=== PATIENT | male | born 1935 | race Caucasian/White ===

== ENCOUNTER 2019-05-31 11:55 | Inpatient (IN) | payer MEDICARE, SELFPAY ==
--- NOTE | ~2019-05-31 | XR_ITS ---
EXAMINATION: XR hip RT 2V w AP pelvis DATE: 05/31/2019 12:38 INDICATION: Right hip pain. Fall. TECHNIQUE: An anteroposterior view of the pelvis and 2 views of right hip were obtained. COMPARISON: Left hip radiographs 08/14/2015 FINDINGS: There is a subcapital fracture of right femoral neck. The distal fracture fragment demonstr ates impaction, 40 degrees varus angulation, and 8 mm anterior displacement. There is an old healed f racture of proximal left femur with internal fixation with antegrade intramedullary soledad, femoral head /neck screw, and distal interlocking screw. There is moderate osteoarthritis of the hips. Surgical cl ips overlie right pelvis. There is lumbar dextroscoliosis and severe spondylosis. IMPRESSION: 1. Subcapital fracture of right femoral neck. 2. Moderate osteoarthritis of the hips. Reviewed, dictated and finalized at location A.
--- NOTE | ~2019-05-31 | XR_ITS ---
XR hip RT min 2V DATE: 06/01/2019 12:38 INDICATION: Right subcapital femoral neck fracture TECHNIQUE: Portable postoperative AP and crosstable lateral views COMPARISON: 05/31/2019 right hip FINDINGS: There is resection of the right femoral head and neck and placement of a bipolar hip prosth esis in appropriate position. There is expected postoperative subcutaneous emphysema. Skin hailey ar e noted laterally. IMPRESSION: Right bipolar hip replacement Reviewed, dictated and finalized at location B.
--- NOTE | ~2019-05-31 | CT_ITS ---
EXAMINATION: CT chest w con EXAM DATE: 06/03/2019 10:25 INDICATION: Possible mass. Abnormal chest x-ray. TECHNIQUE: Spiral CT of the chest following intravenous injection of 75 mL Omnipaque 350. Axial, cor onal and sagittal images were reviewed. Coronal maximum intensity pixel images of chest reviewed. T kathe dose-length product (DLP) for this examination was 381.86 mGy-cm. The exposure was tailored accor ding to patient size (auto mA exposure control), and iterative reconstruction (ASIR) was used as rasheed tional dose reduction technique. There is no prior study for comparison. Correlation was made with c hest x-ray from yesterday. FINDINGS: The suprahilar opacities on x-ray are likely advanced osteoarthritis at the costochondral junction of the first ribs bilaterally, as there are no lung masses identified. There is linear bibas ilar atelectasis. There are no pleural or pericardial effusions. Tracheobronchial tree is patent. There is no mediastinal, hilar or axillary lymphadenopathy. There is no pneumothorax. Heart nor mal in size. There is mild coronary arterial calcification, arterial sclerosis. Upper abdomen is u nremarkable. There is mild thoracic spondylosis without osteoblastic or osteolytic lesions identifi ed. There is mild upper thoracic levoscoliosis, thoracolumbar dextroscoliosis. IMPRESSION: 1. Bibasilar subsegmental atelectasis. 2. No lung mass. Reviewed, dictated and finalized at location A.
--- NOTE | ~2019-05-31 | XR_ITS ---
EXAMINATION: XR hip RT 2V w AP pelvis EXAM DATE: 06/01/2019 18:08 INDICATION: Fall, had right hip surgery today. TECHNIQUE: Right hip frontal, crosstable lateral projections for interpretation. Frontal projection p reese. Comparison is made to prior examination from earlier same date. FINDINGS: There is a new right-sided hip replacement, hardware intact. There was a previous left hip gamma nail with healed fracture. No acute fracture line identified. Some hailey over the thigh. Prob able right inguinal hernia repair. IMPRESSION: Intact right hip arthroplasty. Reviewed, dictated and finalized at location A.
--- NOTE | ~2019-05-31 | XR_ITS ---
XR chest 1V portable DATE: 06/02/2019 14:44 INDICATION: Fever TECHNIQUE: Portable semiupright AP view on 06/02/2019 at 1442 hours COMPARISON: None FINDINGS: This is a limited kyphotic single portable AP view of the chest with some rotation. The lef t costophrenic angle and the lung bases are not completely included There is suggestion of an approximately 1.3 cm mass or infiltrate overlying the left suprahilar area. There is soft tissue prominence overlying the right suprahilar area as well. CT thorax with IV contr ast material is recommended. Otherwise no pulmonary infiltrate or consolidation, pleural effusion or pulmonary vascular congestion or pneumothorax is evident. Borderline heart size. Aortic calcification. Diffuse osteopenia. Thoracic scoliosis.. IMPRESSION: Limited examination Possible masses or infiltrates overlying both suprahilar areas; consider CT thorax with IV contrast m aterial Reviewed, dictated and finalized at location A. IMPRESSION: Limited examination Possible masses or infiltrates overlying both suprahilar areas; consider CT tho rax with IV contrast material
--- NOTE | ~2019-05-31 | CT_ITS ---
EXAMINATION: CT brain wo con, CT cervical spine wo con EXAM DATE: 06/01/2019 17:54 INDICATION: Fall, head injury. TECHNIQUE: Spiral CT of the head was performed without contrast. Axial, coronal and sagittal images were reviewed. Spiral CT of the cervical spine was performed without contrast. Axial images were rev iewed. Coronal and sagittal reformatted images were also reviewed. The dose-length product (DLP) fo r this examination was 681.00 (accession [id number]), 349.18 (accession [id number]) mGy-cm. The exposure was tailored according to patient size, and iterative reconstruction (ASIR) was used as additional dose reduction technique. There is no prior study for comparison. FINDINGS: HEAD CT: There is no acute intraparenchymal hemorrhage. No evidence of intraparenchymal brain mass l esion. No evidence of acute infarction. There is mild periventricular and subcortical hypodensity, n onspecific but probably related to small vessel ischemic disease. There is moderate prominence of t he sulci and ventricles related to cerebral atrophy. There is intracranial carotid arteriosclerosis . There is no mass effect or midline shift. There is no obstructive hydrocephalus suspected. There are no extra-axial collections. There are no acute calvarial fractures. Patient has had bilateral ocular lens surgery. Soft tissue is unremarkable. The visualized sinuses and mastoid air cells are well aerated. CERVICAL CT: Incomplete posterior fusion of C1, congenital finding. There is advanced cervical arthro eve. There is no evidence of acute cervical fracture. The odontoid process is intact. Pre-dens sp katherine is normal. Prevertebral soft tissue is normal. There are no soft tissue abnormalities identifie d. There is no disc space widening or traumatic vertebral body subluxation suspected. Moderate to s evere disc disease C3-4, 5-6 and 6-7. A detailed level by level evaluation of spondylosis can be add ed as addendum if requested. IMPRESSION: 1. No acute intracranial or cervical findings. 2. Age-related intracranial findings. 3. Cervical spondylosis. Reviewed, dictated and finalized at location A. IMPRESSION: 1. No acute intracranial or cervical findings. 2. Age-related intracranial findings. 3. Cervical spondylosis.
[2019-05-31 11:57] VITALS: BP 147/77; PULSE 72; RESP 18; TEMP 37.3; O2SAT 95
--- NOTE | 2019-05-31 12:05 | ED.LOWEXIN ---
HPI - Extremity Injury (Lower) General Chief Complaint: Extremity Injury, Lower Stated Complaint: GROUND LEVEL FALL Time Seen by Provider: 05/31/19 12:03 Source: patient Mode of arrival: EMS Limitations: no limitations History of Present Illness HPI Narrative: An 84 y/o male pt presents to the ED, via EMS from home, with c/o fall that occurred today. Pt states he normally walks with a cane d/t his RLE being weak/unsteady, but today he tried standing up without using his cane and his RLE gave out on him causing him to fall. Pt notes pain in his rt hip radiating to his rt knee and rt foot. He denies hitting his head or LOC. Pt's PCP is Dr. Perea and has a PMHx of HTN, depression, arthritis, DM, Hypercholesterolemia, and Allergic Rhinitis. complaint: fall Onset (ago): hour(s) Injury: Right: hip, knee and foot Place: home Context: fall (normally walks with a cane, stood up without cane) Other symptoms: other (pain to rt hip and RLE) Related Data Home Medications Medication Instructions Recorded Confirmed Claritin 05/31/19 Fish Oil Extra Strength 05/31/19 calcium citrate-vitamin D3 1 tablet PO DAILY 05/31/19 05/31/19 [Citracal + D Maximum] celecoxib [Celebrex] mg 05/31/19 finasteride mg 05/31/19 fluticasone propionate [Flonase INTRANASAL 05/31/19 Allergy Relief] guaifenesin [Mucinex] mg PO 05/31/19 lisinopril 05/31/19 metformin mg 05/31/19 pravastatin 05/31/19 sertraline mg 05/31/19 vit D3-vit [id number] tablet PO 05/31/19 Allergies Allergy/AdvReac Type Severity Reaction Status Date / Time Tetanus Vaccines and Toxoid Allergy Unknown Verified 04/08/15 14:46 Review of Systems Review of Systems: All systems reviewed & are unremarkable except as noted in HPI and below Musculoskeletal: Musculoskeletal: Reports arthralgias (rt hip pain) and Reports radiating pain into limb (RLE ) Neurologic: Denies other (LOC) [facility] Past Medical History Medical History (Updated 05/31/19 @ 15:23 by Sofi Hernández MD) Allergic rhinitis Arthritis Depression Diabetes mellitus Fall as cause of accidental injury at home as place of occurrence Fracture of femoral neck, right, closed History of hypercholesterolemia Hypertension Surgical History Surgical History No significant past surgical history Family History Family History Other Family history of arthritis Hypertension Social History Social History Smoking status: Never smoker Smoking end date: 03/01/86 Alcohol intake: current Living arrangements: with family Additional living arrangements comments: Lives at home with spouse Exam Const: General: cooperative, no acute distress and alert Nutritional Appearance: well nourished Orientation/consciousness: patient oriented x3 Limitations: no limitations HENMT: Head: normal to inspection Mouth: Yes lip normal and Yes moist mucous membranes Resp: Effort & Inspection: normal respiratory effort Auscultation: clear to auscultation bilaterally Cardio: Rate: regular rate Rhythm: regular rhythm GI: GI Palp: Yes Soft to palpation and No Tenderness to palpation present (GI) Auscultation: normal bowel sounds Back/Spine/Pelvis: Other: Pain in rt hip with ROM. Mild tenderness to rt hip. Pulses present in RLE Skin: General skin exam: normal color Neuro: General: patient oriented x3 Cognition (Neuro): normal cognition Speech: normal speech Extrem: General: normal to inspection, full ROM and no clubbing, cyanosis or edema Psych: Mental Status: mental status grossly normal Affect: normal affect Attitude: cooperative Course Course Emergency Course: Patient initially fairly comfortable, but did have increasing pain to his right hip. Pain medications ordered. Patient advised findings of hip fracture and ad
[2019-05-31 13:03] VITALS: BP 138/76; PULSE 64; RESP 20; O2SAT 98
[2019-05-31 14:33] LABS: Basophils Percent Auto 0.3 % (0.2-1.2); Eosinophils Percent Auto 0.2 % (0-4.4); Hematocrit 46.6 % (42.0-52.0); Hemoglobin 15.4 g/dL (14.0-18.0); Immature Granulocyte Absolute 0.11 K/mm3 (0.00-0.031); Immature Granulocyte Percent A 0.7 % (0-0.5); Lymphocytes Absolute Auto 0.81 K/mm3 (0.9-3.2); Lymphocytes Percent Auto 5.2 % (18.3-44.2); Mean Corpuscular Hemoglobin 30.9 pg (26-34); Mean Corpuscular Volume 93.6 fl (80-100); Mean Platelet Volume 9.7 fl (7.4-10.4); Monocytes Absolute Auto 0.8 K/mm3 (0.1-0.6); Monocytes Percent Auto 5.1 % (2.6-8.5); Neutrophils Absolute Auto 13.8 K/mm3 (1.3-6.7); Neutrophils Percent Auto 88.5 % (45.5-73.1); Platelet Count Result 174 k/mm3 (150-375); Red Blood Count 4.98 M/mm3 (4.6-6.20); Red Cell Distribution Width 12.7 % (11.5-14.5); White Blood Count 15.5 K/mm3 (4.5-10.0)
[2019-05-31 14:43] VITALS: BP 150/69; PULSE 69; RESP 18; O2SAT 98
[2019-05-31 14:43] LABS: Blood Urea Nitrogen 29 mg/dL (9-20); Calcium 9.2 mg/dL (8.4-10.2); Carbon Dioxide 26 mmol/L (22-30); Chloride 106 mmol/L (98-107); Estimated CRCL calculation 54 ml/min; Estimated Glomerular Filt Rate > 60; Glucose 118 mg/dL (75-110); Potassium 4.2 mmol/L (3.4-5.0); Sodium 138 mmol/L (137-145)
[2019-05-31 15:06] LABS: INR 1.1; Partial Thromboplastin Time 29.2 SECONDS (22.3-36.8); Prothrombin Time 13.9 Seconds (11.1-14.7)
--- NOTE | 2019-05-31 15:12 | PM.CNOR ---
Assessment and Plan Assessment and plan (1) Fracture of femoral neck, right, closed: Qualifiers: Encounter type: initial encounter Qualified Code(s): S72.001A - Fracture of unspecified part of neck of right femur, initial encounter for closed fracture Code(s): S72.001A - Fracture of unspecified part of neck of right femur, initial encounter for closed fracture Status: Acute Assessment and Plan: Updated history, physical exam and radiographs reviewed with the patient. Interval changes reviewed. Right hip femoral neck fracture with displacement. Discussed the condition, nature, etiology and course of natural history with the patient. Treatment options including surgical and nonoperative treatment were reviewed. Risks and benefits of each as well as alternatives reviewed. The patient's questions were answered. Conservative treatment ice, pain control, DVT prophylaxis with mechanical sequential pump. Patient and family desire operative treatment. Discussed nonoperative and operative treatment options with the patient. Risks and benefits of each as well as alternatives were reviewed. All of the patient's questions were answered. The risks of surgery reviewed including but not limited to: Neurovascular damage, wound complication, infection, blood clot, pulmonary embolus, stroke, myocardial infarction, and anesthetic risks up to and including . Continued pain and possible dysfunction were explained. Surgery option of fracture fixation versus hemiarthroplasty with the risks, benefits and alternatives of each discussed in detail. Specific risks of the procedure including later recurrence of deformity, limb length shortening, rotational problems problems with ambulation, dysfunction. No guarantees were offered. If complications occur, the patient understands the need for further treatment, possible further surgery. Patient verbalizes understanding and wishes to proceed. Desires hemiarthroplasty replacement rather than fracture fixation. PLAN: Right hip hemiarthroplasty (2) Fall as cause of accidental injury at home as place of occurrence: Qualifiers: Encounter type: initial encounter Qualified Code(s): W19.XXXA - Unspecified fall, initial encounter; Y92.009 - Unspecified place in unspecified non-institutional (private) residence as the place of occurrence of the external cause Code(s): W19.XXXA - Unspecified fall, initial encounter; Y92.009 - Unspecified place in unspecified non-institutional (private) residence as the place of occurrence of the external cause Status: Acute (3) Diabetes mellitus: Qualifiers: Diabetes mellitus complication detail: with autonomic neuropathy Diabetes mellitus complication status: with neurologic complications Diabetes mellitus shelter insulin use: without terminal superintendent use Diabetes mellitus type: type 2 Qualified Code(s): E11.43 - Type 2 diabetes mellitus with diabetic autonomic (poly)neuropathy Code(s): E11.9 - Type 2 diabetes mellitus without complications Status: Acute History of Present Illness HPI Consult date: 05/31/19 Requesting physician: Clinton Hernández MD Consult reason: fracture Chief complaint: Right Hip Fracture Narrative: 84-year-old gentleman known to me for previous left hip fracture 4 years ago. Patient home when lost his balance and fell onto right side. Unable to bear weight. Brought to the emergency room and found to have right hip fracture. Denies loss of consciousness, head neck or back injury at the time his fall. Complains of right hip pain, sharp, severe. Decreased sensation feet prior to the injury consistent with neuropathy. Patient has history of severe lumbar degenerative condition. Review of Systems Constitutional: Constitutional: Denies fever(s) Eyes: Eyes: Denies blurry vision ENT: Reports Normal hearing present Cardiovascular: Cardiovascular: Denies chest pain and Denies dyspnea Res
[2019-05-31 15:18] VITALS: BP 165/63; PULSE 71; RESP 18; O2SAT 97
--- NOTE | 2019-05-31 18:05 | PM.IMHP ---
H&P: HPI History of Present Illness Chief complaint: Right Hip Fracture Narrative: Chaz Downey is a 84 year old male who lives at home with his . The patient has had multiple falls in the past. The patient complains of having a fall that occurred today. The patient typically walks with a cane but he was unsteady and weak. Is the patient tried to stand up without using his cane and his leg gave out and he fell. He was complaining of right hip pain radiating to his knee and right foot. Right hip x-ray shows subcapital fracture of right femoral neck. Moderate osteoarthritis of the hips. Orthopedic physician has been notified and agrees to consult. Review of Systems Review of Systems: Narrative: The patient is very forgetful. He repeats himself several times. I did call the an ask her some questions. She tells me she has already answer the same questions. She is instructed me to look at the chart and the records rather than ask her again. Information was obtained from records. All systems reviewed & are unremarkable except as noted in HPI and below Constitutional: Constitutional: Reports as per HPI and Reports no additional constitutional complaints Eyes: Eyes: Reports as per HPI and Reports no additional eye complaints ENT: Reports system reviewed and no additional complaints, except as documented and Reports Normal hearing present Cardiovascular: Cardiovascular: Reports no additional cardiovascular complaints Respiratory: Respiratory: Reports no additional respiratory complaints and Reports no additional respiratory complaints Gastrointestinal: Gastrointestinal: Reports as per HPI and Reports no additional gastrointestinal complaints Musculoskeletal: Musculoskeletal: Reports no additional musculoskeletal complaints Integumentary/Breasts: Skin/Breast: Reports system reviewed and no additional complaints, except as docu and Reports as per HPI Neurologic: Reports system reviewed and no additional complaints, except as documented, Reports as per HPI and Reports Normal hearing present Psychiatric: Psychiatric: Reports no additional psychiatric complaints and Reports as per HPI Endocrine: Endocrine: Reports no additional endocrine complaints Hematologic/Lymphatic: Hematologic/Lymphatic: Reports no additional hematologic/lymphatic complaints Allergic/Immunologic: Allergic/Immunologic: Reports no additional allergic/immunologic complaints [facility] Past Medical History Medical History (Updated 05/31/19 @ 18:25 by Uyen Quintana NP) Allergic rhinitis Arthritis BPH (benign prostatic hyperplasia) Depression Diabetes mellitus Fall as cause of accidental injury at home as place of occurrence Fracture of femoral neck, right, closed History of hypercholesterolemia Hypertension Surgical History Surgical History (Updated 05/31/19 @ 18:25 by Uyen Quintana NP) History of repair of left hip joint History of tonsillectomy Family History Family History Other Family history of arthritis Hypertension Social History Social History (Updated 05/31/19 @ 18:29 by Uyen Quintana NP) Social History: The patient lives with his . She has is durable power insurance clerk for healthcare. I believe her name is Blanca. The patient is a full code. He has 2 children. 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 He stated it is [employer] in [place]. Smoking packs per day: 1 Smoking cigarettes per day: 20.0 Smoking status: Former smoker Tobacco type: cigarettes Smoking end date: 05/30/76 Alcohol intake: former Drinks per week: 0 Substance use: never Substance use type: does not use Living arrangements: with family Additional living arrangements comments: Lives at home with spouse Gender identity (if verbalized by the patient): Male Spiritual care concerns: Yes ([facility] specialist is available to speak with ptLuciana lopze [phone]) Agree to
[2019-05-31 18:42] LABS: Glucose Point of Care 141 (65-105)
[2019-05-31 20:16] LABS: Glucose Point of Care 225 (65-105)
[2019-05-31 22:00] VITALS: BP 116/84; PULSE 74; RESP 16; TEMP 37.3; O2SAT 95
[2019-06-01] VITALS (16 sets, daily range): BP systolic 116–144; BP diastolic 54–85; PULSE 66–122; RESP 15–20; TEMP 36.3–38.1; O2SAT 90–100
[2019-06-01 06:07] LABS: Basophils Percent Auto 0.3 % (0.2-1.2); Eosinophils Absolute Auto 0.4 K/mm3 (0-0.3); Eosinophils Percent Auto 2.5 % (0-4.4); Hematocrit 43.5 % (42.0-52.0); Hemoglobin 14.3 g/dL (14.0-18.0); Immature Granulocyte Absolute 0.07 K/mm3 (0.00-0.031); Immature Granulocyte Percent A 0.5 % (0-0.5); Mean Corpuscular HGB Conc 32.9 g/dl (32-36); Mean Corpuscular Hemoglobin 30.8 pg (26-34); Mean Corpuscular Volume 93.8 fl (80-100); Mean Platelet Volume 9.7 fl (7.4-10.4); Monocytes Absolute Auto 1.1 K/mm3 (0.1-0.6); Monocytes Percent Auto 7.2 % (2.6-8.5); Neutrophils Absolute Auto 12.5 K/mm3 (1.3-6.7); Neutrophils Percent Auto 83.5 % (45.5-73.1); Platelet Count Result 167 k/mm3 (150-375); Red Blood Count 4.64 M/mm3 (4.6-6.20); Red Cell Distribution Width 12.6 % (11.5-14.5)
[2019-06-01 06:17] LABS: Blood Urea Nitrogen 26 mg/dL (9-20); Calcium 8.9 mg/dL (8.4-10.2); Carbon Dioxide 29 mmol/L (22-30); Chloride 105 mmol/L (98-107); Estimated CRCL calculation 50 ml/min; Estimated Glomerular Filt Rate > 60; Glucose 143 mg/dL (75-110); Potassium 4.5 mmol/L (3.4-5.0); Sodium 136 mmol/L (137-145)
[2019-06-01] MEDS: LACTATED RINGERS 1,000 ML 30 ML IV CONT ×2 (09:00→12:15)
--- NOTE | 2019-06-01 09:06 | WPDHPUPDATE1 ---
History and Physical Update Update Date/Time: 06/01/19 09:06 History and Physical has been reviewed, including an updated exam of the patient and new labs. There are NO changes in the patient's condition. Risks, benefits, and alternatives have been discussed and questions answered. Patient agrees to proceed with procedure. RT hip hemiarthroplasty
[2019-06-01 09:24] LABS: Glucose Point of Care 139 (65-105)
--- NOTE | 2019-06-01 09:48 | WPDANESEPPF ---
Anes - Initial Pre Proc Eval Procedure: Operation Date: 06/01/19 09:30 Proposed Procedures p Bipolar Right Hip Replacement(Right) - Sarjo Finley MD Date/Time: 06/01/19 09:48 Surgeon: Gordy Hernández MD Pre Op Diagnosis: Right Hip Fracture Patient Data Age: 84 Gender: M Height: 1.83 m Weight: 81.85 kg Last Vital Signs Temp 37.1 C 06/01/19 08:15 Pulse 74 06/01/19 08:15 Resp 16 06/01/19 08:15 BP 136/78 06/01/19 08:15 Pulse Ox 98 06/01/19 08:15 Allergies Allergy/AdvReac Type Severity Reaction Status Date / Time Tetanus Vaccines and Toxoid Allergy Unknown Verified 04/08/15 14:46 Home Medications Medication Instructions Recorded Confirmed Type Fish Oil Extra Strength 1,400 mg PO DAILY 05/31/19 05/31/19 History calcium citrate-vitamin D3 1 tablet PO DAILY 05/31/19 05/31/19 History [Citracal + D Maximum] celecoxib [Celebrex] 200 mg PO DAILY 05/31/19 05/31/19 History cholecalciferol (vitamin D3) 400 unit PO DAILY 05/31/19 05/31/19 History [Vitamin D3] fexofenadine [Bernice Allergy] 180 mg PO DAILY 05/31/19 05/31/19 History finasteride [Proscar] 5 mg PO DAILY 05/31/19 05/31/19 History fluticasone propionate [Flonase 50 mcg INTRANASAL DIRECTED 05/31/19 05/31/19 History Allergy Relief] guaifenesin [Mucinex] 600 mg PO DAILY 05/31/19 05/31/19 History lisinopril 10 mg PO DAILY 05/31/19 05/31/19 History metformin [Glucophage] 500 mg PO BID 05/31/19 05/31/19 History pravastatin 40 mg PO DAILY 05/31/19 05/31/19 History sertraline 100 mg PO DAILY 05/31/19 05/31/19 History Laboratory Tests 05/31/19 05/31/19 05/31/19 14:23 14:23 14:23 WBC 15.5 K/mm3 H K/mm3 (4.5-10.0) RBC 4.98 M/mm3 M/mm3 (4.6-6.20) Hgb 15.4 g/dL g/dL (14.0-18.0) Hct 46.6 % % (42.0-52.0) MCV 93.6 fl fl (80-100) MCH 30.9 pg pg (26-34) MCHC 33.0 g/dl g/dl (32-36) RDW 12.7 % % (11.5-14.5) Plt Count 174 k/mm3 k/mm3 (150-375) MPV 9.7 fl fl (7.4-10.4) Immature Gran % (Auto) 0.7 % H % (0-0.5) Neut % (Auto) 88.5 % H % (45.5-73.1) Lymph % (Auto) 5.2 % L % (18.3-44.2) Butler % (Auto) 5.1 % % (2.6-8.5) Eos % (Auto) 0.2 % % (0-4.4) Baso % (Auto) 0.3 % % (0.2-1.2) Lymph # (Auto) 0.81 K/mm3 L K/mm3 (0.9-3.2) Butler # (Auto) 0.8 K/mm3 H K/mm3 (0.1-0.6) Eos # (Auto) 0.0 K/mm3 K/mm3 (0-0.3) Baso # (Auto) 0.0 K/mm3 K/mm3 (0.0-0.1) Abs Immat Gran (auto) 0.11 K/mm3 H K/mm3 (0.00-0.031) Absolute Neuts (auto) 13.8 K/mm3 H K/mm3 (1.3-6.7) Absolute Nucleated RBC 0.0 K/mm3 K/mm3 (0.0-0.012) Nucleated RBC % 0.0 % % (0.0-0.2) PT 13.9 Seconds Seconds (11.1-14.7) INR 1.1 APTT 29.2 SECONDS SECONDS (22.3-36.8) Sodium 138 mmol/L mmol/L (137-145) Potassium 4.2 mmol/L mmol/L (3.4-5.0) Chloride 106 mmol/L mmol/L (98-107) Carbon Dioxide 26 mmol/L mmol/L (22-30) BUN 29 mg/dL H mg/dL (9-20) Creatinine 1.00 mg/dL mg/dL (0.7-1.3) Estim Creat Clear Calc 54 ml/min ml/min Estimated GFR > 60 (59 - ) Glucose 118 mg/dL H mg/dL (75-110) POC Capillary Glucose Hemoglobin A1c Calcium 9.2 mg/dL mg/dL (8.4-10.2) Blood Type Antibody Screen 05/31/19 05/31/19 06/01/19 18:39 20:02 05:53 WBC 15.0 K/mm3 H K/mm3 (4.5-10.0) RBC 4.64 M/mm3 M/mm3 (4.6-6.20) Hgb 14.3 g/dL g/dL (14.0-18.0) Hct 43.5 % % (42.0-52.0) MCV 93.8 fl fl (80-100) MCH 30.8 pg pg (26-34) MCHC 32.9 g/dl g/dl (32-36) RDW 12.6 % % (11.5-14.5) Plt Count 167 k/mm3 k/mm3 (150-375) MPV 9.7 fl fl (7.4-10.
[2019-06-01] MEDS: ceFAZolin 2 GM/D5W 50 ML 2 GM/50 ML BAG IVPB (10:04)
[2019-06-01] MEDS: BUPIVACAINE/EPINEPHRINE 0.5% 30 ML VIAL INFILTRATE (10:43)
--- NOTE | 2019-06-01 12:58 | PM.PROC ---
Procedure Note - Detailed Date of procedure: 06/01/19 Pre-op diagnosis: Right Hip Fracture Post-op diagnosis: same Procedure performed: Right hip bipolar Description of procedure: IMPLANTS USED: Biomet Taperloc, size 17 press-fit femoral stem with a -6mm neck and a 53mm acetabular cup with 28 mm femoral head. OPERATIVE INDICATIONS: The patient is an 84-year-old man who fell and sustained a right hip fracture. Requested operative treatment. A full discussion of the risks, benefits, and alternatives was had with the patient and family. They verbalized undferstanding and agreement. WHAT WAS DONE: After informed consent was given, the operative extremity was marked in the preoperative holding area. The patient received intravenous antibiotics. Patient was brought to the operating room where they underwent a general anesthetic. Positioned in the lateral decubitus position nonop side down and the operative hip up. The right hip was then prepped and draped in the usual sterile surgical fashion using ChloraPrep skin solution. Time-out performed confirming the patient, side of the surgery, and the plan. A longitudinal incision was then made over the lateral side of the hip with the 10-blade knife. Hemostasis was controlled with electrocautery. Dissection was carried down through the fascia, which was incised in line with the skin incision. Subfascial retractor was placed. The abductor musculature was then elevated off the lateral side of the femur leaving a cuff of tissue for repair. The short abductor musculature was then elevated off the capsule and retention sutures were placed at the corner. The capsule was then incised in line with the femoral neck and T'd at the base. This allowed exposure of the fracture. The fracture hematoma was evacuated. Proximal femoral cutting guide was used to make a femoral neck cut at 2 cm above the lesser trochanter. This bone was removed with a rongeur. We then removed the head with a corkscrew. This was measured on the back table. Trialing of the acetabulum was done and a size 53 mm had excellent fit. The acetabulum was thoroughly irrigated and suctioned. Part of the fovea was removed with cautery. The rest of the acetabulum was inspected and noted to be with minimal degenerative changes. The proximal femur was then prepared. A posterior femoral retractor elevator was placed and a box cutting chisel was used to enter the femoral canal. We then used the canal finder. Broaching was then performed sequentially in 1 mm increments from a size 4 up to a size 17. This was noted to have excellent fit. We then trialed the hip. Excellent fit, stability with external and internal rotation at full extension and flexion of his hip and leg shuck were noted. The trial components were then removed. There was thorough irrigation with antibiotic solution of the proximal femur, acetabulum, and the wound. The femoral stem was then impacted into place. Good fit was noted. Trialing was once again performed and a 17 stem with a 53 mm acetabular cup had excellent stability and range of motion. The trial components were removed and the 28 mm head acetabular cup were then impacted onto the femoral stem. The hip was then reduced once again, taken through full range of motion and noted to be stable with the leg extended in full external and internal rotation with the hip flexed to 90 degrees with internal and external rotation. There was equal leg length noted. Wound was thoroughly irrigated with antibiotic solution. The capsule was repaired with #1 Vicryl interrupted suture. The abductors were repaired back with #1 Vicryl interrupted suture. The fascia was repaired with 0 Vicryl running suture. Subcutaneous tissue was repaired in layers with 2-0 Vicryl interrupted suture. Skin repaired with hailey. A sterile dressing was placed. A hip abduction stability pillow was applied. The patient was then retur
[2019-06-01 13:07] LABS: Glucose Point of Care 169 (65-105)
[2019-06-01] MEDS: OMEGA 3 POLYUNSAT FATTY ACIDS 1 GM CAP PO (14:32)
[2019-06-01] MEDS: PRAVASTATIN SODIUM 20 MG TABLET 40 MG PO (14:33)
[2019-06-01] MEDS: CELECOXIB 200 MG CAPSULE PO (14:33)
[2019-06-01] MEDS: LORATADINE 10 MG TABLET PO (14:33)
[2019-06-01] MEDS: lisinopriL 10 MG TABLET PO (14:33)
[2019-06-01] MEDS: SERTRALINE HCL 50 MG TABLET 100 MG PO (14:33)
[2019-06-01] MEDS: CHOLECALCIFEROL 400 UNITS TABLET (VIT D) PO (14:34)
[2019-06-01] MEDS: FINASTERIDE 5 MG TABLET PO (14:34)
--- NOTE | 2019-06-01 16:20 | PM.IMPN ---
Progress Note: A&P Assessment and Plan (1) Fracture of femoral neck, right, closed: Qualifiers: Encounter type: initial encounter Qualified Code(s): S72.001A - Fracture of unspecified part of neck of right femur, initial encounter for closed fracture Code(s): S72.001A - Fracture of unspecified part of neck of right femur, initial encounter for closed fracture Status: Acute Assessment and Plan: Pain after fall with x-ray showing subcapital fracture of the right femoral neck with impaction, angulation and displacement. Orthopedics was consulted and options were discussed. Patient underwent right bipolar hip arthroplasty earlier today and tolerated it well. He has already been up to the chair. Pain controlled. Continue PT/OT. WBC elevation related to the fracture but will continue to monitor. Consider CXR/UA if he develops fevers or increasing WBC. 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 Patient on metformin at home. Glucose reviewed on 06/01/2019. Elevated last night otherwise glucose is been well controlled. Continue Accu-Cheks covering with sliding scale. Hypoglycemia protocol has been ordered. Continue to hold metformin at this time. (3) Hematuria: Qualifiers: Hematuria type: gross Qualified Code(s): R31.0 - Gross hematuria Code(s): R31.9 - Hematuria, unspecified Status: Acute Assessment and Plan: According to RN, hematuria related to Mai trauma in not related to placement of Mai. No clots noted in the urine. Will go ahead and remove Mai catheter and continue to monitor for signs or symptoms of retention. Continue with finasteride. (4) BPH (benign prostatic hyperplasia): Qualifiers: Lower urinary tract symptom presence: symptoms absent Qualified Code(s): N40.0 - Benign prostatic hyperplasia without lower urinary tract symptoms Code(s): N40.0 - Benign prostatic hyperplasia without lower urinary tract symptoms Status: Chronic Assessment and Plan: As above. (5) Hypertension: Qualifiers: Hypertension type: essential hypertension Qualified Code(s): I10 - Essential (primary) hypertension Code(s): I10 - Essential (primary) hypertension Status: Chronic Assessment and Plan: Blood pressure reviewed on 06/01/2019. Blood pressure well controlled. Continue lisinopril. Adjust medications as needed. (6) History of hypercholesterolemia: Code(s): Z86.39 - Personal history of other endocrine, nutritional and metabolic disease Status: Chronic Assessment and Plan: Stable. Continue pravastatin and fish oil. Check LFTs. (7) Depression: Qualifiers: Active/Remission status: remission status unspecified Depression Type: major depressive disorder Major depression recurrence: recurrent Qualified Code(s): F33.9 - Major depressive disorder, recurrent, unspecified Code(s): F32.9 - Major depressive disorder, single episode, unspecified Status: Chronic Assessment and Plan: Mood stable. Continue sertraline. (8) Dementia: Qualifiers: Dementia behavioral disturbance: without behavioral disturbance Dementia type: unspecified type Qualified Code(s): F03.90 - Unspecified dementia without behavioral disturbance Code(s): F03.90 - Unspecified dementia without behavioral disturbance Status: Acute Assessment and Plan: Patient with underlying dementia with most
[2019-06-01] MEDS: DOCUSATE SODIUM 100 MG CAPSULE PO (19:55)
[2019-06-01 20:17] LABS: Glucose Point of Care 251 (65-105)
[2019-06-01] MEDS: KCL 20 MEQ/D5/0.45% SOD CHL 1,000 ML 80 ML IV CONT (21:47)
[2019-06-01] MEDS: FAMOTIDINE 20 MG TABLET PO (21:47)
--- NOTE | 2019-06-02 01:02 | ECG_ITS ---
Measurements Intervals [place] Rate: 110 P: 26 TX: 183 QRS: -17 QRSD: 104 T: 31 QT: 321 QTc: 436 Interpretive Statements SINUS TACHYCARDIA INCOMPLETE RIGHT BUNDLE BRANCH BLOCK LOW QRS VOLTAGE IN PRECORDIAL LEADS ABNORMAL ECG Electronically Signed On 06-02-2019 7:03:40 CDT by Don Moctezuma D.O.
[2019-06-02 02:00] VITALS: BP 118/54; PULSE 109; RESP 18; TEMP 37.3; O2SAT 96
[2019-06-02 05:25] LABS: Add Urine Microscopic? YES; Appearance Urine Cloudy (Clear); Bilirubin Urine Negative (Negative); Blood Urine 2+ (Negative); Color Urine Red (Yellow); Glucose Urine UA 1+ mg/dL (Negative); Ketones Urine Negative (Negative); Leukocyte Esterase Ur Trace LEU/UL (Negative); Nitrate Urine Negative (Negative); Protein Urine 2+ mg/dL (Negative); RBC Urine >75 /hpf (0-2); Specific Grav Ur 1.011 (1.001-1.035); Urobilinogen Urine Negative mg/dL (<2.0); WBC Urine >75 /hpf
[2019-06-02 05:39] LABS: Basophils Absolute Auto 0.1 K/mm3 (0.0-0.1); Basophils Percent Auto 0.3 % (0.2-1.2); Eosinophils Absolute Auto 0.2 K/mm3 (0-0.3); Eosinophils Percent Auto 0.9 % (0-4.4); Hematocrit 38.9 % (42.0-52.0); Hemoglobin 12.5 g/dL (14.0-18.0); Immature Granulocyte Absolute 0.15 K/mm3 (0.00-0.031); Immature Granulocyte Percent A 0.9 % (0-0.5); Lymphocytes Absolute Auto 0.65 K/mm3 (0.9-3.2); Lymphocytes Percent Auto 3.9 % (18.3-44.2); Mean Corpuscular HGB Conc 32.1 g/dl (32-36); Mean Corpuscular Hemoglobin 30.7 pg (26-34); Mean Corpuscular Volume 95.6 fl (80-100); Mean Platelet Volume 10.3 fl (7.4-10.4); Monocytes Absolute Auto 1.5 K/mm3 (0.1-0.6); Monocytes Percent Auto 8.8 % (2.6-8.5); Neutrophils Absolute Auto 14.4 K/mm3 (1.3-6.7); Neutrophils Percent Auto 85.2 % (45.5-73.1); Platelet Count Result 160 k/mm3 (150-375); Red Blood Count 4.07 M/mm3 (4.6-6.20); Red Cell Distribution Width 12.9 % (11.5-14.5); White Blood Count 16.9 K/mm3 (4.5-10.0)
[2019-06-02 05:48] VITALS: BP 109/75; PULSE 94; RESP 18; TEMP 37.6; O2SAT 94
[2019-06-02 05:53] LABS: Alanine Aminotransferase 20 U/L (4-50); Albumin Level 3.1 g/dL (3.5-5.1); Alkaline Phosphatase 61 U/L (38-126); Aspartate Amino Transferase 45 U/L (17-59); Bilirubin,Total 0.6 mg/dL (0.2-1.3); Blood Urea Nitrogen 29 mg/dL (9-20); Calcium 8.3 mg/dL (8.4-10.2); Carbon Dioxide 28 mmol/L (22-30); Chloride 103 mmol/L (98-107); Estimated CRCL calculation 46 ml/min; Estimated Glomerular Filt Rate 58; Glucose 249 mg/dL (75-110); Potassium 4.5 mmol/L (3.4-5.0); Sodium 133 mmol/L (137-145)
[2019-06-02] MEDS: CELECOXIB 200 MG CAPSULE PO (08:02)
[2019-06-02] MEDS: FAMOTIDINE 20 MG TABLET PO ×2 (08:03→21:04)
[2019-06-02] MEDS: FINASTERIDE 5 MG TABLET PO (08:03)
[2019-06-02] MEDS: lisinopriL 10 MG TABLET PO (08:03)
[2019-06-02] MEDS: DOCUSATE SODIUM 100 MG CAPSULE PO ×2 (08:03→16:43)
[2019-06-02] MEDS: OMEGA 3 POLYUNSAT FATTY ACIDS 1 GM CAP PO (08:03)
[2019-06-02] MEDS: LORATADINE 10 MG TABLET PO (08:03)
[2019-06-02] MEDS: SERTRALINE HCL 50 MG TABLET 100 MG PO (08:03)
[2019-06-02] MEDS: CHOLECALCIFEROL 400 UNITS TABLET (VIT D) PO (08:03)
[2019-06-02] MEDS: FLUTICASONE PROPIONATE 0.05% NA SPR 16 GM BTL (*BKC) 1 SPRAY NASAL ×2 (08:04→16:43)
[2019-06-02] MEDS: PRAVASTATIN SODIUM 20 MG TABLET 40 MG PO (08:04)
[2019-06-02 08:14] LABS: Glucose Point of Care 190 (65-105)
[2019-06-02 09:04] VITALS: BMI 24.5
[2019-06-02 10:00] VITALS: BP 112/73; PULSE 88; RESP 18; TEMP 37.3; O2SAT 97
--- NOTE | 2019-06-02 10:25 | PM.PNORT ---
Progress Note: A&P Assessment and Plan (1) Fracture of femoral neck, right, closed: Qualifiers: Encounter type: subsequent encounter Fracture healing: with routine healing Qualified Code(s): S72.001D - Fracture of unspecified part of neck of right femur, subsequent encounter for closed fracture with routine healing Code(s): S72.001A - Fracture of unspecified part of neck of right femur, initial encounter for closed fracture Status: Acute Assessment and Plan: postoperative day 1. Right hip bipolar hemiarthroplasty. Fall when attempting to get out of bed unattended last night. CT and radiographic exam negative for any fracture or new changes. Now with full-time sitter. Patient progressing well. He is up in a chair. Still having problems with confusion. Limit medication which may alter his mental status. Continue with PT /OT with weight-bearing as tolerated. Dressing changes starting tomorrow Will need placement. Subjective Subjective Date/Time Seen: 06/02/19 10:25 Patient up in chair, awake and alert, minimal complaints of right hip pain. Patient states confused about his whereabouts and the events over the past several days. Episode last night reviewed where patient attempted to get out of bed and was found down on floor. Head and neck CT with no new findings or acute changes. New right hip and pelvis radiographs showing good alignment of the hip replacement and previous left hip fixation. Exam Const: General: confusion ( To place and time) Orientation/consciousness: oriented to person, No oriented to place, No oriented to time and confusion HENMT: Head: normal to inspection, normocephalic and atraumatic Eyes: Conjunctivae: conjunctivae normal Sclera: sclerae normal Neck: Neck: supple and nontender Chest: Chest palpation & inspection: normal inspection of the chest Resp: Effort & Inspection: normal respiratory effort and no audible wheezes Cardio: Rate: regular rate Rhythm: regular rhythm GI: GI Palp: No abdominal tenderness and Yes Soft to palpation : General: Yes deferred Skin: General skin exam: no rashes or lesions noted Neuro: General: oriented to person and confusion Extrem: General: capillary refill normal Right upper extremity: normal to inspection Left upper extremity: normal to inspection Right lower extremity: hip/thigh, ankle ( able to actively flex and extend ankle) Details: no tenderness and no swelling and foot Details: toes with normal ROM, vascular exam Details: dorsalis pedis pulse present and normal capillary refill and motor-sensory exam Details: light-touch normal ( Throughout all dermatomes) Location: in all toes Left lower extremity: normal to inspection, hip/thigh, lower leg, ankle (no calf tenderness) and foot Other: Right hip incision clean dry and intact. Mild swelling and ecchymosis. Muscle compartments soft. Able to extend and flex the knee. Mild swelling through the distal aspect of the thigh and knee. Able to flex and extend ankle and toes. Good sensation to touch. Good capillary refill. Psych: Affect: normal affect Objective Data Vital Signs Vital Signs: Vital Signs - 24 hr 06/01/19 12:14 06/01/19 12:30 06/01/19 12:45 Temperature 98.0 F Pulse Rate 85 72 72 Respiratory Rate 20 18 16 Blood Pressure 116/81 120/71 120/54 L Pulse Oximetry 96 90 96 06/01/19 13:00 06/01/19 13:15 06/01/19 13:30 Temperature Pulse Rate 69 69 66 Respiratory Rate 16 15 16 Blood Pressure 130/59 L 139/63 142/65 H Pulse Oximetry 96 96 06/01/19 13:45 06/01/19 13:54 06/01/19 14:24 Temperature 97.6 F 98 F Pulse Rate 69 70 72 Respiratory Rate 16 18 18 Blood Pressure 144/67 H 139/84 135/71 Pulse Oximetry 94 100 100 06/01/19 14:54 06/01/19 15:24 06/01/19 17:15 Temperature 97.9 F 97.4 F L 97.9 F Pulse Rate 73 72 105 H Respiratory Rate 18 18 16 Blood Pressure 126/74 132/70 141/85 H Pulse Oximetry 100 100 94 06/01/19 22:00 05/31
[2019-06-02 12:50] LABS: Glucose Point of Care 196 (65-105)
[2019-06-02 14:00] VITALS: BP 122/73; PULSE 81; RESP 18; TEMP 37.1; O2SAT 100
--- NOTE | 2019-06-02 14:08 | PM.IMPN ---
Progress Note: A&P Assessment and Plan (1) Fracture of femoral neck, right, closed: Qualifiers: Encounter type: subsequent encounter Fracture healing: with routine healing Qualified Code(s): S72.001D - Fracture of unspecified part of neck of right femur, subsequent encounter for closed fracture with routine healing Code(s): S72.001A - Fracture of unspecified part of neck of right femur, initial encounter for closed fracture Status: Acute Assessment and Plan: Pain after fall with x-ray showing subcapital fracture of the right femoral neck with impaction, angulation and displacement. Orthopedics was consulted and patient underwent right bipolar hip arthroplasty on 06/01/19 and tolerated it well. Pain controlled. Continue PT/OT. Fever overnight. WBC higher which could be related to UTI or related to the fracture. Will check CXR. CXR reviewed personally and showing possible masses/infilrates in the suprhilar regions. Recommends CT with contrast. Could be etiology of his fever and elevated WBC. Continue Rocephin for now (2) Diabetes mellitus: Qualifiers: Diabetes mellitus complication detail: with autonomic neuropathy Diabetes mellitus complication status: with neurologic complications Diabetes mellitus assisted insulin use: without buttermaker use Diabetes mellitus type: type 2 Qualified Code(s): E11.43 - Type 2 diabetes mellitus with diabetic autonomic (poly)neuropathy Code(s): E11.9 - Type 2 diabetes mellitus without complications Status: Acute Assessment and Plan: A1c 6.0. Patient on metformin at home. Glucose reviewed on 06/02/2019. Glucose has been elevated here at times for unclear reasons possibly from recent surgery/fracture. Could also be related to UTI as well. Continue Accu-Cheks covering with sliding scale. Hypoglycemia protocol has been ordered. Continue to hold metformin at this time. (3) Hematuria: Qualifiers: Hematuria type: gross Qualified Code(s): R31.0 - Gross hematuria Code(s): R31.9 - Hematuria, unspecified Status: Acute Assessment and Plan: According to RN, hematuria related to Mai trauma when patient pulled at Mai when in the PACU yesterday. Was informed patient passing clots at times. Continue with finasteride. UA noted. UCx pending. WBC higher. Completed 3 doses of Cefazolin. Add Rocephin. (4) BPH (benign prostatic hyperplasia): Qualifiers: Lower urinary tract symptom presence: symptoms absent Qualified Code(s): N40.0 - Benign prostatic hyperplasia without lower urinary tract symptoms Code(s): N40.0 - Benign prostatic hyperplasia without lower urinary tract symptoms Status: Chronic Assessment and Plan: As above. (5) Hypertension: Qualifiers: Hypertension type: essential hypertension Qualified Code(s): I10 - Essential (primary) hypertension Code(s): I10 - Essential (primary) hypertension Status: Chronic Assessment and Plan: Blood pressure reviewed on 06/02/2019. Blood pressure well controlled. Continue lisinopril. Continue to monitor. (6) History of hypercholesterolemia: Code(s): Z86.39 - Personal history of other endocrine, nutritional and metabolic disease Status: Chronic Assessment and Plan: Stable. LFTs normal. Continue pravastatin and fish oil. (7) Depression: Qualifiers: Active/Remission status: remission status unspecified Depression Type: major depressive disorder Major depression recurrence: recurrent Qualified Code(s): F33.9 - Major depressive disorder, recurrent, unspecified Code(s): F32.9 - Major depressive disorder, single episode, unspecified Status: Chronic Assessment and Plan: Mood stable. Continue sertraline. (8) Dementia: Qualifiers: Dementia behavioral disturbance: without behavioral disturbance Dementia type: u
[2019-06-02] MEDS: RIVAROXABAN 10 MG TABLET PO (16:44)
[2019-06-02 20:35] LABS: Glucose Point of Care 197 (65-105)
[2019-06-02 20:35] LABS: Glucose Point of Care 296 (65-105)
[2019-06-02 21:40] VITALS: BP 129/79; PULSE 98; RESP 18; TEMP 37.9; O2SAT 95
[2019-06-02 21:43] VITALS: TEMP 37.9
[2019-06-02] MEDS: ACETAMINOPHEN 325 MG TABLET 650 MG PO (21:43)
[2019-06-03 06:30] LABS: Basophils Percent Auto 0.3 % (0.2-1.2); Eosinophils Absolute Auto 0.7 K/mm3 (0-0.3); Hematocrit 34.3 % (42.0-52.0); Hemoglobin 11.2 g/dL (14.0-18.0); Immature Granulocyte Absolute 0.19 K/mm3 (0.00-0.031); Immature Granulocyte Percent A 1.5 % (0-0.5); Lymphocytes Absolute Auto 1.09 K/mm3 (0.9-3.2); Lymphocytes Percent Auto 8.4 % (18.3-44.2); Mean Corpuscular HGB Conc 32.7 g/dl (32-36); Mean Corpuscular Hemoglobin 30.9 pg (26-34); Mean Corpuscular Volume 94.8 fl (80-100); Mean Platelet Volume 10.4 fl (7.4-10.4); Monocytes Absolute Auto 0.9 K/mm3 (0.1-0.6); Monocytes Percent Auto 6.6 % (2.6-8.5); Neutrophils Absolute Auto 10.1 K/mm3 (1.3-6.7); Neutrophils Percent Auto 78.2 % (45.5-73.1); Platelet Count Result 145 k/mm3 (150-375); Red Blood Count 3.62 M/mm3 (4.6-6.20); Red Cell Distribution Width 13.1 % (11.5-14.5); White Blood Count 12.9 K/mm3 (4.5-10.0)
[2019-06-03 06:43] LABS: Blood Urea Nitrogen 34 mg/dL (9-20); Calcium 8.4 mg/dL (8.4-10.2); Carbon Dioxide 29 mmol/L (22-30); Chloride 106 mmol/L (98-107); Estimated CRCL calculation 46 ml/min; Estimated Glomerular Filt Rate 58; Glucose 171 mg/dL (75-110); Potassium 4.1 mmol/L (3.4-5.0); Sodium 138 mmol/L (137-145)
[2019-06-03 07:00] VITALS: BP 148/66; PULSE 80; RESP 20; TEMP 36.9; O2SAT 97
[2019-06-03] MEDS: PRAVASTATIN SODIUM 20 MG TABLET 40 MG PO (08:00)
[2019-06-03] MEDS: OMEGA 3 POLYUNSAT FATTY ACIDS 1 GM CAP PO (08:00)
[2019-06-03] MEDS: SERTRALINE HCL 50 MG TABLET 100 MG PO (08:00)
[2019-06-03] MEDS: FAMOTIDINE 20 MG TABLET PO ×2 (08:00→21:00)
[2019-06-03] MEDS: CELECOXIB 200 MG CAPSULE PO (08:01)
[2019-06-03] MEDS: LORATADINE 10 MG TABLET PO (08:01)
[2019-06-03] MEDS: lisinopriL 10 MG TABLET PO (08:01)
[2019-06-03] MEDS: CHOLECALCIFEROL 400 UNITS TABLET (VIT D) PO (08:01)
[2019-06-03] MEDS: DOCUSATE SODIUM 100 MG CAPSULE PO ×2 (08:01→16:46)
[2019-06-03] MEDS: FLUTICASONE PROPIONATE 0.05% NA SPR 16 GM BTL (*BKC) 1 SPRAY NASAL ×2 (08:02→16:46)
[2019-06-03] MEDS: FINASTERIDE 5 MG TABLET PO (08:02)
[2019-06-03 08:10] LABS: Glucose Point of Care 148 (65-105)
[2019-06-03 12:24] LABS: Glucose Point of Care 215 (65-105)
[2019-06-03] MEDS: INSULIN ASPART (*BKC) 100 UNITS/ML SUB-Q ×2 (12:27→16:57)
--- NOTE | 2019-06-03 13:51 | PM.IMPN ---
Progress Note: A&P Assessment and Plan (1) Fever: Qualifiers: Fever type: due to other condition Qualified Code(s): R50.81 - Fever presenting with conditions classified elsewhere Code(s): R50.9 - Fever, unspecified Status: Acute Assessment and Plan: Mild low grade fever again overnight. WBC elevated on admission but climbed to 17K. UA and CXR obtained and Rocephin added. No respiratory symptoms. CXR showing perihilar masses/infiltrates. UCx negative. CT chest pending. (2) Fracture of femoral neck, right, closed: Qualifiers: Encounter type: subsequent encounter Fracture healing: with routine healing Qualified Code(s): S72.001D - Fracture of unspecified part of neck of right femur, subsequent encounter for closed fracture with routine healing Code(s): S72.001A - Fracture of unspecified part of neck of right femur, initial encounter for closed fracture Status: Acute Assessment and Plan: Pain after fall with x-ray showing subcapital fracture of the right femoral neck with impaction, angulation and displacement. Orthopedics was consulted and patient underwent right bipolar hip arthroplasty on 06/01/19 and tolerated it well. Pain controlled. Continue PT/OT. SNF placement arranged. (3) Hematuria: Qualifiers: Hematuria type: gross Qualified Code(s): R31.0 - Gross hematuria Code(s): R31.9 - Hematuria, unspecified Status: Acute Assessment and Plan: According to RN, hematuria related to Mai trauma when patient pulled at Mai when in the PACU on 06/01/19. Mai removed and patient had been passing small clots at times. Continue with finasteride. UCx negative. WBC improved. Now with retention related to these small clots. Not sona blood so possibly a large clot or just retained urine. Replace Mai. Will flush if gets obstructed again. (4) Diabetes mellitus: Qualifiers: Diabetes mellitus complication detail: with autonomic neuropathy Diabetes mellitus complication status: with neurologic complications Diabetes mellitus retirement insulin use: without cadmium plater use Diabetes mellitus type: type 2 Qualified Code(s): E11.43 - Type 2 diabetes mellitus with diabetic autonomic (poly)neuropathy Code(s): E11.9 - Type 2 diabetes mellitus without complications Status: Acute Assessment and Plan: A1c 6.0. Patient on metformin at home. Glucose reviewed on 06/03/2019. Glucose has been elevated probably relate to recent surgery/fracture. Continue Accu-Cheks covering with sliding scale. Hypoglycemia protocol has been ordered. Continue to hold metformin at this time. (5) BPH (benign prostatic hyperplasia): Qualifiers: Lower urinary tract symptom presence: symptoms absent Qualified Code(s): N40.0 - Benign prostatic hyperplasia without lower urinary tract symptoms Code(s): N40.0 - Benign prostatic hyperplasia without lower urinary tract symptoms Status: Chronic Assessment and Plan: As above. (6) Hypertension: Qualifiers: Hypertension type: essential hypertension Qualified Code(s): I10 - Essential (primary) hypertension Code(s): I10 - Essential (primary) hypertension Status: Chronic Assessment and Plan: Blood pressure reviewed on 06/03/2019. Blood pressure well controlled. Continue lisinopril. Continue to monitor. (7) History of hypercholesterolemia: Code(s): Z86.39 - Personal history of other endocrine, nutritional and metabolic disease Status: Chronic Assessment and Plan: Stable. LFTs normal. Continue pravastatin and fish oil. (8) Depression: Qualifiers: Active/Remission status: remission status unspecified Depression Type: major depressive disorder Major depression recurrence: recurrent Qualified Code(s): F33.9 - Major depressive disorder, recurrent, unspecified Code(s): F3
[2019-06-03 14:00] VITALS: BP 111/63; PULSE 87; RESP 16; TEMP 36.4; O2SAT 97
[2019-06-03] MEDS: polyethylene glycoL 3350 17 GM POWD.PACK PO (14:42)
[2019-06-03] MEDS: RIVAROXABAN 10 MG TABLET PO (16:46)
[2019-06-03 16:56] LABS: Glucose Point of Care 244 (65-105)
[2019-06-03 21:05] LABS: Glucose Point of Care 204 (65-105)
[2019-06-03 22:00] VITALS: BP 140/62; PULSE 87; RESP 14; TEMP 37.2; O2SAT 99
[2019-06-04 06:00] VITALS: BP 135/65; PULSE 89; RESP 16; TEMP 36.7; O2SAT 92
[2019-06-04 08:00] VITALS: PULSE 89; RESP 16; O2SAT 92
[2019-06-04 08:46] LABS: Glucose Point of Care 154 (65-105)
--- NOTE | 2019-06-04 08:59 | PCOTNOTE ---
Patient refused treatment this session due to eating breakfast at this time. Will attempt at a later time.
[2019-06-04] MEDS: FAMOTIDINE 20 MG TABLET PO ×2 (09:19→21:13)
[2019-06-04] MEDS: lisinopriL 10 MG TABLET PO (09:19)
[2019-06-04] MEDS: FINASTERIDE 5 MG TABLET PO (09:20)
[2019-06-04] MEDS: LORATADINE 10 MG TABLET PO (09:20)
[2019-06-04] MEDS: CELECOXIB 200 MG CAPSULE PO (09:20)
[2019-06-04] MEDS: SERTRALINE HCL 50 MG TABLET 100 MG PO (09:20)
[2019-06-04] MEDS: FLUTICASONE PROPIONATE 0.05% NA SPR 16 GM BTL (*BKC) 1 SPRAY NASAL ×2 (09:21→17:07)
[2019-06-04] MEDS: PRAVASTATIN SODIUM 20 MG TABLET 40 MG PO (09:21)
[2019-06-04] MEDS: CHOLECALCIFEROL 400 UNITS TABLET (VIT D) PO (09:21)
[2019-06-04] MEDS: OMEGA 3 POLYUNSAT FATTY ACIDS 1 GM CAP PO (09:22)
[2019-06-04] MEDS: DOCUSATE SODIUM 100 MG CAPSULE PO ×2 (09:22→17:07)
[2019-06-04] MEDS: polyethylene glycoL 3350 17 GM POWD.PACK PO (09:26)
[2019-06-04] MEDS: INSULIN ASPART (*BKC) 100 UNITS/ML SUB-Q (12:00)
[2019-06-04 12:10] LABS: Glucose Point of Care 233 (65-105)
[2019-06-04 14:00] VITALS: BP 107/55; PULSE 96; RESP 16; TEMP 36.8; O2SAT 94
--- NOTE | 2019-06-04 14:06 | PM.IMPN ---
Progress Note: A&P Assessment and Plan (1) Fever: Qualifiers: Fever type: due to other condition Qualified Code(s): R50.81 - Fever presenting with conditions classified elsewhere Code(s): R50.9 - Fever, unspecified Status: Acute Assessment and Plan: Mild low grade fever at night. WBC elevated on admission and climbed to 17K before trending down. UA and CXR obtained and Rocephin added. No respiratory symptoms. CXR showing perihilar masses/infiltrates. UCx negative. CT chest showing bibasilar subsegmental atelectasis. No evidence of infection so will stop abx. (2) Fracture of femoral neck, right, closed: Qualifiers: Encounter type: subsequent encounter Fracture healing: with routine healing Qualified Code(s): S72.001D - Fracture of unspecified part of neck of right femur, subsequent encounter for closed fracture with routine healing Code(s): S72.001A - Fracture of unspecified part of neck of right femur, initial encounter for closed fracture Status: Acute Assessment and Plan: Pain after fall with x-ray showing subcapital fracture of the right femoral neck with impaction, angulation and displacement. Orthopedics was consulted and patient underwent right bipolar hip arthroplasty on 06/01/19 and tolerated it well. Pain controlled. Continue PT/OT. SNF placement arranged. Okay for discharge if patient can remain stable without sitter for 24 hours. (3) Hematuria: Qualifiers: Hematuria type: gross Qualified Code(s): R31.0 - Gross hematuria Code(s): R31.9 - Hematuria, unspecified Status: Acute Assessment and Plan: According to RN, hematuria due to Mai trauma when patient pulled at Mai when in the PACU on 06/01/19. Urine was clearing and Mai removed but patient began to pass small clots and having evidence of urine retention. Mai replaced and again urine appears clear. UCx negative. WBC improved. Continue with finasteride. Mai trial when up ambulating better. (4) Diabetes mellitus: Qualifiers: Diabetes mellitus type: type 2 Diabetes mellitus mcc insulin use: without mcc use Diabetes mellitus complication status: with neurologic complications Diabetes mellitus complication detail: with autonomic neuropathy Qualified Code(s): E11.43 - Type 2 diabetes mellitus with diabetic autonomic (poly)neuropathy Code(s): E11.9 - Type 2 diabetes mellitus without complications Status: Acute Assessment and Plan: A1c 6.0. Patient on metformin at home. Glucose reviewed on 06/04/2019. Glucose more elevated past 24 hours probably due to patient eating better. Continue Accu-Cheks covering with sliding scale. Hypoglycemia protocol has been ordered. Resume metformin. (5) Dementia: Qualifiers: Dementia type: unspecified type Dementia behavioral disturbance: without behavioral disturbance Qualified Code(s): F03.90 - Unspecified dementia without behavioral disturbance Code(s): F03.90 - Unspecified dementia without behavioral disturbance Status: Acute Assessment and Plan: Patient with underlying dementia with mostly short-term memory loss. Symptoms probably worsened related to anesthesia and recent fracture. Mental status much better. Continue to monitor mental status. Sitter removed from room last night. (6) BPH (benign prostatic hyperplasia): Qualifiers: Lower urinary tract symptom presence: symptoms absent Qualified Code(s): N40.0 - Benign prostatic hyperplasia without lower urinary tract symptoms Code(s): N40.0 - Benign prostatic hyperplasia without lower urinary tract symptoms Status: Chronic Assessment and Plan: As above. (7) Hypertension: Qualifiers: Hypertension type: essential hypertension Qualified Code(s): I10 - Essential (primary) hypertension Code(s): I10 - Essential (primary) h
[2019-06-04] MEDS: RIVAROXABAN 10 MG TABLET PO (17:05)
[2019-06-04] MEDS: metFORMIN HCL 500 MG TABLET PO (17:06)
[2019-06-04 17:16] LABS: Glucose Point of Care 184 (65-105)
[2019-06-04 21:47] LABS: Glucose Point of Care 166 (65-105)
[2019-06-04 22:00] VITALS: BP 133/84; PULSE 82; RESP 16; TEMP 36.9; O2SAT 99
[2019-06-05 06:00] VITALS: BP 154/69; PULSE 72; RESP 18; TEMP 36.9; O2SAT 95
[2019-06-05 08:02] LABS: Glucose Point of Care 150 (65-105)
[2019-06-05] MEDS: FINASTERIDE 5 MG TABLET PO (09:05)
[2019-06-05] MEDS: DOCUSATE SODIUM 100 MG CAPSULE PO ×2 (09:05→17:40)
[2019-06-05] MEDS: OMEGA 3 POLYUNSAT FATTY ACIDS 1 GM CAP PO (09:05)
[2019-06-05] MEDS: PRAVASTATIN SODIUM 20 MG TABLET 40 MG PO (09:05)
[2019-06-05] MEDS: CHOLECALCIFEROL 400 UNITS TABLET (VIT D) PO (09:05)
[2019-06-05] MEDS: LORATADINE 10 MG TABLET PO (09:05)
[2019-06-05] MEDS: FAMOTIDINE 20 MG TABLET PO ×2 (09:05→20:34)
[2019-06-05] MEDS: CELECOXIB 200 MG CAPSULE PO (09:05)
[2019-06-05] MEDS: polyethylene glycoL 3350 17 GM POWD.PACK PO (09:06)
[2019-06-05] MEDS: lisinopriL 10 MG TABLET PO (09:06)
[2019-06-05] MEDS: SERTRALINE HCL 50 MG TABLET 100 MG PO (09:06)
[2019-06-05] MEDS: metFORMIN HCL 500 MG TABLET PO ×2 (09:06→17:40)
[2019-06-05] MEDS: FLUTICASONE PROPIONATE 0.05% NA SPR 16 GM BTL (*BKC) 1 SPRAY NASAL ×2 (09:08→17:40)
[2019-06-05 09:13] VITALS: O2SAT 90
[2019-06-05] MEDS: ACETAMINOPHEN 325 MG TABLET 650 MG PO ×3 (09:16→23:24)
[2019-06-05 11:41] LABS: Glucose Point of Care 210 (65-105)
[2019-06-05] MEDS: INSULIN ASPART (*BKC) 100 UNITS/ML SUB-Q (12:31)
--- NOTE | 2019-06-05 13:40 | PM.PNORT ---
Progress Note: A&P Assessment and Plan (1) Fracture of femoral neck, right, closed: Qualifiers: Encounter type: subsequent encounter Fracture healing: with routine healing Qualified Code(s): S72.001D - Fracture of unspecified part of neck of right femur, subsequent encounter for closed fracture with routine healing Code(s): S72.001A - Fracture of unspecified part of neck of right femur, initial encounter for closed fracture Status: Acute Assessment and Plan: Postoperative day 4. Right hip bipolar hemiarthroplasty. Confusion somewhat improved. Oriented to self, place. Continue with PT /OT with weight-bearing as tolerated. Dressing changes Placement when medically stable. Subjective Subjective Date/Time Seen: 06/05/19 13:40 Patient states somewhat less confused. Mild achy pain in right hip with movement. Exam Const: General: cooperative Orientation/consciousness: oriented to person, oriented to place and No oriented to time HENMT: Head: normal to inspection, normocephalic and atraumatic Eyes: Conjunctivae: conjunctivae normal Sclera: sclerae normal Neck: Neck: supple and nontender Chest: Chest palpation & inspection: normal inspection of the chest Resp: Effort & Inspection: normal respiratory effort and no audible wheezes Cardio: Rate: regular rate Rhythm: regular rhythm GI: GI Palp: No abdominal tenderness and Yes Soft to palpation : General: Yes deferred Skin: General skin exam: no rashes or lesions noted Neuro: General: oriented to person Extrem: General: capillary refill normal Right upper extremity: normal to inspection Left upper extremity: normal to inspection Right lower extremity: hip/thigh, ankle ( able to actively flex and extend ankle) Details: no tenderness and no swelling and foot Details: toes with normal ROM, vascular exam Details: dorsalis pedis pulse present and normal capillary refill and motor-sensory exam Details: light-touch normal ( Throughout all dermatomes) Location: in all toes Left lower extremity: normal to inspection, hip/thigh, lower leg, ankle (no calf tenderness) and foot Other: Right hip incision clean dry and intact. Mild swelling. Muscle compartments soft. Able to extend and flex the knee. Mild swelling through the distal aspect of the thigh and knee. Able to flex and extend ankle and toes. Good sensation to touch. Good capillary refill. Psych: Affect: normal affect Objective Data Vital Signs Vital Signs: Vital Signs - 24 hr 06/04/19 14:00 06/04/19 22:00 06/05/19 06:00 Temperature 98.2 F 98.5 F 98.5 F Pulse Rate 96 82 72 Respiratory Rate 16 16 18 Blood Pressure 107/55 L 133/84 154/69 H Pulse Oximetry 94 99 95 06/05/19 09:13 Temperature Pulse Rate Respiratory Rate Blood Pressure Pulse Oximetry 90 Intake/Output Intake/Output: Intake & Output 06/02/19 06/03/19 06/04/19 06/05/19 23:59 23:59 23:59 23:59 Intake Total 2557 930 1660 660 Output Total 550 450 925 300 Balance 2007 112 105 360 Meds/Results Medications: Active Medications Generic Name Dose Route Start Last Admin Trade Name Freq PRN Reason Stop Dose Admin Acetaminophen 650 mg 06/01/19 13:54 06/05/19 09:16 Tylenol Tablet PO 650 mg Q6H PRN Administration Mild Pain (1-3) or Fever Hydrocodone Bitart/Acetaminophen 1 tab 06/01/19 13:54 06/01/19 22:59 [place] 5-325 Mg PO 1 tab Q3H PRN Administration Pain Rated 4-6 Al Hydrox/Mg Hydrox/Simethicone 30 ml 06/01/19 13:54 Mylanta PO Q6H PRN Indigestion Calcium Citrate 1 tablet 06/01/19 09:00 06/05/19 09:07 Calcitrate + Vit D Caplet PO 1 tablet DAILY AMELIE Administration Celecoxib 200 mg 06/01/19 09:00 06/05/19 09:05 Celebrex PO 200 mg DAILY AMELIE Administration Dextrose 12.5 gm 05/31/19 17:47 Dextrose 50% Syringe IV PUSH PRN PRN Hypoglycemia Protocol Docusate Sodium 100 mg 06/01/19 17:00 06/05/19 09:05 C
[2019-06-05 14:00] VITALS: BP 124/54; PULSE 77; RESP 18; TEMP 36.7; O2SAT 96
--- NOTE | 2019-06-05 16:22 | PM.IMPN ---
Progress Note: A&P Assessment and Plan (1) Fever: Qualifiers: Fever type: due to other condition Qualified Code(s): R50.81 - Fever presenting with conditions classified elsewhere Code(s): R50.9 - Fever, unspecified Status: Acute Assessment and Plan: Mild low grade fever at night. WBC elevated on admission and climbed to 17K before trending down. UA and CXR obtained and Rocephin added. No respiratory symptoms. CXR showing perihilar masses/infiltrates. UCx negative. CT chest showing bibasilar subsegmental atelectasis but no evidence of PNA. No evidence of infection so will stop abx. No recurrent fevers. (2) Fracture of femoral neck, right, closed: Qualifiers: Encounter type: subsequent encounter Fracture healing: with routine healing Qualified Code(s): S72.001D - Fracture of unspecified part of neck of right femur, subsequent encounter for closed fracture with routine healing Code(s): S72.001A - Fracture of unspecified part of neck of right femur, initial encounter for closed fracture Status: Acute Assessment and Plan: Pain after fall with x-ray showing subcapital fracture of the right femoral neck with impaction, angulation and displacement. Orthopedics was consulted and patient underwent right bipolar hip arthroplasty on 06/01/19 and tolerated it well. Patient did have a fall out of bed in the evening of his surgery but repeat xray showing no new fracture. Pain controlled. Continue PT/OT. SNF placement arranged but now they want the patient to be without a sitter for another night. Okay for discharge when ever the SNF agrees to accept. (3) Hematuria: Qualifiers: Hematuria type: gross Qualified Code(s): R31.0 - Gross hematuria Code(s): R31.9 - Hematuria, unspecified Status: Acute Assessment and Plan: According to RN, hematuria due to Mai trauma when patient pulled at Mai when in the PACU on 06/01/19. Urine was clearing and Mai removed but patient began to pass small clots and having evidence of urine retention. Mai replaced and again urine appears dark but clear. UCx negative. WBC improved. Continue with finasteride. Mai trial in the morning. (4) Diabetes mellitus: Qualifiers: Diabetes mellitus complication detail: with autonomic neuropathy Diabetes mellitus complication status: with neurologic complications Diabetes mellitus terminal make up operator insulin use: without intermediate use Diabetes mellitus type: type 2 Qualified Code(s): E11.43 - Type 2 diabetes mellitus with diabetic autonomic (poly)neuropathy Code(s): E11.9 - Type 2 diabetes mellitus without complications Status: Acute Assessment and Plan: A1c 6.0. Patient on metformin at home. Glucose reviewed on 06/05/2019. Glucose better controlled. Continue Accu-Cheks covering with sliding scale. Hypoglycemia protocol has been ordered. Continue home metformin. (5) Dementia: Qualifiers: Dementia behavioral disturbance: without behavioral disturbance Dementia type: unspecified type Qualified Code(s): F03.90 - Unspecified dementia without behavioral disturbance Code(s): F03.90 - Unspecified dementia without behavioral disturbance Status: Acute Assessment and Plan: Patient with underlying dementia with mostly short-term memory loss. Symptoms probably worsened related to anesthesia and recent fracture. Mental status much better. Able to be without a sitter now. Continue to monitor mental status. (6) BPH (benign prostatic hyperplasia): Qualifiers: Lower urinary tract symptom presence: symptoms absent Qualified Code(s): N40.0 - Benign prostatic hyperplasia without lower urinary tract symptoms Code(s): N40.0 - Benign prostatic hyperplasia without lower urinary tract symptoms Status: Chronic Assessment and Plan: As above. (7) Hypertension: Qualifiers:
[2019-06-05] MEDS: RIVAROXABAN 10 MG TABLET PO (17:40)
[2019-06-05 18:04] LABS: Glucose Point of Care 153 (65-105)
[2019-06-05 20:55] LABS: Glucose Point of Care 161 (65-105)
[2019-06-05 22:00] VITALS: BP 118/55; PULSE 85; RESP 16; TEMP 36.8; O2SAT 96
[2019-06-06 06:00] VITALS: BP 132/67; PULSE 83; RESP 16; TEMP 36.6; O2SAT 97
[2019-06-06 08:00] VITALS: PULSE 83; RESP 16; O2SAT 97
[2019-06-06] MEDS: metFORMIN HCL 500 MG TABLET PO ×2 (08:52→16:01)
[2019-06-06] MEDS: OMEGA 3 POLYUNSAT FATTY ACIDS 1 GM CAP PO (08:53)
[2019-06-06] MEDS: CHOLECALCIFEROL 400 UNITS TABLET (VIT D) PO (08:53)
[2019-06-06] MEDS: lisinopriL 10 MG TABLET PO (08:54)
[2019-06-06] MEDS: SERTRALINE HCL 50 MG TABLET 100 MG PO (08:54)
[2019-06-06] MEDS: LORATADINE 10 MG TABLET PO (08:54)
[2019-06-06] MEDS: PRAVASTATIN SODIUM 20 MG TABLET 40 MG PO (08:57)
[2019-06-06] MEDS: CELECOXIB 200 MG CAPSULE PO (08:57)
[2019-06-06] MEDS: FAMOTIDINE 20 MG TABLET PO (08:57)
[2019-06-06] MEDS: DOCUSATE SODIUM 100 MG CAPSULE PO ×2 (08:57→16:01)
[2019-06-06] MEDS: FLUTICASONE PROPIONATE 0.05% NA SPR 16 GM BTL (*BKC) 1 SPRAY NASAL ×2 (08:58→16:01)
[2019-06-06] MEDS: FINASTERIDE 5 MG TABLET PO (08:58)
[2019-06-06] MEDS: polyethylene glycoL 3350 17 GM POWD.PACK PO (08:59)
--- NOTE | 2019-06-06 09:42 | PM.IMPN ---
Progress Note: A&P Assessment and Plan (1) Fracture of femoral neck, right, closed: Qualifiers: Encounter type: subsequent encounter Fracture healing: with routine healing Qualified Code(s): S72.001D - Fracture of unspecified part of neck of right femur, subsequent encounter for closed fracture with routine healing Code(s): S72.001A - Fracture of unspecified part of neck of right femur, initial encounter for closed fracture Status: Acute Assessment and Plan: Pain after fall with x-ray showing subcapital fracture of the right femoral neck with impaction, angulation and displacement. Orthopedics was consulted and patient underwent right bipolar hip arthroplasty on 06/01/[address] Finley. Postoperative management per Dr. Finley. Continue PT/OT. Has been accepted at [facility]. Will discharge today. (2) Fever: Qualifiers: Fever type: due to other condition Qualified Code(s): R50.81 - Fever presenting with conditions classified elsewhere Code(s): R50.9 - Fever, unspecified Status: Acute Assessment and Plan: Now resolved. WBC down to 12.9 on last check. Urine culture negative. CT chest with atelectasis but no pneumonia. Antibiotics stopped as not needed. (3) Hematuria: Qualifiers: Hematuria type: gross Qualified Code(s): R31.0 - Gross hematuria Code(s): R31.9 - Hematuria, unspecified Status: Acute Assessment and Plan: According to RN, hematuria due to Mai trauma when patient pulled at Mai when in the PACU on 06/01/19. Urine now clear. Urine culture negative. Will do voiding trial this morning. Continue finasteride. (4) Diabetes mellitus: Qualifiers: Diabetes mellitus type: type 2 Diabetes mellitus custodial insulin use: without galley worker use Diabetes mellitus complication status: with neurologic complications Diabetes mellitus complication detail: with autonomic neuropathy Qualified Code(s): E11.43 - Type 2 diabetes mellitus with diabetic autonomic (poly)neuropathy Code(s): E11.9 - Type 2 diabetes mellitus without complications Status: Acute Assessment and Plan: HgbA1C 6.0. Glucose reviewed on 06/06/2019. Glucose acceptable. Will continue metformin at discharge. Sliding scale insulin as needed. (5) Dementia: Qualifiers: Dementia type: unspecified type Dementia behavioral disturbance: without behavioral disturbance Qualified Code(s): F03.90 - Unspecified dementia without behavioral disturbance Code(s): F03.90 - Unspecified dementia without behavioral disturbance Status: Acute Assessment and Plan: Patient with underlying dementia with mostly short-term memory loss. Mental status now appears to be back to baseline. (6) BPH (benign prostatic hyperplasia): Qualifiers: Lower urinary tract symptom presence: symptoms absent Qualified Code(s): N40.0 - Benign prostatic hyperplasia without lower urinary tract symptoms Code(s): N40.0 - Benign prostatic hyperplasia without lower urinary tract symptoms Status: Chronic Assessment and Plan: Continue finasteride as noted above. (7) Hypertension: Qualifiers: Hypertension type: essential hypertension Qualified Code(s): I10 - Essential (primary) hypertension Code(s): I10 - Essential (primary) hypertension Status: Chronic Assessment and Plan: Blood pressure reviewed on 06/06/2019 and stable. Continue lisinopril. (8) History of hypercholesterolemia: Code(s): Z86.39 - Personal history of other endocrine, nutritional and metabolic disease Status: Chronic Assessment and Plan: Stable. LFTs normal. Continue pravastatin and fish oil. (9) Depression: Qualifiers: Depression Type: major depressive disorder Major depression recurrence: recurrent Active/Remission status: remission status unspecified Qualified Code(s): F33
[2019-06-06 11:44] LABS: Glucose Point of Care 188 (65-105)
[2019-06-06 14:00] VITALS: BP 124/53; PULSE 94; RESP 16; TEMP 37.1; O2SAT 93
--- NOTE | 2019-06-06 14:39 | PC.NURSE ---
[facility] NEED TO GIVE REPORT.
[2019-06-06] MEDS: RIVAROXABAN 10 MG TABLET PO (16:00)
[2019-06-06 16:14] LABS: Glucose Point of Care 172 (65-105)
--- NOTE | 2019-06-06 16:44 | PM.DS ---
DS: Diagnosis Admitting Diagnosis Admitting Diagnosis: Fracture of unspecified part of neck of right femur, initial encounter for closed fracture Discharge Diagnosis (1) Fracture of femoral neck, right, closed: Qualifiers: Encounter type: subsequent encounter Fracture healing: with routine healing Qualified Code(s): S72.001D - Fracture of unspecified part of neck of right femur, subsequent encounter for closed fracture with routine healing Code(s): S72.001A - Fracture of unspecified part of neck of right femur, initial encounter for closed fracture Status: Acute (2) Fever: Qualifiers: Fever type: due to other condition Qualified Code(s): R50.81 - Fever presenting with conditions classified elsewhere Code(s): R50.9 - Fever, unspecified Status: Acute (3) Hematuria: Qualifiers: Hematuria type: gross Qualified Code(s): R31.0 - Gross hematuria Code(s): R31.9 - Hematuria, unspecified Status: Acute (4) Diabetes mellitus: Qualifiers: Diabetes mellitus complication detail: with autonomic neuropathy Diabetes mellitus complication status: with neurologic complications Diabetes mellitus residential insulin use: without director long term care use Diabetes mellitus type: type 2 Qualified Code(s): E11.43 - Type 2 diabetes mellitus with diabetic autonomic (poly)neuropathy Code(s): E11.9 - Type 2 diabetes mellitus without complications Status: Acute (5) Dementia: Qualifiers: Dementia behavioral disturbance: without behavioral disturbance Dementia type: unspecified type Qualified Code(s): F03.90 - Unspecified dementia without behavioral disturbance Code(s): F03.90 - Unspecified dementia without behavioral disturbance Status: Acute (6) BPH (benign prostatic hyperplasia): Qualifiers: Lower urinary tract symptom presence: symptoms absent Qualified Code(s): N40.0 - Benign prostatic hyperplasia without lower urinary tract symptoms Code(s): N40.0 - Benign prostatic hyperplasia without lower urinary tract symptoms Status: Chronic (7) Hypertension: Qualifiers: Hypertension type: essential hypertension Qualified Code(s): I10 - Essential (primary) hypertension Code(s): I10 - Essential (primary) hypertension Status: Chronic (8) History of hypercholesterolemia: Code(s): Z86.39 - Personal history of other endocrine, nutritional and metabolic disease Status: Chronic (9) Depression: Qualifiers: Active/Remission status: remission status unspecified Depression Type: major depressive disorder Major depression recurrence: recurrent Qualified Code(s): F33.9 - Major depressive disorder, recurrent, unspecified Code(s): F32.9 - Major depressive disorder, single episode, unspecified Status: Chronic DS: Summary Hospital Course Reason for hospitalization: Right hip pain after fall. Hospital Course: Date of Service of Discharge: June 06, 2019. History of Present Illness: Patient is an 84-year-old gentleman with known dementia, BPH, hypertension and diabetes who presented to the emergency room as a result of right hip pain after fall. He has been known to have multiple falls in the past. He typically walks with a cane but is unsteady and weak. He apparently tried to stand up without using his cane with his right leg giving out. As result, he fell. He subsequently complained of pain of right hip pain radiating to his knee and right foot. He was brought to the emergency room where imaging revealed a subcapital fracture of the right femoral neck. Orthopedics was consulted. Patient was admitted for further evaluation and treatment. Course in Hospital: Patient was admitted to the medical floor where he remained for the duration of his stay. He was seen in consultation by Dr. Finley for orthopedics. After discussion with Dr. Finley, decision was made for surgical
--- NOTE | 2019-06-06 17:53 | PC.NURSE ---
[facility] [facility] CALLED ANA AT [phone] LEFT MESSAGE CALLED CEE AND SPOKE WITH CHARANJIT TOLD HER [place] C[place] TAPED TO BACK OF [facility] CARD WITH HOME MED. GAVE REPORT TO CHARANJIT ACCU CHECK OF 172, GAVE 1700 MEDS INSERTED GUZMAN CATHETER F16
== END 2019-06-06 18:35 | DRG 470 ==
LOC: ANHED 14:27 → ANH3MEDSUR 15:01
PROVIDERS: Internal Medicine; Nurse Practitioner; Orthopaedic Surgery; Admitting Provider Internal Medicine; Emergency Provider Emergency Medicine; Visit Provider Hospitalist
PROC: 0SRR01A Replacement of Right Hip Joint, Femoral Surface with Metal Synthetic Substitute, Uncemented, Open Approach (ICD-10-PCS; CPT 27125; principal; 2019-06-01 09:30)
DX: S72.011A Unspecified intracapsular fracture of right femur, initial encounter for closed fracture (principal); E78.00 Pure hypercholesterolemia, unspecified; R31.0 Gross hematuria; E11.43 Type 2 diabetes mellitus with diabetic autonomic (poly)neuropathy; F03.90 Unspecified dementia, unspecified severity, without behavioral disturbance, psychotic disturbance, mood disturbance, and anxiety; T41.45XA Adverse effect of unspecified anesthetic, initial encounter; R50.82 Postprocedural fever; N40.0 Benign prostatic hyperplasia without lower urinary tract symptoms; F32.9 Major depressive disorder, single episode, unspecified; I10 Essential (primary) hypertension; M19.90 Unspecified osteoarthritis, unspecified site; J30.9 Allergic rhinitis, unspecified; W19.XXXA Unspecified fall, initial encounter; Z87.891 Personal history of nicotine dependence; W06.XXXA Fall from bed, initial encounter
CPT/HCPCS: 36415; 70450; 71045; 71260; 72125; 73502; 73521; 80048; 80076; 81001; 83036; 85025; 85610; 85730; 86850; 86900; 86901; 87086; 93005; 96365; 96375; 97110; 97116; 97161; 97165; 97530; 97535; 99285; A9270; C1776; J0131; J0690; J0696; J1100; J1815; J2405; J2704; J3010; J3480; J7120; L0140; Q9967

== ENCOUNTER 2019-09-18 16:56 | Emergency (ER) | payer MEDICARE, SELFPAY ==
[2019-09-18 17:07] VITALS: BP 127/54; PULSE 67; RESP 16; TEMP 36.4; O2SAT 100
--- NOTE | 2019-09-18 17:07 | ED.GENADULT ---
HPI - General Adult General Chief complaint: Extremity Injury, Lower Stated complaint: R/TOE SWOLLEN Time Seen by Provider: 09/18/19 17:07 Source: patient and RN notes reviewed Mode of arrival: ambulatory Limitations: no limitations History of Present Illness HPI narrative: 84-year-old male presents with complaints of wound to plantar of right great toe and LLQ with redness, swelling, and drainage for the past 2 weeks. Triple antibiotic ointment with little relief. No streaking. Denies fever or chills. Denies nausea, vomiting, and abdominal pain. Remains active. The patient reports he have not been diagnosed with COVID-19. The patient reports he is not waiting for the results of a COVID-19 lab test. The patient reports he do not have fever, chills, weakness, fatigue, or myalgia. The patient reports he do not have a new or worsening cough or shortness of breath. Denies chest pain. The patient reports he do not have any rhinorrhea, congestion, sore throat, and diarrhea. Tolerating po intake well. Denies recent traveling. Denies concerns for COVID-19 or exposures been home since [id number] order except for essential household needs and return home. At this time, patient is not suspected of having COVID-19. Some parts of this dictation were generated by voice recognition software and may contain typographical and/or grammatical inaccuracies. Related Data Home Medications Medication Instructions Recorded Confirmed Fish Oil Extra Strength 1,400 mg PO DAILY 05/31/19 09/18/19 calcium citrate-vitamin D3 1 tablet PO DAILY 05/31/19 09/18/19 [Citracal + D Maximum] cholecalciferol (vitamin D3) 400 unit PO DAILY 05/31/19 09/18/19 [Vitamin D3] fexofenadine [Bernice Allergy] 180 mg PO DAILY 05/31/19 09/18/19 finasteride [Proscar] 5 mg PO DAILY 05/31/19 09/18/19 fluticasone propionate [Flonase 50 mcg INTRANASAL DIRECTED 05/31/19 09/18/19 Allergy Relief] guaifenesin [Mucinex] 600 mg PO DAILY 05/31/19 09/18/19 lisinopril 10 mg PO DAILY 05/31/19 09/18/19 metformin [Glucophage] 500 mg PO BID 05/31/19 09/18/19 pravastatin 40 mg PO DAILY 05/31/19 09/18/19 sertraline 100 mg PO DAILY 05/31/19 09/18/19 Allergies Allergy/AdvReac Type Severity Reaction Status Date / Time tetanus toxoid, adsorbed Allergy Severe HIVES Verified 07/19/19 12:07 Tetanus Vaccines and Toxoid Allergy Unknown Unknown Verified 07/19/19 12:07 Review of Systems Review of Systems: Narrative: CONSTITUTIONAL: Denies fever, chills, sweats. EYES: Denies visual changes, redness, discharge. ENT: Denies rhinorrhea, congestion, sore throat, otalgia. CARDIOVASCULAR: Denies chest pain, palpitations, edema. RESPIRATORY: Denies dyspnea, wheezing, cough. GASTROINTESTINAL: Denies abdominal pain, nausea, vomiting, diarrhea. GENITOURINARY: Denies dysuria, hematuria, abnormal discharge. SKIN: Complains of wound to plantar of right great toe and LLQ with redness, swelling, and drainage. MUSCULOSKELETAL: Denies acute back pain, joint pain, or myalgia. NEUROLOGIC: Denies numbness or focal weakness. PSYCHIATRIC: Denies anxiety or depression. All other systems reviewed are negative, except as documented in HPI and below. 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
== END 2019-09-18 17:29 | disposition home or self-care (01) ==
PROVIDERS: Emergency Provider Nurse Practitioner Family; PCP Podiatrist Foot & Ankle Surgery
DX: S91.101A Unspecified open wound of right great toe without damage to nail, initial encounter (principal); L03.031 Cellulitis of right toe; X58.XXXA Exposure to other specified factors, initial encounter; M19.90 Unspecified osteoarthritis, unspecified site; N40.0 Benign prostatic hyperplasia without lower urinary tract symptoms; F32.9 Major depressive disorder, single episode, unspecified; E11.9 Type 2 diabetes mellitus without complications; G30.0 Alzheimer's disease with early onset; F02.80 Dementia in other diseases classified elsewhere, unspecified severity, without behavioral disturbance, psychotic disturbance, mood disturbance, and anxiety; E78.00 Pure hypercholesterolemia, unspecified; E78.5 Hyperlipidemia, unspecified; I10 Essential (primary) hypertension; M41.9 Scoliosis, unspecified
CPT/HCPCS: 99213; G0463

== ENCOUNTER 2020-07-25 05:04 | Inpatient (IN) | payer MEDICARE, SELFPAY ==
[2020-07-25] VITALS (28 sets, daily range): BP systolic 117–150; BP diastolic 43–87; PULSE 60–86; RESP 16–29; TEMP 36.7–37.3; O2SAT 94–100
--- NOTE | ~2020-07-25 | CT_ITS ---
EXAMINATION: CT cervical spine wo con DATE: 07/25/2020 06:00 INDICATION: Neck pain TECHNIQUE: Computed tomography (CT) of the cervical spine was performed without intravenous contrast. The dose-length product (DLP) was 430.36 mGy-cm. Automated exposure control and iterative reconstruc tion technique were employed. COMPARISON: 06/01/2019 FINDINGS: There are 1 mm anterolisthesis of C4 on C5 and 1 mm retrolisthesis of C6 on C7. The vertebr al body heights are maintained. There is severe loss of intervertebral disc space height at C3-4, C5- 6, and C6-7. The odontoid is intact. The prevertebral soft tissues are normal. There is no fracture. There is severe multilevel facet and uncovertebral joint osteoarthritis. Again noted is incomplete os sification of the posterior C1 arch. A 1.5 cm area of fluid attenuation in the subcutaneous tissues o f the posterior right neck likely represents a sebaceous cyst. Calcified pulmonary nodules and upper mediastinal lymph nodes are consistent with old granulomatous disease. IMPRESSION: 1. Severe cervical spondylosis without acute findings or significant interval change. Reviewed, dictated and finalized at location A.
--- NOTE | ~2020-07-25 | XR_ITS ---
EXAMINATION: XR chest 1V portable DATE: 07/25/2020 08:24 INDICATION: Weakness. TECHNIQUE: A single frontal view of the chest was obtained. COMPARISON: Chest single view 06/29/2019, chest CT 06/03/2019 FINDINGS: There are mild airspace opacities in right midlung zone. No pleural effusion or pneumothora x. The heart size is normal. Calcified mediastinal lymph nodes are consistent with old granulomatous disease. IMPRESSION: 1. Mild airspace opacities in right midlung zone, consistent with atelectasis versus pneumonia. Reviewed, dictated and finalized at location B. IMPRESSION: 1. Mild airspace opacities in right midlung zone, consistent with atelectasis v ersus pneumonia.
--- NOTE | ~2020-07-25 | CT_ITS ---
EXAMINATION: CT brain wo con INDICATION: Head injury COMPARISON: 06/01/2019 TECHNIQUE: Standard unenhanced head CT. The dose-length product (DLP) was 681.00 mGy-cm. The mA was a djusted according to patient size. Iterative reconstruction technique was employed. FINDINGS: There is no acute intraparenchymal hemorrhage. No evidence of mass lesion. No evidence of a cute infarction. There is moderate periventricular and subcortical hypodensity probably related to sm all vessel ischemic disease. There is moderate prominence of the sulci and ventricles related to cere bral atrophy. Intracranial calcified cerebral atherosclerosis is noted. There are no extra-axial jing ections. There is no mass effect or midline shift. Changes in the globes are likely from ocular lens surgery. There is mild mucosal thickening of the paranasal sinuses. IMPRESSION: 1. No acute intracranial abnormality. 2. Age related findings. Reviewed, dictated and finalized at location A.
--- NOTE | ~2020-07-25 | XR_ITS ---
XR hip RT min 3V w AP pelvis 07/27/2020 14:22 Indication: Right hip pain after fall Procedure: AP pelvis and 3 views right hip Comparison: 07/19/2019 Findings: No acute fracture is identified. There is a right femoral bipolar hemiarthroplasty. There i s a dynamic compression screw in the left femoral neck. Pelvic rings are intact. There is lower lumba r spondylosis. Impression: 1: No acute fracture. Reviewed, dictated and finalized at location A. Impression: 1: No acute fracture.
--- NOTE | 2020-07-25 06:00 | PC.NURSE ---
Pt back from CT.
--- NOTE | 2020-07-25 06:17 | ECG_ITS ---
Measurements Intervals [place] Rate: 61 P: [place]: 0 QRS: -16 QRSD: 91 T: 29 QT: 384 QTc: 388 Interpretive Statements SINUS RHYTHM WITH SECOND DEGREE AV BLOCK, TYPE II JUNCTIONAL ESCAPE COMPLEXES INCOMPLETE RIGHT BUNDLE BRANCH BLOCK VOLTAGE CRITERIA FOR LVH ABNORMAL ECG Electronically Signed On 07-25-2020 7:38:53 CDT by Don Moctezuma D.O.
--- NOTE | 2020-07-25 06:24 | ED.GENADULT ---
HPI - General Adult General Chief complaint: Fall <Donald Schrader MD - Last Filed: 07/25/20 06:29> Stated complaint: FALL/WEAKNESS <Donald Schrader MD - Last Filed: 07/25/20 06:29> Time Seen by Provider: 07/25/20 05:49 <Donald Schrader MD - Last Filed: 07/25/20 06:29> Source: family () <Donald Schrader MD - Last Filed: 07/25/20 06:29> Mode of arrival: EMS <Donald Schrader MD - Last Filed: 07/25/20 06:29> Limitations: dementia <Donald Schrader MD - Last Filed: 07/25/20 06:29> History of Present Illness HPI narrative: Patient is an 85-year-old male brought in by EMS after a fall at home. Patient has no complaints at this time, denies any head, neck, chest, back, abdomen, pelvis or any extremity pain. According to the patient for the past few days has been generally weak and has had multiple falls at home. states that they just finished his physical therapy a few days ago but since then he has had difficulty walking or getting up from his chair due to weakness. Denies any headache, dizziness, chest pain, shortness of breath, abdominal pain, nausea, vomiting, diarrhea, urinary symptoms, fever or chills. <Donald Schrader MD - Last Filed: 07/25/20 06:29> Related Data Home medications: Home Medications Medication Instructions Recorded Confirmed Fish Oil Extra Strength 1,400 mg PO DAILY 05/31/19 07/15/20 calcium citrate-vitamin D3 1 tablet PO DAILY 05/31/19 07/15/20 [Citracal + D Maximum] cholecalciferol (vitamin D3) 400 unit PO DAILY 05/31/19 07/15/20 [Vitamin D3] fexofenadine [Bernice Allergy] 180 mg PO DAILY 05/31/19 07/15/20 fluticasone propionate [Flonase 50 mcg INTRANASAL DIRECTED 05/31/19 07/15/20 Allergy Relief] guaifenesin [Mucinex] 600 mg PO DAILY 05/31/19 07/15/20 <Donald Schrader MD - Last Filed: 07/25/20 06:29> Allergies/adverse reactions: Allergies Allergy/AdvReac Type Severity Reaction Status Date / Time tetanus toxoid, adsorbed Allergy Severe HIVES Verified 07/19/19 12:07 Tetanus Vaccines and Toxoid Allergy Unknown Unknown Verified 07/19/19 12:07 <Donald Schrader MD - Last Filed: 07/25/20 06:29> Review of Systems Review of Systems: All systems reviewed & are unremarkable except as noted in HPI and below <Donald Schrader MD - Last Filed: 07/25/20 06:29> Constitutional: Constitutional: Denies body ache(s), Denies chills, Denies excessive sweating, Denies fatigue, Denies fever(s), Denies headache(s), Denies lethargy, Denies malaise and Denies weight loss <Donald Schrader MD - Last Filed: 07/25/20 06:29> Eyes: Eyes: Denies blurry vision, Denies change in vision and Denies loss of vision <Donald Schrader MD - Last Filed: 07/25/20 06:29> ENT: Denies dizziness, Denies ear discharge, Denies headache(s), Denies lip swelling, Denies epistaxis, Denies nasal congestion, Denies neck pain, Denies throat swelling and Denies tongue swelling <Donald Schrader MD - Last Filed: 07/25/20 06:29> Cardiovascular: Cardiovascular: Denies chest pain, Denies chest pain at rest, Denies chest pain with activity, Denies diaphoresis, Denies rapid heart rate, Denies edema, Denies irregular heart rhythm, Denies lightheadedness, Denies palpitations, Denies dyspnea and Denies dyspnea on exertion <Donald Schrader MD - Last Filed: 07/25/20 06:29> Respiratory: Respiratory: Denies chest congestion, Denies cough, Denies hemoptysis, Denies dyspnea and Denies dyspnea on exertion <Donald Schrader MD - Last Filed: 07/25/20 06:29> Gastrointestinal: Gastrointestinal: Denies abdominal pain, Denies melena, Denies hematochezia, Denies diarrhea, Denies nausea, Denies vomiting and Denies hematemesis <Donald Schrader MD - Last Filed: 07/25/20 06:29> Musculoskeletal: Musculoskeletal: Denies abnormal gait, Denies deformity, Denies joint swelling, Denies limited range of motion, Denies neck pain and Denies numbness <Donald Buckley
[2020-07-25 06:37] LABS: Basophils Percent Auto 0.2 % (0.2-1.2); Hematocrit 39.8 % (42.0-52.0); Hemoglobin 13.1 g/dL (14.0-18.0); Immature Granulocyte Absolute 0.12 K/mm3 (0.00-0.031); Immature Granulocyte Percent A 1.1 % (0-0.5); Lymphocytes Absolute Auto 0.17 K/mm3 (0.9-3.2); Lymphocytes Percent Auto 1.5 % (18.3-44.2); Mean Corpuscular HGB Conc 32.9 g/dl (32-36); Mean Corpuscular Volume 94.3 fl (80-100); Mean Platelet Volume 10.1 fl (7.4-10.4); Monocytes Absolute Auto 0.9 K/mm3 (0.1-0.6); Neutrophils Absolute Auto 10.1 K/mm3 (1.3-6.7); Neutrophils Percent Auto 89.2 % (45.5-73.1); Platelet Count Result 149 k/mm3 (150-375); Red Blood Count 4.22 M/mm3 (4.6-6.20); Red Cell Distribution Width 13.4 % (11.5-14.5); White Blood Count 11.3 K/mm3 (4.5-10.0)
[2020-07-25 06:43] LABS: Add Urine Microscopic? YES; Appearance Urine Cloudy (Clear); Bilirubin Urine Negative (Negative); Blood Urine 2+ (Negative); Color Urine Yellow (Yellow); Glucose Urine UA Negative (Negative); Ketones Urine Trace mg/dL (Negative); Leukocyte Esterase Ur 3+ LEU/UL (Negative); Mucus Urine Rare /lpf; Nitrate Urine Positive (Negative); Protein Urine 2+ mg/dL (Negative); Specific Grav Ur 1.024 (1.001-1.035); Squamous Epithelial Cell Urine Rare /hpf (Few); Urobilinogen Urine Negative mg/dL (<2.0); WBC Urine 31-50 /hpf
[2020-07-25 06:50] LABS: Creatine Kinase 112 U/L (55-170)
[2020-07-25 06:52] LABS: Alanine Aminotransferase 19 U/L (4-50); Albumin Level 3.8 g/dL (3.5-5.1); Alkaline Phosphatase 84 U/L (38-126); Anion Gap 9 mmol/L (8-16); Aspartate Amino Transferase 28 U/L (17-59); Bilirubin,Total 0.9 mg/dL (0.2-1.3); Blood Urea Nitrogen 34 mg/dL (9-20); Calcium 9.1 mg/dL (8.4-10.2); Carbon Dioxide 26 mmol/L (22-30); Chloride 106 mmol/L (98-107); Estimated CRCL calculation 34 ml/min; Estimated Glomerular Filt Rate 45; Glucose 276 mg/dL (75-110); Potassium 4.2 mmol/L (3.4-5.0); Sodium 141 mmol/L (137-145)
[2020-07-25 06:56] LABS: INR 1.2; Prothrombin Time 16.2 Seconds (11.1-14.7)
[2020-07-25 06:57] LABS: Partial Thromboplastin Time 38.7 SECONDS (22.3-36.8)
[2020-07-25 07:03] LABS: Troponin I 0.032 ng/mL (0.000-0.034)
--- NOTE | 2020-07-25 07:30 | PC.NURSE ---
pt sleeping on stretcher. no distress noted.
[2020-07-25] MEDS: SODIUM CHLORIDE 0.9% IV 1,000 ML 100 ML IV CONT ×3 (08:26→20:23)
--- NOTE | 2020-07-25 10:00 | PC.NURSE ---
sbar faxed to 3rd floor. pt continues sleeping. no distress noted.
--- NOTE | 2020-07-25 11:37 | PC.NURSE ---
This patient, Chaz Downey, was admitted to 3 [facility] Surg Room 306-02 on 07/25/20 @ 1115. Patient/family oriented to hospital policies and general routines including ID bracelet, bed and alarms, visiting hours, pain management, procedures, bathroom and other care routines, personal items, smoking policy, room service/diet, and visiting hours. Information on how to activate the Rapid Response Team has been discussed. Patient/Family are encouraged to report perceived risks to care and to ask questions if they do not understand what they are told or what they should do.
--- NOTE | 2020-07-25 14:00 | PM.IMHP ---
H&P: HPI History of Present Illness Date/Time: 07/25/20 14:00 Chief Complaint: Fall. Narrative: This is an 85-year-old male with dementia, benign prostatic hyperplasia, and hypertension who presented to the emergency department earlier today via EMS from home for evaluation after a fall. It sounds like he is quite weak and debilitated at baseline and in fact just finished physical therapy sessions within the last several days. Since that time he has had difficulties walking and even getting up from the chair due to weakness. He has had multiple falls in the last couple of days but due to his memory loss he is not able to recall when or how he fell. According to his he has not sustained any injuries in the falls she is concerned that he is becoming increasingly weak. She has also noticed that his urine has smelled quite strong and is darker than usual. He believes he has been eating and drinking as normal. At the time my evaluation he has no complaints and specifically denies headache, neck ache, vertigo, fever, chills, sweats, focal weakness, paresthesias, syncope, near syncope, chest pain, pleuritic pain, shortness of breath, nausea, vomiting, diarrhea, and dysuria. Review of Systems Review of Systems: Narrative: Twelve systems were reviewed with pertinent positives and negatives as per HPI. This is limited due to his significant short-term memory loss however did not report anything significant recently aside from what was mentioned in the HPI. [facility] Past Medical History Medical History Allergic rhinitis Arthritis Benign essential hypertension Dementia Depression Fracture of femoral neck, right, closed (05/2019) Hyperlipidemia Hypertension Scoliosis Type 2 diabetes mellitus Hemoglobin A1c was 6.7% on 07/15/2020. Surgical History Surgical History History of hip surgery (06/01/19) ORIF right hip fracture, bipolar. Left hip replacement. History of tonsillectomy History of transurethral resection of prostate Family History Family History Mother Osteoporosis Hypertension Mother Crohn's colitis Mother Colon cancer Other Family history of arthritis Social History Social History (Updated 07/25/20 @ 23:05 by Dimple Mojica PA-C) Social History: The patient lives with his in [place]. He has 2 grown children. 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 Former smoker, 1 pack a day for about 15 years. No alcohol or illicit substance abuse. His , Rose leiva, is his surrogate decision maker. Code status: Full code. Smoking packs per day: 1 Smoking cigarettes per day: 20.0 Years smoked: 15 Smoking pack-years: 15.00 Smoking status: Former smoker Tobacco type: cigarettes and pipe Smoking end date: 05/30/76 Meds Home Medications and Allergies Home Medications Medication Instructions Recorded Confirmed Type lancets 26 gauge #100 each 04/18/19 07/25/20 Rx Fish Oil Extra Strength 1,400 mg PO DAILY 05/31/19 07/25/20 History calcium citrate-vitamin D3 1 tablet PO DAILY 05/31/19 07/25/20 History [Citracal + D Maximum] cholecalciferol (vitamin D3) 400 unit PO DAILY 05/31/19 07/25/20 History [Vitamin D3] fexofenadine [Bernice Allergy] 180 mg PO DAILY 05/31/19 07/25/20 History fluticasone propionate [Flonase 50 mcg INTRANASAL DAILY 05/31/19 07/25/20 History Allergy Relief] guaifenesin [Mucinex] 600 mg PO DAILY 05/31/19 07/25/20 History acetaminophen [Mapap 650 mg PO Q6H PRN #30 tablet 06/06/19 07/25/20 Rx (acetaminophen)] polyethylene glycol 3350 [Miralax] 17 g PO QAM 30 Days each 06/06/19 07/25/20 Rx pravastatin 20 mg tablet See Rx Instructions .ROUTE 02/08/20 07/25/20 Rx .COMPLEX #90 tablet blood sugar diagnostic See Rx Instructions .ROUTE
[2020-07-25 15:46] LABS: Thyroid Stimulating Hormone Reflex 0.893 uIU/mL (0.465-4.68)
[2020-07-25 17:39] LABS: Glucose Point of Care 124 mg/dl (65-105)
--- NOTE | 2020-07-25 17:49 | PM.CNCAR ---
Assessment and Plan Assessment and plan (1) Second degree type II atrioventricular block: Code(s): I44.1 - Atrioventricular block, second degree Status: Acute Assessment and Plan: Difficult to determine from EKG if this is second-degree type 2 AV block versus normal sinus rhythm with nonconducted premature atrial contractions versus normal sinus rhythm with intermittent junctional escape his beats. Currently, telemetry is demonstrating normal sinus rhythm with intermittent junctional beats. No significant pauses noted. Obviously we will continue to monitor him on telemetry overnight to observe further evidence of a block. He is asymptomatic with his current rhythm. (2) Hyperlipidemia: Code(s): E78.5 - Hyperlipidemia, unspecified Status: Acute Assessment and Plan: On statin. (3) Hypertension: Qualifiers: Hypertension type: essential hypertension Qualified Code(s): I10 - Essential (primary) hypertension Code(s): I10 - Essential (primary) hypertension Status: Chronic Assessment and Plan: At goal on lisinopril. Additional Plan We are seeing this patient in consultation for second degree AV block type II at the request of the hospitalist. His rhythm strips on telemetry currently do not demonstrate this rhythm. Rather, it appears that he is in normal sinus rhythm with junctional escape beats and intermittent premature atrial contractions that are nonconducted. He is hemodynamically stable and is even a little hypertensive currently. Generally he is stable and is not experiencing any symptoms at all currently. It is not my impression that his fall was caused by any sort of conduction abnormality. Rather, it seems more likely that he has become increasingly deconditioned. However, I would like to obtain orthostatic vitals a as a sound like this could have been an orthostatic event. Thank you for this consultation. We appreciate the opportunity to participate in the care of this patient. ELIUD Dan- History of Present Illness History of Present Illness Consult date/time: 07/25/20 17:49 cardiology consultation for 2nd degree type 2 av block. This is an 85-year-old gentleman with past medical history hyperlipidemia, hypertension, type 2 diabetes, dementia, depression. He presented to the emergency department after sustaining a fall last night. Apparently, patient awoke in the middle night to use the bathroom and fell following standing up from the toilet. He states that he felt dizzy when he stood up and was unable to get his balance. His states that he did not lose consciousness as far she knows. He denies having any episodes like this in the past. He denies any chest pain or shortness of breath associated with this event. Over the last several weeks the patient has been increasingly weak and his has noticed that he has had significant trouble ambulating and transferring. She states that recently he took 15 minutes to stand up out of his recliner and he lacks the strength to put his feet and legs on the bed when he is lying down. He is also status post total hip arthroplasty and is undergoing physical therapy for this at this time. It should be noted that the majority of this history was obtained from the patient's as the patient suffers from dementia. He is able to answer some questions, but relies on his to provide most of the history. Reason For Visit: weakness,multiple falls,urinary tract infection,de Review of Systems Review of Systems: All systems reviewed & are unremarkable except as noted in HPI and below Constitutional: Constitutional: Reports as per HPI, Reports no additional constitutional complaints, Reports fatigue, Reports lethargy, Denies night sweats and Reports weakness Eyes: Eyes: Reports as per HPI and Denies blurry vision ENT: Reports as per HPI, Denies nasal discharge and Reports tinnitus Cardiovascular: Cardiov
[2020-07-25] MEDS: PRAVASTATIN SODIUM 20 MG TABLET BY MOUTH (23:59)
[2020-07-26] VITALS (12 sets, daily range): BP systolic 142–169; BP diastolic 52–85; PULSE 53–76; RESP 16–20; TEMP 36.4–36.8; O2SAT 95–100
[2020-07-26 06:07] LABS: Anion Gap 5 mmol/L (8-16); Blood Urea Nitrogen 27 mg/dL (9-20); Calcium 8.2 mg/dL (8.4-10.2); Carbon Dioxide 26 mmol/L (22-30); Chloride 108 mmol/L (98-107); Estimated CRCL calculation 42 ml/min; Estimated Glomerular Filt Rate 58; Glucose 129 mg/dL (75-110); Potassium 3.7 mmol/L (3.4-5.0); Sodium 139 mmol/L (137-145)
[2020-07-26 06:21] LABS: Hemoglobin A1C 6.6 % (<5.7)
[2020-07-26 07:10] LABS: Magnesium 1.8 mg/dL (1.6-2.3)
[2020-07-26 07:56] LABS: Glucose Point of Care 137 mg/dl (65-105)
[2020-07-26] MEDS: polyethylene glycoL 3350 17 GM POWD.PACK PO (09:02)
[2020-07-26] MEDS: OMEGA 3 POLYUNSAT FATTY ACIDS 1 GM CAP PO (09:02)
[2020-07-26] MEDS: FINASTERIDE 5 MG TABLET PO (09:02)
[2020-07-26] MEDS: AZELASTINE HCL NASAL 0.1% 137 MCG/SPR 30 ML BTL 2 SPRAY NASAL (09:02)
[2020-07-26] MEDS: SERTRALINE HCL 50 MG TABLET 100 MG PO (09:02)
[2020-07-26] MEDS: FLUTICASONE PROPIONATE 0.05% NA SPR 16 GM BTL (*BKC) 2 SPRAY NASAL (09:03)
[2020-07-26] MEDS: CHOLECALCIFEROL 400 UNITS TABLET (VIT D) PO (09:03)
[2020-07-26] MEDS: LORATADINE 10 MG TABLET PO (09:03)
[2020-07-26] MEDS: ACETAMINOPHEN 325 MG TABLET 650 MG PO (09:13)
[2020-07-26] MEDS: SODIUM CHLORIDE 0.9% IV 1,000 ML 100 ML IV CONT (09:15)
[2020-07-26] MEDS: FAMOTIDINE 20 MG TABLET PO ×3 (10:25→21:07)
[2020-07-26] MEDS: SILVERGEL (ELTA) 45 ML 1 APPLIC TOPICAL (10:26)
[2020-07-26 13:23] LABS: Glucose Point of Care 116 mg/dl (65-105)
--- NOTE | 2020-07-26 13:54 | ECG_ITS ---
Measurements Intervals [place] Rate: 54 P: NC: 0 QRS: -24 QRSD: 93 T: -5 QT: 423 QTc: 402 Interpretive Statements SINUS BRADYCARDIA CONDUCTED AND NON-CONDUCTED ATRIAL PREMATURE COMPLEXES WITH JUNCTIONAL ESCAPE COMPLEXES BORDERLINE R WAVE PROGRESSION, ANTERIOR LEADS LOW QRS VOLTAGE IN PRECORDIAL LEADS VOLTAGE CRITERIA FOR LVH BASELINE ARTIFACT- I, II, III, AVR ABNORMAL ECG Electronically Signed On 07-26-2020 14:44:59 CDT by Don Moctezuma D.O.
--- NOTE | 2020-07-26 15:09 | PM.IMPN ---
Progress Note: A&P Assessment and Plan (1) Urinary tract infection: Code(s): N39.0 - Urinary tract infection, site not specified Status: Acute Assessment and Plan: This is an 85-year-old male with dementia, benign prostatic hyperplasia, and hypertension who presented to the emergency department earlier today via EMS from home for evaluation after a fall. The patient has been going to outpatient physical therapy and was at his baseline on 07/23/20. The patient's states that evening he began to be more weak and unable to get himself up from the chair and it became progressively worse to the point that he fell prior to arrival when he was unable to get up. This is what brought him into the emergency room for further evaluation and concerns at the could not care for her many further at home. Initial vitals showed he was afebrile, non tachycardic, normal respiratory rate oxygenation on room air, normal blood pressure 125/87. [place] [address], with elevated neutrophil count, normocytic anemia with a hemoglobin of 13. Elevated creatinine 1.5, BUN 34 showing some dehydration. Troponin was within normal range. TSH normal. Urinalysis was showing urinary tract infection with positive nitrite, leuk est and wbc's present. CT head showed no acute intracranial abnormality, age-related findings. CT cervical spine showed severe cervical spondylosis without acute findings or significant interval change. CXR showed Mild airspace opacities in right midlung zone, consistent with atelectasis versus pneumonia. Patient was admitted into the hospital for IV antibiotics for urinary tract infection,physical occupational therapy for weakness as well as telemetry monitoring due to concerns for possible arrhythmia verses AV block and cardiology consultation. He has been started on ceftriaxone, pending urine culture. (2) Multiple falls: Code(s): R29.6 - Repeated falls Status: Acute Assessment and Plan: Patient is feeling better today with IV antibiotics Continue PT and OT therapy. (3) Weakness: Code(s): R53.1 - Weakness Status: Acute Assessment and Plan: Acute on chronic exacerbated by dehydration and UTI. (4) Elevated serum creatinine: Code(s): R79.89 - Other specified abnormal findings of blood chemistry Status: Acute Assessment and Plan: Likely related to mild dehydration. He will receive cautious IV fluid rehydration overnight. DC IV fluids. He appears to be euvolemic at this time. (5) Type 2 diabetes mellitus: Code(s): E11.9 - Type 2 diabetes mellitus without complications Status: Acute Assessment and Plan: Diet-controlled. Hemoglobin A1c 6.6%. Well controlled. Initiate sliding scale insulin, Accu-Cheks, and hypoglycemic protocol. (6) Hypertension: Qualifiers: Hypertension type: essential hypertension Qualified Code(s): I10 - Essential (primary) hypertension Code(s): I10 - Essential (primary) hypertension Status: Chronic Assessment and Plan: Blood pressure was 155/67 this morning before giving his medications. Lisinopril on hold given increasing creatinine. Continue to monitor daily. (7) Abnormal EKG: Code(s): R94.31 - Abnormal electrocardiogram [ECG] [EKG] Status: Acute Assessment and Plan: EKG being read as 2nd degree AV block type 2. Cardiology evaluated the patient and telemetry strips which shows sinus rhythm with APCs and nonconducted APCs.They do not believe it is a second-degree AV block Type 1 or 2 (No progressive DC prolongation , P waves don't march out, etc.). A
--- NOTE | 2020-07-26 16:47 | PM.PNCARD ---
Progress Note: A&P Assessment and Plan (1) Second degree type II atrioventricular block: Code(s): I44.1 - Atrioventricular block, second degree Status: Deleted Assessment and Plan: He is in normal sinus rhythm at a rate of 55 with premature atrial contractions that are nonconducted. He does not have a second-degree type 2 AV block. (2) Hyperlipidemia: Code(s): E78.5 - Hyperlipidemia, unspecified Status: Acute Assessment and Plan: On statin. (3) Hypertension: Qualifiers: Hypertension type: essential hypertension Qualified Code(s): I10 - Essential (primary) hypertension Code(s): I10 - Essential (primary) hypertension Status: Chronic Assessment and Plan: At goal on lisinopril. Additional Plan He is in normal sinus rhythm at a rate of 55 with premature atrial contractions that are nonconducted. He does not have a second-degree type 2 AV block. I do not believe that the cause of his fall was any type of cardiac problem. Will sign off at this time. We appreciate the opportunity to participate in the care of this patient. Please do not hesitate to contact us if there are any further issues we can assist with in the care of this patient. PETE Dan Subjective Date/time seen: 07/26/20 16:47 cardiology follow-up for suspected second-degree type 2 AV block. Date of service 07/26/2020: Patient does not have any complaints today. He is resting comfortably in bed sleeping but easily aroused with voice. Denies any dizziness, lightheadedness. Telemetry overnight does not demonstrate any significant bradycardia or pauses. He is currently in sinus rhythm at 55-60 beats per minute with nonconducted premature atrial contractions Review of Systems Review of Systems: All systems reviewed & are unremarkable except as noted in HPI and below Constitutional: Constitutional: Reports as per HPI, Reports no additional constitutional complaints, Denies difficulty sleeping, Denies fatigue, Denies headache(s), Reports lethargy, Denies night sweats and Reports weakness Eyes: Eyes: Reports as per HPI and Denies blurry vision ENT: Reports as per HPI, Denies headache(s), Denies nasal discharge and Reports tinnitus Cardiovascular: Cardiovascular: Reports as per HPI, Denies chest pain, Denies leg edema, Denies lightheadedness, Denies palpitations, Denies dyspnea and Denies dyspnea on exertion Respiratory: Respiratory: Reports as per HPI, Denies cough, Denies dyspnea and Denies dyspnea on exertion Gastrointestinal: Gastrointestinal: Reports as per HPI, Denies abdominal pain and Denies constipation Genitourinary: Genitourinary: Reports no additional male genitourinary complaints, Reports as per HPI and Reports urinary frequency Musculoskeletal: Musculoskeletal: Reports no additional musculoskeletal complaints, Reports as per HPI and Reports arthralgias Integumentary/Breasts: Skin/Breast: Reports as per HPI and Reports dry skin Neurologic: Reports as per HPI, Denies Abnormal speech present, Reports confusion (mild), Denies headache(s) and Reports weakness Psychiatric: Psychiatric: Reports as per HPI and Reports confusion (mild) Endocrine: Endocrine: Reports no additional endocrine complaints, Reports as per HPI, Denies fatigue, Denies flushing and Denies palpitations Hematologic/Lymphatic: Hematologic/Lymphatic: Reports no additional hematologic/lymphatic complaints, Reports as per HPI, Denies easy bleeding and Denies easy bruising Exam Const: General: comfortable, no acute distress and confusion (mild) Orientation/consciousness: confusion (mild) Other: Elderly male. Alert and oriented. Pleasant and cooperative. HENMT: Mouth: Yes moist mucous membranes Eyes: General: appearance normal, both eyes and all related structures Sclera: sclerae normal Pupils: Equal, round and reactive pupils present Neck: Neck: supple and no JVD Carotids: no bruits Resp: Effort
[2020-07-26] MEDS: guaiFENesin 12 HR 600 MG TABCR PO ×2 (17:18)
[2020-07-26] MEDS: PRAVASTATIN SODIUM 20 MG TABLET BY MOUTH (17:18)
[2020-07-26 17:25] LABS: Glucose Point of Care 123 mg/dl (65-105)
[2020-07-26] MEDS: DONEPEZIL HCL 5 MG TABLET PO ×2 (21:07)
[2020-07-26 22:35] LABS: Glucose Point of Care 170 mg/dl (65-105)
[2020-07-27] VITALS (10 sets, daily range): BP systolic 138–160; BP diastolic 55–61; PULSE 60–76; RESP 16–18; TEMP 36.2–36.7; O2SAT 97–100
[2020-07-27 06:20] LABS: Anion Gap 3 mmol/L (8-16); Blood Urea Nitrogen 25 mg/dL (9-20); Calcium 8.7 mg/dL (8.4-10.2); Carbon Dioxide 30 mmol/L (22-30); Chloride 106 mmol/L (98-107); Estimated CRCL calculation 46 ml/min; Estimated Glomerular Filt Rate > 60; Glucose 156 mg/dL (75-110); Magnesium 1.8 mg/dL (1.6-2.3); Potassium 4.2 mmol/L (3.4-5.0); Sodium 139 mmol/L (137-145)
[2020-07-27 06:23] LABS: Basophils Percent Auto 0.3 % (0.2-1.2); Eosinophils Absolute Auto 0.2 K/mm3 (0-0.3); Eosinophils Percent Auto 2.9 % (0-4.4); Hemoglobin 11.9 g/dL (14.0-18.0); Immature Granulocyte Absolute 0.03 K/mm3 (0.00-0.031); Immature Granulocyte Percent A 0.4 % (0-0.5); Lymphocytes Absolute Auto 0.96 K/mm3 (0.9-3.2); Mean Corpuscular HGB Conc 33.1 g/dl (32-36); Mean Corpuscular Hemoglobin 30.5 pg (26-34); Mean Corpuscular Volume 92.3 fl (80-100); Mean Platelet Volume 10.6 fl (7.4-10.4); Monocytes Absolute Auto 0.8 K/mm3 (0.1-0.6); Monocytes Percent Auto 11.2 % (2.6-8.5); Neutrophils Absolute Auto 4.9 K/mm3 (1.3-6.7); Neutrophils Percent Auto 71.2 % (45.5-73.1); Platelet Count Result 131 k/mm3 (150-375); Red Cell Distribution Width 13.3 % (11.5-14.5); White Blood Count 6.9 K/mm3 (4.5-10.0)
[2020-07-27 08:59] LABS: Glucose Point of Care 135 mg/dl (65-105)
[2020-07-27] MEDS: SERTRALINE HCL 50 MG TABLET 100 MG PO (09:53)
[2020-07-27] MEDS: polyethylene glycoL 3350 17 GM POWD.PACK PO (09:53)
[2020-07-27] MEDS: OMEGA 3 POLYUNSAT FATTY ACIDS 1 GM CAP PO (09:53)
[2020-07-27] MEDS: FAMOTIDINE 20 MG TABLET PO ×2 (09:54→21:03)
[2020-07-27] MEDS: LORATADINE 10 MG TABLET PO (09:54)
[2020-07-27] MEDS: FINASTERIDE 5 MG TABLET PO (09:54)
[2020-07-27] MEDS: FLUTICASONE PROPIONATE 0.05% NA SPR 16 GM BTL (*BKC) 2 SPRAY NASAL (09:54)
[2020-07-27] MEDS: AZELASTINE HCL NASAL 0.1% 137 MCG/SPR 30 ML BTL 2 SPRAY NASAL (09:54)
[2020-07-27] MEDS: CHOLECALCIFEROL 400 UNITS TABLET (VIT D) PO (09:54)
[2020-07-27] MEDS: SILVERGEL (ELTA) 45 ML 1 APPLIC TOPICAL (09:57)
--- NOTE | 2020-07-27 10:06 | PM.IMPN ---
Progress Note: A&P Assessment and Plan (1) Urinary tract infection: Code(s): N39.0 - Urinary tract infection, site not specified Status: Acute Assessment and Plan: This is an 85-year-old male with dementia, benign prostatic hyperplasia, and hypertension who presented to the emergency department earlier today via EMS from home for evaluation after a fall. The patient has been going to outpatient physical therapy and was at his baseline on 07/23/20. The patient's states that evening he began to be more weak and unable to get himself up from the chair and it became progressively worse to the point that he fell prior to arrival when he was unable to get up. This is what brought him into the emergency room for further evaluation and concerns at the could not care for her many further at home. Initial vitals showed he was afebrile, non tachycardic, normal respiratory rate oxygenation on room air, normal blood pressure 125/87. [place] [address], with elevated neutrophil count, normocytic anemia with a hemoglobin of 13. Elevated creatinine 1.5, BUN 34 showing some dehydration. Troponin was within normal range. TSH normal. Urinalysis was showing urinary tract infection with positive nitrite, leuk est and wbc's present. CT head showed no acute intracranial abnormality, age-related findings. CT cervical spine showed severe cervical spondylosis without acute findings or significant interval change. CXR showed Mild airspace opacities in right midlung zone, consistent with atelectasis versus pneumonia. Patient was admitted into the hospital for IV antibiotics for urinary tract infection,physical occupational therapy for weakness as well as telemetry monitoring due to concerns for possible arrhythmia verses AV block and cardiology consultation. He has been started on ceftriaxone on arrival Urine culture came back showing contamination. The patient's urinalysis was very abnormal for a UTI. I will repeat a urinalysis at this time to see if his urine is clearing up, and sent another culture if it refluxes. The patient is still having some confusion today which could be his baseline with his dementia or 8 could be from and untreated UTI. Will continue IV antibiotics at this time. Talked to the patient's about her thoughts on his mental status today. Patient still having weakness with physical therapy to the point that he will most likely need SNF placement because his is unable to care for him at home at this time. Continue monitoring (2) Multiple falls: Code(s): R29.6 - Repeated falls Status: Acute Assessment and Plan: Patient is feeling better today. Still needing assistance with physical therapy, may need SNF placement which care coordination is working on Continue PT and OT therapy. (3) Weakness: Code(s): R53.1 - Weakness Status: Acute Assessment and Plan: Acute on chronic exacerbated by dehydration and UTI. (4) Elevated serum creatinine: Code(s): R79.89 - Other specified abnormal findings of blood chemistry Status: Acute Assessment and Plan: Likely related to mild dehydration. He will receive cautious IV fluid rehydration on arrival. DC IV fluids 07/26/2020. He appears to be euvolemic at this time. (5) Type 2 diabetes mellitus: Code(s): E11.9 - Type 2 diabetes mellitus without complications Status: Acute Assessment and Plan: Diet-controlled. Hemoglobin A1c 6.6%. Well controlled. Initiate sliding scale insulin, Accu-Cheks, and hypoglycemic protocol. (6) Hypertension: Qualifiers: Hypertension type: essential hypertension Qualified Code(s): I10 -
--- NOTE | 2020-07-27 11:06 | PCOTNOTE ---
Patient declined treatment multiple attempts due to anxiety re: pending x-ray and waiting for to visit.
[2020-07-27 11:47] LABS: Glucose Point of Care 176 mg/dl (65-105)
[2020-07-27] MEDS: lisinopriL 10 MG TABLET PO (12:02)
[2020-07-27 12:48] LABS: Add Urine Microscopic? YES; Appearance Urine Clear (Clear); Bacteria Urine Trace /hpf; Bilirubin Urine Negative (Negative); Blood Urine 1+ (Negative); Color Urine Yellow (Yellow); Glucose Urine UA Negative (Negative); Ketones Urine Negative (Negative); Leukocyte Esterase Ur 2+ LEU/UL (NEGATIVE); Mucus Urine Rare /lpf; Nitrate Urine Negative (Negative); Protein Urine 1+ mg/dL (Negative); Specific Grav Ur 1.014 (1.001-1.035); Urobilinogen Urine Negative mg/dL (<2.0); WBC Urine 51-75 /hpf (0-3)
[2020-07-27] MEDS: PRAVASTATIN SODIUM 20 MG TABLET BY MOUTH (17:29)
[2020-07-27] MEDS: guaiFENesin 12 HR 600 MG TABCR PO (17:29)
[2020-07-27 17:39] LABS: Glucose Point of Care 156 mg/dl (65-105)
[2020-07-27] MEDS: DONEPEZIL HCL 5 MG TABLET PO (21:03)
[2020-07-27 22:59] LABS: Glucose Point of Care 170 mg/dl (65-105)
[2020-07-28] VITALS (7 sets, daily range): BP systolic 119–155; BP diastolic 53–86; PULSE 61–83; RESP 14–18; TEMP 36.2–36.8; O2SAT 96–100
[2020-07-28 05:57] LABS: Anion Gap 4 mmol/L (8-16); Blood Urea Nitrogen 20 mg/dL (9-20); Carbon Dioxide 32 mmol/L (22-30); Chloride 104 mmol/L (98-107); Estimated CRCL calculation 50 ml/min; Estimated Glomerular Filt Rate > 60; Glucose 145 mg/dL (75-110); Magnesium 1.8 mg/dL (1.6-2.3); Potassium 3.8 mmol/L (3.4-5.0); Sodium 140 mmol/L (137-145)
[2020-07-28 06:42] LABS: Glucose Point of Care 141 mg/dl (65-105)
[2020-07-28] MEDS: FINASTERIDE 5 MG TABLET PO (08:28)
[2020-07-28] MEDS: OMEGA 3 POLYUNSAT FATTY ACIDS 1 GM CAP PO (08:28)
[2020-07-28] MEDS: SERTRALINE HCL 50 MG TABLET 100 MG PO (08:28)
[2020-07-28] MEDS: CHOLECALCIFEROL 400 UNITS TABLET (VIT D) PO (08:28)
[2020-07-28] MEDS: LORATADINE 10 MG TABLET PO (08:29)
[2020-07-28] MEDS: lisinopriL 10 MG TABLET PO (08:29)
[2020-07-28] MEDS: FAMOTIDINE 20 MG TABLET PO ×2 (08:29→20:54)
[2020-07-28] MEDS: FLUTICASONE PROPIONATE 0.05% NA SPR 16 GM BTL (*BKC) 2 SPRAY NASAL (08:29)
[2020-07-28] MEDS: AZELASTINE HCL NASAL 0.1% 137 MCG/SPR 30 ML BTL 2 SPRAY NASAL (08:30)
[2020-07-28] MEDS: SILVERGEL (ELTA) 45 ML 1 APPLIC TOPICAL (08:31)
[2020-07-28 10:03] LABS: Glucose Point of Care 152 mg/dl (65-105)
[2020-07-28 12:12] LABS: Glucose Point of Care 145 mg/dl (65-105)
--- NOTE | 2020-07-28 12:29 | PM.IMPN ---
Progress Note: A&P Assessment and Plan (1) Urinary tract infection: Code(s): N39.0 - Urinary tract infection, site not specified Status: Acute Assessment and Plan: This is an 85-year-old male with dementia, benign prostatic hyperplasia, and hypertension who presented to the emergency department earlier today via EMS from home for evaluation after a fall. The patient has been going to outpatient physical therapy and was at his baseline on 07/23/20. The patient's states that evening he began to be more weak and unable to get himself up from the chair and it became progressively worse to the point that he fell prior to arrival when he was unable to get up. This is what brought him into the emergency room for further evaluation and concerns at the could not care for her many further at home. Initial vitals showed he was afebrile, non tachycardic, normal respiratory rate oxygenation on room air, normal blood pressure 125/87. [place] [address], with elevated neutrophil count, normocytic anemia with a hemoglobin of 13. Elevated creatinine 1.5, BUN 34 showing some dehydration. Troponin was within normal range. TSH normal. Urinalysis was showing urinary tract infection with positive nitrite, leuk est and wbc's present. CT head showed no acute intracranial abnormality, age-related findings. CT cervical spine showed severe cervical spondylosis without acute findings or significant interval change. CXR showed Mild airspace opacities in right midlung zone, consistent with atelectasis versus pneumonia. Patient was admitted into the hospital for IV antibiotics for urinary tract infection,physical occupational therapy for weakness as well as telemetry monitoring due to concerns for possible arrhythmia verses AV block and cardiology consultation. He has been started on ceftriaxone on arrival for abnormal urinalysis. Urine culture came back showing contamination 07/27/20. Repeat a urinalysis 07/27/20, still abnormal and suspicious for UTI. Patients symptoms are clearing up, but concerned for UTI that is not being treated appropriately. Will wait for Urine Cultures to come back to ensure he is being treated properly. If this Urinalysis is showing no growth I will suspect he is being treated appropriately and will discharge him on PO Cefdinir. Continue monitoring (2) Multiple falls: Code(s): R29.6 - Repeated falls Status: Acute Assessment and Plan: Patient is feeling better today. Still needing assistance with physical therapy, may need SNF placement which care coordination is working on Continue PT and OT therapy. (3) Weakness: Code(s): R53.1 - Weakness Status: Acute Assessment and Plan: Acute on chronic exacerbated by dehydration and UTI. (4) Elevated serum creatinine: Code(s): R79.89 - Other specified abnormal findings of blood chemistry Status: Acute Assessment and Plan: Likely related to mild dehydration. He will receive cautious IV fluid rehydration on arrival. DC IV fluids 07/26/2020. He appears to be euvolemic at this time. (5) Type 2 diabetes mellitus: Code(s): E11.9 - Type 2 diabetes mellitus without complications Status: Acute Assessment and Plan: Diet-controlled. Hemoglobin A1c 6.6%. Well controlled. Initiate sliding scale insulin, Accu-Cheks, and hypoglycemic protocol. (6) Hypertension: Qualifiers: Hypertension type: essential hypertension Qualified Code(s): I10 - Essential (primary) hypertension Code(s): I10 - Essential (primary) hypertension Status: Chronic Assessment and Plan: Blood pressure was 155/63 this morning before giving
[2020-07-28] MEDS: PRAVASTATIN SODIUM 20 MG TABLET BY MOUTH (17:29)
[2020-07-28] MEDS: guaiFENesin 12 HR 600 MG TABCR PO (17:29)
[2020-07-28 17:52] LABS: Glucose Point of Care 148 mg/dl (65-105)
[2020-07-28] MEDS: DONEPEZIL HCL 5 MG TABLET PO (20:53)
[2020-07-28 21:16] LABS: Glucose Point of Care 189 mg/dl (65-105)
[2020-07-29] VITALS (10 sets, daily range): BP systolic 112–170; BP diastolic 51–79; PULSE 66–86; RESP 16–20; TEMP 36.4–36.9; O2SAT 93–98
[2020-07-29 08:08] LABS: Glucose Point of Care 160 mg/dl (65-105)
[2020-07-29] MEDS: OMEGA 3 POLYUNSAT FATTY ACIDS 1 GM CAP PO (08:09)
[2020-07-29] MEDS: lisinopriL 10 MG TABLET PO (08:09)
[2020-07-29] MEDS: FINASTERIDE 5 MG TABLET PO (08:10)
[2020-07-29] MEDS: SERTRALINE HCL 50 MG TABLET 100 MG PO (08:10)
[2020-07-29] MEDS: FAMOTIDINE 20 MG TABLET PO ×2 (08:10→20:52)
[2020-07-29] MEDS: polyethylene glycoL 3350 17 GM POWD.PACK PO (08:10)
[2020-07-29] MEDS: LORATADINE 10 MG TABLET PO (08:10)
[2020-07-29] MEDS: CHOLECALCIFEROL 400 UNITS TABLET (VIT D) PO (08:10)
[2020-07-29] MEDS: SILVERGEL (ELTA) 45 ML 1 APPLIC TOPICAL (08:11)
[2020-07-29] MEDS: FLUTICASONE PROPIONATE 0.05% NA SPR 16 GM BTL (*BKC) 2 SPRAY NASAL (08:12)
[2020-07-29] MEDS: AZELASTINE HCL NASAL 0.1% 137 MCG/SPR 30 ML BTL 2 SPRAY NASAL (08:12)
[2020-07-29 12:41] LABS: Glucose Point of Care 162 mg/dl (65-105)
--- NOTE | 2020-07-29 12:43 | PM.IMPN ---
Progress Note: A&P Assessment and Plan (1) Urinary tract infection: Code(s): N39.0 - Urinary tract infection, site not specified Status: Acute Assessment and Plan: This is an 85-year-old male with dementia, benign prostatic hyperplasia, and hypertension who presented to the emergency department earlier today via EMS from home for evaluation after a fall. The patient has been going to outpatient physical therapy and was at his baseline on 07/23/20. The patient's states that evening he began to be more weak and unable to get himself up from the chair and it became progressively worse to the point that he fell prior to arrival when he was unable to get up. This is what brought him into the emergency room for further evaluation and concerns at the could not care for her many further at home. Initial vitals showed he was afebrile, non tachycardic, normal respiratory rate oxygenation on room air, normal blood pressure 125/87. [place] [address], with elevated neutrophil count, normocytic anemia with a hemoglobin of 13. Elevated creatinine 1.5, BUN 34 showing some dehydration. Troponin was within normal range. TSH normal. Urinalysis was showing urinary tract infection with positive nitrite, leuk est and wbc's present. CT head showed no acute intracranial abnormality, age-related findings. CT cervical spine showed severe cervical spondylosis without acute findings or significant interval change. CXR showed Mild airspace opacities in right midlung zone, consistent with atelectasis versus pneumonia. Patient was admitted into the hospital for IV antibiotics for urinary tract infection,physical occupational therapy for weakness as well as telemetry monitoring due to concerns for possible arrhythmia verses AV block and cardiology consultation. He has been started on ceftriaxone (#5) on arrival for abnormal urinalysis. Urine culture came back showing contamination 07/27/20. Repeat a urinalysis 07/27/20, still abnormal and suspicious for UTI. Patients symptoms are clearing up, but concerned for UTI that is not being treated appropriately. Will wait for Urine Cultures to come back (tomorrow 07/30/20) to ensure he is being treated properly. If this Urinalysis is showing no growth I will suspect he is being treated appropriately and will discharge him on PO Cefdinir. We are also working on SNF placement and pending insurance authorization Continue monitoring (2) Multiple falls: Code(s): R29.6 - Repeated falls Status: Acute Assessment and Plan: Patient is feeling well today. Still needing assistance with physical therapy, may need SNF placement which care coordination is working on Continue PT and OT therapy. (3) Weakness: Code(s): R53.1 - Weakness Status: Acute Assessment and Plan: Acute on chronic exacerbated by dehydration and UTI. (4) Elevated serum creatinine: Code(s): R79.89 - Other specified abnormal findings of blood chemistry Status: Acute Assessment and Plan: Likely related to mild dehydration. He will receive cautious IV fluid rehydration on arrival. DC IV fluids 07/26/2020. He appears to be euvolemic at this time. Cr normal at 1.0. (5) Type 2 diabetes mellitus: Code(s): E11.9 - Type 2 diabetes mellitus without complications Status: Acute Assessment and Plan: Diet-controlled. Hemoglobin A1c 6.6%. Well controlled. Initiate sliding scale insulin, Accu-Cheks, and hypoglycemic protocol. (6) Hypertension: Qualifiers: Hypertension type: essential hypertension Qualified Code(s): I10 - Essential (primary) hypertension Code(s): I10 - Essential (primary) h
--- NOTE | 2020-07-29 15:37 | PCCCNOTE ---
Received call from [facility] regarding SNF referral. Ref# [id number] SNF denied; pt walking 50 ft with walker; eligible for home health. May request Peer to Peer Review. Request must be made by Anny July 30 by Central Time. [phone] option 1.
[2020-07-29 17:05] LABS: Glucose Point of Care 177 mg/dl (65-105)
[2020-07-29] MEDS: PRAVASTATIN SODIUM 20 MG TABLET BY MOUTH (17:12)
[2020-07-29] MEDS: guaiFENesin 12 HR 600 MG TABCR PO (17:12)
[2020-07-29] MEDS: DONEPEZIL HCL 5 MG TABLET PO (20:53)
[2020-07-29 21:00] LABS: Glucose Point of Care 153 mg/dl (65-105)
[2020-07-30] VITALS (7 sets, daily range): BP systolic 117–148; BP diastolic 58–72; PULSE 59–87; RESP 18–20; TEMP 36.5–36.9; O2SAT 93–97
[2020-07-30 07:56] LABS: Glucose Point of Care 146 mg/dl (65-105)
[2020-07-30] MEDS: AZELASTINE HCL NASAL 0.1% 137 MCG/SPR 30 ML BTL 2 SPRAY NASAL (08:33)
[2020-07-30] MEDS: FAMOTIDINE 20 MG TABLET PO ×2 (08:34→20:31)
[2020-07-30] MEDS: SERTRALINE HCL 50 MG TABLET 100 MG PO (08:34)
[2020-07-30] MEDS: FINASTERIDE 5 MG TABLET PO (08:34)
[2020-07-30] MEDS: LORATADINE 10 MG TABLET PO (08:34)
[2020-07-30] MEDS: CHOLECALCIFEROL 400 UNITS TABLET (VIT D) PO (08:34)
[2020-07-30] MEDS: lisinopriL 10 MG TABLET PO (08:34)
[2020-07-30] MEDS: OMEGA 3 POLYUNSAT FATTY ACIDS 1 GM CAP PO (08:34)
[2020-07-30] MEDS: polyethylene glycoL 3350 17 GM POWD.PACK PO (08:35)
[2020-07-30] MEDS: FLUTICASONE PROPIONATE 0.05% NA SPR 16 GM BTL (*BKC) 2 SPRAY NASAL (08:35)
[2020-07-30] MEDS: SILVERGEL (ELTA) 45 ML 1 APPLIC TOPICAL (08:36)
[2020-07-30] MEDS: ACETAMINOPHEN 325 MG TABLET 650 MG PO (08:45)
[2020-07-30 12:03] LABS: Glucose Point of Care 155 mg/dl (65-105)
--- NOTE | 2020-07-30 15:43 | PM.IMPN ---
Progress Note: A&P Assessment and Plan (1) Discharge planning issues: Code(s): Z02.9 - Encounter for administrative examinations, unspecified Status: Acute Assessment and Plan: Stable for discharge but pending Acceptance into SNF, Insurance Approved SNF with a Peer to Peer today. (2) Urinary tract infection: Code(s): N39.0 - Urinary tract infection, site not specified Status: Acute Assessment and Plan: This is an 85-year-old male with dementia, benign prostatic hyperplasia, and hypertension who presented to the emergency department earlier today via EMS from home for evaluation after a fall. The patient has been going to outpatient physical therapy and was at his baseline on 07/23/20. The patient's states that evening he began to be more weak and unable to get himself up from the chair and it became progressively worse to the point that he fell prior to arrival when he was unable to get up. This is what brought him into the emergency room for further evaluation and concerns at the could not care for her many further at home. Initial vitals showed he was afebrile, non tachycardic, normal respiratory rate oxygenation on room air, normal blood pressure 125/87. [place] [address], with elevated neutrophil count, normocytic anemia with a hemoglobin of 13. Elevated creatinine 1.5, BUN 34 showing some dehydration. Troponin was within normal range. TSH normal. Urinalysis was showing urinary tract infection with positive nitrite, leuk est and wbc's present. CT head showed no acute intracranial abnormality, age-related findings. CT cervical spine showed severe cervical spondylosis without acute findings or significant interval change. CXR showed Mild airspace opacities in right midlung zone, consistent with atelectasis versus pneumonia. Patient was admitted into the hospital for IV antibiotics for urinary tract infection,physical occupational therapy for weakness as well as telemetry monitoring due to concerns for possible arrhythmia verses AV block and cardiology consultation. He has been started on ceftriaxone (#6) on arrival for abnormal urinalysis. Urine culture came back showing contamination 07/27/20. Repeat a urinalysis 07/27/20, still abnormal and suspicious for UTI and Urine culture again showing Contamination. Will continue IV Ceftriaxone or if discharged Cefdinir for 7 days total for treatment of UTI. Urinary symptoms improved. Continue monitoring (3) Multiple falls: Code(s): R29.6 - Repeated falls Status: Acute Assessment and Plan: Working on SNF placement Continue PT and OT therapy. (4) Weakness: Code(s): R53.1 - Weakness Status: Acute Assessment and Plan: Acute on chronic exacerbated by dehydration and UTI. (5) Elevated serum creatinine: Code(s): R79.89 - Other specified abnormal findings of blood chemistry Status: Acute Assessment and Plan: Likely related to mild dehydration. He will receive cautious IV fluid rehydration on arrival. DC IV fluids 07/26/2020. He appears to be euvolemic at this time. Cr normal at 1.0. (6) Type 2 diabetes mellitus: Code(s): E11.9 - Type 2 diabetes mellitus without complications Status: Acute Assessment and Plan: Diet-controlled. Hemoglobin A1c 6.6%. Well controlled. Initiate sliding scale insulin, Accu-Cheks, and hypoglycemic protocol. (7) Hypertension: Qualifiers: Hypertension type: essential hypertension Qualified Code(s): I10 - Essential (primary) hypertension Code(s): I10 - Essential (primary) hypertension Status: Chronic Assessment and Plan: Blood pressure
[2020-07-30 17:12] LABS: Glucose Point of Care 158 mg/dl (65-105)
[2020-07-30] MEDS: guaiFENesin 12 HR 600 MG TABCR PO (17:16)
[2020-07-30] MEDS: PRAVASTATIN SODIUM 20 MG TABLET BY MOUTH (17:17)
[2020-07-30] MEDS: DONEPEZIL HCL 5 MG TABLET PO (20:31)
[2020-07-30 22:21] LABS: Glucose Point of Care 186 mg/dl (65-105)
[2020-07-31 05:44] VITALS: BP 140/53; PULSE 89; RESP 18; TEMP 36.7; O2SAT 94
[2020-07-31 07:41] LABS: Glucose Point of Care 143 mg/dl (65-105)
[2020-07-31 08:20] VITALS: BP 175/69
[2020-07-31 08:23] VITALS: BP 133/69
[2020-07-31 08:25] VITALS: BP 126/64
[2020-07-31] MEDS: FLUTICASONE PROPIONATE 0.05% NA SPR 16 GM BTL (*BKC) 2 SPRAY NASAL (09:47)
[2020-07-31] MEDS: AZELASTINE HCL NASAL 0.1% 137 MCG/SPR 30 ML BTL 2 SPRAY NASAL (09:48)
[2020-07-31] MEDS: FINASTERIDE 5 MG TABLET PO (09:49)
[2020-07-31] MEDS: polyethylene glycoL 3350 17 GM POWD.PACK PO (09:49)
[2020-07-31] MEDS: LORATADINE 10 MG TABLET PO (09:49)
[2020-07-31] MEDS: CHOLECALCIFEROL 400 UNITS TABLET (VIT D) PO (09:49)
[2020-07-31] MEDS: FAMOTIDINE 20 MG TABLET PO (09:49)
[2020-07-31] MEDS: SERTRALINE HCL 50 MG TABLET 100 MG PO (09:49)
[2020-07-31] MEDS: lisinopriL 10 MG TABLET PO (09:49)
[2020-07-31] MEDS: SILVERGEL (ELTA) 45 ML 1 APPLIC TOPICAL (09:50)
[2020-07-31] MEDS: OMEGA 3 POLYUNSAT FATTY ACIDS 1 GM CAP PO (09:50)
[2020-07-31] MEDS: ACETAMINOPHEN 325 MG TABLET 650 MG PO (09:53)
--- NOTE | 2020-07-31 12:15 | PM.DS ---
DS: Admitting Diagnosis Admitting Diagnosis Admitting Diagnosis: weakness, UTI DS: Discharge Diagnosis Discharge Diagnosis (1) Urinary tract infection: Code(s): N39.0 - Urinary tract infection, site not specified Status: Acute Assessment and Plan: Patient admitted to the hospital for fall and weakness with a UA suggestive of UTI -initial urine culture grew growth of mixed gwen suggesting possible contamination. He was continued on ceftriaxone for coverage and another urine culture was done which showed the same. He was improving on antibiotics and he received 7 days of IV ceftriaxone prior to discharge. He had no further urinary symptoms. (2) Multiple falls: Code(s): R29.6 - Repeated falls Status: Acute Assessment and Plan: Patient has been discharged to SNF with a goal to return to home (3) Weakness: Code(s): R53.1 - Weakness Status: Acute Assessment and Plan: Acute on chronic exacerbated by dehydration and UTI (4) Elevated serum creatinine: Code(s): R79.89 - Other specified abnormal findings of blood chemistry Status: Acute Assessment and Plan: Resolved -likely due to dehydration on admission -within normal limits at discharge (5) Type 2 diabetes mellitus: Code(s): E11.9 - Type 2 diabetes mellitus without complications Status: Acute Assessment and Plan: Diet-controlled. Hemoglobin A1c 6.6%. Well controlled. -follow with primary care physician (6) Hypertension: Qualifiers: Hypertension type: essential hypertension Qualified Code(s): I10 - Essential (primary) hypertension Code(s): I10 - Essential (primary) hypertension Status: Chronic Assessment and Plan: Blood pressure 129/64 -continue lisinopril (7) Abnormal EKG: Code(s): R94.31 - Abnormal electrocardiogram [ECG] [EKG] Status: Acute Assessment and Plan: EKG being read as 2nd degree AV block type 2. -Cardiology evaluated the patient and telemetry strips which shows sinus rhythm with APCs and nonconducted APCs.They do not believe it is a second-degree AV block Type 1 or 2 (No progressive [place] prolongation , P waves don't march out, etc.). - They feel like no further evaluation is needed at this time. May have the patient follow-up with Cardiology if any lightheadedness, dizziness or syncopal episodes took her. - Patient and understands and agrees the plan (8) Toe blister without infection: Code(s): S90.426A - Blister (nonthermal), unspecified lesser toe(s), initial encounter Status: Acute Assessment and Plan: Right toe with blood blister without need for further treatment -nurse informs me the left toe did have slight wound. This should be monitored by the accepting facility DS: Summary Hospital Course Hospital Course: Patient is a 85-year-old male with dementia, benign prostatic hyperplasia, and hypertension who presented to the emergency department from home for evaluation after a fall. The patient has been going to outpatient physical therapy and was at his baseline on 07/23/20. The patient's states that evening he began to be more weak and unable to get himself up from the chair and it became progressively worse to the point that he fell prior to arrival when he was unable to get up. This is what brought him into the emergency room for further evaluation and concerns at the could not care for her many further at home. Initial vitals showed he was afebrile, non tachycardic, normal respiratory rate oxygenation on room air, normal blood pressure 125/87. [place] [address], with elevated neutrophil count, normocytic anemia with a hemoglobin of 13. Elevated creatinine 1.5, BUN 34 showing some dehydration. Troponin was within normal range. TSH normal. Urinalysis suspicious for urinary tract infection with positive nitri
[2020-07-31 12:35] LABS: Glucose Point of Care 145 mg/dl (65-105)
[2020-07-31 14:00] VITALS: BP 129/64; PULSE 81; RESP 16; TEMP 36.4; O2SAT 100
== END 2020-07-31 14:30 | DRG 690 ==
LOC: ANHED 08:22 → ANH3MEDSUR 11:20
PROVIDERS: Emergency Medicine; Physician Assistant; Admitting Provider Internal Medicine; Emergency Provider Emergency Medicine; PCP Internal Medicine; Visit Provider Physician Assistant
DX: N39.0 Urinary tract infection, site not specified (principal); R29.6 Repeated falls; E86.0 Dehydration; J30.9 Allergic rhinitis, unspecified; M19.90 Unspecified osteoarthritis, unspecified site; N40.0 Benign prostatic hyperplasia without lower urinary tract symptoms; F32.9 Major depressive disorder, single episode, unspecified; E11.9 Type 2 diabetes mellitus without complications; G30.9 Alzheimer's disease, unspecified; F02.80 Dementia in other diseases classified elsewhere, unspecified severity, without behavioral disturbance, psychotic disturbance, mood disturbance, and anxiety; E78.00 Pure hypercholesterolemia, unspecified; E78.5 Hyperlipidemia, unspecified; I10 Essential (primary) hypertension; M41.20 Other idiopathic scoliosis, site unspecified; Z87.891 Personal history of nicotine dependence; R41.3 Other amnesia; R79.89 Other specified abnormal findings of blood chemistry; Z96.642 Presence of left artificial hip joint; M47.812 Spondylosis without myelopathy or radiculopathy, cervical region; R94.31 Abnormal electrocardiogram [ECG] [EKG]
CPT/HCPCS: 36415; 70450; 71045; 72125; 73502; 80048; 80053; 81001; 82550; 82948; 83036; 83735; 84443; 84484; 85025; 85610; 85730; 87086; 87088; 93005; 96361; 96365; 97110; 97116; 97161; 97165; 97530; 97535; 99285; A9270; G0378; J0696; J7030

== ENCOUNTER 2021-05-17 08:57 | Inpatient (IN) | payer MEDICARE, SELFPAY ==
--- NOTE | ~2021-05-17 | XR_ITS ---
EXAMINATION: XR chest 1V 05/17/2021 09:41 INDICATION: Status post fall. Chest pain PROCEDURE: AP view of the chest COMPARISON: 07/25/2020 FINDINGS: The lungs are clear. The cardiomediastinal silhouette is within normal limits. There are no pleural effusions. There is no pneumothorax suspected. IMPRESSION: 1: NO ACUTE CARDIOPULMONARY DISEASE. Reviewed, dictated and finalized at location A.
--- NOTE | ~2021-05-17 | XR_ITS ---
XR shoulder LT min 2V 05/17/2021 09:41 Indication: Left shoulder pain after fall Procedure: 4 views left shoulder Comparison: No prior studies for comparison. Findings: There is a left humeral neck fracture with varus angulation. The glenohumeral and acromiocl avicular joints are intact. Impression: 1: Displaced left humeral neck fracture with varus angulation. Reviewed, dictated and finalized at location A. Impression: 1: Displaced left humeral neck fracture with varus angulation.
--- NOTE | ~2021-05-17 | CT_ITS ---
EXAMINATION: CT brain wo con DATE: 05/17/2021 09:32 INDICATION: Status post fall. Head injury. TECHNIQUE: Computed tomography (CT) of the head was performed without intravenous contrast. The dose- length product was 681.00 mGy-cm. COMPARISON: CT dated 07/25/2020 FINDINGS: Mild generalized atrophy. There are scattered mild periventricular and subcortical white ma tter changes, most likely related to small vessel ischemic disease (microangiopathy). No ventriculome pasquale or midline shift. Basilar cisterns are patent. No acute intracranial hemorrhage, infarction, mas s or mass effect. There is mucosal thickening of the sphenoid sinuses. Mastoids are pneumatized. No d epressed skull fractures. IMPRESSION: 1. No acute intracranial abnormality. 2: Sphenoid sinus disease. 3: Chronic age-related findings. Reviewed, dictated and finalized at location A.
--- NOTE | ~2021-05-17 | CT_ITS ---
EXAMINATION: CT cervical spine wo con DATE: 05/17/2021 09:32 INDICATION: Neck pain after fall TECHNIQUE: Computed tomography (CT) of the cervical spine was performed without intravenous contrast. The dose-length product was 482 mGy-cm. Automated exposure control and iterative reconstruction tech nique were employed. COMPARISON: None FINDINGS: Moderate degenerative disc disease at C3-4, C5-6, C6-7 and C7-T1. There is degenerative ant erolisthesis at C7-T1. There is an old avulsion fracture of the C7 spinous process. There is moderate multilevel uncinate and facet degenerative change. Odontoid process is normal. There is emphysema in the lung apices. No paraspinal soft tissue abnormality. IMPRESSION: 1. No acute abnormality of the cervical spine. 2: Moderate cervical spondylosis. Reviewed, dictated and finalized at location A.
--- NOTE | ~2021-05-17 | XR_ITS ---
XR pelvis 1-2V 05/17/2021 09:41 Indication: Status post fall. Pelvic pain. Procedure: AP pelvis Comparison: Comparison to multiple prior studies sequentially, with oldest reviewed study dated 04/2019. Findings: Pelvic rings are intact. There is a right femoral bipolar hemiarthroplasty. There is a alfa srinivasa compression screw and intramedullary soledad transfixing the left femur. No acute fracture or traumat ic malalignment. There is moderate lower lumbar spondylosis. Osteopenia. Sacral foramen are symmetric . Impression: 1: No acute fracture. Reviewed, dictated and finalized at location A. Impression: 1: No acute fracture.
[2021-05-17 08:56] VITALS: BP 174/65; PULSE 55; RESP 16; TEMP 36.2; O2SAT 100
--- NOTE | 2021-05-17 09:08 | ECG_ITS ---
Measurements Intervals [place] Rate: 62 P: RI: 0 QRS: -23 QRSD: 110 T: 25 QT: 430 QTc: 439 Interpretive Statements NORMAL SINUS RHYTHM LOW QRS VOLTAGE IN PRECORDIAL LEADS [QRS DEFLECTION < 1.0 mV IN CHEST LEADS] POSSIBLE ANTERIOR MYOCARDIAL INFARCTION , PROBABLY OLD [30 ms Q WAVE IN V3/V4, OR R < 0.2 mV IN V4] ABNORMAL ECG Electronically Signed On 05-17-2021 12:20:28 CDT by See Reese M.D.
--- NOTE | 2021-05-17 09:09 | ED.FALL ---
HPI - Fall General Chief Complaint: Fall Stated Complaint: FALL, SHOULDER INJURY Source: RN notes reviewed History of Present Illness HPI Narrative: Patient presents to the emergency department from home via EMS for fall. Patient with history of dementia and is a limited historian. Patient fell at some point last night he believes he is going to the restroom states he thinks he walks with a walker but was not using it complains of left shoulder pain. He is unsure of how he fell specifically per EMS the stated he has a history of frequent falls patient is unsure how long he is on the ground he denies any headache, chest pain, shortness of breath, abdominal pain nausea vomiting or any other symptoms Related Data Home Medications Medication Instructions Recorded Confirmed Fish Oil Extra Strength 1,400 mg PO DAILY 05/31/19 01/15/21 calcium citrate-vitamin D3 1 tablet PO DAILY 05/31/19 01/15/21 [Citracal + D Maximum] cholecalciferol (vitamin D3) 400 unit PO DAILY 05/31/19 01/15/21 [Vitamin D3] fexofenadine [Bernice Allergy] 180 mg PO DAILY 05/31/19 01/15/21 fluticasone propionate [Flonase 50 mcg INTRANASAL DAILY 05/31/19 01/15/21 Allergy Relief] guaifenesin [Mucinex] 600 mg PO DAILY 05/31/19 01/15/21 Citrucel 500 mg PO DAILY 07/25/20 01/15/21 finasteride 5 mg PO DAILY 07/25/20 01/15/21 sertraline 100 mg PO DAILY 07/25/20 01/15/21 Allergies Allergy/AdvReac Type Severity Reaction Status Date / Time tetanus toxoid, adsorbed Allergy Severe HIVES Verified 05/17/21 10:56 Tetanus Vaccines and Toxoid Allergy Unknown Unknown Verified 05/17/21 10:56 Review of Systems Review of Systems: Gen.: Denies fevers or chills ENT: Denies congestion Respiratory: Denies shortness of breath or cough CV: Denies chest pain or palpitations GI: Denies abdominal pain nausea, emesis or diarrhea Musculoskeletal: See HPI Neuro: Denies numbness, tingling, weakness or focal weakness Skin: Denies rash Except as documented, all other systems reviewed and negative PMFSH Past Medical History Medical History Allergic rhinitis Arthritis Benign essential hypertension Dementia Depression Fracture of femoral neck, right, closed (05/2019) Hyperlipidemia Hypertension Scoliosis Type 2 diabetes mellitus Hemoglobin A1c was 6.7% on 07/15/2020. Surgical History Surgical History History of hip surgery (06/01/19) ORIF right hip fracture, bipolar. Left hip replacement. History of tonsillectomy History of transurethral resection of prostate Family History Family History Mother Osteoporosis Hypertension Mother Crohn's colitis Mother Colon cancer Other Family history of arthritis Social History Social History Social History: The patient lives with his in [place]. He has 2 grown children. 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 Former smoker, 1 pack a day for about 15 years. No alcohol or illicit substance abuse. His , Rose leiva, is his surrogate decision maker. Code status: Full code. Smoking packs per day: 1 Smoking cigarettes per day: 20.0 Years smoked: 15 Smoking pack-years: 15.00 Tobacco type: cigarettes and pipe Smoking end date: 05/30/76 Exam Narrative: APPEARANCE: No acute distress, nontoxic, resting in bed EYES: PERRL HEENT: Normocephalic, atraumatic, OMM Neck: Supple no midline tenderness palpation tender palpation left paravertebral muscles C5-7 RESPIRATORY: No respiratory distress Clear to auscultation bilaterally with no rhonchi wheezing or rales. CARDIOVASCULAR: Regular rate and rhythm without murmurs rubs or gallops. ABDOMINAL: Soft, nontender, nondistended, no rebound or guarding MUSCULOSKELETAl: Moves all extremiti
[2021-05-17 09:58] LABS: Basophils Percent Auto 0.3 % (0.2-1.2); Eosinophils Absolute Auto 0.1 K/mm3 (0-0.3); Eosinophils Percent Auto 0.5 % (0-4.4); Hematocrit 44.3 % (42.0-52.0); Hemoglobin 14.2 g/dL (14.0-18.0); Immature Granulocyte Absolute 0.08 K/mm3 (0.00-0.031); Immature Granulocyte Percent A 0.7 % (0-0.5); Lymphocytes Absolute Auto 0.91 K/mm3 (0.9-3.2); Lymphocytes Percent Auto 7.5 % (18.3-44.2); Mean Corpuscular HGB Conc 32.1 g/dl (32-36); Mean Corpuscular Hemoglobin 31.2 pg (26-34); Mean Corpuscular Volume 97.4 fl (80-100); Mean Platelet Volume 10.3 fl (7.4-10.4); Monocytes Absolute Auto 0.7 K/mm3 (0.1-0.6); Monocytes Percent Auto 5.3 % (2.6-8.5); Neutrophils Absolute Auto 10.5 K/mm3 (1.3-6.7); Neutrophils Percent Auto 85.7 % (45.5-73.1); Platelet Count Result 196 k/mm3 (150-375); Red Blood Count 4.55 M/mm3 (4.6-6.20); Red Cell Distribution Width 13.4 % (11.5-14.5); White Blood Count 12.2 K/mm3 (4.5-10.0)
[2021-05-17 10:03] LABS: Add Urine Microscopic? YES; Appearance Urine Cloudy (Clear); Bacteria Urine Trace /hpf; Bilirubin Urine Negative (Negative); Blood Urine 2+ (Negative); Color Urine Yellow (Yellow); Glucose Urine UA Negative (Negative); Ketones Urine Negative (Negative); Leukocyte Esterase Ur 3+ LEU/UL (Negative); Nitrate Urine Positive (Negative); Protein Urine Negative (Negative); Specific Grav Ur 1.015 (1.001-1.035); Urobilinogen Urine Negative mg/dL (<2.0); WBC Urine 51-75 /hpf
[2021-05-17 10:08] LABS: Alanine Aminotransferase 20 U/L (4-50); Albumin Level 4.2 g/dL (3.5-5.1); Alkaline Phosphatase 93 U/L (38-126); Anion Gap 5 mmol/L (8-16); Aspartate Amino Transferase 33 U/L (17-59); Bilirubin,Total 0.4 mg/dL (0.2-1.3); Blood Urea Nitrogen 34 mg/dL (9-20); Calcium 8.8 mg/dL (8.4-10.2); Carbon Dioxide 29 mmol/L (22-30); Chloride 107 mmol/L (98-107); Creatine Kinase 68 U/L (55-170); Estimated Glomerular Filt Rate 52; Glucose 192 mg/dL (65-110); Potassium 4.1 mmol/L (3.4-5.0); Sodium 141 mmol/L (137-145)
[2021-05-17 11:01] VITALS: BP 141/44; PULSE 64; RESP 25; O2SAT 92
--- NOTE | 2021-05-17 11:13 | PM.CNOR ---
Assessment and Plan Assessment and plan (1) Closed fracture of neck of left humerus: Qualifiers: Encounter type: initial encounter Qualified Code(s): S42.212A - Unspecified displaced fracture of surgical neck of left humerus, initial encounter for closed fracture Code(s): S42.212A - Unspecified displaced fracture of surgical neck of left humerus, initial encounter for closed fracture Status: Acute Assessment and Plan: 86-year-old male with an impacted, angulated left proximal humerus fracture. This can be treated in a sling. I reviewed the condition with the patient's . She is going to be unable to take care of it at home so he will need placement for enough time for this to heal to the point where he can be more functional and she understands this. I will follow while he is in the hospital. Thank you for the consultation. History of Present Illness HPI Consult date: 05/17/21 Chief complaint: Left humerus fracture/UTI Narrative: 86-year-old male who fell at home suffering a left proximal humerus fracture. No other significant injury with this occurrence. He does have dementia. 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 [facility] Past Medical History Medical History Allergic rhinitis Arthritis Benign essential hypertension Dementia Depression Fracture of femoral neck, right, closed (05/2019) Hyperlipidemia Hypertension Scoliosis Type 2 diabetes mellitus Hemoglobin A1c was 6.7% on 07/15/2020. Surgical History Surgical History History of hip surgery (06/01/19) ORIF right hip fracture, bipolar. Left hip replacement. History of tonsillectomy History of transurethral resection of prostate Family History Family History Mother Osteoporosis Hypertension Mother Crohn's colitis Mother Colon cancer Other Family history of arthritis Social History Social History Social History: The patient lives with his in [place]. He has 2 grown children. 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 Former smoker, 1 pack a day for about 15 years. No alcohol or illicit substance abuse. His , Rose leiva, is his surrogate decision maker. Code status: Full code. Smoking packs per day: 1 Smoking cigarettes per day: 20.0 Years smoked: 15 Smoking pack-years: 15.00 Tobacco type: cigarettes and pipe Smoking end date: 05/30/76 Meds Home Medications and Allergies Home Medications Medication Instructions Recorded Confirmed Type lancets 26 gauge #100 each 04/18/19 01/15/21 Rx Fish Oil Extra Strength 1,400 mg PO DAILY 05/31/19 01/15/21 History calcium citrate-vitamin D3 1 tablet PO DAILY 05/31/19 01/15/21 History [Citracal + D Maximum] cholecalciferol (vitamin D3) 400 unit PO DAILY 05/31/19 01/15/21 History [Vitamin D3] fexofenadine [Bernice Allergy] 180 mg PO DAILY 05/31/19 01/15/21 History fluticasone propionate [Flonase 50 mcg INTRANASAL DAILY 05/31/19 01/15/21 History Allergy Relief] guaifenesin [Mucinex] 600 mg PO DAILY 05/31/19 01/15/21 History acetaminophen [Mapap 650 mg PO Q6H PRN #30 tablet 06/06/19 01/15/21 Rx (acetaminophen)] polyethylene glycol 3350 [Miralax] 17 g PO QAM 30 Days each 06/06/19 01/15/21 Rx blood sugar diagnostic See Rx Instructions .ROUTE 03/08/20 01/15/21 Rx .COMPLEX #100 strip azelastine 137 mcg (0.1 %) nasal See Rx Instructions .ROUTE 04/09/20 01/15/21 Rx spray aerosol .COMPLEX #30 ml lisinopril 10 mg tablet 10 mg PO DAILY #90 tablet 07/11/20 01/15/21 Rx Citrucel 500 mg PO DAILY 07/25/20 01/15/21 History finasteride 5 mg PO DAILY 07/25/20 01/15/21 History sertraline 100 mg PO DAILY 07/25/20 01/15/21 History famotidine 20 mg tablet 20 mg PO Q12HR 30 Days #120 tablet 02/26/21 Rx sul
[2021-05-17 11:25] VITALS: BP 147/60; PULSE 57; RESP 16; O2SAT 100
--- NOTE | 2021-05-17 11:59 | ADMGEN ---
This patient, Chaz Downey, was admitted to Medical Room 253-01. Patient/family oriented to hospital policies and general routines including ID bracelet, bed and alarms, visiting hours, pain management, procedures, bathroom and other care routines, personal items, smoking policy, room service/diet, and visiting hours. Information on how to activate the Rapid Response Team has been discussed. Patient/Family are encouraged to report perceived risks to care and to ask questions if they do not understand what they are told or what they should do.
[2021-05-17 12:27] VITALS: BMI 23.8
[2021-05-17 14:00] VITALS: BP 130/62; PULSE 65; RESP 16; TEMP 36.7; O2SAT 100
--- NOTE | 2021-05-17 14:45 | PM.IMHP ---
H&P: HPI History of Present Illness Date/Time: 05/17/21 14:45 Chief Complaint: Left shoulder pain after a fall. Narrative: This is an 86-year-old male with dementia, benign prostatic hyperplasia, and hypertension who presented to the emergency department via EMS from home for evaluation of left shoulder pain after a fall. Given his dementia he is unable to provide an accurate history and as such almost all of the following is obtained via a review of his electronic medical records as well as discussions with his . The patient is supposed to ambulate with a walker at home however it sounds as though he got up to use the restroom early this morning without his walker and he had a fall. It is my understanding that it was unwitnessed and the only complaints he had thereafter was of left arm and shoulder pain. Imaging done in the emergency department showed displaced left humeral neck fracture with varus angulation which is being treated nonsurgically. He is being admitted overnight for pain control and PT/OT evaluation. He will need placement on discharge as is unable to care for him with an immobilized arm as he is reliant on a walker. At the time my evaluation he is sitting up watching television and he has no complaints. He has perhaps mild discomfort in his left shoulder but nothing significant. Again he does not remember how he fell or even when he fell. Review of Systems Review of Systems: Twelve systems were reviewed but are limited given his significant short-term memory loss. At the time my evaluation he denies headache, vertigo, focal weakness, paresthesias, auditory and visual changes, cold and flu symptoms, sinus congestion, chest pain, shortness breast, nausea, vomiting, diarrhea, and dysuria. [facility] Past Medical History Medical History Allergic rhinitis Arthritis Benign essential hypertension Dementia Depression Fracture of femoral neck, right, closed (05/2019) Hyperlipidemia Hypertension Scoliosis Type 2 diabetes mellitus Hemoglobin A1c was 6.7% on 07/15/2020. Surgical History Surgical History History of hip surgery (06/01/19) ORIF right hip fracture, bipolar. Left hip replacement. History of tonsillectomy History of transurethral resection of prostate Family History Family History Mother Osteoporosis Hypertension Mother Crohn's colitis Mother Colon cancer Other Family history of arthritis Social History Social History (Updated 05/17/21 @ 14:19 by Dimple Mojica PA-C) Social History: The patient lives with his in [place]. He has 2 grown children. 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 Former smoker, 1 pack a day for about 15 years. No alcohol or illicit substance abuse. His , Marbella, is his surrogate decision maker. Code status: Full code. Smoking packs per day: 1 Smoking cigarettes per day: 20.0 Years smoked: 15 Smoking pack-years: 15.00 Smoking status: Former smoker Tobacco type: pipe Smoking end date: 05/30/76 Alcohol intake: never Substance use: never Spiritual care concerns: Yes Meds Home Medications and Allergies Home Medications Medication Instructions Recorded Confirmed Type lancets 26 gauge #100 each 04/18/19 05/17/21 Rx Fish Oil Extra Strength 1,400 mg PO DAILY 05/31/19 05/17/21 History calcium citrate-vitamin D3 1 tablet PO DAILY 05/31/19 05/17/21 History [Citracal + D Maximum] cholecalciferol (vitamin D3) 400 unit PO DAILY 05/31/19 05/17/21 History [Vitamin D3] fexofenadine [Bernice Allergy] 180 mg PO DAILY 05/31/19 05/17/21 History fluticasone propionate [Flonase 50 mcg INTRANASAL DAILY 05/31/19 05/17/21 History Allergy Relief] acetaminophen [Mapap 650 mg PO Q6H PRN #30 tablet 06/06/19 05/17/21 Rx (
[2021-05-17 16:34] LABS: Glucose Point of Care 216 mg/dl (65-105)
[2021-05-17] MEDS: ACETAMINOPHEN 325 MG TABLET 650 MG PO ×2 (17:44→22:47)
[2021-05-17] MEDS: INSULIN ASPART (*BKC) 100 UNITS/ML SUB-Q (17:44)
[2021-05-17 19:24] VITALS: BP 126/73; PULSE 76; RESP 17; TEMP 36.5; O2SAT 100
[2021-05-17] MEDS: FAMOTIDINE 20 MG TABLET PO (20:35)
[2021-05-17] MEDS: DONEPEZIL HCL 5 MG TABLET PO (20:35)
[2021-05-17] MEDS: PRAVASTATIN SODIUM 20 MG TABLET BY MOUTH (20:35)
[2021-05-17] MEDS: AZELASTINE HCL NASAL 0.1% 137 MCG/SPR 30 ML BTL 2 SPRAY NASAL (20:35)
[2021-05-17 20:45] LABS: Glucose Point of Care 190 mg/dl (65-105)
[2021-05-18 03:26] VITALS: BP 148/56; PULSE 64; RESP 17; TEMP 37.2; O2SAT 93
[2021-05-18] MEDS: ACETAMINOPHEN 325 MG TABLET 650 MG PO (05:03)
[2021-05-18 05:13] LABS: Basophils Percent Auto 0.3 % (0.2-1.2); Eosinophils Percent Auto 0.3 % (0-4.4); Hematocrit 38.8 % (42.0-52.0); Hemoglobin 12.7 g/dL (14.0-18.0); Immature Granulocyte Absolute 0.06 K/mm3 (0.00-0.031); Immature Granulocyte Percent A 0.5 % (0-0.5); Lymphocytes Absolute Auto 1.06 K/mm3 (0.9-3.2); Lymphocytes Percent Auto 8.9 % (18.3-44.2); Mean Corpuscular HGB Conc 32.7 g/dl (32-36); Mean Corpuscular Volume 94.6 fl (80-100); Mean Platelet Volume 9.4 fl (7.4-10.4); Monocytes Absolute Auto 1.3 K/mm3 (0.1-0.6); Monocytes Percent Auto 10.6 % (2.6-8.5); Neutrophils Absolute Auto 9.5 K/mm3 (1.3-6.7); Neutrophils Percent Auto 79.4 % (45.5-73.1); Platelet Count Result 186 k/mm3 (150-375); Red Cell Distribution Width 13.2 % (11.5-14.5); White Blood Count 11.9 K/mm3 (4.5-10.0)
[2021-05-18 05:21] LABS: Hemoglobin A1C 5.9 % (<5.7)
[2021-05-18 05:27] LABS: Alanine Aminotransferase 17 U/L (4-50); Albumin Level 3.8 g/dL (3.5-5.1); Alkaline Phosphatase 79 U/L (38-126); Anion Gap 5 mmol/L (8-16); Aspartate Amino Transferase 22 U/L (17-59); Bilirubin,Total 0.7 mg/dL (0.2-1.3); Blood Urea Nitrogen 25 mg/dL (9-20); Calcium 8.5 mg/dL (8.4-10.2); Carbon Dioxide 29 mmol/L (22-30); Chloride 106 mmol/L (98-107); Estimated CRCL calculation 42 ml/min; Estimated Glomerular Filt Rate 52; Glucose 178 mg/dL (65-110); Magnesium 1.8 mg/dL (1.6-2.3); Potassium 4.1 mmol/L (3.4-5.0); Sodium 140 mmol/L (137-145)
--- NOTE | 2021-05-18 07:24 | PM.PNORT ---
Progress Note: A&P Assessment and Plan (1) Closed fracture of neck of left humerus: Qualifiers: Encounter type: subsequent encounter Fracture healing: with routine healing Qualified Code(s): S42.212D - Unspecified displaced fracture of surgical neck of left humerus, subsequent encounter for fracture with routine healing Code(s): S42.212A - Unspecified displaced fracture of surgical neck of left humerus, initial encounter for closed fracture Status: Acute Assessment and Plan: 86-year-old male with multiple medical issues. Has an acute left proximal humerus fracture. Will need placement. Can participate in some therapy but essentially will not be able to use left arm. Will continue with the left sling full-time. May be able to start some gentle therapy with the arm in 3-4 weeks. Following. Subjective Subjective Date/Time Seen: 05/18/21 07:24 Principal diagnosis: Left proximal humerus fracture Interval history: no complaints of left shoulder pain of significance this morning. Tolerating the sling. Exam Const: General: cooperative, comfortable and no acute distress Nutritional Appearance: well nourished Extrem: Shoulder/upper arm images: 1. Still with moderate swelling. Other: Grossly neurovascular status intact left upper extremity. Has pain with manipulation of left shoulder as expected. Objective Data Vital Signs Vital Signs: Vital Signs - 24 hr 05/17/21 08:56 05/17/21 11:01 05/17/21 11:25 Temperature 97.1 F L Pulse Rate 55 L 64 57 L Respiratory Rate 16 25 H 16 Blood Pressure 174/65 H 141/44 H 147/60 H Pulse Oximetry 100 92 100 05/17/21 14:00 05/17/21 19:24 05/18/21 03:26 Temperature 98.1 F 97.7 F 98.9 F Pulse Rate 65 76 64 Respiratory Rate 16 17 17 Blood Pressure 130/62 126/73 148/56 H Pulse Oximetry 100 100 93 Intake/Output Intake/Output: Intake & Output 05/15/21 05/16/21 05/17/21 05/18/21 23:59 23:59 23:59 23:59 Intake Total 990 / 990 100 / 100 Output Total 700 / 700 100 / 100 Balance 290 / 290 0 / 0 Meds/Results Radiology Results: ITS Impressions Head CT 05/17/21 09:35 IMPRESSION: 1. No acute intracranial abnormality. 2: Sphenoid sinus disease. 3: Chronic age-related findings. Cervical Spine CT 05/17/21 09:43 IMPRESSION: 1. No acute abnormality of the cervical spine. 2: Moderate cervical spondylosis. Chest X-Ray 05/17/21 09:46 IMPRESSION: 1: NO ACUTE CARDIOPULMONARY DISEASE. ADDENDUM: 05/17/21 0954 Addendum: There is an acute left humeral neck fracture. Shoulder X-Ray 05/17/21 09:51 Impression: 1: Displaced left humeral neck fracture with varus angulation. Pelvis X-Ray 05/17/21 09:54 Impression: 1: No acute fracture. Labs Labs: Laboratory Results - last 24 hr 05/17/21 05/17/21 05/17/21 09:11 09:11 09:48 WBC 12.2 H RBC 4.55 L Hgb 14.2 Hct 44.3 MCV 97.4 MCH 31.2 MCHC 32.1 RDW 13.4 Plt Count 196 MPV 10.3 Immature Gran % (Auto) 0.7 H Neut % (Auto) 85.7 H Lymph % (Auto) 7.5 L [place] % (Auto) 5.3 Eos % (Auto) 0.5 Baso % (Auto) 0.3 Lymph # (Auto) 0.91 [place] # (Auto) 0.7 H Eos # (Auto) 0.1 Baso # (Auto) 0.0 Abs Immat Gran (auto) 0.08 H Absolute Neuts (auto) 10.5 H Absolute Nucleated RBC 0.0 Nucleated RBC % 0.0 Sodium 141 Potassium 4.1 Chloride 107 Carbon Dioxide 29 Anion Gap 5 L BUN 34 H D Creatinine 1.30 Estim Creat Clear Calc Not Reportable Estimated GFR 52 L Glucose 192 H POC Capillary Glucose Hemoglobin A1c Calcium 8.8 Magnesium Total Bilirubin 0.4 AST 33 ALT 20 Alkaline Phosphatase 93 Total Creatine Kinase 68 Total Protein 7.0 Albumin 4.2 Urine Color Yellow Urine Appearance Cloudy H Urine pH 5.0 Ur Specific [place] 1.015 Urine Protein Negative Urine Glucose (UA) Negative Urine Ketones Negati
[2021-05-18 08:00] LABS: Glucose Point of Care 173 mg/dl (65-105)
[2021-05-18 08:01] LABS: Glucose Point of Care 153 mg/dl (65-105)
[2021-05-18] MEDS: CELECOXIB 200 MG CAPSULE PO (08:58)
[2021-05-18] MEDS: SERTRALINE HCL 50 MG TABLET 100 MG PO (08:58)
[2021-05-18] MEDS: lisinopriL 10 MG TABLET PO (08:58)
[2021-05-18] MEDS: OMEGA 3 POLYUNSAT FATTY ACIDS 1 GM CAP PO (08:58)
[2021-05-18] MEDS: CHOLECALCIFEROL 400 UNITS TABLET (VIT D) PO (08:58)
[2021-05-18] MEDS: LORATADINE 10 MG TABLET PO (08:58)
[2021-05-18] MEDS: FINASTERIDE 5 MG TABLET PO (08:58)
[2021-05-18] MEDS: FLUTICASONE PROPIONATE 0.05% NA SPR 16 GM BTL (*BKC) 1 SPRAY NASAL (08:59)
[2021-05-18 09:03] VITALS: BP 129/77
--- NOTE | 2021-05-18 09:17 | PM.IMPN ---
Progress Note: A&P Assessment and Plan (1) Fall from ground level: Code(s): W18.30XA - Fall on same level, unspecified, initial encounter Status: Acute Assessment and Plan: It sounds as though the patient had a ground level fall while ambulating to the bathroom in the middle of the night without his walker. He sustained a left humeral neck fracture; CT of the head and cervical spine and pelvic x-ray showed no acute findings. Initiate fall precautions. PT OT to continue to evaluate and treat (2) Closed fracture of neck of left humerus: Qualifiers: Encounter type: subsequent encounter Fracture healing: with routine healing Qualified Code(s): S42.212D - Unspecified displaced fracture of surgical neck of left humerus, subsequent encounter for fracture with routine healing Code(s): S42.212A - Unspecified displaced fracture of surgical neck of left humerus, initial encounter for closed fracture Status: Acute Assessment and Plan: Dr. Guerrero was consulted and his input is appreciated. There are no plans for surgery and he will be placed in a sling. He will need placement for this to heal. Analgesics available as needed. (3) Urinary tract infection: Code(s): N39.0 - Urinary tract infection, site not specified Status: Acute Assessment and Plan: Patient has significant short-term memory loss and cannot really provide a history thus he will be treated for presumed infection with ceftriaxone, pending urine culture. He is afebrile but white blood cell count is elevated 12.2. Continue to follow urine culture WBC count is slightly better today (4) Type 2 diabetes mellitus: Code(s): E11.9 - Type 2 diabetes mellitus without complications Status: Acute Assessment and Plan: Diet-controlled. Most recent hemoglobin A1c was 6.1%. (5) Dementia: Qualifiers: Dementia type: unspecified type Dementia behavioral disturbance: without behavioral disturbance Qualified Code(s): F03.90 - Unspecified dementia without behavioral disturbance Code(s): F03.90 - Unspecified dementia without behavioral disturbance Status: Acute Assessment and Plan: Continue donepezil. Subjective Date/time seen: 05/18/21 09:17 Interval history: HPI: This is an 86-year-old male with dementia, benign prostatic hyperplasia, and hypertension who presented to the emergency department via EMS from home for evaluation of left shoulder pain after a fall. Given his dementia he is unable to provide an accurate history and as such almost all of the following is obtained via a review of his electronic medical records as well as discussions with his . The patient is supposed to ambulate with a walker at home however it sounds as though he got up to use the restroom early this morning without his walker and he had a fall. It is my understanding that it was unwitnessed and the only complaints he had thereafter was of left arm and shoulder pain. Imaging done in the emergency department showed displaced left humeral neck fracture with varus angulation which is being treated nonsurgically. He is being admitted overnight for pain control and PT/OT evaluation. He will need placement on discharge as is unable to care for him with an immobilized arm as he is reliant on a walker. At the time my evaluation he is sitting up watching television and he has no complaints. He has perhaps mild discomfort in his left shoulder but nothing significant. Again he does not remember how he fell or even when he fell. 05/18/2021 working with physical therapy and occupational therapy this morning. Denies any pain or any other complaints. Denies any chest pain or shortness of breath. Thinks he is in [place] and is next to [facility]. Review of Systems Review of Systems: All systems reviewed & are unremarkable except as noted in HPI and below (HPI) Exam Narrative: General: Well-develope
[2021-05-18 11:57] LABS: Glucose Point of Care 255 mg/dl (65-105)
[2021-05-18] MEDS: INSULIN ASPART (*BKC) 100 UNITS/ML SUB-Q (13:03)
[2021-05-18 14:00] VITALS: BP 119/81; PULSE 77; RESP 18; TEMP 36.6; O2SAT 98
[2021-05-18 16:05] VITALS: O2SAT 98
[2021-05-18 16:41] LABS: Glucose Point of Care 171 mg/dl (65-105)
[2021-05-18 19:45] VITALS: BP 118/60; PULSE 80; RESP 18; TEMP 37.1; O2SAT 98
[2021-05-18] MEDS: SILVERGEL (ELTA) 45 ML 1 APPLIC TOPICAL (21:04)
[2021-05-18 21:20] LABS: Glucose Point of Care 157 mg/dl (65-105)
[2021-05-18 21:31] VITALS: O2SAT 96
[2021-05-19 03:32] VITALS: BP 127/74; PULSE 88; RESP 16; TEMP 36.6; O2SAT 98
[2021-05-19 05:21] LABS: Basophils Percent Auto 0.3 % (0.2-1.2); Eosinophils Percent Auto 0.2 % (0-4.4); Hematocrit 37.8 % (42.0-52.0); Hemoglobin 12.4 g/dL (14.0-18.0); Immature Granulocyte Absolute 0.07 K/mm3 (0.00-0.031); Immature Granulocyte Percent A 0.5 % (0-0.5); Lymphocytes Absolute Auto 0.77 K/mm3 (0.9-3.2); Mean Corpuscular HGB Conc 32.8 g/dl (32-36); Mean Corpuscular Hemoglobin 30.8 pg (26-34); Mean Corpuscular Volume 93.8 fl (80-100); Mean Platelet Volume 9.8 fl (7.4-10.4); Monocytes Absolute Auto 1.2 K/mm3 (0.1-0.6); Monocytes Percent Auto 9.3 % (2.6-8.5); Neutrophils Absolute Auto 10.7 K/mm3 (1.3-6.7); Neutrophils Percent Auto 83.7 % (45.5-73.1); Platelet Count Result 201 k/mm3 (150-375); Red Blood Count 4.03 M/mm3 (4.6-6.20); Red Cell Distribution Width 13.1 % (11.5-14.5); White Blood Count 12.8 K/mm3 (4.5-10.0)
[2021-05-19 05:31] LABS: Anion Gap 4 mmol/L (8-16); Blood Urea Nitrogen 21 mg/dL (9-20); Calcium 8.5 mg/dL (8.4-10.2); Carbon Dioxide 28 mmol/L (22-30); Chloride 106 mmol/L (98-107); Estimated CRCL calculation 49 ml/min; Estimated Glomerular Filt Rate > 60; Glucose 171 mg/dL (65-110); Potassium 3.9 mmol/L (3.4-5.0); Sodium 138 mmol/L (137-145)
[2021-05-19 07:47] LABS: Glucose Point of Care 171 mg/dl (65-105)
[2021-05-19] MEDS: FLUTICASONE PROPIONATE 0.05% NA SPR 16 GM BTL (*BKC) 1 SPRAY NASAL (09:04)
[2021-05-19] MEDS: SERTRALINE HCL 50 MG TABLET 100 MG PO (09:05)
[2021-05-19] MEDS: FINASTERIDE 5 MG TABLET PO (09:05)
[2021-05-19] MEDS: lisinopriL 10 MG TABLET PO (09:05)
[2021-05-19] MEDS: HEPARIN SODIUM 5,000 UNITS/ML VIAL 5000 UNITS SUB-Q ×2 (09:05→21:15)
[2021-05-19] MEDS: CHOLECALCIFEROL 400 UNITS TABLET (VIT D) PO (09:05)
[2021-05-19] MEDS: LORATADINE 10 MG TABLET PO (09:05)
[2021-05-19] MEDS: OMEGA 3 POLYUNSAT FATTY ACIDS 1 GM CAP PO (09:05)
[2021-05-19] MEDS: CELECOXIB 200 MG CAPSULE PO (09:05)
[2021-05-19 09:06] VITALS: O2SAT 96
[2021-05-19] MEDS: CIPROFLOXACIN 400 MG/D5W 200ML 200 ML 200 MG IVPB ×2 (09:12→21:19)
[2021-05-19] MEDS: SILVERGEL (ELTA) 45 ML 1 APPLIC TOPICAL ×2 (09:18→21:17)
[2021-05-19 11:42] LABS: Glucose Point of Care 205 mg/dl (65-105)
[2021-05-19] MEDS: INSULIN ASPART (*BKC) 100 UNITS/ML SUB-Q (11:52)
--- NOTE | 2021-05-19 13:44 | PM.PNORT ---
Progress Note: A&P Assessment and Plan (1) Closed fracture of neck of left humerus: Qualifiers: Encounter type: subsequent encounter Fracture healing: with routine healing Qualified Code(s): S42.212D - Unspecified displaced fracture of surgical neck of left humerus, subsequent encounter for fracture with routine healing Code(s): S42.212A - Unspecified displaced fracture of surgical neck of left humerus, initial encounter for closed fracture Status: Acute Additional Plan 86-year-old male with left proximal humerus fracture. This will be treated nonsurgically. 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 While standing, he can let the arm hang to gravity. This will allow for best alignment while the humerus heals. Plan on placement for the patient to [place]. He will follow up with us in the office in 1 month. Time Spent With Patient Time with patient: 15 - 25 minutes Subjective Subjective Date/Time Seen: 05/19/21 13:44 Principal diagnosis: Left proximal humerus fracture Interval history: 86-year-old male with left proximal humerus fracture. He is tolerating the sling well but does complain of some tenderness and pain of the shoulder. He does have a history of dementia and is unaware of today's date or time but he does appear to be aware of the current situation with his arm. Review of Systems Review of Systems: All systems reviewed & are unremarkable except as noted in HPI and below Exam Const: General: comfortable and no acute distress Neuro: Sensory Exam: normal sensation Extrem: Other: Exam of the left shoulder reveals tenderness over the proximal humerus. Distal pulses are strong and equal. Neurovascular status unremarkable. Psych: Mental Status: mental status grossly normal Objective Data Vital Signs Vital Signs: Vital Signs - 24 hr 05/18/21 14:00 05/18/21 16:05 05/18/21 19:45 Temperature 97.9 F 98.8 F Pulse Rate 77 80 Respiratory Rate 18 18 Blood Pressure 119/81 118/60 Pulse Oximetry 98 98 98 05/18/21 21:31 05/19/21 03:32 05/19/21 09:06 Temperature 97.8 F Pulse Rate 88 Respiratory Rate 16 Blood Pressure 127/74 Pulse Oximetry 96 98 96 Intake/Output Intake/Output: Intake & Output 05/16/21 05/17/21 05/18/21 05/19/21 23:59 23:59 23:59 23:59 Intake Total 990 1340 400 Output Total 700 300 175 Balance 290 1040 225 Meds/Results Medications: Active Medications Generic Name Dose Route Start Last Admin Trade Name Freq PRN Reason Stop Dose Admin Calcium Citrate 1 tablet 05/18/21 09:00 05/19/21 09:05 Calcium Citrate 315 Mg/Vitamin D 250 Units Tab PO 1 tablet DAILY AMELIE Administration Celecoxib 200 mg 05/18/21 09:00 05/19/21 09:05 Celecoxib 200 Mg Capsule PO 200 mg DAILY AMELIE Administration Dextrose 12.5 gm 05/18/21 12:44 Dextrose 50% 25 Gm/50 Ml Syringe IV PUSH PRN PRN Hypoglycemia Protocol Finasteride 5 mg 05/18/21 09:00 05/19/21 09:05 Finasteride 5 Mg Tablet PO 5 mg DAILY AMELIE Administration Fish Oil 1 gm 05/18/21 09:00 05/19/21 09:05 [place] 3 Polyunsat Fatty Acids 1 Gm Cap PO 06/17/21 08:59 1 gm DAILY AMELIE Administration Fluticasone Propionate 1 spray 05/18/21 09:00 05/19/21 09:04 Fluticasone Propionate 0.05% Na Spr 16 Gm Btl (*Bkc) NASAL 1 spray DAILY AMELIE Administration Glucagon 1 mg 05/18/21 12:44 Glucagon For Inj 1 Mg Vial IM PRN PRN Hypoglycemia Protocol Glucose 15 gm 05/18/21 12:44 Glucose Oral Gel 15 Gm Of Glucse In 37.5 Gm Tube PO PRN PRN Hypoglycemia Protocol Heparin Sodium (Porcine) 5,000 units 05/19/21 09:00 05/19/21 09:05 Heparin Sodium 5,000 Units/Ml Vial SUB-Q 5,000 units Q12HR AMELIE Administration Dextrose 1,000 mls @ 100 mls/hr 05/18/21 12:44 Dextrose 5% 1,000 Ml IVPB PRN PRN Hypoglycemia Protocol Ciprofloxa
[2021-05-19 14:00] VITALS: BP 127/67; PULSE 87; RESP 17; TEMP 36.8; O2SAT 98
--- NOTE | 2021-05-19 15:25 | PM.IMPN ---
Progress Note: A&P Additional Plan 86-year-old male with dementia, benign prostatic hyperplasia, and hypertension who presented to the emergency department via EMS from home for evaluation of left shoulder pain after a fall. Imaging done in the emergency department showed displaced left humeral neck fracture with varus angulation which is being treated nonsurgically as per recommendation from orthopedics. (1) Fall from ground level: It sounds as though the patient had a ground level fall while ambulating to the bathroom in the middle of the night without his walker. He sustained a left humeral neck fracture; CT of the head and cervical spine and pelvic x-ray showed no acute findings. Initiate fall precautions. PT OT to continue to evaluate and treat (2) Closed fracture of neck of left humerus: Dr. Guerrero was consulted and his input is appreciated. There are no plans for surgery and he was placed in a sling. 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 While standing, he can let the arm hang to gravity. This will allow for best alignment while the humerus heals. Outpatient follow up with orthopedics in the office in 1 month. (3) Urinary tract infection: Urine culture growing enterococcus and Pseudomonas Switch to ciprofloxacin Await full culture sensitivity (4) Type 2 diabetes mellitus: Diet-controlled. Most recent hemoglobin A1c was 6.1%. Low dose SS insulin as needed (5) Dementia Continue donepezil. 6)DVT ppx:hep SQ 7)Code:Full 8)Dispo:pending placement Time Spent With Patient Time with patient: 15 - 25 minutes Subjective Date/time seen: 05/19/21 15:25 no acute events overnight Review of Systems Constitutional: Constitutional: Reports no additional constitutional complaints Eyes: Eyes: Reports no additional eye complaints ENT: Reports system reviewed and no additional complaints, except as documented Cardiovascular: Cardiovascular: Reports no additional cardiovascular complaints Respiratory: Respiratory: Reports no additional respiratory complaints Gastrointestinal: Gastrointestinal: Reports no additional gastrointestinal complaints Musculoskeletal: Musculoskeletal: Reports no additional musculoskeletal complaints Neurologic: Reports system reviewed and no additional complaints, except as documented Exam Const: General: no acute distress HENMT: Mouth: Yes Abnormal oral and palatal mucosa present Eyes: Pupils: Equal, round and reactive pupils present Neck: Neck: supple Resp: Auscultation: clear to auscultation bilaterally Cardio: Rate: regular rate Rhythm: regular rhythm GI: GI Palp: Yes Soft to palpation Auscultation: normal bowel sounds Skin: General skin exam: normal color Extrem: Other: Left arm is in a sling. Left shoulder is swollen, neurovascular intact distal to the fracture. Objective Data Vital Signs Vital Signs: Vital Signs - 24 hr 05/18/21 16:05 05/18/21 19:45 05/18/21 21:31 Temperature 98.8 F Pulse Rate 80 Respiratory Rate 18 Blood Pressure 118/60 Pulse Oximetry 98 98 96 05/19/21 03:32 05/19/21 09:06 05/19/21 14:00 Temperature 97.8 F 98.3 F Pulse Rate 88 87 Respiratory Rate 16 17 Blood Pressure 127/74 127/67 Pulse Oximetry 98 96 98 Intake/Output Intake/Output: Intake & Output 05/16/21 05/17/21 05/18/21 05/19/21 23:59 23:59 23:59 23:59 Intake Total 990 1340 400 Output Total 700 300 175 Balance 290 1040 225 Meds/Results Medications: Active Medications Generic Name Dose Route Start Last Admin Trade Name Bruceq PRN Reason Stop Dose Admin Calcium Citrate 1 tablet 05/18/21 09:00 05/19/21 09:05 Calcium Citrate 315 Mg/Vitamin D 250 Units Tab PO 1 tablet DAILY AMELIE Administration Celecoxib 200 mg 05/18/21 09:00 05/19/21 09:05 Celecoxib 200 Mg Capsule PO 200 mg DAILY AMELIE Administration Dextrose 12.5 gm 05/18/21 12:44 Dextrose 50% 25 Gm/
[2021-05-19 16:38] LABS: Glucose Point of Care 187 mg/dl (65-105)
[2021-05-19 21:29] LABS: Glucose Point of Care 199 mg/dl (65-105)
[2021-05-19 22:00] VITALS: BP 153/64; PULSE 75; RESP 21; TEMP 36.8; O2SAT 100
[2021-05-20 06:00] VITALS: BP 151/61; PULSE 64; RESP 20; TEMP 36.9; O2SAT 98
[2021-05-20 06:56] LABS: Basophils Percent Auto 0.3 % (0.2-1.2); Eosinophils Absolute Auto 0.2 K/mm3 (0-0.3); Eosinophils Percent Auto 1.4 % (0-4.4); Hematocrit 38.1 % (42.0-52.0); Hemoglobin 12.5 g/dL (14.0-18.0); Immature Granulocyte Absolute 0.09 K/mm3 (0.00-0.031); Immature Granulocyte Percent A 0.8 % (0-0.5); Lymphocytes Absolute Auto 1.27 K/mm3 (0.9-3.2); Lymphocytes Percent Auto 11.3 % (18.3-44.2); Mean Corpuscular HGB Conc 32.8 g/dl (32-36); Mean Corpuscular Hemoglobin 31.5 pg (26-34); Mean Platelet Volume 9.5 fl (7.4-10.4); Monocytes Absolute Auto 1.2 K/mm3 (0.1-0.6); Monocytes Percent Auto 10.3 % (2.6-8.5); Neutrophils Absolute Auto 8.5 K/mm3 (1.3-6.7); Neutrophils Percent Auto 75.9 % (45.5-73.1); Platelet Count Result 185 k/mm3 (150-375); Red Blood Count 3.97 M/mm3 (4.6-6.20); Red Cell Distribution Width 13.2 % (11.5-14.5); White Blood Count 11.2 K/mm3 (4.5-10.0)
[2021-05-20 07:06] LABS: Anion Gap 2 mmol/L (8-16); Blood Urea Nitrogen 25 mg/dL (9-20); Calcium 8.5 mg/dL (8.4-10.2); Carbon Dioxide 32 mmol/L (22-30); Chloride 104 mmol/L (98-107); Estimated CRCL calculation 45 ml/min; Estimated Glomerular Filt Rate 58; Glucose 156 mg/dL (65-110); Potassium 3.9 mmol/L (3.4-5.0); Sodium 138 mmol/L (137-145)
[2021-05-20 07:51] LABS: Glucose Point of Care 170 mg/dl (65-105)
[2021-05-20] MEDS: LORATADINE 10 MG TABLET PO (09:11)
[2021-05-20] MEDS: OMEGA 3 POLYUNSAT FATTY ACIDS 1 GM CAP PO (09:11)
[2021-05-20] MEDS: SERTRALINE HCL 50 MG TABLET 100 MG PO (09:11)
[2021-05-20] MEDS: FINASTERIDE 5 MG TABLET PO (09:12)
[2021-05-20] MEDS: CELECOXIB 200 MG CAPSULE PO (09:12)
[2021-05-20] MEDS: lisinopriL 10 MG TABLET PO (09:12)
[2021-05-20] MEDS: HEPARIN SODIUM 5,000 UNITS/ML VIAL 5000 UNITS SUB-Q ×2 (09:12→20:47)
[2021-05-20] MEDS: FLUTICASONE PROPIONATE 0.05% NA SPR 16 GM BTL (*BKC) 1 SPRAY NASAL (09:12)
[2021-05-20] MEDS: CHOLECALCIFEROL 400 UNITS TABLET (VIT D) PO (09:12)
[2021-05-20] MEDS: SILVERGEL (ELTA) 45 ML 1 APPLIC TOPICAL ×2 (09:13→20:48)
--- NOTE | 2021-05-20 09:30 | PM.PNORT ---
Progress Note: A&P Assessment and Plan (1) Closed fracture of neck of left humerus: Qualifiers: Encounter type: subsequent encounter Fracture healing: with routine healing Qualified Code(s): S42.212D - Unspecified displaced fracture of surgical neck of left humerus, subsequent encounter for fracture with routine healing Code(s): S42.212A - Unspecified displaced fracture of surgical neck of left humerus, initial encounter for closed fracture Status: Acute Assessment and Plan: 86-year-old male with left proximal humerus fracture. Continue to use a sling time lock expert and prop the elbow up with a pillow or towel while lying down. While standing, he can let the arm hang to gravity. He will follow up in our office in about 1 month. Possibly discussed pendulum exercises at that time. Time Spent With Patient Time with patient: less than 15 minutes Subjective Subjective Date/Time Seen: 05/20/21 09:30 Principal diagnosis: Left proximal humerus fracture Interval history: 86-year-old male with left proximal humerus fracture. He is tolerating the sling when resting comfortably this morning. Review of Systems Review of Systems: All systems reviewed & are unremarkable except as noted in HPI and below Exam Const: General: comfortable and no acute distress Resp: Effort & Inspection: normal respiratory effort Neuro: Sensory Exam: normal sensation Extrem: Other: Exam of the left shoulder shows swelling around the proximal humerus. He is in a sling. Neurovascular status unremarkable. Psych: Mental Status: mental status grossly normal Objective Data Vital Signs Vital Signs: Vital Signs - 24 hr 05/19/21 14:00 05/19/21 22:00 05/20/21 06:00 Temperature 98.3 F 98.3 F 98.4 F Pulse Rate 87 75 64 Respiratory Rate 17 21 H 20 Blood Pressure 127/67 153/64 H 151/61 H Pulse Oximetry 98 100 98 Intake/Output Intake/Output: Intake & Output 05/17/21 05/18/21 05/19/21 05/20/21 23:59 23:59 23:59 23:59 Intake Total 990 1340 1500 600 Output Total 700 300 175 400 Balance 290 1040 1325 200 Meds/Results Medications: Active Medications Generic Name Dose Route Start Last Admin Trade Name Freq PRN Reason Stop Dose Admin Calcium Citrate 1 tablet 05/18/21 09:00 05/20/21 09:12 Calcium Citrate 315 Mg/Vitamin D 250 Units Tab PO 1 tablet DAILY AMELIE Administration Celecoxib 200 mg 05/18/21 09:00 05/20/21 09:12 Celecoxib 200 Mg Capsule PO 200 mg DAILY AMELIE Administration Dextrose 12.5 gm 05/18/21 12:44 Dextrose 50% 25 Gm/50 Ml Syringe IV PUSH PRN PRN Hypoglycemia Protocol Finasteride 5 mg 05/18/21 09:00 05/20/21 09:12 Finasteride 5 Mg Tablet PO 5 mg DAILY AMELIE Administration Fish Oil 1 gm 05/18/21 09:00 05/20/21 09:11 Orange 3 Polyunsat Fatty Acids 1 Gm Cap PO 06/17/21 08:59 1 gm DAILY AMELIE Administration Fluticasone Propionate 1 spray 05/18/21 09:00 05/20/21 09:12 Fluticasone Propionate 0.05% Na Spr 16 Gm Btl (*Bkc) NASAL 1 spray DAILY AMELIE Administration Glucagon 1 mg 05/18/21 12:44 Glucagon For Inj 1 Mg Vial IM PRN PRN Hypoglycemia Protocol Glucose 15 gm 05/18/21 12:44 Glucose Oral Gel 15 Gm Of Glucse In 37.5 Gm Tube PO PRN PRN Hypoglycemia Protocol Heparin Sodium (Porcine) 5,000 units 05/19/21 09:00 05/20/21 09:12 Heparin Sodium 5,000 Units/Ml Vial SUB-Q 5,000 units Q12HR AMELIE Administration Dextrose 1,000 mls @ 100 mls/hr 05/18/21 12:44 Dextrose 5% 1,000 Ml IVPB PRN PRN Hypoglycemia Protocol Ciprofloxacin/Dextrose 200 mls @ 200 mls/hr 05/19/21 09:00 05/19/21 23:22 Cipro 400 Mg/D5w 200 Ml IVPB 05/23/21 21:59 Infused Q12H AMELIE Infusion Insulin Aspart 2 - 5 units 05/18/21 12:00 05/20/21 09:23 Insulin Aspart (*Bkc) 100 Units/Ml SUB-Q Not Given TIDWM AMELIE Protocol Lisinopril 10 mg 05/18/21 09:00 05/20/21 09:12 Lisinopril 10 Mg
[2021-05-20] MEDS: CIPROFLOXACIN 400 MG/D5W 200ML 200 ML 200 MG IVPB ×2 (09:32→20:47)
--- NOTE | 2021-05-20 09:40 | PM.IMPN ---
Progress Note: A&P Assessment and Plan (1) Fall from ground level: Code(s): W18.30XA - Fall on same level, unspecified, initial encounter Status: Acute Assessment and Plan: It sounds as though the patient had a ground level fall while ambulating to the bathroom in the middle of the night without his walker. He sustained a left humeral neck fracture continue conservative management with sling and orthopedics follow up in 1 months time (2) Closed fracture of neck of left humerus: Qualifiers: Encounter type: subsequent encounter Fracture healing: with routine healing Qualified Code(s): S42.212D - Unspecified displaced fracture of surgical neck of left humerus, subsequent encounter for fracture with routine healing Code(s): S42.212A - Unspecified displaced fracture of surgical neck of left humerus, initial encounter for closed fracture Status: Acute Assessment and Plan: Dr. Guerrero was consulted and his input is appreciated. There are no plans for surgery continue sling and pain control and PT for now. (3) Urinary tract infection: Code(s): N39.0 - Urinary tract infection, site not specified Status: Acute Assessment and Plan: Patient has significant short-term memory loss and cannot really provide a history thus he will be treated for presumed infection with ceftriaxone. Pt switched to iv ciprofloxacin as UC shows Pseudomonas in the urine. Pt is on day 2 of the IV abx will need at least 5 days of IV Abx (4) Type 2 diabetes mellitus: Code(s): E11.9 - Type 2 diabetes mellitus without complications Status: Acute Assessment and Plan: Diet-controlled. Most recent hemoglobin A1c was 6.1%. (5) Dementia: Qualifiers: Dementia type: unspecified type Dementia behavioral disturbance: without behavioral disturbance Qualified Code(s): F03.90 - Unspecified dementia without behavioral disturbance Code(s): F03.90 - Unspecified dementia without behavioral disturbance Status: Acute Assessment and Plan: Continue donepezil. Subjective Date/time seen: 05/20/21 09:40 Interval history: 86-year-old male with dementia, benign prostatic hyperplasia, and hypertension who presented to the emergency department via EMS from home for evaluation of left shoulder pain after a fall. Pt sustained L humeral neck fracture, pt is in a sling and doing well. Pt awaiting placement. No other complaints. PT is found to have UTI and urine is positive for pseudomonas. Review of Systems Review of Systems: All systems reviewed & are unremarkable except as noted in HPI and below Exam Const: General: cooperative and healthy appearing; No in distress Nutritional Appearance: overweight Orientation/consciousness: oriented to person HENMT: Head: normal to inspection Resp: Effort & Inspection: no respiratory distress Auscultation: no rhonchi and no wheezes Cardio: Rate: regular rate Rhythm: regular rhythm GI: Inspection: normal to inspection GI Palp: No abdominal tenderness, No Guarding due to palpation present (GI) and No Hepatomegaly present Auscultation: normal bowel sounds Neuro: General: oriented to person Extrem: General: other (Left arm in a sling neurovascular intact ) Objective Data Vital Signs Vital Signs: Vital Signs - 24 hr 05/19/21 14:00 05/19/21 22:00 05/20/21 06:00 Temperature 36.8 C 36.8 C 36.9 C Pulse Rate 87 75 64 Respiratory Rate 17 21 H 20 Blood Pressure 127/67 153/64 H 151/61 H Pulse Oximetry 98 100 98 Intake/Output Intake/Output: Intake & Output 05/17/21 05/18/21 05/19/21 05/20/21 23:59 23:59 23:59 23:59 Intake Total 990 1340 1500 600 Output Total 700 300 175 400 Balance 290 1040 1325 200 Meds/Results Medications: Active Medications Generic Name Dose Route Start Last Admin Trade Name Freq PRN Reason Stop Dose Admin Calcium Citrate 1 tablet 05/18/21 09:00 05/20/21 09:12 Calcium
[2021-05-20 11:36] LABS: Glucose Point of Care 334 mg/dl (65-105)
[2021-05-20] MEDS: INSULIN ASPART (*BKC) 100 UNITS/ML SUB-Q (12:02)
[2021-05-20 14:00] VITALS: BP 110/62; PULSE 80; RESP 19; TEMP 36.2; O2SAT 97
[2021-05-20 16:41] LABS: Glucose Point of Care 190 mg/dl (65-105)
[2021-05-20 19:48] VITALS: BP 131/71; PULSE 92; RESP 17; TEMP 36.9; O2SAT 94
[2021-05-20 21:16] LABS: Glucose Point of Care 183 mg/dl (65-105)
[2021-05-21] VITALS (8 sets, daily range): BP systolic 108–148; BP diastolic 57–63; PULSE 74–94; RESP 16–17; TEMP 36.6–37; O2SAT 94–98
[2021-05-21 07:45] LABS: Glucose Point of Care 188 mg/dl (65-105)
[2021-05-21 07:49] LABS: Hematocrit 34.6 % (42.0-52.0); Hemoglobin 11.3 g/dL (14.0-18.0); Mean Corpuscular HGB Conc 32.7 g/dl (32-36); Mean Corpuscular Hemoglobin 31.7 pg (26-34); Mean Corpuscular Volume 97.2 fl (80-100); Mean Platelet Volume 9.7 fl (7.4-10.4); Platelet Count Result 198 k/mm3 (150-375); Red Blood Count 3.56 M/mm3 (4.6-6.20); Red Cell Distribution Width 13.4 % (11.5-14.5); White Blood Count 10.1 K/mm3 (4.5-10.0)
[2021-05-21 07:59] LABS: Anion Gap 3 mmol/L (8-16); Blood Urea Nitrogen 38 mg/dL (9-20); Calcium 8.4 mg/dL (8.4-10.2); Carbon Dioxide 29 mmol/L (22-30); Chloride 105 mmol/L (98-107); Estimated CRCL calculation 34 ml/min; Estimated Glomerular Filt Rate 41; Glucose 177 mg/dL (65-110); Potassium 3.9 mmol/L (3.4-5.0); Sodium 137 mmol/L (137-145)
[2021-05-21] MEDS: CHOLECALCIFEROL 400 UNITS TABLET (VIT D) PO (09:32)
[2021-05-21] MEDS: CIPROFLOXACIN 400 MG/D5W 200ML 200 ML 150 MG IVPB (09:32)
[2021-05-21] MEDS: FLUTICASONE PROPIONATE 0.05% NA SPR 16 GM BTL (*BKC) 1 SPRAY NASAL (09:33)
[2021-05-21] MEDS: HEPARIN SODIUM 5,000 UNITS/ML VIAL 5000 UNITS SUB-Q ×2 (09:33→20:11)
[2021-05-21] MEDS: FINASTERIDE 5 MG TABLET PO (09:33)
[2021-05-21] MEDS: SILVERGEL (ELTA) 45 ML 1 APPLIC TOPICAL (09:34)
[2021-05-21] MEDS: SERTRALINE HCL 50 MG TABLET 100 MG PO (09:34)
[2021-05-21] MEDS: OMEGA 3 POLYUNSAT FATTY ACIDS 1 GM CAP PO (09:34)
[2021-05-21] MEDS: LORATADINE 10 MG TABLET PO (09:34)
[2021-05-21] MEDS: CELECOXIB 200 MG CAPSULE PO (10:07)
--- NOTE | 2021-05-21 11:33 | PM.IMPN ---
Progress Note: A&P Assessment and Plan (1) Fall from ground level: Code(s): W18.30XA - Fall on same level, unspecified, initial encounter Status: Acute Assessment and Plan: Patient had a ground level fall while ambulating to the bathroom in the middle of the night without his walker. He sustained a left humeral neck fracture continue conservative management with sling and orthopedics follow up in 1 months time would like patient to go to snf insurance has denies snf placement is appealing her insurance (2) Closed fracture of neck of left humerus: Qualifiers: Encounter type: subsequent encounter Fracture healing: with routine healing Qualified Code(s): S42.212D - Unspecified displaced fracture of surgical neck of left humerus, subsequent encounter for fracture with routine healing Code(s): S42.212A - Unspecified displaced fracture of surgical neck of left humerus, initial encounter for closed fracture Status: Acute Assessment and Plan: Dr. Guerrero was consulted and his input is appreciated. There are no plans for surgery continue sling and pain control and PT for now. (3) Urinary tract infection: Code(s): N39.0 - Urinary tract infection, site not specified Status: Acute Assessment and Plan: Patient has significant short-term memory loss and cannot really provide a history thus he will be treated for presumed infection with ceftriaxone. Pt switched to iv ciprofloxacin as UC shows Pseudomonas in the urine. Pt is on day 3 of the IV abx will need at least 5 days of IV Abx (4) Type 2 diabetes mellitus: Code(s): E11.9 - Type 2 diabetes mellitus without complications Status: Acute Assessment and Plan: Diet-controlled. Most recent hemoglobin A1c was 6.1%. (5) Dementia: Qualifiers: Dementia behavioral disturbance: without behavioral disturbance Dementia type: unspecified type Qualified Code(s): F03.90 - Unspecified dementia without behavioral disturbance Code(s): F03.90 - Unspecified dementia without behavioral disturbance Status: Acute Assessment and Plan: Continue donepezil. Subjective Date/time seen: 05/21/21 11:33 Interval history: 86-year-old male with dementia, benign prostatic hyperplasia, and hypertension who presented to the emergency department via EMS from home for evaluation of left shoulder pain after a fall. Pt sustained L humeral neck fracture, pt is in a sling and doing well. PT is found to have UTI and urine is positive for pseudomonas. 05/21/2021: Pt is [place], pt has difficulty ambulating and is unable to use his left arm has shoulder tip pain in left shoulder. Unfortunately pt was denies snf placement. is appealing. Review of Systems Review of Systems: All systems reviewed & are unremarkable except as noted in HPI and below Exam Const: General: other (hard of hearing mild confusion which appears baseline ) Nutritional Appearance: overweight Orientation/consciousness: oriented to person HENMT: Head: normal to inspection Resp: Effort & Inspection: no respiratory distress Auscultation: no rhonchi and no wheezes Cardio: Rate: regular rate Rhythm: regular rhythm GI: Inspection: normal to inspection Auscultation: normal bowel sounds Neuro: General: oriented to person Extrem: General: other (Left arm in a sling neurovascular intact ) Objective Data Vital Signs Vital Signs: Vital Signs - 24 hr 05/20/21 14:00 05/20/21 19:48 05/21/21 01:21 Temperature 36.2 C L 36.9 C Pulse Rate 80 92 Respiratory Rate 19 17 Blood Pressure 110/62 131/71 Pulse Oximetry 97 94 94 05/21/21 03:40 05/21/21 09:46 Temperature 37.0 C Pulse Rate 81 74 Respiratory Rate 16 Blood Pressure 148/57 H 108/60 Pulse Oximetry 96 Intake/Output Intake/Output: Intake & Output 05/18/21 05/19/21 05/20/21 05/21/21 23:59 23:59 23:59 23:59 Intake Total 1340 1500 1830 290 Out
[2021-05-21 12:05] LABS: Glucose Point of Care 269 mg/dl (65-105)
--- NOTE | 2021-05-21 12:29 | PC.NURSE ---
Principal Systems Architect reviewed and agrees with student nurse charting and assessment.
[2021-05-21] MEDS: INSULIN ASPART (*BKC) 100 UNITS/ML SUB-Q ×2 (12:31→16:58)
[2021-05-21 16:52] LABS: Glucose Point of Care 246 mg/dl (65-105)
[2021-05-21] MEDS: ACETAMINOPHEN 325 MG TABLET 650 MG PO (16:57)
[2021-05-21] MEDS: CIPROFLOXACIN 400 MG/D5W 200ML 200 ML 100 MG IVPB (20:11)
[2021-05-21 20:20] LABS: Glucose Point of Care 251 mg/dl (65-105)
[2021-05-22 03:20] VITALS: BP 155/70; PULSE 84; RESP 17; TEMP 36.6; O2SAT 96
[2021-05-22] MEDS: SILVERGEL (ELTA) 45 ML 1 APPLIC TOPICAL ×2 (05:58→20:30)
[2021-05-22 07:41] LABS: Glucose Point of Care 155 mg/dl (65-105)
[2021-05-22] MEDS: SERTRALINE HCL 50 MG TABLET 100 MG PO (09:11)
[2021-05-22] MEDS: FLUTICASONE PROPIONATE 0.05% NA SPR 16 GM BTL (*BKC) 1 SPRAY NASAL (09:11)
[2021-05-22] MEDS: CIPROFLOXACIN 400 MG/D5W 200ML 200 ML 200 MG IVPB ×2 (09:12→20:34)
[2021-05-22] MEDS: OMEGA 3 POLYUNSAT FATTY ACIDS 1 GM CAP PO (09:12)
[2021-05-22] MEDS: FINASTERIDE 5 MG TABLET PO (09:12)
[2021-05-22] MEDS: HEPARIN SODIUM 5,000 UNITS/ML VIAL 5000 UNITS SUB-Q ×2 (09:12→20:34)
[2021-05-22] MEDS: lisinopriL 10 MG TABLET PO (09:12)
[2021-05-22] MEDS: LORATADINE 10 MG TABLET PO (09:12)
[2021-05-22] MEDS: CELECOXIB 200 MG CAPSULE PO (09:12)
[2021-05-22] MEDS: CHOLECALCIFEROL 400 UNITS TABLET (VIT D) PO (09:12)
--- NOTE | 2021-05-22 11:21 | PM.IMPN ---
Progress Note: A&P Assessment and Plan (1) Fall from ground level: Code(s): W18.30XA - Fall on same level, unspecified, initial encounter Status: Acute Assessment and Plan: Patient had a ground level fall while ambulating to the bathroom in the middle of the night without his walker. He sustained a left humeral neck fracture continue conservative management with sling and orthopedics follow up in 1 months time would like patient to go to snf insurance has denies snf placement is appealing her insurance (2) Closed fracture of neck of left humerus: Qualifiers: Encounter type: subsequent encounter Fracture healing: with routine healing Qualified Code(s): S42.212D - Unspecified displaced fracture of surgical neck of left humerus, subsequent encounter for fracture with routine healing Code(s): S42.212A - Unspecified displaced fracture of surgical neck of left humerus, initial encounter for closed fracture Status: Acute Assessment and Plan: Dr. Guerrero was consulted and his input is appreciated. There are no plans for surgery continue sling and pain control and PT for now. (3) Urinary tract infection: Code(s): N39.0 - Urinary tract infection, site not specified Status: Acute Assessment and Plan: Patient has significant short-term memory loss and cannot really provide a history thus he will be treated for presumed infection with ceftriaxone. Pt switched to iv ciprofloxacin as UC shows Pseudomonas in the urine. Pt is on day 4 of the IV abx will need at least 5 days of IV Abx (4) Type 2 diabetes mellitus: Code(s): E11.9 - Type 2 diabetes mellitus without complications Status: Acute Assessment and Plan: Diet-controlled. Most recent hemoglobin A1c was 6.1%. (5) Dementia: Qualifiers: Dementia type: unspecified type Dementia behavioral disturbance: without behavioral disturbance Qualified Code(s): F03.90 - Unspecified dementia without behavioral disturbance Code(s): F03.90 - Unspecified dementia without behavioral disturbance Status: Acute Assessment and Plan: Continue donepezil. Subjective Date/time seen: 05/22/21 11:21 Interval history: 86-year-old male with dementia, benign prostatic hyperplasia, and hypertension who presented to the emergency department via EMS from home for evaluation of left shoulder pain after a fall. Pt sustained L humeral neck fracture, pt is in a sling and doing well. PT is found to have UTI and urine is positive for pseudomonas. 05/21/2021: Pt is [place], pt has difficulty ambulating and is unable to use his left arm has shoulder tip pain in left shoulder. Unfortunately pt was denies snf placement. is appealing. 05/22/2021: Pt is much the same as yesterday, participating in physical therapy here, prefers snf on [facility], awaiting appeal result. Review of Systems Review of Systems: All systems reviewed & are unremarkable except as noted in HPI and below Exam Const: General: other (hard of hearing mild confusion which appears baseline ) Nutritional Appearance: overweight Orientation/consciousness: oriented to person HENMT: Head: normal to inspection Resp: Effort & Inspection: no respiratory distress Auscultation: no rhonchi and no wheezes Cardio: Rate: regular rate Rhythm: regular rhythm GI: Inspection: normal to inspection Auscultation: normal bowel sounds Neuro: General: oriented to person Extrem: General: other (Left arm in a sling neurovascular intact ) Objective Data Vital Signs Vital Signs: Vital Signs - 24 hr 05/21/21 14:00 05/21/21 18:03 05/21/21 20:00 Temperature 36.7 C Pulse Rate 94 77 Respiratory Rate 16 17 Blood Pressure 115/59 L Pulse Oximetry 98 96 97 05/21/21 20:10 05/22/21 03:20 Temperature 36.6 C 36.6 C Pulse Rate 77 84 Respiratory Rate 17 17 Blood Pressure 120/63 155/70 H Pulse Oximetry 97 96 Intake/O
[2021-05-22 11:46] LABS: Glucose Point of Care 257 mg/dl (65-105)
[2021-05-22] MEDS: INSULIN ASPART (*BKC) 100 UNITS/ML SUB-Q (11:50)
[2021-05-22] MEDS: SODIUM CHLORIDE 0.9% IV 1,000 ML 70 ML IV CONT (11:50)
--- NOTE | 2021-05-22 13:24 | PC.NURSE ---
On 05/22/21, the student, [Renato Fields], provided care and completed [employer] documentation on this patient. I have reviewed the student's documentation and agree with the findings.
[2021-05-22 14:00] VITALS: BP 113/58; PULSE 89; RESP 20; TEMP 36.9; O2SAT 98
[2021-05-22 16:22] LABS: Glucose Point of Care 173 mg/dl (65-105)
[2021-05-22 20:00] VITALS: PULSE 62; RESP 18; O2SAT 99
[2021-05-22 20:37] VITALS: BP 133/52; PULSE 62; RESP 18; TEMP 37.2; O2SAT 99
[2021-05-22 22:09] LABS: Glucose Point of Care 214 mg/dl (65-105)
[2021-05-23] MEDS: ACETAMINOPHEN 325 MG TABLET 650 MG PO (00:04)
[2021-05-23] MEDS: SODIUM CHLORIDE 0.9% IV 1,000 ML 70 ML IV CONT ×2 (03:37→18:48)
[2021-05-23 04:07] VITALS: BP 141/55; PULSE 59; RESP 16; TEMP 36.6; O2SAT 96
[2021-05-23 06:15] LABS: Anion Gap 4 mmol/L (8-16); Blood Urea Nitrogen 39 mg/dL (9-20); Carbon Dioxide 27 mmol/L (22-30); Chloride 106 mmol/L (98-107); Estimated CRCL calculation 39 ml/min; Estimated Glomerular Filt Rate 48; Glucose 158 mg/dL (65-110); Potassium 3.9 mmol/L (3.4-5.0); Sodium 137 mmol/L (137-145)
[2021-05-23 07:48] LABS: Glucose Point of Care 167 mg/dl (65-105)
[2021-05-23] MEDS: CHOLECALCIFEROL 400 UNITS TABLET (VIT D) PO (08:16)
[2021-05-23] MEDS: lisinopriL 10 MG TABLET PO (08:16)
[2021-05-23] MEDS: CELECOXIB 200 MG CAPSULE PO (08:16)
[2021-05-23] MEDS: SERTRALINE HCL 50 MG TABLET 100 MG PO (08:16)
[2021-05-23] MEDS: FLUTICASONE PROPIONATE 0.05% NA SPR 16 GM BTL (*BKC) 1 SPRAY NASAL (08:16)
[2021-05-23] MEDS: HEPARIN SODIUM 5,000 UNITS/ML VIAL 5000 UNITS SUB-Q ×2 (08:16→20:06)
[2021-05-23] MEDS: FINASTERIDE 5 MG TABLET PO (08:16)
[2021-05-23] MEDS: LORATADINE 10 MG TABLET PO (08:16)
[2021-05-23] MEDS: OMEGA 3 POLYUNSAT FATTY ACIDS 1 GM CAP PO (08:16)
[2021-05-23] MEDS: CIPROFLOXACIN 400 MG/D5W 200ML 200 ML 200 MG IVPB ×2 (08:17→20:02)
[2021-05-23] MEDS: SILVERGEL (ELTA) 45 ML 1 APPLIC TOPICAL ×2 (08:28→20:06)
--- NOTE | 2021-05-23 10:15 | P.PNIM_ITS ---
Progress Note: A&P Assessment and Plan (1) Fall from ground level: Code(s): W18.30XA - Fall on same level, unspecified, initial encounter Status: Acute Assessment and Plan: * It sounds as though the patient had a ground level fall while ambulating to the bathroom in the middle of the night without his walker * left humeral neck fracture * CT of the head and cervical spine and pelvic x-ray showed no acute findings * Initiate fall precautions. * PT OT to continue to evaluate and treat * continue conservative management with sling and orthopedics follow up in 1 months time * Awaiting insurance auth and appeal (2) Closed fracture of neck of left humerus: Qualifiers: Encounter type: subsequent encounter Fracture healing: with routine healing Qualified Code(s): S42.212D - Unspecified displaced fracture of surgical neck of left humerus, subsequent encounter for fracture with routine healing Code(s): S42.212A - Unspecified displaced fracture of surgical neck of left humerus, initial encounter for closed fracture Status: Acute Assessment and Plan: * Dr. Guerrero was consulted * no plans for surgery * placed in a sling. * sling print line inspector and will need to prop the elbow up with a pillow or towel while lying down * standing, he can let the arm hang to gravity * This will allow for best alignment while the humerus heals * Outpatient follow up with orthopedics in the office in 1 month. (3) Urinary tract infection: Code(s): N39.0 - Urinary tract infection, site not specified Status: Acute Assessment and Plan: * Urine culture growing enterococcus and Pseudomonas * Switch to ciprofloxacin should be the last day and is day 5 * Await full culture sensitivity (4) Type 2 diabetes mellitus: Code(s): E11.9 - Type 2 diabetes mellitus without complications Status: Acute Assessment and Plan: * Current glucose is 158 * Diet-controlled. Most recent hemoglobin A1c was 6.1%. * Low dose SS insulin as needed (5) Dementia: Qualifiers: Dementia behavioral disturbance: without behavioral disturbance Dementia type: unspecified type Qualified Code(s): F03.90 - Unspecified dementia without behavioral disturbance Code(s): F03.90 - Unspecified dementia without behavioral disturbance Status: Acute Assessment and Plan: * Continue donepezil. Time Spent With Patient Time with patient: Greater than 35 minutes Subjective Date/time seen: 05/23/21 10:15 Interval history: Interval history: 86-year-old male with dementia, benign prostatic hyperplasia, and hypertension who presented to the emergency department via EMS from home for evaluation of left shoulder pain after a fall. Pt sustained L humeral neck fracture, pt is in a sling and doing well. PT is found to have UTI and urine is positive for pseudomonas. 05/21/2021: Pt is [place], pt has difficulty ambulating and is unable to use his left arm has shoulder tip pain in left shoulder. Unfortunately pt was denies snf placement. is appealing. 05/22/2021: Pt is much the same as yesterday, participating in physical therapy here, prefers snf on [facility], awaiting appeal result. 05/23/21 10:15 Patient was sitting in the chair working with occupational therapy. Patient was able to wipe himself down however he is still having hard time with that left arm. Patient did state that he is having lot of pain in there. He did state that his pain is in the shoulder that goes to t
--- NOTE | 2021-05-23 10:15 | PM.IMPN ---
Progress Note: A&P Assessment and Plan (1) Fall from ground level: Code(s): W18.30XA - Fall on same level, unspecified, initial encounter Status: Acute Assessment and Plan: It sounds as though the patient had a ground level fall while ambulating to the bathroom in the middle of the night without his walker left humeral neck fracture CT of the head and cervical spine and pelvic x-ray showed no acute findings Initiate fall precautions. PT OT to continue to evaluate and treat continue conservative management with sling and orthopedics follow up in 1 months time Awaiting insurance auth and appeal (2) Closed fracture of neck of left humerus: Qualifiers: Encounter type: subsequent encounter Fracture healing: with routine healing Qualified Code(s): S42.212D - Unspecified displaced fracture of surgical neck of left humerus, subsequent encounter for fracture with routine healing Code(s): S42.212A - Unspecified displaced fracture of surgical neck of left humerus, initial encounter for closed fracture Status: Acute Assessment and Plan: Dr. Guerrero was consulted no plans for surgery placed in a sling. sling full stack developer and will need to prop the elbow up with a pillow or towel while lying down standing, he can let the arm hang to gravity This will allow for best alignment while the humerus heals Outpatient follow up with orthopedics in the office in 1 month. (3) Urinary tract infection: Code(s): N39.0 - Urinary tract infection, site not specified Status: Acute Assessment and Plan: Urine culture growing enterococcus and Pseudomonas Switch to ciprofloxacin should be the last day and is day 5 Await full culture sensitivity (4) Type 2 diabetes mellitus: Code(s): E11.9 - Type 2 diabetes mellitus without complications Status: Acute Assessment and Plan: Current glucose is 158 Diet-controlled. Most recent hemoglobin A1c was 6.1%. Low dose SS insulin as needed (5) Dementia: Qualifiers: Dementia behavioral disturbance: without behavioral disturbance Dementia type: unspecified type Qualified Code(s): F03.90 - Unspecified dementia without behavioral disturbance Code(s): F03.90 - Unspecified dementia without behavioral disturbance Status: Acute Assessment and Plan: Continue donepezil. Time Spent With Patient Time with patient: Greater than 35 minutes Subjective Date/time seen: 05/23/21 10:15 Interval history: Interval history: 86-year-old male with dementia, benign prostatic hyperplasia, and hypertension who presented to the emergency department via EMS from home for evaluation of left shoulder pain after a fall. Pt sustained L humeral neck fracture, pt is in a sling and doing well. PT is found to have UTI and urine is positive for pseudomonas. 05/21/2021: Pt is [facility], pt has difficulty ambulating and is unable to use his left arm has shoulder tip pain in left shoulder. Unfortunately pt was denies snf placement. is appealing. 05/22/2021: Pt is much the same as yesterday, participating in physical therapy here, prefers snf on disch[place], awaiting appeal result. 05/23/21 10:15 Patient was sitting in the chair working with occupational therapy. Patient was able to wipe himself down however he is still having hard time with that left arm. Patient did state that he is having lot of pain in there. He did state that his pain is in the shoulder that goes to the shoulder blade. PT and OT also told me that he is really not using that arm which is probably related to the pain. Patient did state that his pain level goes up with activity. He also stated that he was having hard time because the Tylenol was not cut the pain. He denies any further chest pain, shortness of breath, nausea, vomiting, diarrhea or constipation. Review of Systems Review of Systems: All systems reviewed & a
[2021-05-23 11:53] LABS: Glucose Point of Care 190 mg/dl (65-105)
--- NOTE | 2021-05-23 12:16 | PM.PNORT ---
Progress Note: A&P Assessment and Plan (1) Closed fracture of neck of left humerus: Qualifiers: Encounter type: subsequent encounter Fracture healing: with routine healing Qualified Code(s): S42.212D - Unspecified displaced fracture of surgical neck of left humerus, subsequent encounter for fracture with routine healing Code(s): S42.212A - Unspecified displaced fracture of surgical neck of left humerus, initial encounter for closed fracture Status: Acute Assessment and Plan: 86-year-old male with left proximal humerus fracture. This will be treated nonsurgically with a sling. I did schedule an appointment for him to be seen June 19 in our office. I also attempted to call his to tell her of this appointment. If he or his have any questions prior to that follow-up appointment they are more than welcome to call our office. I did slightly adjust the sling to fit him better today. Please continue to use Tylenol for pain. Time Spent With Patient Time with patient: 15 - 25 minutes Subjective Subjective Date/Time Seen: 05/23/21 12:16 Principal diagnosis: Left proximal humerus fracture Interval history: 86-year-old male with a left proximal humerus fracture. He continues to do well and reports that he is relatively pain-free. He was concerned about being able to take a bath or shower after his discharge and I told him this would be okay to do but he will need some help from the staff to do so. Review of Systems Review of Systems: All systems reviewed & are unremarkable except as noted in HPI and below Exam Const: General: comfortable and no acute distress GI: Inspection: non-distended Neuro: Sensory Exam: normal sensation Extrem: Other: Exam of the left shoulder and arm reveals significant bruising and swelling to the left shoulder. there is mild tenderness over the proximal humerus. The arm is in a sling. Neurovascular status unremarkable. Psych: Mental Status: mental status grossly normal Objective Data Vital Signs Vital Signs: Vital Signs - 24 hr 05/22/21 14:00 05/22/21 20:00 05/22/21 20:37 Temperature 98.5 F 98.9 F Pulse Rate 89 62 62 Respiratory Rate 20 18 18 Blood Pressure 113/58 L 133/52 L Pulse Oximetry 98 99 99 05/23/21 04:07 Temperature 98 F Pulse Rate 59 L Respiratory Rate 16 Blood Pressure 141/55 H Pulse Oximetry 96 Intake/Output Intake/Output: Intake & Output 05/20/21 05/21/21 05/22/21 05/23/21 23:59 23:59 23:59 23:59 Intake Total 1830 1570 2250 1550 Output Total 600 700 450 600 Balance 5779 878 2873 950 Meds/Results Medications: Active Medications Generic Name Dose Route Start Last Admin Trade Name Freq PRN Reason Stop Dose Admin Acetaminophen 650 mg 05/21/21 16:44 05/23/21 00:04 Acetaminophen 325 Mg Tablet PO 650 mg Q6H PRN Administration Mild Pain (1-3) or Fever Hydrocodone Bitart/Acetaminophen 1 tab 05/23/21 10:35 Hydrocodone/Acetaminophen (*Crx) 5-325 Mg Tablet PO Q6H PRN Pain Rated 4-10 Calcium Citrate 1 tablet 05/18/21 09:00 05/23/21 08:16 Calcium Citrate 315 Mg/Vitamin D 250 Units Tab PO 1 tablet DAILY AMELIE Administration Celecoxib 200 mg 05/18/21 09:00 05/23/21 08:16 Celecoxib 200 Mg Capsule PO 200 mg DAILY AMELIE Administration Dextrose 12.5 gm 05/18/21 12:44 Dextrose 50% 25 Gm/50 Ml Syringe IV PUSH PRN PRN Hypoglycemia Protocol Finasteride 5 mg 05/18/21 09:00 05/23/21 08:16 Finasteride 5 Mg Tablet PO 5 mg DAILY AMELIE Administration Fish Oil 1 gm 05/18/21 09:00 05/23/21 08:16 [place] 3 Polyunsat Fatty Acids 1 Gm Cap PO 06/17/21 08:59 1 gm DAILY AMELIE Administration Fluticasone Propionate 1 spray 05/18/21 09:00 05/23/21 08:16 Fluticasone Propionate 0.05% Na Spr 16 Gm Btl (*Bkc) NASAL 1 spray DAILY AMELIE Administration Glucagon 1 mg 05/18/21 12:44 Glucagon For Inj 1 Mg Vial IM PRN PRN Hypoglycemia
[2021-05-23 14:33] VITALS: BP 128/56; PULSE 77; RESP 18; TEMP 36.3; O2SAT 99
[2021-05-23 16:46] LABS: Glucose Point of Care 198 mg/dl (65-105)
[2021-05-23 20:00] VITALS: PULSE 62; RESP 18; O2SAT 100
[2021-05-23 20:30] VITALS: BP 137/59; PULSE 62; RESP 18; TEMP 36.1; O2SAT 100
[2021-05-23 21:18] LABS: Glucose Point of Care 190 mg/dl (65-105)
[2021-05-24 04:22] VITALS: BP 119/93; PULSE 77; RESP 18; TEMP 36.1; O2SAT 97
[2021-05-24 05:31] LABS: Basophils Percent Auto 0.5 % (0.2-1.2); Eosinophils Absolute Auto 0.3 K/mm3 (0-0.3); Eosinophils Percent Auto 3.1 % (0-4.4); Hematocrit 30.2 % (42.0-52.0); Hemoglobin 9.8 g/dL (14.0-18.0); Immature Granulocyte Absolute 0.09 K/mm3 (0.00-0.031); Lymphocytes Absolute Auto 1.18 K/mm3 (0.9-3.2); Lymphocytes Percent Auto 13.7 % (18.3-44.2); Mean Corpuscular HGB Conc 32.5 g/dl (32-36); Mean Corpuscular Hemoglobin 31.1 pg (26-34); Mean Corpuscular Volume 95.9 fl (80-100); Mean Platelet Volume 9.6 fl (7.4-10.4); Monocytes Absolute Auto 0.7 K/mm3 (0.1-0.6); Monocytes Percent Auto 8.1 % (2.6-8.5); Neutrophils Absolute Auto 6.3 K/mm3 (1.3-6.7); Neutrophils Percent Auto 73.6 % (45.5-73.1); Platelet Count Result 197 k/mm3 (150-375); Red Blood Count 3.15 M/mm3 (4.6-6.20); Red Cell Distribution Width 13.3 % (11.5-14.5); White Blood Count 8.6 K/mm3 (4.5-10.0)
[2021-05-24 05:51] LABS: Alanine Aminotransferase 21 U/L (4-50); Albumin Level 2.9 g/dL (3.5-5.1); Alkaline Phosphatase 70 U/L (38-126); Anion Gap 4 mmol/L (8-16); Aspartate Amino Transferase 31 U/L (17-59); Bilirubin,Total 0.6 mg/dL (0.2-1.3); Blood Urea Nitrogen 37 mg/dL (9-20); Calcium 8.1 mg/dL (8.4-10.2); Carbon Dioxide 27 mmol/L (22-30); Chloride 107 mmol/L (98-107); Estimated CRCL calculation 39 ml/min; Estimated Glomerular Filt Rate 48; Glucose 165 mg/dL (65-110); Potassium 3.8 mmol/L (3.4-5.0); Sodium 138 mmol/L (137-145)
[2021-05-24 07:57] LABS: Glucose Point of Care 136 mg/dl (65-105)
[2021-05-24] MEDS: HEPARIN SODIUM 5,000 UNITS/ML VIAL 5000 UNITS SUB-Q (09:44)
[2021-05-24] MEDS: CHOLECALCIFEROL 400 UNITS TABLET (VIT D) PO (09:44)
[2021-05-24] MEDS: FINASTERIDE 5 MG TABLET PO (09:44)
[2021-05-24] MEDS: FLUTICASONE PROPIONATE 0.05% NA SPR 16 GM BTL (*BKC) 1 SPRAY NASAL (09:44)
[2021-05-24] MEDS: CELECOXIB 200 MG CAPSULE PO (09:44)
[2021-05-24] MEDS: lisinopriL 10 MG TABLET PO (09:45)
[2021-05-24] MEDS: SERTRALINE HCL 50 MG TABLET 100 MG PO (09:45)
[2021-05-24] MEDS: OMEGA 3 POLYUNSAT FATTY ACIDS 1 GM CAP PO (09:45)
[2021-05-24] MEDS: SILVERGEL (ELTA) 45 ML 1 APPLIC TOPICAL (09:45)
[2021-05-24] MEDS: LORATADINE 10 MG TABLET PO (09:45)
--- NOTE | 2021-05-24 10:30 | PM.DS ---
DS: Admitting Diagnosis Discharge Date 05/24/21 1030 Admitting Diagnosis Left humeral fracture DS: Discharge Diagnosis Discharge Diagnosis (1) Fall from ground level: Code(s): W18.30XA - Fall on same level, unspecified, initial encounter Status: Acute Assessment and Plan: It sounds as though the patient had a ground level fall while ambulating to the bathroom in the middle of the night without his walker left humeral neck fracture CT of the head and cervical spine and pelvic x-ray showed no acute findings Initiate fall precautions. PT OT to continue to evaluate and treat continue conservative management with sling and orthopedics follow up in 1 months time Awaiting insurance just approved today (2) Closed fracture of neck of left humerus: Qualifiers: Encounter type: subsequent encounter Fracture healing: with routine healing Qualified Code(s): S42.212D - Unspecified displaced fracture of surgical neck of left humerus, subsequent encounter for fracture with routine healing Code(s): S42.212A - Unspecified displaced fracture of surgical neck of left humerus, initial encounter for closed fracture Status: Acute Assessment and Plan: Dr. Guerrero was consulted no plans for surgery placed in a sling. 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 (3) Urinary tract infection: Code(s): N39.0 - Urinary tract infection, site not specified Status: Acute Assessment and Plan: Urine culture growing enterococcus and Pseudomonas Switch to ciprofloxacin should be the last day and is day 5, completed full course Await full culture sensitivity (4) Type 2 diabetes mellitus: Code(s): E11.9 - Type 2 diabetes mellitus without complications Status: Acute Assessment and Plan: Current glucose is 168 Diet-controlled. Most recent hemoglobin A1c was 6.1%. Low dose SS insulin as needed (5) Dementia: Qualifiers: Dementia behavioral disturbance: without behavioral disturbance Dementia type: unspecified type Qualified Code(s): F03.90 - Unspecified dementia without behavioral disturbance Code(s): F03.90 - Unspecified dementia without behavioral disturbance Status: Acute Assessment and Plan: Continue donepezil. DS: Summary Hospital Course Hospital Course: Patient is an 86-year-old male with a past medical history of arthritis, BPH, hyperlipidemia, hypertension who presented to the ED after fall at home. Patient was complaining of left shoulder pain. Patient is post use a walker however he intermittently uses it. Patient was admitted for further evaluation. Orthopedics was consulted and conservative management was determined. Patient was also noted to have a UTI and was treated with an IV antibiotics for 5 days. Patient needed placement prior to discharge. Insurance has denied the patient initially and the family had did appeal. Appeal did go through patient is able to be discharged at this time. Patient has been working with PT and OT and has been up to the chair. Patient has no complaints today and is stable for discharge. Patient denies any chest pain, shortness of breath, nausea, vomiting, diarrhea, constipation, weakness or fatigue. Status at Discharge Functional status at discharge: uses cane/walker Overall status at discharge: patient is back to baseline Time Spent with Patient Time attestation: Total time spent providing and/or coordinating discharge services: 38 minutes Time spent: Greater than 30 minutes Specific discharge activities: Diagnostic testing, chart review, developing a treatment plan, education, care coordination documentation, physical exam, result review
[2021-05-24 11:45] LABS: Glucose Point of Care 185 mg/dl (65-105)
[2021-05-24 12:27] LABS: EDCOVIDSCREEN Negative (Negative)
[2021-05-24] MEDS: HYDROcodone/acetaminophen (*CRX) 5-325 MG TABLET 1 TAB PO (14:06)
[2021-05-24 16:29] LABS: Glucose Point of Care 161 mg/dl (65-105)
--- NOTE | 2021-05-24 16:46 | PC.NURSE ---
when spouse came to take patient to [place], she expressed concerns about getting him into their small car. we have decided it will be safer to take him by ambulance. ETA is 1800. message left to [place] updating them of this
== END 2021-05-24 18:35 | DRG 563 ==
LOC: ANHED 10:28 → ANH2MED 10:56
PROVIDERS: Family Medicine; Internal Medicine; Physician Assistant; Admitting Provider Family Medicine; Emergency Provider Emergency Medicine; PCP Internal Medicine; Visit Provider Nurse Practitioner
DX: S42.212A Unspecified displaced fracture of surgical neck of left humerus, initial encounter for closed fracture (principal); N39.0 Urinary tract infection, site not specified; B95.2 Enterococcus as the cause of diseases classified elsewhere; B96.5 Pseudomonas (aeruginosa) (mallei) (pseudomallei) as the cause of diseases classified elsewhere; Z20.822 Contact with and (suspected) exposure to COVID-19; W18.30XA Fall on same level, unspecified, initial encounter; E11.9 Type 2 diabetes mellitus without complications; F03.90 Unspecified dementia, unspecified severity, without behavioral disturbance, psychotic disturbance, mood disturbance, and anxiety; M19.90 Unspecified osteoarthritis, unspecified site; I10 Essential (primary) hypertension; E78.5 Hyperlipidemia, unspecified; M41.9 Scoliosis, unspecified; F32.A Depression, unspecified; N40.0 Benign prostatic hyperplasia without lower urinary tract symptoms; Z96.642 Presence of left artificial hip joint; Z87.891 Personal history of nicotine dependence
CPT/HCPCS: 36415; 70450; 71045; 72125; 72170; 73030; 80048; 80053; 81001; 82550; 82948; 83036; 83735; 85025; 85027; 87077; 87086; 87088; 87186; 87426; 93005; 96365; 96366; 96367; 96372; 97110; 97116; 97161; 97166; 97530; 97535; 99285; A9270; C9803; G0378; J0696; J0744; J1644; J1815; J7030

== ENCOUNTER → 2022-01-02 14:10 | Outpatient (CLI) | payer MEDICARE, SELFPAY ==
--- NOTE | ~2022-01-02 | XR_ITS ---
XR abdomen/kub 1V DATE: 01/02/2022 14:26 INDICATION: Constipation TECHNIQUE: AP view COMPARISON: None FINDINGS: There is a moderately prominent amount of fecal material in the colon and some scattered ga s containing small bowel segments but no apparent bowel obstruction. The psoas shadows are intact. No visceromegaly is evident. There is dextroscoliosis and severe multilevel degenerative disc disease of the lumbar spine. Compression screw and nail in proximal left femur. Right bipolar hip prosthesis. Status post right inguinal herniorrhaphy. IMPRESSION: Nonspecific abdomen Reviewed, dictated and finalized at [facility]. Reviewed, dictated and finalized at [facility]. IMPRESSION: Nonspecific abdomen
== END ==
PROVIDERS: PCP Family Medicine; Visit Provider Family Medicine
DX: K59.00 Constipation, unspecified (principal)
CPT/HCPCS: 74018

== ENCOUNTER 2022-04-13 14:00 | Emergency (ER) | payer MEDICARE, SELFPAY ==
[2022-04-13 15:03] VITALS: BP 152/60; PULSE 75; RESP 16; TEMP 36.3; O2SAT 100
--- NOTE | 2022-04-13 16:29 | ED.GENADULT ---
HPI - General Adult General Chief complaint: Epistaxis Stated complaint: nosebleed Time Seen by Provider: 04/13/22 15:44 History of Present Illness HPI narrative: 87-year-old male history of Alzheimer's disease presented to the emergency department for evaluation of epistaxis. states that the patient did have some nosebleeding last night that did resolve but that the bleeding did restart today approximately 11 AM and has persisted. Patient is currently being treated with Paxlovid for COVID. Patient is not on any blood thinners. Patient denies any prior history of significant epistaxis. Patient denies any other pain or complaints. Type 2 diabetes, dementia, hypertension, high cholesterol, diabetes Related Data Home Medications Medication Instructions Recorded Confirmed cholecalciferol (vitamin D3) 10 400 unit PO DAILY 05/31/19 05/17/21 mcg (400 unit) capsule (Vitamin D3) fexofenadine 180 mg tablet 180 mg PO DAILY 05/31/19 05/17/21 (Bernice Allergy) fluticasone propionate 50 50 mcg intranasal DAILY 05/31/19 05/17/21 mcg/actuation nasal spray,suspension (Flonase Allergy Relief) methylcellulose (laxative) 500 mg 500 mg PO DAILY 07/25/20 05/17/21 tablet (Citrucel) Allergies Allergy/AdvReac Type Severity Reaction Status Date / Time tetanus toxoid, adsorbed Allergy Severe HIVES Verified 01/02/22 13:20 Tetanus Vaccines and Toxoid Allergy Unknown Unknown Verified 01/02/22 13:20 Review of Systems Review of Systems: CONSTITUTIONAL: Denies fever, chills, or sweats. EYES: Denies visual changes, redness, or discharge. ENT: See HPI CARDIOVASCULAR: Denies chest pain, palpitations, or edema. RESPIRATORY: No shortness of breath GASTROINTESTINAL: Denies abdominal pain, nausea, vomiting, or diarrhea. GENITOURINARY: Denies dysuria or hematuria. SKIN: Denies rash or itching. MUSCULOSKELETAL: Denies back pain, joint pain, or myalgia. NEUROLOGIC: Denies headache, numbness, or weakness. [facility] Past Medical History Medical History Allergic rhinitis Arthritis Benign essential hypertension Dementia Depression Fracture of femoral neck, right, closed (05/2019) Hyperlipidemia Hypertension Scoliosis Type 2 diabetes mellitus Hemoglobin A1c was 6.7% on 07/15/2020. Surgical History Surgical History H/O hernia repair History of hip surgery (06/01/19) ORIF right hip fracture, bipolar. Left hip replacement. History of tonsillectomy History of transurethral resection of prostate Family History Family History Mother Osteoporosis Hypertension Crohn's colitis Carcinoma of colon Other Family history of arthritis Social History Social History (Updated 01/02/22 @ 13:22 by Milli Richards [facility]) Social History: The patient lives with his in [place]. He has 2 grown children. 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 Former smoker, 1 pack a day for about 15 years. No alcohol or illicit substance abuse. His , Marbella, is his surrogate decision maker. Code status: Full code. Smoking packs per day: 1 Smoking cigarettes per day: 20.0 Years smoked: 15 Smoking pack-years: 15.00 Smoking status: Never smoker Tobacco type: pipe Smoking end date: 05/30/76 Alcohol intake: never Substance use: never Lack of Transportation: No Lack of Food: Never True Current Housing: I Have Housing Concerned About Future Housing: No Difficulty Paying Gas/Electric Bills: No Difficulty Paying for Meds: No Currently Unemployed: No Education: Decline to Answer Difficulty w/ Childcare or Family Care: No Living arrangements: alone Occupation/Education: retired Gender identity (if verbalized by the patient): Male Spiritual care concerns: Yes Course Course Emergency
--- NOTE | 2022-04-13 16:34 | PC.NURSE ---
BELLA Pathak administered Afrin spray and packed nostrils with sterile cotton balls.
--- NOTE | 2022-04-13 17:28 | PC.NURSE ---
nose still bleeding after packing with cotton balls. BELLA Pathak made aware. cotton balls removed and rhino rocket placed by Dr. Pathak.
[2022-04-13 17:53] VITALS: BP 148/78; PULSE 76; RESP 18; O2SAT 100
== END 2022-04-13 17:54 | disposition home or self-care (01) ==
PROVIDERS: Emergency Provider Emergency Medicine; PCP Family Medicine
DX: R04.0 Epistaxis (principal); U07.1 COVID-19; G30.9 Alzheimer's disease, unspecified; F02.80 Dementia in other diseases classified elsewhere, unspecified severity, without behavioral disturbance, psychotic disturbance, mood disturbance, and anxiety; I10 Essential (primary) hypertension; E78.5 Hyperlipidemia, unspecified; E11.9 Type 2 diabetes mellitus without complications; M19.90 Unspecified osteoarthritis, unspecified site; F32.A Depression, unspecified; Z96.642 Presence of left artificial hip joint; Z87.891 Personal history of nicotine dependence
CPT/HCPCS: 30901; 99283; A9270

== ENCOUNTER 2022-09-28 15:32 | Observation (INO) | payer MEDICARE, SELFPAY ==
[2022-09-28] VITALS (14 sets, daily range): BP systolic 114–147; BP diastolic 40–66; PULSE 55–100; RESP 16–24; TEMP 36.6–36.9; O2SAT 90–100
--- NOTE | ~2022-09-28 | XR_ITS ---
EXAM: XR hip LT 2V w AP pelvis DATE: 09/28/2022 18:44 HISTORY: fall, hip pain . COMPARISON: 05/17/2021. FINDINGS: Decreased mineralization. Uncomplicated left femoral fixation hardware. Partially visualiz ed uncomplicated appearing right hip arthroplasty hardware. Surgical hailey overlying the right pelv is. Severe degenerative change in the lumbar spine. Nondisplaced fractures of the left medial acetabu lar wall and left inferior pubic ramus. No lytic or blastic lesion. Moderate degenerative change in t he left hip, with heterotopic bone from prior fracture. No erosion or periosteal change. Soft tissues within normal limits. IMPRESSION: Nondisplaced fractures of the left medial acetabular wall and left inferior pubic ramus. Reviewed, dictated and finalized at [facility].
--- NOTE | 2022-09-28 19:08 | ED.FALL ---
HPI - Fall General Chief Complaint: Fall Stated Complaint: fall, left hip/leg Time Seen by Provider: 09/28/22 18:21 History of Present Illness HPI Narrative: Patient is an 87-year-old male who presents ER with pain to the left hip. He had mechanical fall last night witnessed by his . He did not strike his head or lose consciousness. Upon waking up today he had increased pain in his left hip and has pain with ambulation. No numbness or tingling. Patient has history of hip surgery both hips. They are concerned he may have an additional fracture. He has no numbness or tingling to his lower extremities. He has no additional concerns. Related Data Home Medications Medication Instructions Recorded Confirmed cholecalciferol (vitamin D3) 10 400 unit PO DAILY 05/31/19 07/06/22 mcg (400 unit) capsule (Vitamin D3) fexofenadine 180 mg tablet 180 mg PO DAILY 05/31/19 07/06/22 (Bernice Allergy) fluticasone propionate 50 50 mcg intranasal DAILY 05/31/19 07/06/22 mcg/actuation nasal spray,suspension (Flonase Allergy Relief) methylcellulose (laxative) 500 mg 500 mg PO DAILY 07/25/20 07/06/22 tablet (Citrucel) Allergies Allergy/AdvReac Type Severity Reaction Status Date / Time tetanus toxoid, adsorbed Allergy Severe HIVES Verified 09/28/22 18:37 Tetanus Vaccines and Toxoid Allergy Unknown Unknown Verified 09/28/22 18:37 Review of Systems Review of Systems: ROS unobtainable: Yes other (Dementia) [facility] Past Medical History Medical History Allergic rhinitis Arthritis Benign essential hypertension Dementia Depression Fracture of femoral neck, right, closed (05/2019) Hyperlipidemia Hypertension Scoliosis Type 2 diabetes mellitus Hemoglobin A1c was 6.7% on 07/15/2020. Surgical History Surgical History H/O hernia repair History of hip surgery (06/01/19) ORIF right hip fracture, bipolar. Left hip replacement. History of tonsillectomy History of transurethral resection of prostate Family History Family History Mother Osteoporosis Hypertension Crohn's colitis Carcinoma of colon Other Family history of arthritis Social History Social History Social History: The patient lives with his in [place]. He has 2 grown children. 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 Former smoker, 1 pack a day for about 15 years. No alcohol or illicit substance abuse. His , Marbella, is his surrogate decision maker. Code status: Full code. Smoking packs per day: 1 Smoking cigarettes per day: 20.0 Years smoked: 15 Smoking pack-years: 15.00 Smoking status: Never smoker Tobacco type: pipe Smoking end date: 05/30/76 Alcohol intake: never Substance use: never Lack of Transportation: No Lack of Food: Never True Current Housing: I Have Housing Concerned About Future Housing: No Difficulty Paying Gas/Electric Bills: No Difficulty Paying for Meds: No Currently Unemployed: No Education: Master's Degree or Higher Difficulty w/ Childcare or Family Care: No Living arrangements: alone Occupation/Education: retired Gender identity (if verbalized by the patient): Male Spiritual care concerns: Yes Exam Narrative: GENERAL: Well-appearing, well-nourished, and in no acute distress. HEAD: Normocephalic, atraumatic. ENT: Mucous membranes moist. NECK: Supple. CHEST: Clear to auscultation. No respiratory distress. HEART: Regular rate and rhythm. Normal peripheral pulses. ABDOMEN: Soft, nontender, nondistended. EXTREMITIES: Normal range of motion but increased pain. No edema. SKIN: Warm, dry, no rash. NEURO: Alert and oriented x2. PSYCH: Normal mood and affect. Course Course Emergency Course: Jessica
--- NOTE | 2022-09-28 19:48 | PM.IMHP ---
H&P: HPI History of Present Illness Date/Time: 09/28/22 19:48 Chief Complaint: PAIN WITH AMBULATION Narrative: THIS IS AN 87-YEAR-OLD MALE AWAIT BIOPSY MEDICAL HISTORY SIGNIFICANT FOR DEMENTIA, THE NUMBER SAID HYPERPLASIA, HYPERTENSION. PATIENT WAS WITNESSED TO HAVE A FALL THE DAY PRIOR TO PRESENTATION TO EMERGENCY ROOM BEFORE BEDTIME IN THE MORNING ON A WILL TO BEAR WEIGHT ON THAT LEG WAS BROUGHT FOR EVALUATION. THERE WAS NO REPORTED LOSS OF CONSCIOUSNESS AND PATIENT HAS BEING IN HIS USUAL STATE OF HEALTH ACCORDING TO PATIENT IS VERY CONFUSED AND UNABLE TO GIVE ANY HISTORY HE IS STATES HE DOES NOT KNOW WHY HE IS IN THE HOSPITAL, DOES NOT KNOW WHICH IS THE NEXT HOLIDAY AND CAN NOT TELL THE CITY WHERE HE IS IN. HAD PRELIMINARY WORKUP WAS SIGNIFICANT FLUID HIP X-RAY WITH NONDISPLACED ACETABULAR FRACTURE. PATIENT IS BEING ADMITTED FOR FOR THE EVALUATION MANAGEMENT AND TREATMENT. EXAM:? XR hip LT 2V w AP pelvis DATE: 09/28/2022 18:44 HISTORY: fall, hip pain . COMPARISON:? 05/17/2021. FINDINGS:? Decreased mineralization. Uncomplicated left femoral fixation hardware. Partially visualized uncomplicated appearing right hip arthroplasty hardware. Surgical hailey overlying the right pelvis. Severe degenerative change in the lumbar spine. Nondisplaced fractures of the left medial acetabular wall and left inferior pubic ramus. No lytic or blastic lesion. Moderate degenerative change in the left hip, with heterotopic bone from prior fracture. No erosion or periosteal change. Soft tissues within normal limits. IMPRESSION: Nondisplaced fractures of the left medial acetabular wall and left inferior pubic ramus. Review of Systems Review of Systems: ROS unobtainable: Yes unobtainable due to medical condition (Dementia) and unobtainable due to mental status (Patient states he does not know why he is in the hospital) [facility] Past Medical History Medical History Allergic rhinitis Arthritis Benign essential hypertension Dementia Depression Fracture of femoral neck, right, closed (05/2019) Hyperlipidemia Hypertension Scoliosis Type 2 diabetes mellitus Hemoglobin A1c was 6.7% on 07/15/2020. Surgical History Surgical History H/O hernia repair History of hip surgery (06/01/19) ORIF right hip fracture, bipolar. Left hip replacement. History of tonsillectomy History of transurethral resection of prostate Family History Family History Mother Osteoporosis Hypertension Crohn's colitis Carcinoma of colon Other Family history of arthritis Social History Social History Social History: The patient lives with his in [place]. He has 2 grown children. 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 Former smoker, 1 pack a day for about 15 years. No alcohol or illicit substance abuse. His , Marbella, is his surrogate decision maker. Code status: Full code. Smoking packs per day: 1 Smoking cigarettes per day: 20.0 Years smoked: 15 Smoking pack-years: 15.00 Smoking status: Never smoker Tobacco type: pipe Smoking end date: 05/30/76 Alcohol intake: never Substance use: never Lack of Transportation: No Lack of Food: Never True Current Housing: I Have Housing Concerned About Future Housing: No Difficulty Paying Gas/Electric Bills: No Difficulty Paying for Meds: No Currently Unemployed: No Education: Master's Degree or Higher Difficulty w/ Childcare or Family Care: No Living arrangements: alone Occupation/Education: retired Gender identity (if verbalized by the patient): Male Spiritual care concerns: No Meds Home Medications and Allergies Home Medications Medication Instructions Recorded Confirmed Type ch
[2022-09-28 20:04] LABS: Basophils Absolute Auto 0.1 K/mm3 (0.0-0.1); Basophils Percent Auto 0.4 % (0.2-1.2); Eosinophils Absolute Auto 0.4 K/mm3 (0-0.3); Eosinophils Percent Auto 2.8 % (0-4.4); Hematocrit 40.3 % (42.0-52.0); Immature Granulocyte Percent A 0.8 % (0-0.5); Lymphocytes Absolute Auto 0.81 K/mm3 (0.9-3.2); Lymphocytes Percent Auto 6.3 % (18.3-44.2); Mean Corpuscular HGB Conc 32.3 g/dl (32-36); Mean Corpuscular Hemoglobin 30.9 pg (26-34); Mean Corpuscular Volume 95.7 fl (80-100); Mean Platelet Volume 9.6 fl (7.4-10.4); Monocytes Percent Auto 7.6 % (2.6-8.5); Neutrophils Absolute Auto 10.6 K/mm3 (1.3-6.7); Neutrophils Percent Auto 82.1 % (45.5-73.1); Platelet Count Result 176 k/mm3 (150-375); Red Blood Count 4.21 M/mm3 (4.6-6.20); Red Cell Distribution Width 14.3 % (11.5-14.5); White Blood Count 12.9 K/mm3 (4.5-10.0)
[2022-09-28 20:14] LABS: Anion Gap 7 mmol/L (8-16); Blood Urea Nitrogen 52 mg/dL (9-20); Calcium 8.7 mg/dL (8.4-10.2); Carbon Dioxide 28 mmol/L (22-30); Chloride 105 mmol/L (98-107); Estimated CRCL calculation 26 ml/min; Estimated Glomerular Filt Rate 36; Glucose 232 mg/dL (65-110); Potassium 4.2 mmol/L (3.4-5.0); Sodium 140 mmol/L (137-145)
--- NOTE | 2022-09-28 22:42 | ADMGEN ---
This patient, Chaz Downey, was admitted to Medical Room 348-01. Patient/family oriented to hospital policies and general routines including ID bracelet, bed and alarms, visiting hours, pain management, procedures, bathroom and other care routines, personal items, smoking policy, room service/diet, and visiting hours. Information on how to activate the Rapid Response Team has been discussed. Patient/Family are encouraged to report perceived risks to care and to ask questions if they do not understand what they are told or what they should do.
[2022-09-29 06:00] VITALS: BP 168/58; PULSE 50; RESP 20; TEMP 36.5; O2SAT 100
[2022-09-29 06:32] LABS: Glucose Point of Care 176 mg/dl (65-105)
[2022-09-29] MEDS: CHOLECALCIFEROL 400 UNITS TABLET (VIT D) PO (08:27)
[2022-09-29] MEDS: SERTRALINE HCL 50 MG TABLET 100 MG PO (08:27)
[2022-09-29] MEDS: FINASTERIDE 5 MG TABLET PO (08:27)
[2022-09-29] MEDS: FLUTICASONE PROPIONATE 0.05% NA SPR 16 GM BTL (*BKC) 1 SPRAY NASAL (08:28)
[2022-09-29] MEDS: CELECOXIB 200 MG CAPSULE PO (08:28)
[2022-09-29] MEDS: LORATADINE 10 MG TABLET PO (08:28)
[2022-09-29] MEDS: FAMOTIDINE 20 MG TABLET PO (08:28)
[2022-09-29] MEDS: lisinopriL 10 MG TABLET PO (08:28)
--- NOTE | 2022-09-29 13:06 | PM.IMPN ---
Progress Note: A&P Assessment and Plan (1) Acetabulum fracture, left: Code(s): S32.402A - Unspecified fracture of left acetabulum, initial encounter for closed fracture Status: Acute Assessment and Plan: Appreciate orthopedic surgery consultation, awaiting weight-bearing recommendations Likely discharge to rehab soon (2) Closed fracture of inferior pubic ramus: Code(s): S32.599A - Other specified fracture of unspecified pubis, initial encounter for closed fracture Status: Acute Assessment and Plan: As above (3) Peripheral arterial disease: Code(s): I73.9 - Peripheral vascular disease, unspecified Status: Acute Assessment and Plan: Stable (4) Early onset Alzheimer's dementia without behavioral disturbance: Code(s): G30.0 - Alzheimer's disease with early onset; F02.80 - Dementia in other diseases classified elsewhere, unspecified severity, without behavioral disturbance, psychotic disturbance, mood disturbance, and anxiety Status: Acute Assessment and Plan: Continue donepezil (5) Essential (primary) hypertension: Code(s): I10 - Essential (primary) hypertension Status: Acute Assessment and Plan: Continue home antihypertensives Blood pressures reviewed 09/29 (6) Fall as cause of accidental injury at home as place of occurrence: Qualifiers: Encounter type: initial encounter Qualified Code(s): W19.XXXA - Unspecified fall, initial encounter; Y92.009 - Unspecified place in unspecified non-institutional (private) residence as the place of occurrence of the external cause Code(s): W19.XXXA - Unspecified fall, initial encounter; Y92.009 - Unspecified place in unspecified non-institutional (private) residence as the place of occurrence of the external cause Status: Acute Assessment and Plan: Fall precautions, PT/OT once weight-bearing recommendations made Plan DVT prophylaxis with SCDs GI prophylaxis not indicated Code status full code Subjective Date/time seen: 09/29/22 13:06 Interval history: 87-year-old male with history of dementia presenting after a witnessed fall and found to have acetabular and pelvic fractures. No overnight events noted. No chest pain or shortness of breath. No nausea, vomiting or diarrhea. No fevers or chills. Pain is well controlled Review of Systems Review of Systems: 12 point review of systems was assessed and was negative except as noted in the HPI Exam Narrative: General: No acute distress, alert and oriented per baseline HEENT: Atraumatic, normocephalic, mucous membranes moist CV: Regular rate and rhythm, S1, S2 Lungs: Clear to auscultation bilaterally, no rales or crackles noted, no wheezes, good air entry Abdomen: Soft, nontender, nondistended Extremities: Normal to inspection Skin: No rashes noted, no lesions or wounds seen Psych: Euthymic, normal affect Objective Data Vital Signs Vital Signs: Vital Signs - 24 hr 09/28/22 16:13 09/28/22 18:32 09/28/22 19:27 Temperature 97.8 F Pulse Rate 72 100 Respiratory Rate 16 16 Blood Pressure 120/40 L 147/64 H 123/56 L Pulse Oximetry 100 97 Oxygen Delivery Room Air Room Air 09/28/22 19:32 09/28/22 19:46 09/28/22 20:01 Temperature Pulse Rate 61 62 Respiratory Rate 16 22 H Blood Pressure 129/62 146/66 H 114/57 L Pulse Oximetry 97 99 98 Oxygen Delivery 09/28/22 20:16 09/28/22 20:45 09/28/22 20:46 Temperature Pulse Rate 55 L 64 58 L Respiratory Rate 23 H 22 H 21 H Blood Pressure 130/61 123/60 Pulse Oximetry 99 94 Oxygen Delivery 09/28/22 21:00 09/28/22 21:01 09/28/22 21:15 Temperature Pulse Rate 64 58 L 57 L Respiratory Rate 24 H 22 H 19 Blood Pressure 120/52 L Pulse Oximetry 98 96 90 Oxygen Delivery 09/28/22 21:16 09/28/22 22:55 09/28/22 23:44 Temperature 98.5 F Pulse Rate 65 67 Respiratory Rate 17 20 Blo
[2022-09-29 14:00] VITALS: BP 135/48; PULSE 80; RESP 16; TEMP 37; O2SAT 96
--- NOTE | 2022-09-29 15:29 | PM.CNOR ---
Assessment and Plan Assessment and plan (1) Acetabulum fracture, left: Code(s): S32.402A - Unspecified fracture of left acetabulum, initial encounter for closed fracture Status: Acute Assessment and Plan: TYREE HAS A HISTORY OF A FALL ONTO THE LEFT HIP REGION 2 DAYS AGO AND NOW HAS A NON DISPLACED ACETABULAR MEDIAL WALL FRACTURE AND PUBIC RAMUS FRACTURE. RECOMMEND TOE TOUCH WEIGHT BEARING FOR 6 WEEKS THEN HE MAY PROGRESS TO WBAT. HE WILL NEED PT FOR AMBULATION WITH A WALKER. RECOMMEND ASA FOR DVT PROPHYLAXIS IF THE PATIENT IS ABLE TO TOLERATE HISTORY, EXAM AND RADIOGRAPHS REVIEWED WITH THE PATIENT. REFERRING PHYSICIAN RECORDS AND IMAGES REVIEWED. CONDITION, NATURE, ETIOLOGY AND COURSE OF NATURAL HISTORY REVIEWED. CONSERVATIVE AND OPERATIVE TREATMENT OPTIONS REVIEWED WELL THE RISKS AND BENEFITS OF EACH. I WILL SEE THE PATIENT IN THE OFFICE IN 8 WEEKS. (2) Closed fracture of inferior pubic ramus: Code(s): S32.599A - Other specified fracture of unspecified pubis, initial encounter for closed fracture Status: Acute History of Present Illness HPI Consult date: 09/29/22 Chief complaint: Acetabuilar Fx Left/Inferior Pubic Ramus Fx Narrative: TYREE WAS SEEN IN THE ED AND DIAGNOSED WITH A NON DISPLACED LEFT ACETABULUM FRACTURE AND A LEFT INFERIOR PUBIC RAMUS FRACTURE. HE WAS FOUND TO BE HAVING DISCOMFORT AFTER HE FELL 2 DAYS EARLIER. HE WAS SEEN IN THE ED AND ADMITTED FOR PAIN CONTROL AND PT. HE C/O LEFT HIP PAIN. HE DENIES ANY OTHER EXTREMITY OR NECK AND BACK PAIN. Review of Systems Review of Systems: All systems reviewed & are unremarkable except as noted in HPI and below PMFSH Past Medical History Medical History Allergic rhinitis Arthritis Benign essential hypertension Dementia Depression Fracture of femoral neck, right, closed (05/2019) Hyperlipidemia Hypertension Scoliosis Type 2 diabetes mellitus Hemoglobin A1c was 6.7% on 07/15/2020. Surgical History Surgical History H/O hernia repair History of hip surgery (06/01/19) ORIF right hip fracture, bipolar. Left hip replacement. History of tonsillectomy History of transurethral resection of prostate Family History Family History Mother Osteoporosis Hypertension Crohn's colitis Carcinoma of colon Other Family history of arthritis Social History Social History Social History: The patient lives with his in [place]. He has 2 grown children. 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 Former smoker, 1 pack a day for about 15 years. No alcohol or illicit substance abuse. His , Marbella, is his surrogate decision maker. Code status: Full code. Smoking packs per day: 1 Smoking cigarettes per day: 20.0 Years smoked: 15 Smoking pack-years: 15.00 Smoking status: Never smoker Tobacco type: pipe Smoking end date: 05/30/76 Alcohol intake: never Substance use: never Lack of Transportation: No Lack of Food: Never True Current Housing: I Have Housing Concerned About Future Housing: No Difficulty Paying Gas/Electric Bills: No Difficulty Paying for Meds: No Currently Unemployed: No Education: Master's Degree or Higher Difficulty w/ Childcare or Family Care: No Living arrangements: alone Occupation/Education: retired Gender identity (if verbalized by the patient): Male Spiritual care concerns: No Meds Home Medications and Allergies Home Medications Medication Instructions Recorded Confirmed Type cholecalciferol (vitamin D3) 10 400 unit PO DAILY 05/31/19 09/28/22 History mcg (400 unit) capsule (Vitamin D3) fexofenadine 180 mg tablet 180 mg PO DAILY 05/31/19 09/28/22 History (Bernice Allergy) fluticason
[2022-09-29 20:47] VITALS: BP 137/68; PULSE 73; RESP 22; TEMP 36.5; O2SAT 98
[2022-09-29] MEDS: DONEPEZIL HCL 5 MG TABLET PO (21:11)
[2022-09-29] MEDS: LORazepam INJ (*CRX) 2 MG/ML VIAL 0.5 MG IV PUSH (21:11)
[2022-09-30 06:00] VITALS: BP 149/50; PULSE 77; RESP 18; TEMP 37.1; O2SAT 95
[2022-09-30 08:00] VITALS: PULSE 77; RESP 18; O2SAT 95
[2022-09-30] MEDS: CELECOXIB 200 MG CAPSULE PO (09:00)
[2022-09-30] MEDS: SERTRALINE HCL 50 MG TABLET 100 MG PO (09:00)
[2022-09-30] MEDS: lisinopriL 10 MG TABLET PO (09:00)
[2022-09-30] MEDS: FLUTICASONE PROPIONATE 0.05% NA SPR 16 GM BTL (*BKC) 1 SPRAY NASAL (09:00)
[2022-09-30] MEDS: LORATADINE 10 MG TABLET PO (09:00)
[2022-09-30] MEDS: CHOLECALCIFEROL 400 UNITS TABLET (VIT D) PO (09:00)
[2022-09-30] MEDS: FINASTERIDE 5 MG TABLET PO (09:00)
[2022-09-30] MEDS: FAMOTIDINE 20 MG TABLET PO (09:00)
--- NOTE | 2022-09-30 13:40 | PCOTNOTE ---
PT leaving the room after just performing a PT treatment. Patient was supine in bed and snoring. Per RN and AIR TRAFFIC INSTRUCTOR Patient was able to participate in session, but has had medication earlier that he is having a hard time staying alert, wants to sleep. Per nursing Patient will not be able to handle additional services, needs to rest and get the affects of the medication out of his system to progress with activities.
[2022-09-30 14:15] VITALS: BP 123/55; PULSE 61; RESP 18; TEMP 37.1; O2SAT 99
--- NOTE | 2022-09-30 16:31 | PM.IMPN ---
Progress Note: A&P Assessment and Plan (1) Acetabulum fracture, left: Qualifiers: Encounter type: initial encounter Sublocation of acetabulum: unspecified portion of acetabulum Fracture type: closed Fracture alignment: nondisplaced Qualified Code(s): S32.402A - Unspecified fracture of left acetabulum, initial encounter for closed fracture Code(s): S32.402A - Unspecified fracture of left acetabulum, initial encounter for closed fracture Status: Acute Assessment and Plan: Appreciate orthopedic surgery consultation, awaiting weight-bearing recommendations Likely discharge to rehab soon (2) Closed fracture of inferior pubic ramus: Qualifiers: Encounter type: initial encounter Laterality: unspecified laterality Qualified Code(s): S32.599A - Other specified fracture of unspecified pubis, initial encounter for closed fracture Code(s): S32.599A - Other specified fracture of unspecified pubis, initial encounter for closed fracture Status: Acute Assessment and Plan: As above (3) Peripheral arterial disease: Code(s): I73.9 - Peripheral vascular disease, unspecified Status: Acute Assessment and Plan: Stable (4) Early onset Alzheimer's dementia without behavioral disturbance: Code(s): G30.0 - Alzheimer's disease with early onset; F02.80 - Dementia in other diseases classified elsewhere, unspecified severity, without behavioral disturbance, psychotic disturbance, mood disturbance, and anxiety Status: Acute Assessment and Plan: Continue donepezil (5) Essential (primary) hypertension: Code(s): I10 - Essential (primary) hypertension Status: Acute Assessment and Plan: Continue home antihypertensives Blood pressures reviewed 09/30 (6) Fall as cause of accidental injury at home as place of occurrence: Qualifiers: Encounter type: initial encounter Qualified Code(s): W19.XXXA - Unspecified fall, initial encounter; Y92.009 - Unspecified place in unspecified non-institutional (private) residence as the place of occurrence of the external cause Code(s): W19.XXXA - Unspecified fall, initial encounter; Y92.009 - Unspecified place in unspecified non-institutional (private) residence as the place of occurrence of the external cause Status: Acute Assessment and Plan: Fall precautions, PT/OT once weight-bearing recommendations made Plan DVT prophylaxis with SCDs GI prophylaxis not indicated Code status full code Subjective Date/time seen: 09/30/22 16:31 Interval history: upon rounding patient just waking up for the day and very confused. Oriented to person only. Asking repetitive questions. States the knee is sore all over like he fell down flight of stairs but has no specific complaints of pain. Denies any shortness for breath nausea. Review of Systems Review of Systems: All systems reviewed & are unremarkable except as noted in HPI and below Musculoskeletal: Musculoskeletal: Reports myalgias and Reports stiffness Exam Const: General: comfortable and no acute distress HENMT: Face/Nose/Sinus: Normal nares present Mouth: Yes moist mucous membranes Eyes: General: appearance normal, both eyes and all related structures Neck: Neck: supple and no JVD Resp: Effort & Inspection: normal respiratory effort Auscultation: clear to auscultation bilaterally Other: Patient appears in no acute respiratory distress. Able to speak in complete sentences without difficulty. No use of accessory muscles appreciated. Lung sounds are clear and equal bilaterally. Cardio: Rate: regular rate Rhythm: regular rhythm Other: No heart murmur, rub, gallop noted GI: Other: abdomen soft, flat, nontender to palpation with bowel sounds present x4 quadrants Skin: General skin exam: normal color and no rashes or lesions noted Neuro: Speech: normal speech Other:
[2022-09-30] MEDS: DONEPEZIL HCL 5 MG TABLET PO (20:20)
[2022-09-30 21:04] VITALS: BP 125/49; PULSE 65; RESP 22; TEMP 36.9; O2SAT 96
[2022-10-01 06:00] VITALS: BP 155/50; PULSE 54; RESP 16; TEMP 36.6; O2SAT 95
[2022-10-01] MEDS: FLUTICASONE PROPIONATE 0.05% NA SPR 16 GM BTL (*BKC) 1 SPRAY NASAL (08:14)
[2022-10-01] MEDS: lisinopriL 10 MG TABLET PO (08:15)
[2022-10-01] MEDS: SERTRALINE HCL 50 MG TABLET 100 MG PO (08:15)
[2022-10-01] MEDS: CELECOXIB 200 MG CAPSULE PO (08:15)
[2022-10-01] MEDS: FAMOTIDINE 20 MG TABLET PO (08:15)
[2022-10-01] MEDS: LORATADINE 10 MG TABLET PO (08:15)
[2022-10-01] MEDS: FINASTERIDE 5 MG TABLET PO (08:15)
[2022-10-01] MEDS: CHOLECALCIFEROL 400 UNITS TABLET (VIT D) PO (08:15)
[2022-10-01 08:19] LABS: Hematocrit 38.5 % (42.0-52.0); Hemoglobin 12.6 g/dL (14.0-18.0); Mean Corpuscular HGB Conc 32.7 g/dl (32-36); Mean Corpuscular Hemoglobin 31.3 pg (26-34); Mean Corpuscular Volume 95.8 fl (80-100); Mean Platelet Volume 9.4 fl (7.4-10.4); Platelet Count Result 169 k/mm3 (150-375); Red Blood Count 4.02 M/mm3 (4.6-6.20); Red Cell Distribution Width 14.2 % (11.5-14.5); White Blood Count 9.7 K/mm3 (4.5-10.0)
[2022-10-01 08:30] LABS: Anion Gap 2 mmol/L (8-16); Blood Urea Nitrogen 35 mg/dL (9-20); Calcium 8.5 mg/dL (8.4-10.2); Carbon Dioxide 29 mmol/L (22-30); Chloride 108 mmol/L (98-107); Estimated CRCL calculation 30 ml/min; Estimated Glomerular Filt Rate 41; Glucose 179 mg/dL (65-110); Potassium 4.4 mmol/L (3.4-5.0); Sodium 139 mmol/L (137-145)
--- NOTE | 2022-10-01 09:30 | PM.IMPN ---
Progress Note: A&P Assessment and Plan (1) Acetabulum fracture, left: Qualifiers: Encounter type: initial encounter Fracture alignment: nondisplaced Fracture type: closed Sublocation of acetabulum: unspecified portion of acetabulum Qualified Code(s): S32.402A - Unspecified fracture of left acetabulum, initial encounter for closed fracture Code(s): S32.402A - Unspecified fracture of left acetabulum, initial encounter for closed fracture Status: Acute Assessment and Plan: Appreciate orthopedic surgery consultation, awaiting weight-bearing recommendations Likely discharge to rehab soon (2) Closed fracture of inferior pubic ramus: Qualifiers: Encounter type: initial encounter Laterality: unspecified laterality Qualified Code(s): S32.599A - Other specified fracture of unspecified pubis, initial encounter for closed fracture Code(s): S32.599A - Other specified fracture of unspecified pubis, initial encounter for closed fracture Status: Acute Assessment and Plan: As above (3) Peripheral arterial disease: Code(s): I73.9 - Peripheral vascular disease, unspecified Status: Acute Assessment and Plan: Stable (4) Early onset Alzheimer's dementia without behavioral disturbance: Code(s): G30.0 - Alzheimer's disease with early onset; F02.80 - Dementia in other diseases classified elsewhere, unspecified severity, without behavioral disturbance, psychotic disturbance, mood disturbance, and anxiety Status: Acute Assessment and Plan: Continue donepezil (5) Essential (primary) hypertension: Code(s): I10 - Essential (primary) hypertension Status: Acute Assessment and Plan: Continue home antihypertensives Blood pressures reviewed 10/01 (6) Fall as cause of accidental injury at home as place of occurrence: Qualifiers: Encounter type: initial encounter Qualified Code(s): W19.XXXA - Unspecified fall, initial encounter; Y92.009 - Unspecified place in unspecified non-institutional (private) residence as the place of occurrence of the external cause Code(s): W19.XXXA - Unspecified fall, initial encounter; Y92.009 - Unspecified place in unspecified non-institutional (private) residence as the place of occurrence of the external cause Status: Acute Assessment and Plan: Fall precautions, PT/OT once weight-bearing recommendations made Plan DVT prophylaxis with SCDs GI prophylaxis not indicated Code status full code Appreciate PT/OT recommendations for discharge planning Time Spent With Patient Time with patient: 25 - 35 minutes Subjective Date/time seen: 10/01/22 09:30 Interval history: 87-year-old male with history of dementia presenting after a witnessed fall and found to have acetabular and pelvic fractures. No overnight events noted. No chest pain or shortness of breath. No nausea, vomiting or diarrhea. No fevers or chills. Pain is well controlled Review of Systems Review of Systems: All systems reviewed & are unremarkable except as noted in HPI and below Musculoskeletal: Musculoskeletal: Reports myalgias and Reports stiffness Exam Const: General: comfortable and no acute distress HENMT: Face/Nose/Sinus: Normal nares present Mouth: Yes moist mucous membranes Eyes: General: appearance normal, both eyes and all related structures Neck: Neck: supple and no JVD Resp: Effort & Inspection: normal respiratory effort Auscultation: clear to auscultation bilaterally Other: Patient appears in no acute respiratory distress. Able to speak in complete sentences without difficulty. No use of accessory muscles appreciated. Lung sounds are clear and equal bilaterally. Cardio: Rate: regular rate Rhythm: regular rhythm Other: No heart murmur, rub, gallop noted GI: Other: abdomen soft, flat, nontender to palpation with bowel sounds present x4 qu
[2022-10-01 15:46] VITALS: BP 146/63; PULSE 75; RESP 16; TEMP 36.7; O2SAT 99
[2022-10-01] MEDS: DONEPEZIL HCL 5 MG TABLET PO (20:08)
[2022-10-01] MEDS: ACETAMINOPHEN 325 MG TABLET 650 MG PO (20:17)
[2022-10-01 20:55] VITALS: BP 145/70; PULSE 71; RESP 16; TEMP 36.5; O2SAT 97
[2022-10-02 04:27] VITALS: BP 152/71; PULSE 68; RESP 16; TEMP 36.4; O2SAT 98
[2022-10-02 08:02] LABS: Hematocrit 36.3 % (42.0-52.0); Hemoglobin 11.6 g/dL (14.0-18.0); Mean Corpuscular Hemoglobin 30.1 pg (26-34); Mean Platelet Volume 9.5 fl (7.4-10.4); Platelet Count Result 179 k/mm3 (150-375); Red Blood Count 3.86 M/mm3 (4.6-6.20); Red Cell Distribution Width 13.9 % (11.5-14.5); White Blood Count 9.2 K/mm3 (4.5-10.0)
[2022-10-02] MEDS: lisinopriL 10 MG TABLET PO (08:14)
[2022-10-02] MEDS: CHOLECALCIFEROL 400 UNITS TABLET (VIT D) PO (08:14)
[2022-10-02] MEDS: LORATADINE 10 MG TABLET PO (08:14)
[2022-10-02] MEDS: FAMOTIDINE 20 MG TABLET PO (08:14)
[2022-10-02] MEDS: CELECOXIB 200 MG CAPSULE PO (08:14)
[2022-10-02] MEDS: ACETAMINOPHEN 325 MG TABLET 650 MG PO ×2 (08:14→16:00)
[2022-10-02] MEDS: SERTRALINE HCL 50 MG TABLET 100 MG PO (08:14)
[2022-10-02] MEDS: FINASTERIDE 5 MG TABLET PO (08:14)
[2022-10-02] MEDS: FLUTICASONE PROPIONATE 0.05% NA SPR 16 GM BTL (*BKC) 1 SPRAY NASAL (08:16)
[2022-10-02 08:37] LABS: Anion Gap 3 mmol/L (8-16); Blood Urea Nitrogen 43 mg/dL (9-20); Calcium 8.4 mg/dL (8.4-10.2); Carbon Dioxide 28 mmol/L (22-30); Chloride 106 mmol/L (98-107); Estimated CRCL calculation 30 ml/min; Estimated Glomerular Filt Rate 41; Glucose 185 mg/dL (65-110); Potassium 3.8 mmol/L (3.4-5.0); Sodium 137 mmol/L (137-145)
--- NOTE | 2022-10-02 11:52 | PM.IMPN ---
Progress Note: A&P Assessment and Plan (1) Acetabulum fracture, left: Qualifiers: Encounter type: initial encounter Fracture alignment: nondisplaced Fracture type: closed Sublocation of acetabulum: unspecified portion of acetabulum Qualified Code(s): S32.402A - Unspecified fracture of left acetabulum, initial encounter for closed fracture Code(s): S32.402A - Unspecified fracture of left acetabulum, initial encounter for closed fracture Status: Acute Assessment and Plan: Appreciate orthopedic surgery consultation, awaiting weight-bearing recommendations Likely discharge to rehab soon (2) Closed fracture of inferior pubic ramus: Qualifiers: Encounter type: initial encounter Laterality: unspecified laterality Qualified Code(s): S32.599A - Other specified fracture of unspecified pubis, initial encounter for closed fracture Code(s): S32.599A - Other specified fracture of unspecified pubis, initial encounter for closed fracture Status: Acute Assessment and Plan: As above (3) Peripheral arterial disease: Code(s): I73.9 - Peripheral vascular disease, unspecified Status: Acute Assessment and Plan: Stable (4) Early onset Alzheimer's dementia without behavioral disturbance: Code(s): G30.0 - Alzheimer's disease with early onset; F02.80 - Dementia in other diseases classified elsewhere, unspecified severity, without behavioral disturbance, psychotic disturbance, mood disturbance, and anxiety Status: Acute Assessment and Plan: Continue donepezil (5) Essential (primary) hypertension: Code(s): I10 - Essential (primary) hypertension Status: Acute Assessment and Plan: Continue home antihypertensives Blood pressures reviewed 10/01 (6) Fall as cause of accidental injury at home as place of occurrence: Qualifiers: Encounter type: initial encounter Qualified Code(s): W19.XXXA - Unspecified fall, initial encounter; Y92.009 - Unspecified place in unspecified non-institutional (private) residence as the place of occurrence of the external cause Code(s): W19.XXXA - Unspecified fall, initial encounter; Y92.009 - Unspecified place in unspecified non-institutional (private) residence as the place of occurrence of the external cause Status: Acute Assessment and Plan: Fall precautions, PT/OT once weight-bearing recommendations made Plan DVT prophylaxis with SCDs GI prophylaxis not indicated Code status full code Appreciate PT/OT recommendations for discharge planning Time Spent With Patient Time with patient: 15 - 25 minutes Subjective Date/time seen: 10/02/22 11:52 Interval history: 87-year-old male with history of dementia presenting after a witnessed fall and found to have acetabular and pelvic fractures. No overnight events noted. No chest pain or shortness of breath. No nausea, vomiting or diarrhea. No fevers or chills. Pain is well controlled 10/02: Patient denies any problems overnight except he states that he is uncomfortable sitting up in the chair for too long. Awaiting rehabilitation placement. No acute events. Review of Systems Review of Systems: All systems reviewed & are unremarkable except as noted in HPI and below Exam Const: General: comfortable and no acute distress HENMT: Face/Nose/Sinus: Normal nares present Mouth: Yes moist mucous membranes Eyes: General: appearance normal, both eyes and all related structures Neck: Neck: supple and no JVD Resp: Effort & Inspection: normal respiratory effort Auscultation: clear to auscultation bilaterally Other: Patient appears in no acute respiratory distress. Able to speak in complete sentences without difficulty. No use of accessory muscles appreciated. Lung sounds are clear and equal bilaterally. Cardio: Rate: regular rate Rhythm: regular rhythm Other: No heart murmur, rub, gall
--- NOTE | 2022-10-02 11:52 | PM.DS ---
DS: Summary Time Spent with Patient Time attestation: Total time spent providing and/or coordinating discharge services: DS: Data Data Completed and Pending Labs on day of discharge: Labs from last 24 hours 10/02/22 07:27 WBC 9.2 RBC 3.86 L Hgb 11.6 L Hct 36.3 L MCV 94.0 MCH 30.1 MCHC 32.0 RDW 13.9 Plt Count 179 MPV 9.5 Sodium 137 Potassium 3.8 Chloride 106 Carbon Dioxide 28 Anion Gap 3 L BUN 43 H Creatinine 1.60 H Estim Creat Clear Calc 30 Estimated GFR 41 L Glucose 185 H Calcium 8.4 Discharge Plan Discharge Consulting providers: Sameer Meadows; Chaz Patino Discharge Medications: No Action fluticasone propionate [Flonase Allergy Relief] 50 mcg/actuation [place],Suspension 50 mcg INTRANASAL DAILY fexofenadine [Bernice Allergy] 180 mg Tablet 180 mg PO DAILY cholecalciferol (vitamin D3) [Vitamin D3] 10 mcg (400 unit) Capsule 400 unit PO DAILY acetaminophen [Mapap (acetaminophen)] 325 mg Tablet 650 mg PO Q6H PRN (Reason: Mild Pain (1-3) Or Fever) Qty: 30 0RF Citrucel 500 mg Tablet 500 mg PO DAILY PRN (Reason: Constipation) guaifenesin [Mucinex] 600 mg Tablet Extended Release 12hr 600 mg PO Q12H PRN (Reason: Congestion) famotidine 20 mg tablet 20 mg PO DAILY lisinopril 10 mg tablet 10 mg PO DAILY Qty: 90 4RF celecoxib 200 mg capsule 200 mg PO DAILY Qty: 90 1RF Hold Instructions: Hold this medication until you follow up with your Primary Care Provider. Your kidney function was elevated on arrival which could have been from this medication verses your underlying infection. donepezil 5 mg tablet 5 mg PO HS Qty: 90 1RF finasteride 5 mg tablet 5 mg PO DAILY Qty: 90 1RF Rx Instructions: TAKE 1 TABLET DAILY (DME) blood-glucose meter [Accu-Chek Donita Plus Meter] [facility] [place] See Rx Instructions .Route Qty: 1 0RF Rx Instructions: check sugar in am and PRN (DME) Accu-Chek Donita Plus test strp Strip See Rx Instructions .Route Qty: 100 0RF Rx Instructions: use to check sugar in AM and PRN (DME) lancing device with lancets [Accu-Chek Soft Dev Lancets] Kit See Rx Instructions .Route Qty: 100 3RF Rx Instructions: Use to check blood sugars BID sertraline 100 mg tablet 100 mg PO DAILY Qty: 90 1RF Rx Instructions: TAKE 1 TABLET DAILY Date of admission: 09/28/22 19:47 Primary Care Provider: Kostas García Admitting Provider: Iris Lord V. Attending physician on admission: Iris Lord V. Condition: Stable
[2022-10-02 14:00] VITALS: BP 118/54; PULSE 86; RESP 18; TEMP 36.7; O2SAT 98
[2022-10-02] MEDS: DONEPEZIL HCL 5 MG TABLET PO (20:08)
[2022-10-02 20:49] VITALS: BP 140/57; PULSE 84; RESP 18; TEMP 36.6; O2SAT 98
[2022-10-03 05:01] VITALS: BP 155/60; PULSE 73; RESP 18; TEMP 36.4; O2SAT 98
[2022-10-03 05:45] LABS: Hematocrit 36.1 % (42.0-52.0); Hemoglobin 11.7 g/dL (14.0-18.0); Mean Corpuscular HGB Conc 32.4 g/dl (32-36); Mean Corpuscular Volume 95.5 fl (80-100); Mean Platelet Volume 9.3 fl (7.4-10.4); Platelet Count Result 190 k/mm3 (150-375); Red Blood Count 3.78 M/mm3 (4.6-6.20); White Blood Count 10.1 K/mm3 (4.5-10.0)
[2022-10-03 06:01] LABS: Anion Gap 4 mmol/L (8-16); Blood Urea Nitrogen 50 mg/dL (9-20); Calcium 8.2 mg/dL (8.4-10.2); Carbon Dioxide 26 mmol/L (22-30); Chloride 104 mmol/L (98-107); Estimated CRCL calculation 26 ml/min; Estimated Glomerular Filt Rate 36; Glucose 179 mg/dL (65-110); Potassium 3.8 mmol/L (3.4-5.0); Sodium 134 mmol/L (137-145)
[2022-10-03] MEDS: SODIUM CHLORIDE 0.9% IV 500 ML IV CONT (08:25)
[2022-10-03] MEDS: SERTRALINE HCL 50 MG TABLET 100 MG PO (08:27)
[2022-10-03] MEDS: ACETAMINOPHEN 325 MG TABLET 650 MG PO ×2 (08:27→15:43)
[2022-10-03] MEDS: FAMOTIDINE 20 MG TABLET PO (08:27)
[2022-10-03] MEDS: lisinopriL 10 MG TABLET PO (08:27)
[2022-10-03] MEDS: LORATADINE 10 MG TABLET PO (08:27)
[2022-10-03] MEDS: FLUTICASONE PROPIONATE 0.05% NA SPR 16 GM BTL (*BKC) 1 SPRAY NASAL (08:28)
[2022-10-03] MEDS: CELECOXIB 200 MG CAPSULE PO (10:39)
[2022-10-03] MEDS: CHOLECALCIFEROL 400 UNITS TABLET (VIT D) PO (10:39)
[2022-10-03] MEDS: FINASTERIDE 5 MG TABLET PO (10:39)
[2022-10-03 12:02] VITALS: O2SAT 96
--- NOTE | 2022-10-03 13:49 | PM.IMPN ---
Progress Note: A&P Assessment and Plan (1) Acetabulum fracture, left: Qualifiers: Encounter type: initial encounter Fracture alignment: nondisplaced Fracture type: closed Sublocation of acetabulum: unspecified portion of acetabulum Qualified Code(s): S32.402A - Unspecified fracture of left acetabulum, initial encounter for closed fracture Code(s): S32.402A - Unspecified fracture of left acetabulum, initial encounter for closed fracture Status: Acute Assessment and Plan: Appreciate orthopedic surgery consultation, awaiting weight-bearing recommendations Likely discharge to rehab soon (2) Closed fracture of inferior pubic ramus: Qualifiers: Encounter type: initial encounter Laterality: unspecified laterality Qualified Code(s): S32.599A - Other specified fracture of unspecified pubis, initial encounter for closed fracture Code(s): S32.599A - Other specified fracture of unspecified pubis, initial encounter for closed fracture Status: Acute Assessment and Plan: As above (3) Peripheral arterial disease: Code(s): I73.9 - Peripheral vascular disease, unspecified Status: Acute Assessment and Plan: Stable (4) Early onset Alzheimer's dementia without behavioral disturbance: Code(s): G30.0 - Alzheimer's disease with early onset; F02.80 - Dementia in other diseases classified elsewhere, unspecified severity, without behavioral disturbance, psychotic disturbance, mood disturbance, and anxiety Status: Acute Assessment and Plan: Continue donepezil (5) Essential (primary) hypertension: Code(s): I10 - Essential (primary) hypertension Status: Acute Assessment and Plan: Continue home antihypertensives Blood pressures reviewed 10/01 (6) Fall as cause of accidental injury at home as place of occurrence: Qualifiers: Encounter type: initial encounter Qualified Code(s): W19.XXXA - Unspecified fall, initial encounter; Y92.009 - Unspecified place in unspecified non-institutional (private) residence as the place of occurrence of the external cause Code(s): W19.XXXA - Unspecified fall, initial encounter; Y92.009 - Unspecified place in unspecified non-institutional (private) residence as the place of occurrence of the external cause Status: Acute Assessment and Plan: Fall precautions, PT/OT once weight-bearing recommendations made Plan DVT prophylaxis with SCDs GI prophylaxis not indicated Code status full code Appreciate PT/OT recommendations for discharge planning Time Spent With Patient Time with patient: 15 - 25 minutes Subjective Date/time seen: 10/03/22 13:49 Interval history: 87-year-old male with history of dementia presenting after a witnessed fall and found to have acetabular and pelvic fractures. No overnight events noted. No chest pain or shortness of breath. No nausea, vomiting or diarrhea. No fevers or chills. Pain is well controlled 10/02: Patient denies any problems overnight except he states that he is uncomfortable sitting up in the chair for too long. Awaiting rehabilitation placement. No acute events. 10/03: No acute events overnight. No complaints. Pain is well controlled. Awaiting placement. Discussion with Case Management and they will with family regarding availability of 1st option and the need to proceed other referrals. Review of Systems Review of Systems: All systems reviewed & are unremarkable except as noted in HPI and below Exam Const: General: comfortable and no acute distress HENMT: Face/Nose/Sinus: Normal nares present Mouth: Yes moist mucous membranes Eyes: General: appearance normal, both eyes and all related structures Neck: Neck: supple and no JVD Resp: Effort & Inspection: normal respiratory effort Auscultation: clear to auscultation bilaterally Other: Patient appears in no acute respiratory distress. Able to
[2022-10-03 14:00] VITALS: BP 118/53; PULSE 76; RESP 16; TEMP 36.4; O2SAT 97
[2022-10-03 19:20] VITALS: BP 123/51; PULSE 76; RESP 18; TEMP 36.7; O2SAT 97
[2022-10-03 20:00] VITALS: PULSE 76; RESP 18; O2SAT 97
[2022-10-03] MEDS: DONEPEZIL HCL 5 MG TABLET PO (20:37)
[2022-10-04 04:58] VITALS: BP 145/61; PULSE 70; RESP 18; TEMP 36.6; O2SAT 96
[2022-10-04 05:40] LABS: Hemoglobin 12.1 g/dL (14.0-18.0); Mean Corpuscular HGB Conc 32.7 g/dl (32-36); Mean Corpuscular Hemoglobin 30.8 pg (26-34); Mean Corpuscular Volume 94.1 fl (80-100); Mean Platelet Volume 9.4 fl (7.4-10.4); Platelet Count Result 194 k/mm3 (150-375); Red Blood Count 3.93 M/mm3 (4.6-6.20); Red Cell Distribution Width 13.4 % (11.5-14.5); White Blood Count 10.7 K/mm3 (4.5-10.0)
[2022-10-04 06:07] LABS: Chloride 105 mmol/L (98-107); Potassium 3.9 mmol/L (3.4-5.0); Sodium 139 mmol/L (137-145)
[2022-10-04 06:16] LABS: Anion Gap 9 mmol/L (8-16); Blood Urea Nitrogen 41 mg/dL (9-20); Calcium 8.4 mg/dL (8.4-10.2); Carbon Dioxide 25 mmol/L (22-30); Estimated CRCL calculation 32 ml/min; Estimated Glomerular Filt Rate 44; Glucose 164 mg/dL (65-110)
--- NOTE | 2022-10-04 09:06 | PCOTNOTE ---
Attempted to see pt for Occupational Therapy treatment this AM. Pt is very agitated and refused to have therapist check for soiled depends prior to transfer out of bed. Pt refused to get out of bed at this time for breakfast stating he wants to wake up more. Will attempt at a later time today.
[2022-10-04] MEDS: CHOLECALCIFEROL 400 UNITS TABLET (VIT D) PO (09:23)
[2022-10-04] MEDS: FINASTERIDE 5 MG TABLET PO (09:23)
[2022-10-04] MEDS: FAMOTIDINE 20 MG TABLET PO (09:23)
[2022-10-04] MEDS: CELECOXIB 200 MG CAPSULE PO (09:23)
[2022-10-04] MEDS: SERTRALINE HCL 50 MG TABLET 100 MG PO (09:24)
[2022-10-04] MEDS: lisinopriL 10 MG TABLET PO (09:24)
[2022-10-04] MEDS: LORATADINE 10 MG TABLET PO (09:24)
[2022-10-04] MEDS: FLUTICASONE PROPIONATE 0.05% NA SPR 16 GM BTL (*BKC) 1 SPRAY NASAL (09:24)
--- NOTE | 2022-10-04 10:29 | PM.DS ---
DS: Admitting Diagnosis Discharge Date 10/04/2022 Admitting Diagnosis Acetabulum fracture left Closed fracture of inferior pubic ramus Peripheral artery disease Early onset Alzheimer's dementia without behavioral disturbance Essential hypertension Fall as cause of accidental injury at home as place of occurrence DS: Discharge Diagnosis Discharge Diagnosis (1) Acetabulum fracture, left: Qualifiers: Encounter type: initial encounter Fracture alignment: nondisplaced Fracture type: closed Sublocation of acetabulum: unspecified portion of acetabulum Qualified Code(s): S32.402A - Unspecified fracture of left acetabulum, initial encounter for closed fracture Code(s): S32.402A - Unspecified fracture of left acetabulum, initial encounter for closed fracture Status: Acute (2) Closed fracture of inferior pubic ramus: Qualifiers: Encounter type: initial encounter Laterality: unspecified laterality Qualified Code(s): S32.599A - Other specified fracture of unspecified pubis, initial encounter for closed fracture Code(s): S32.599A - Other specified fracture of unspecified pubis, initial encounter for closed fracture Status: Acute (3) Peripheral arterial disease: Code(s): I73.9 - Peripheral vascular disease, unspecified Status: Acute (4) Early onset Alzheimer's dementia without behavioral disturbance: Code(s): G30.0 - Alzheimer's disease with early onset; F02.80 - Dementia in other diseases classified elsewhere, unspecified severity, without behavioral disturbance, psychotic disturbance, mood disturbance, and anxiety Status: Acute (5) Essential (primary) hypertension: Code(s): I10 - Essential (primary) hypertension Status: Acute (6) Fall as cause of accidental injury at home as place of occurrence: Qualifiers: Encounter type: initial encounter Qualified Code(s): W19.XXXA - Unspecified fall, initial encounter; Y92.009 - Unspecified place in unspecified non-institutional (private) residence as the place of occurrence of the external cause Code(s): W19.XXXA - Unspecified fall, initial encounter; Y92.009 - Unspecified place in unspecified non-institutional (private) residence as the place of occurrence of the external cause Status: Acute (7) CKD stage 3 secondary to diabetes: Code(s): E11.22 - Type 2 diabetes mellitus with diabetic chronic kidney disease; N18.30 - Chronic kidney disease, stage 3 unspecified Status: Acute DS: Summary Hospital Course Reason for hospitalization: This is an 87-year-old male patient who had a ground level fall at home causing in the left acetabular fracture and left inferior pubic ramus fracture. Hospital Course: While hospitalized patient was evaluated by Orthopedic surgery recommended non operative approach with physical therapy and occupational therapy. Patient was evaluated and recommended left lower extremity toe-touch weight-bearing status which due to patient's declining mental and physical status he was having difficulty maintaining without putting extra pressure on the left foot. Over the past several days patient's pain has continued to improve and his therapy status has progressed. Has been waiting for acceptance to longterm facility the past 4 days. Today patient was accepted [facility] in insurance approved so he was able to be discharged. Status at Discharge Cognitive/behavioral status at discharge: Awake, alert, confused to baseline status Functional status at discharge: wheelchair bound Time Spent with Patient Time attestation: Total time spent providing and/or coordinating discharge services: Time spent: Less than 30 minutes Exam Const: General: comfortable and no acute distress HENMT: Face/Nose/Sinus: Normal nares present Mouth: Yes moist mucous membranes Eyes: General: appearance normal, both eyes and all related structures Neck: Neck: supple and no JVD
[2022-10-04 13:23] LABS: SARS-CoV-2 RNA PCR Negative (Negative)
--- NOTE | 2022-10-04 13:51 | PC.NURSE ---
Program Aide Group Work called [facility] and ETA is [phone]
== END 2022-10-04 15:48 ==
LOC: ANHED 20:37 → ANH3MED 09-30 11:22
PROVIDERS: Nurse Practitioner; Admitting Provider Internal Medicine; Emergency Provider Emergency Medicine; PCP Family Medicine; Visit Provider Chiropractor
DX: S32.425A Nondisplaced fracture of posterior wall of left acetabulum, initial encounter for closed fracture (principal); S32.592A Other specified fracture of left pubis, initial encounter for closed fracture; W19.XXXA Unspecified fall, initial encounter; Z96.643 Presence of artificial hip joint, bilateral; Z20.822 Contact with and (suspected) exposure to COVID-19; I10 Essential (primary) hypertension; G30.0 Alzheimer's disease with early onset; F02.80 Dementia in other diseases classified elsewhere, unspecified severity, without behavioral disturbance, psychotic disturbance, mood disturbance, and anxiety; F32.A Depression, unspecified; E78.5 Hyperlipidemia, unspecified; E11.9 Type 2 diabetes mellitus without complications; I73.9 Peripheral vascular disease, unspecified; Z79.1 Long term (current) use of non-steroidal anti-inflammatories (NSAID); Z87.891 Personal history of nicotine dependence; Z79.899 Other long term (current) drug therapy; Z82.49 Family history of ischemic heart disease and other diseases of the circulatory system
CPT/HCPCS: 36415; 73502; 80048; 82948; 85025; 85027; 87635; 96374; 97110; 97161; 97166; 97530; 97535; 99285; A9270; G0378; J2060; J7040

== ENCOUNTER 2023-01-26 14:54 | Outpatient (CLI) | payer MEDICARE, SELFPAY ==
[2023-01-26 19:37] LABS: Alanine Aminotransferase 19 U/L (6-50); Albumin Level 4.2 g/dL (3.5-5.1); Alkaline Phosphatase 109 U/L (38-126); Anion Gap 9 mmol/L (8-16); Aspartate Amino Transferase 50 U/L (17-59); Bilirubin,Total 0.6 mg/dL (0.2-1.3); Blood Urea Nitrogen 54 mg/dL (9-20); Calcium 9.4 mg/dL (8.4-10.2); Carbon Dioxide 25 mmol/L (22-30); Chloride 106 mmol/L (98-107); Cholesterol 172 mg/dL (0-200); Estimated Glomerular Filt Rate 38; Glucose 165 mg/dL (65-110); HDL Direct 20 mg/dL; Potassium 5.5 mmol/L (3.4-5.0); Sodium 140 mmol/L (137-145); Triglycerides 214 mg/dL (<150)
[2023-01-26 19:48] LABS: LDL Cholesterol Direct 101 mg/dL
[2023-01-26 19:57] LABS: Hemoglobin A1C 7.1 % (<5.7)
== END 2023-01-26 14:55 | disposition home or self-care (01) ==
LOC: ANHGOSHLAB 14:55
PROVIDERS: PCP Family Medicine; Visit Provider Family Medicine
DX: Z13.228 Encounter for screening for other metabolic disorders (principal); Z13.220 Encounter for screening for lipoid disorders; E11.43 Type 2 diabetes mellitus with diabetic autonomic (poly)neuropathy
CPT/HCPCS: 36415; 80053; 80061; 83036

== ENCOUNTER 2023-02-03 03:36 | Day surgery (SDC) | payer MEDICARE, SELFPAY ==
--- NOTE | 2023-02-03 12:00 | ECG_ITS ---
Measurements Intervals [place] Rate: 57 P: MD: 0 QRS: -24 QRSD: 105 T: 8 QT: 442 QTc: 433 Interpretive Statements SINUS RHYTHM WITH INTERMITTENT JUNCTIONAL BEATS BORDERLINE LEFT AXIS DEVIATION [QRS AXIS < -20] MODERATE VOLTAGE CRITERIA FOR LVH, CONSIDER NORMAL VARIANT [MEETS CRITERIA IN ONE OF: R(aVL), S(V1), R(V5), R(V5/V6)+S(V1)] ABNORMAL RHYTHM ECG COMPARED TO ECG 05/17/2021 10:15:02 INTERMITTENT JUNCTIONAL COMPLEXES NOW PRESENT Electronically Signed On 02-03-2023 15:06:28 CRYPTOGRAPHIC MACHINE OPERATOR by Ray Montiel M.D.
[2023-02-03 13:05] VITALS: BP 127/48; PULSE 60; RESP 14; TEMP 36.5; O2SAT 99
--- NOTE | 2023-02-03 13:10 | WPDANESEPPF ---
Anes - Initial Pre Proc Eval Procedure: Operation Date: 02/03/23 14:00 Proposed Procedures p Complex Incision and Drainage of Posterior Neck Cyst - Monika Ortiz MD Date/Time: 02/03/23 13:10 Surgeon: Monika Ortiz MD Pre Op Diagnosis: infected right posterior neck cyst Patient Data Age: 87 Gender: M Height: Weight: Last Vital Signs Temp 36.5 C 02/03/23 13:05 Pulse 60 02/03/23 13:05 Resp 14 02/03/23 13:05 BP 127/48 L 02/03/23 13:05 Pulse Ox 99 02/03/23 13:05 Allergies Allergy/AdvReac Type Severity Reaction Status Date / Time tetanus toxoid, adsorbed Allergy Severe HIVES Verified 02/03/23 12: Tetanus Vaccines and Toxoid Allergy Unknown Unknown Verified 02/03/23 12:23 Home Medications Medication Instructions Recorded Confirmed Type cholecalciferol (vitamin D3) 10 400 unit PO DAILY 05/31/19 02/03/23 History mcg (400 unit) capsule (Vitamin D3) fexofenadine 180 mg tablet 180 mg PO DAILY 05/31/19 02/03/23 History (Bernice Allergy) fluticasone propionate 50 50 mcg intranasal DAILY 05/31/19 02/03/23 History mcg/actuation nasal spray,suspension (Flonase Allergy Relief) acetaminophen 325 mg tablet (Mapap 650 mg PO Q6H PRN Mild Pain (1-3) 06/06/19 02/03/23 Rx (acetaminophen)) Or Fever #30 tabs methylcellulose (laxative) 500 mg 500 mg PO DAILY PRN Constipation 07/25/20 02/03/23 History tablet (Citrucel) blood sugar diagnostic (Accu-Chek #100 ea 07/09/22 02/03/23 Rx Donita Plus test strips) blood-glucose meter (Accu-Chek #1 ea 07/09/22 02/03/23 Rx Donita Plus Meter) lancing device with lancets kit #100 ea 09/03/22 02/03/23 Rx (Accu-Chek Softclix Lancing Device+Lancets kit) sertraline 100 mg tablet 100 mg PO DAILY #90 tabs 09/09/22 02/03/23 Rx guaifenesin 600 mg tablet, 600 mg PO Q12H PRN Congestion 09/28/22 02/03/23 History extended release 12 hr (Mucinex) celecoxib 200 mg capsule 200 mg PO DAILY #90 caps 10/16/22 02/03/23 Rx donepezil 5 mg tablet 5 mg PO HS #90 tabs 11/13/22 02/03/23 Rx famotidine 20 mg tablet 20 mg PO DAILY #90 tabs 12/01/22 02/03/23 Rx finasteride 5 mg tablet 5 mg PO DAILY #90 tabs 12/07/22 02/03/23 Rx Patient hx anesthesia problems: none Family hx anesthesia problems: none Results Review: All pre-operative results and documents have been reviewed as part of the pre-operative evaluation. [facility] Past Medical History Medical History Allergic rhinitis Arthritis Benign essential hypertension Dementia Depression Fracture of femoral neck, right, closed (05/2019) Hyperlipidemia Hypertension Scoliosis Type 2 diabetes mellitus Hemoglobin A1c was 6.7% on 07/15/2020. Surgical History Surgical History H/O hernia repair History of hip surgery (06/01/19) ORIF right hip fracture, bipolar. Left hip replacement. History of tonsillectomy History of transurethral resection of prostate Family History Family History Mother Osteoporosis Hypertension Crohn's colitis Carcinoma of colon Other Family history of arthritis Social History Social History Social History: The patient lives with his in [place]. He has 2 grown children. 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 Former smoker, 1 pack a day for about 15 years. No alcohol or illicit substance abuse. His , Marbella, is his surrogate decision maker. Code status: Full code. Smoking packs per day: 1 Smoking cigarettes per day: 20.0 Years smoked: 15 Smoking pack-years: 15.00 Smoking status: Never smoker Tobacco type: pipe Smoking end date: 05/30/76 Alcohol intake: never Substance use: never Lack of Transportation: No Lack of Food: Never True Current Housing: I Have [facility]
--- NOTE | 2023-02-03 13:15 | WPDHPUPDATE1 ---
History and Physical Update Update Date/Time: 02/03/23 13:15 History and Physical has been reviewed, including an updated exam of the patient. There are NO changes in the patient's condition. Risks, benefits, and alternatives have been discussed and questions answered. Patient agrees to proceed with procedure.
[2023-02-03 13:27] VITALS: BMI 20.6
[2023-02-03 13:34] LABS: Glucose Point of Care 186 mg/dl (65-105)
[2023-02-03 14:06] VITALS: BP 132/41; PULSE 60; RESP 16; O2SAT 95
[2023-02-03] MEDS: LACTATED RINGERS 1,000 ML 30 ML IV CONT (14:06)
--- NOTE | 2023-02-03 14:06 | W.PM.PROC2 ---
Procedure Note - Detailed Date of Procedure 02/03/23 Pre-op Diagnosis infected right posterior neck cyst Post-op Diagnosis Same Procedure Performed Complex incision and drainage infected right posterior neck cyst measuring approximately 5 x 4 cm Surgeon Monika Ortiz MD Anesthesia MAC and Local Indications 87-year-old male presenting to the office with a large infected right posterior neck cyst. The patient had attempted drainage by his primary care physician, however area continues to worsen and drain. Given his comorbid conditions including severe scoliosis and immobility, decision to proceed with complex incision and drainage in the operating room. Findings Infected sebaceous cyst right posterior neck measuring 5 x 4 cm Description of Procedure The patient was taken the operating room and placed in the supine position. After adequate induction of MAC anesthesia, the patient was prepped and draped in the normal sterile fashion. A time-out was then done to verify the patient's identity, as well as the procedure being performed. I began by localizing the area and around this infected cyst. After adequate localization, I used a scalpel to open the previous incision. There was noted to be some necrotic tissue that was debrided. Once into the abscess cavity, a large amount of purulent and ruptured cystic material was removed from the wound. I used a hemostat to bluntly dissect around the cavity and further evacuate the cavity. Once the cavity was completely explored and drained, measured approximately 5 x 4 cm. I then copiously irrigated and cleaned out the cavity with normal saline. Hemostasis was noted in the cavity. I then packed the cavity with quarter-inch iodoform packing. Further local anesthetic was placed. Sterile dressing was placed. The patient tolerated the procedure well and was alert and awake in the operating room postoperatively. He will be transferred to the recovery room in stable condition. Estimated Blood Loss 5 Drains No Packing Yes Pathology None sent Complications No immediate complications Condition Stable Disposition PACU [facility] Billing Surgery - Charge Forward: Surgery Billing
[2023-02-03 14:30] VITALS: BP 162/63; PULSE 47; RESP 16
[2023-02-03 15:00] VITALS: BP 109/49; PULSE 59; RESP 16
[2023-02-03] MEDS: ACETAMINOPHEN 500 MG TABLET PO (15:09)
[2023-02-03 15:11] LABS: Glucose Point of Care 176 mg/dl (65-105)
[2023-02-03 15:30] VITALS: BP 135/51; PULSE 47; RESP 16
== END 2023-02-03 15:50 | disposition home or self-care (01) ==
PROVIDERS: PCP Family Medicine; Visit Provider Surgery
PROC: (CPT 10061; principal; 2023-02-03 14:00)
DX: L72.3 Sebaceous cyst (principal); L08.9 Local infection of the skin and subcutaneous tissue, unspecified; I10 Essential (primary) hypertension; E11.9 Type 2 diabetes mellitus without complications; E78.5 Hyperlipidemia, unspecified; F03.90 Unspecified dementia, unspecified severity, without behavioral disturbance, psychotic disturbance, mood disturbance, and anxiety; F32.A Depression, unspecified; Z87.891 Personal history of nicotine dependence
CPT/HCPCS: 10061; 82948; 93005; A9270; J2704; J7120

== ENCOUNTER 2023-03-12 13:37 | Outpatient (CLI) | payer MEDICARE, SELFPAY ==
--- NOTE | ~2023-03-12 | DEXA_ITS ---
Bone Density Report Name: TYREE WOMACK Age: 87 Sex: Male Ethnicity: White Date of : 1935 Indication: screening for osteoporosis; prior fracture; Referring Provider: Kostas García Study: Bone densitometry was performed. Exam Date: March 12, 2023 Accession number: [id number] Bone Density: Region BMD T-score Z-score Classification AP Spine(L1, L3, L4) 1.221 1.2 2.5 Normal World Health Organization criteria for BMD impression classify patients as: Normal (T-score at or above -1.0), Osteopenia (T-score between -1.0 and -2.5), or Osteoporosis (T-score at or below -2.5). Clinical Information Provided by Patient: Have had a previous hip or vertebral fracture Has had a low trauma fracture Has used the following medications: Vitamin D Patient maximum height was 73 No regular weight bearing exercise Impression: The patient has normal bone mass. The patient has risk factors, including: previous fracture. Discussion: INCREASED RISK OF FRACTURE DUE TO HISTORY OF LOW TRAUMA FRACTURE. The patient's previous fracture puts the patient at high risk of a future fracture. In untreated patients, the risk of osteoporotic fracture increases approximately two-fold for each 1.0 SD decrease in T-score. Low bone density is not the only risk factor for fracture; also consider factors such as patient's age, frailty or poor health, risk of falling, risk of injury, previous osteoporotic fracture, family history of osteoporosis, cigarette smoking, low body weight, etc. Not everyone with a low trauma fracture has osteoporosis; osteomalacia and other metabolic bone disorders should also be considered. Patients who have osteoporosis should be evaluated for specific diseases and conditions (secondary causes) that may cause or contribute to bone loss and fracture risk. National Osteoporosis Foundation (NOF) recommends pharmacologic intervention for patients with a prior low trauma hip or vertebral fracture regardless of BMD T-score. The patient should follow a healthful lifestyle (good nutrition with adequate calcium and vitamin D, and appropriate weight-bearing exercise). Follow-Up: Consider a repeat BMD and Vertebral Fracture Assessment (VFA) exam in 2 years or sooner if medically necessary, to reassess this patient's status. Reported by: Dr. Nik Jackson on 03/12/2023 2:07:00 PM. Reviewed, dictated and finalized at location A.
== END 2023-03-12 13:38 | disposition home or self-care (01) ==
LOC: CHSIMG 13:39
PROVIDERS: PCP Family Medicine; Visit Provider Family Medicine
DX: M81.0 Age-related osteoporosis without current pathological fracture (principal); M85.88 Other specified disorders of bone density and structure, other site; S32.402A Unspecified fracture of left acetabulum, initial encounter for closed fracture
CPT/HCPCS: 77080

== ENCOUNTER 2023-08-13 12:57 | Inpatient (IN) | payer MEDICARE, SELFPAY ==
[2023-08-13] VITALS (10 sets, daily range): BP systolic 89–130; BP diastolic 41–90; PULSE 63–96; RESP 16–22; TEMP 36.4–36.6; O2SAT 96–100
--- NOTE | ~2023-08-13 | CT_ITS ---
EXAMINATION: CT cervical spine wo con DATE: 08/20/2023 15:34 INDICATION: Fall with head injury TECHNIQUE: Computed tomography (CT) of the cervical spine was performed without intravenous contrast. Automated exposure control and iterative reconstruction technique were employed. The dose-length pro duct was 211.69 mGy-cm. COMPARISON: None FINDINGS: Normal alignment. Severe osteoarthritis at the atlantoaxial articulation. Vertebral body heights are normal. No fracture. Severe disc height loss with prominent degenerative endplate changes at C3-C4, C 6-C7 and T1-T2 and moderate disc height loss at C5-C6, C7-T1 and T2-T3 and mild disc height loss at C 2-C3 and C4-C5. Disc bulges or disc osteophyte complexes at the levels throughout the cervical spine resulting in mild central canal stenosis most prominent at C3-C4, C5-C6 and C6-C7. There is multileve l moderate to severe bilateral cervical uncovertebral osteoarthritis and multilevel moderate to sever e left-sided and mild to moderate right-sided cervical facet osteoarthritis. This contributes to mode rate neural from stenosis on the right at C3-C4, C5-C6, C6-C7 and T1-T2 and on the left at C3-C4, C4- C5 C6-C7 and T1-T2. Mild neural from stenosis at the remaining cervical levels. Small amount of ather osclerotic calcification at the bilateral carotid bulbs. Cervical soft tissues are unremarkable. Mild emphysema at the bilateral apices with calcified right apical nodule consistent with old granulomato us disease. IMPRESSION: 1. Severe cervical spondylosis with no acute osseous abnormalities. Reviewed, dictated and finalized at location A.
--- NOTE | ~2023-08-13 | CT_ITS ---
EXAMINATION: CT abdomen pelvis w con DATE: 08/13/2023 14:20 INDICATION: Localized abdominal pain TECHNIQUE: Computed tomography (CT) of the abdomen and pelvis was performed without intravenous contr ast. Automated exposure control and iterative reconstruction technique were employed. The dose-length product was 515.52 mGy-cm. COMPARISON: None FINDINGS: Small centrilobular groundglass opacities in the dependent right middle lobe and immediately adjacent anterobasilar segment of the right lower lobe suspicious for pneumonia. Volume loss in bilateral low er lobes with dependent reticular opacities and favor atelectasis over pulmonary edema. Indeterminate 10 mm spiculated right lower lobe nodule along the dome of the diaphragm. Heart size is normal. No p ericardial or pleural effusion. Multiple splenic calcifications consistent with old granulomatous disease. Liver, gallbladder, pancre as and bilateral adrenal glands are normal. Bilateral nephrolithiasis with multiple large stones in t he left renal collecting system and clustered in the renal pelvis with a measure up to 1.4 cm in maxi mal diameter. 3 mm stone at a lower pole calyx of the right kidney. No ureteral stones or hydronephro sis. Diffuse bladder wall thickening with 3.6 cm bladder stone nearly filling the partially decompres sed bladder. Mild splenomegaly. Postoperative change of prior right inguinal hernia mesh repair. Mild diverticulosis along the sigmoi d colon without adjacent inflammatory stranding to suggest diverticulitis. 8.5 cm ball of stool at th e rectum with additional stool extending more proximally in the sigmoid colon. There is some mild wal l thickening of the sigmoid colon and rectum likely related to secondary stercoral colitis. No other dilated bowel to suggest obstruction. No free intraperitoneal gas or fluid. No pathologically enlarge d abdominal or pelvic lymphadenopathy. Bipolar type right hip hemiarthroplasty. Old intratrochanteric fracture of the proximal left femur wi th antegrade intramedullary soledad and femoral neck dynamic compression screw and distal interlocking sc rew fixation. Severe lumbar spondylosis. Chronic L1 burst fracture with 60% anterior vertebral body h eight loss and with 3 mm retropulsion. IMPRESSION: 1. Patchy centrilobular groundglass opacities in the right middle and right lower lobes consistent wi th pneumonia. 2. 8.5 similar ball of stool at the rectum with mild wall thickening at the rectum and distal sigmoid colon consistent with likely secondary stercoral colitis. 3. Urolithiasis without hydronephrosis, most prominent in the left kidney and with 3.6 cm bladder sto ne. 4. Indeterminate 10 mm spiculated right lower lobe nodule potentially also related to pneumonia. Timothy mmend short interval follow-up in a 6-12 weeks when clinically improved. Reviewed, dictated and finalized at location A. IMPRESSION: 1. Patchy centrilobular groundglass opacities in the right middle and right low er lobes consistent with pneumonia. 2. 8.5 similar ball of stool at the rectum with mild wall thickening at the rec fatou and distal sigmoid colon consistent with likely secondary stercoral colitis . 3. Urolithiasis without hydronephrosis, most prominent in the left kidney and w ith 3.6 cm bladder stone. 4. Indeterminate 10 mm spiculated right lower lobe nodule potentially also rela janki to pneumonia. Recommend short interval follow-up in a 6-12 weeks when clini eduard improved.
--- NOTE | ~2023-08-13 | CT_ITS ---
EXAMINATION: CT brain wo con DATE: 08/20/2023 15:33 INDICATION: Fall with head injury TECHNIQUE: Computed tomography (CT) of the head was performed without intravenous contrast. Sagittal and coronal reconstructions were performed. The mA was adjusted according to patient size. Iterative reconstruction technique was employed. The dose-length product was 983.67 mGy-cm. COMPARISON: head CT dated 08/13/2023 FINDINGS: No fracture. No acute intracranial hemorrhage, acute infarction or abnormal extra axial fluid collect ion. There is mild scattered white matter hypoattenuation consistent with chronic small vessel ischem ic disease. Symmetric prominence of the sulci and ventricles consistent with moderate to severe age-a ppropriate diffuse cerebral volume loss. No mass/mass effect. Changes of bilateral intraocular lens r eplacement. The orbits and mastoid air cells are normal. Prominent mucous in mucosal thickening is a thin near complete opacification of the bilateral sphenoid sinuses. IMPRESSION: 1. No fracture or acute intracranial process. 2. Age-related changes including moderate to severe diffuse volume loss and mild scattered white olga lidia er hypoattenuation consistent with chronic small vessel ischemic disease. 3. Sphenoid sinusitis. Reviewed, dictated and finalized at location A. IMPRESSION: 1. No fracture or acute intracranial process. 2. Age-related changes including moderate to severe diffuse volume loss and mil d scattered white matter hypoattenuation consistent with chronic small vessel i schemic disease. 3. Sphenoid sinusitis.
--- NOTE | ~2023-08-13 | CT_ITS ---
CT brain wo con Ordering provider: Eliseo Combs MD History: 88 years Male with . head injury . Comparison: None. Technique: CT of the head without contrast. Radiation reduction technique utilized. DLP is 605.3 FINDINGS: BRAIN PARENCHYMA AND CSF SPACES: Deep white matter ischemic changes with brain atrophy and mild ventr icular dilatation. Atherosclerotic changes of the carotid system. No midline shift, mass effect or he morrhage. The brain parenchyma and CSF spaces are otherwise normal. VISUALIZED PARANASAL SINUSES: Bilateral sphenoid sinusitis.3 MASTOIDS: Well aerated. BONES: The bones appear intact. SOFT TISSUES: Visualized nasopharynx is normal. Superficial soft tissues are normal. IMPRESSION: No acute intracranial findings. Brain atrophy with deep white matter ischemic changes and ventricular dilatation. Bilateral sphenoid sinusitis. Reviewed, dictated and finalized at location A. IMPRESSION: No acute intracranial findings. Brain atrophy with deep white matter ischemic changes and ventricular dilatatio n. Bilateral sphenoid sinusitis.
--- NOTE | ~2023-08-13 | XR_ITS ---
EXAMINATION: XR barium swallow modified DATE: 08/21/2023 13:05 INDICATION: Aspiration TECHNIQUE: The patient was given barium-containing material of multiple consistencies to swallow by adrianne archuleta speech pathologist while I performed fluoroscopy. Dose-area product was [id number] Gy-cm2. FINDINGS: Oral Stage: Within functional limits Pharyngeal Phase: There is mild residual in the performed sinuses, which clears with second and thir d swallows. No penetration or aspiration was observed. Cervical/Esophageal Stage: Within functional limits IMPRESSION: Modified esophagram findings as above. Please refer to the speech therapy report for spec ific recommendations. Reviewed, dictated and finalized at Location A. Reviewed, dictated and finalized at location A. IMPRESSION: Modified esophagram findings as above. Please refer to the speech t herapy report for specific recommendations.
--- NOTE | ~2023-08-13 | XR_ITS ---
XR hip BI 2V w AP pelvis Ordering provider: Clinton Hernández MD History: . fall . Comparison: November 23, 2022 FINDINGS: BONES: No acute fracture or dislocation. HIP JOINT SPACES: Right hip arthroplasty. Fixation of the left femoral neck by soledad and screws. SACROILIAC JOINT SPACES/LUMBAR SPINE: The sacroiliac joint spaces are normal. Mild degenerative mcdonald es of the visualized lower lumbar spine. PUBIC SYMPHYSIS: Normal. SOFT TISSUES: Rounded radiopaque shadows projected over the pelvis unchanged from previous examinatio n. IMPRESSION: No acute osseous abnormality of the bilateral hips and pelvis. Reviewed, dictated and finalized at location A.
--- NOTE | ~2023-08-13 | XR_ITS ---
EXAMINATION: XR chest 1V portable DATE: 08/18/2023 15:51 INDICATION: Pulmonary mass TECHNIQUE: frontal view of the chest was obtained. COMPARISON: Chest radiograph dated 05/17/[address] dated 08/13/2023 FINDINGS: There are new mild opacities at the bilateral lung bases. No pleural effusion or pneumothorax. Heart size is normal. Small left pericardial fat pad extending to the costophrenic angle. Calcified mediast inal lymph nodes consistent with old granulomatous disease. Bone island at the right humeral head. IMPRESSION: 1. New mild bibasilar opacities which based on appearance of recent CT of abdomen pelvis most likely represents combination of atelectasis and pneumonia. Reviewed, dictated and finalized at location A. IMPRESSION: 1. New mild bibasilar opacities which based on appearance of recent CT of abdom en pelvis most likely represents combination of atelectasis and pneumonia.
--- NOTE | 2023-08-13 13:09 | ECG_ITS ---
Test Date: 2023-08-13 13:15:30 Measurements Intervals [place] Rate: 90 P: 0 HI: 0 QRS: -14 QRSD: 102 T: 48 QT: 372 QTc: 457 Interpretive Statements sinus tachycardia with first-degree heart block and Mobitz type 1 heart block INFERIOR MYOCARDIAL INFARCTION , PROBABLY OLD [40+ ms Q WAVE AND/OR ST/T ABNORMALITY IN II/aVF] No previous ECG available for comparison Electronically Signed On 08-14-2023 15:52:00 CDT by Mo Meléndez M.D.
[2023-08-13 13:36] LABS: Basophils Absolute Auto 0.1 K/mm3 (0.0-0.1); Basophils Percent Auto 0.5 % (0.2-1.2); Eosinophils Absolute Auto 0.2 K/mm3 (0-0.3); Eosinophils Percent Auto 1.2 % (0-4.4); Hematocrit 41.4 % (42.0-52.0); Hemoglobin 13.4 g/dL (14.0-18.0); Immature Granulocyte Absolute 0.21 K/mm3 (0.00-0.031); Lymphocytes Absolute Auto 2.62 K/mm3 (0.9-3.2); Lymphocytes Percent Auto 12.8 % (18.3-44.2); Mean Corpuscular HGB Conc 32.4 g/dl (32-36); Mean Corpuscular Hemoglobin 31.4 pg (26-34); Monocytes Absolute Auto 0.6 K/mm3 (0.1-0.6); Monocytes Percent Auto 2.9 % (2.6-8.5); Neutrophils Absolute Auto 16.7 K/mm3 (1.3-6.7); Neutrophils Percent Auto 81.6 % (45.5-73.1); Platelet Count Result 290 k/mm3 (150-375); Red Blood Count 4.27 M/mm3 (4.6-6.20); Red Cell Distribution Width 13.8 % (11.5-14.5); White Blood Count 20.5 K/mm3 (4.5-10.0)
[2023-08-13 13:51] LABS: Alanine Aminotransferase 16 U/L (6-50); Albumin Level 3.6 g/dL (3.5-5.1); Alkaline Phosphatase 97 U/L (38-126); Anion Gap 9 mmol/L (4-12); Aspartate Amino Transferase 26 U/L (17-59); Bilirubin,Total 0.7 mg/dL (0.2-1.3); Blood Urea Nitrogen 45 mg/dL (9-20); Calcium 8.6 mg/dL (8.4-10.2); Carbon Dioxide 20 mmol/L (22-30); Chloride 111 mmol/L (98-107); Estimated CRCL calculation 26 ml/min; Estimated Glomerular Filt Rate 36; Glucose 277 mg/dL (65-110); Potassium 4.1 mmol/L (3.4-5.0); Sodium 140 mmol/L (137-145)
[2023-08-13] MEDS: ONDANSETRON INJ 4 MG/2 ML VIAL IV PUSH (14:00)
[2023-08-13] MEDS: SODIUM CHLORIDE 0.9% IV 1,000 ML 999 ML IV CONT ×2 (14:00→15:59)
[2023-08-13 15:12] LABS: Lactic Acid Reflex 4.3 mmol/L (0.7-2.0)
--- NOTE | 2023-08-13 15:13 | ED.SYNCOPE ---
HPI - Syncope General Chief Complaint: Syncope Stated Complaint: syncopy Time Seen by Provider: 08/13/23 13:25 History of Present Illness HPI narrative: Patient is an 88-year-old male who presents ER after having an episode of syncope. He had a bowel movement and got up to go to his room when he became weak and passed out. Patient with hypertension here. He has dementia and cannot provide history. History provided by daughter and . Patient did have another loose bowel movement while he was here. They report he has history of constipation. Related Data Home Medications Medication Instructions Recorded Confirmed cholecalciferol (vitamin D3) 10 400 unit PO DAILY 05/31/19 02/23/23 mcg (400 unit) capsule (Vitamin D3) fexofenadine 180 mg tablet 180 mg PO DAILY 05/31/19 02/23/23 (Bernice Allergy) fluticasone propionate 50 50 mcg intranasal DAILY 05/31/19 02/23/23 mcg/actuation nasal spray,suspension (Flonase Allergy Relief) methylcellulose (laxative) 500 mg 500 mg PO DAILY PRN Constipation 07/25/20 02/23/23 tablet (Citrucel) guaifenesin 600 mg tablet, 600 mg PO Q12H PRN Congestion 09/28/22 02/23/23 extended release 12 hr (Mucinex) Allergies Allergy/AdvReac Type Severity Reaction Status Date / Time tetanus toxoid, adsorbed Allergy Severe HIVES Verified 08/13/23 13:23 Tetanus Vaccines and Toxoid Allergy Unknown Unknown Verified 08/13/23 13:23 Review of Systems Review of Systems: ROS unobtainable: Yes unobtainable due to mental status [facility] Past Medical History Medical History Allergic rhinitis Arthritis Benign essential hypertension Dementia Depression Fracture of femoral neck, right, closed (05/2019) Hyperlipidemia Hypertension Scoliosis Type 2 diabetes mellitus Hemoglobin A1c was 6.7% on 07/15/2020. Surgical History Surgical History H/O hernia repair History of hip surgery (06/01/19) ORIF right hip fracture, bipolar. Left hip replacement. History of tonsillectomy History of transurethral resection of prostate Family History Family History Mother Osteoporosis Hypertension Crohn's colitis Carcinoma of colon Other Family history of arthritis Social History Social History Social History: The patient lives with his in [place]. He has 2 grown children. 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 Former smoker, 1 pack a day for about 15 years. No alcohol or illicit substance abuse. His , Marbella, is his surrogate decision maker. Code status: Full code. Smoking packs per day: 1 Smoking cigarettes per day: 20.0 Years smoked: 15 Smoking pack-years: 15.00 Smoking status: Never smoker Tobacco type: pipe Smoking end date: 05/30/76 Alcohol intake: never Substance use: never Lack of Transportation: No Lack of Food: Never True Current Housing: I Have Housing Concerned About Future Housing: No Difficulty Paying Gas/Electric Bills: No Difficulty Paying for Meds: No Currently Unemployed: No Education: Master's Degree or Higher Difficulty w/ Childcare or Family Care: No Living arrangements: with family Occupation/Education: retired Gender identity (if verbalized by the patient): Male Spiritual care concerns: No Exam Narrative: GENERAL: Chronically ill-appearing, well-nourished, and in no acute distress. HEAD: Normocephalic, atraumatic. ENT: Mucous membranes moist. NECK: Supple. CHEST: Clear to auscultation. No respiratory distress. HEART: Regular rate and rhythm. Normal peripheral pulses. ABDOMEN: Soft, nontender, nondistended. Rectal exam without firm stool in the rectal vault. EXTREMITIES: Normal range of motion. No edema. SKIN: Warm, dry, no rash. NEURO:
[2023-08-13] MEDS: PIPERACILLN/TAZ 3.375GM/NS50ML 3.375 GM/50 ML BAG IVPB (15:59)
--- NOTE | 2023-08-13 16:59 | PC.NURSE ---
Pt had moderate-sized, formed bowel movement after administration of enema
[2023-08-13 17:36] LABS: Reflex Lactic Acid Yes or No Add Lactic
--- NOTE | 2023-08-13 17:37 | PC.NURSE ---
Second large bowel movement after enema at this time. Large formed as well as liquid.
--- NOTE | 2023-08-13 18:22 | PM.IMHP ---
H&P: HPI History of Present Illness Date/Time: 08/13/23 19:00 Chief Complaint: Syncope. Narrative: This is a pleasant 88-year-old male with dementia, hypertension, hyperlipidemia, type 2 diabetes mellitus, and chronic kidney disease who presented to the emergency department via EMS from home for evaluation after syncopal episode. The patient's and daughter provide a majority the following as he is a poor historian due to significant short-term memory loss. The patient suffers from constipation however he was able to pass some stool today. After using the bathroom and while walking down the fonseca to his bedroom he began to feel lightheaded and nauseated and he had a brief syncopal episode. He vomited once he came to. At the time my evaluation he tells me that he feels fine and he specifically denies headache, neck ache, sinus congestion, sore throat, chest pain, pleuritic pain, shortness of breath, abdominal pain, current nausea, vomiting, diarrhea, and dysuria. Again, he has severe short-term memory loss and he is repetitive in continues to ask the same questions regarding what happened today and why he was brought to the hospital. In the ED: He was afebrile on arrival. Blood pressures have been as low as 89/49 but have responded to fluids. Labs were significant for WBC count of 20.5, hemoglobin 13.4, BUN 45, creatinine 1.80, glucose 277, lactic acid 4.3. Head CT showed no acute findings. CT of the abdomen and pelvis showed patchy central over ground-glass opacities in the right middle lobe and right lower lobe consistent with pneumonia, indeterminate 10 mm spiculated right lower lobe nodule, urolithiasis without hydronephrosis, 3.6 cm bladder stone, and an 8.5 cm ball of stool at the rectum with mild wall thickening at the rectum and distal sigmoid colon consistent with likely secondary stercoral colitis. He received a 2 L normal saline bolus, 3.375 g piperacillin/tazobactam, and 4 mg ondansetron. He was also given an enema and he has had 2 large bowel movements thereafter, some formed stool in some liquid stool. He is being admitted in this setting for further treatment and evaluation. Review of Systems Review of Systems: Unable to obtain accurately given his memory loss. [facility] Past Medical History Medical History Allergic rhinitis Arthritis Benign essential hypertension Chronic kidney disease, stage 3 Dementia Depression Fracture of femoral neck, right, closed (05/2019) Hyperlipidemia Hypertension Scoliosis Type 2 diabetes mellitus Hemoglobin A1c was 6.7% on 07/15/2020. Surgical History Surgical History History of hernia repair History of hip surgery (06/01/19) ORIF right hip fracture, bipolar. Left hip replacement. History of tonsillectomy History of transurethral resection of prostate Family History Family History Mother Osteoporosis Hypertension Crohn's colitis Carcinoma of colon Other Family history of arthritis Social History Social History Social History: Surrogate medical decision maker: Marbella Downey, spouse. Code status: Do not resuscitate. Smoking packs per day: 1 Smoking cigarettes per day: 20.0 Years smoked: 15 Smoking pack-years: 15.00 Smoking status: Former smoker Tobacco type: pipe Smoking end date: 05/30/76 Alcohol intake: never Substance use: never Do You Feel Safe in your Home?: Yes Lack of Transportation: No Lack of Food: Never True Current Housing: I Have Housing Concerned About Future Housing: No Difficulty Paying Gas/Electric Bills: No Difficulty Paying for Meds: No Currently Unemployed: No Education: Master's Degree or Higher Difficulty w/ Childcare or Family Care: No Living arrangements: with family Addition
[2023-08-13 19:26] LABS: Lactic Acid 1.6 mmol/L (0.7-2.0)
[2023-08-13] MEDS: SODIUM CHLORIDE 0.9% IV 1,000 ML 125 ML IV CONT (21:08)
[2023-08-13 23:14] LABS: Glucose Point of Care 200 mg/dl (65-105)
[2023-08-14] VITALS (10 sets, daily range): BP systolic 107–150; BP diastolic 53–62; PULSE 53–80; RESP 15–18; TEMP 36.1–37.2; O2SAT 92–100; BMI 20.5
[2023-08-14] MEDS: metroNIDAZOLE 500 MG/ISO 100ML 500 MG/100 ML BAG 100 MG IVPB ×3 (03:14→21:41)
[2023-08-14] MEDS: PIPERACILLIN/TAZ 2.25G/NS 50ML 2.25 GM/50 ML BAG IVPB ×4 (05:15→17:31)
[2023-08-14 07:01] LABS: Appearance Urine Cloudy (Clear); Bacteria Urine None Seen /hpf; Bilirubin Urine Negative (Negative); Blood Urine 3+ (Negative); Color Urine Yellow (Yellow); Glucose Urine UA Negative (Negative); Ketones Urine Negative (Negative); Leukocyte Esterase Ur 2+ LEU/UL (Negative); Need Manual Microscopic Reviewed; Nitrate Urine Positive (Negative); Protein Urine 1+ mg/dL (Negative); RBC Urine 51-100 /hpf (0-2); Specific Grav Ur 1.025 (1.001-1.035); Squamous Epithelial Cell Urine None Seen /hpf (Few); Urobilinogen Urine 0.2 mg/dL (<2.0); WBC Urine 21-50 /hpf (0-3)
[2023-08-14 07:02] LABS: Add Urine Microscopic? YES
[2023-08-14 08:03] LABS: Glucose Point of Care 180 mg/dl (65-105)
[2023-08-14] MEDS: SODIUM CHLORIDE 0.9% IV 1,000 ML 125 ML IV CONT ×2 (09:16→18:43)
[2023-08-14] MEDS: ENOXAPARIN 30 MG/0.3 ML SYRINGE SUB-Q (09:17)
[2023-08-14] MEDS: FLUTICASONE PROPIONATE 0.05% NA SPR 16 GM BTL (*BKC) 2 SPRAY NASAL (09:17)
[2023-08-14] MEDS: polyethylene glycoL 3350 17 GM POWD.PACK PO (09:17)
[2023-08-14] MEDS: CHOLECALCIFEROL 400 UNITS TABLET (VIT D) PO (09:18)
[2023-08-14] MEDS: SERTRALINE HCL 50 MG TABLET 100 MG PO (09:18)
[2023-08-14] MEDS: MULTIVITAMINS THERAPEUTIC TAB (*BKC) 1 TABLET PO (09:18)
[2023-08-14] MEDS: DOCUSATE SODIUM 100 MG CAPSULE PO (09:18)
[2023-08-14] MEDS: LORATADINE 10 MG TABLET PO (09:19)
[2023-08-14] MEDS: CELECOXIB 200 MG CAPSULE PO (09:19)
[2023-08-14] MEDS: FAMOTIDINE 20 MG TABLET PO (09:19)
[2023-08-14] MEDS: FINASTERIDE 5 MG TABLET PO (09:19)
[2023-08-14 11:33] LABS: Glucose Point of Care 228 mg/dl (65-105)
--- NOTE | 2023-08-14 14:53 | PM.IMPN ---
Progress Note: A&P Assessment and Plan (1) Pneumonia: Code(s): J18.9 - Pneumonia, unspecified organism Status: Acute Assessment and Plan: Continue ceftriaxone begun 08/13/2023 (2) Bladder stone: Code(s): N21.0 - Calculus in bladder Status: Acute (3) Urolithiasis: Code(s): N20.9 - Urinary calculus, unspecified Status: Acute Assessment and Plan: With abnormal urinalysis Continue ceftriaxone pending urine culture (4) Stercoral colitis: Code(s): K52.89 - Other specified noninfective gastroenteritis and colitis Status: Acute Assessment and Plan: Continue bowel regimen Continue metronidazole (5) Nodule of lower lobe of right lung: Code(s): R91.1 - Solitary pulmonary nodule Status: Acute Assessment and Plan: Will need outpatient family desires intervention (6) Chronic kidney disease, stage 3: Code(s): N18.30 - Chronic kidney disease, stage 3 unspecified Status: Acute Assessment and Plan: Creatinine [id number] continue IV fluid (7) Type 2 diabetes mellitus: Qualifiers: Diabetes mellitus bed bug exterminator insulin use: without group home use Diabetes mellitus complication status: without complication Qualified Code(s): E11.9 - Type 2 diabetes mellitus without complications Code(s): E11.9 - Type 2 diabetes mellitus without complications Status: Acute Assessment and Plan: 08/23/2023 fasting blood sugar 188 (8) Essential (primary) hypertension: Code(s): I10 - Essential (primary) hypertension Status: Acute Assessment and Plan: Controlled (9) Early onset Alzheimer's dementia without behavioral disturbance: Code(s): G30.0 - Alzheimer's disease with early onset; F02.80 - Dementia in other diseases classified elsewhere, unspecified severity, without behavioral disturbance, psychotic disturbance, mood disturbance, and anxiety Status: Acute Assessment and Plan: At baseline mental status Subjective Date/time seen: 08/14/23 14:53 Interval history: Denied pain. Tolerated diet. Review of Systems Review of Systems: ROS unobtainable: Yes unobtainable due to mental status Exam Narrative: HEENT: PERRL, sclerae nonicteric, pharyngeal mucosa pink and intact NECK: No JVD CHEST: Few right lower lobe crackles. Normal effort. HEART: NL S1/S2, regular, no murmur ABDOMEN: BS+, soft, nontender, no mass, no bruits EXTREMITIES: No cyanosis, edema, or clubbing NEUROLOGIC: CN intact and symmetric to inspection. MUSCULOSKELETAL: Tone and strength symmetric. PSYCH: Alert. Oriented to person only. Objective Data Vital Signs Vital Signs: Vital Signs - 24 hr 08/13/23 16:02 08/13/23 16:31 08/13/23 17:35 Temperature Pulse Rate 64 66 73 Respiratory Rate 22 H 20 18 Blood Pressure 114/65 123/64 130/41 L Pulse Oximetry 100 99 96 Oxygen Delivery 08/13/23 18:02 08/13/23 18:31 08/13/23 19:00 Temperature Pulse Rate 65 69 63 Respiratory Rate 20 20 18 Blood Pressure 122/56 L 118/43 L 125/63 Pulse Oximetry 98 97 99 Oxygen Delivery 08/13/23 21:00 08/13/23 22:00 08/14/23 00:00 Temperature 98 F Pulse Rate 96 79 Respiratory Rate 16 Blood Pressure 115/53 L Pulse Oximetry 99 Oxygen Delivery Room Air 08/14/23 04:00 08/14/23 06:00 08/14/23 08:25 Temperature 98.9 F Pulse Rate 80 80 Respiratory Rate 15 Blood Pressure 150/56 H Pulse Oximetry 92 95 Oxygen Delivery Room Air 08/14/23 08:00 08/14/23 08:00 08/14/23 12:00 Temperature Pulse Rate 69 62 Respiratory Rate Blood Pressure Pulse Oximetry Oxygen Delivery Room Air Intake/Output Intake/Output: Intake & Output 08/11/23 08/12/23 08/13/23 08/14/23 23:59 23:59 23:59 23:59 Intake Total 2049 3105.0 Balance 2049 3105.0 Meds/Results Medications: Active Medications Generic Name Dose Route Start Last Admin Trade Name Freq
[2023-08-14 16:43] LABS: Glucose Point of Care 171 mg/dl (65-105)
[2023-08-14] MEDS: DONEPEZIL HCL 5 MG TABLET PO (21:40)
[2023-08-15] VITALS (14 sets, daily range): BP systolic 116–137; BP diastolic 50–59; PULSE 52–75; RESP 14–18; TEMP 36.5–36.8; O2SAT 96–99
[2023-08-15] MEDS: PIPERACILLIN/TAZ 2.25G/NS 50ML 2.25 GM/50 ML BAG IVPB ×3 (00:43→14:01)
[2023-08-15] MEDS: metroNIDAZOLE 500 MG/ISO 100ML 500 MG/100 ML BAG 100 MG IVPB ×3 (06:15→21:18)
[2023-08-15 06:16] LABS: Hematocrit 28.7 % (42.0-52.0); Hemoglobin 9.2 g/dL (14.0-18.0); Immature Platelet Fraction Pct 2.7 % (0.9-11.2); Mean Corpuscular HGB Conc 32.1 g/dl (32-36); Mean Corpuscular Hemoglobin 31.4 pg (26-34); Mean Platelet Volume 10.4 fl (7.4-10.4); Platelet Count Result 136 k/mm3 (150-375); Red Blood Count 2.93 M/mm3 (4.6-6.20); Red Cell Distribution Width 14.3 % (11.5-14.5); White Blood Count 11.9 K/mm3 (4.5-10.0)
[2023-08-15] MEDS: SODIUM CHLORIDE 0.9% IV 1,000 ML 125 ML IV CONT ×2 (06:31→18:14)
[2023-08-15 06:33] LABS: Albumin Level 2.5 g/dL (3.5-5.1); Anion Gap 4 mmol/L (4-12); Blood Urea Nitrogen 34 mg/dL (9-20); Carbon Dioxide 22 mmol/L (22-30); Chloride 117 mmol/L (98-107); Estimated CRCL calculation 28 ml/min; Estimated Glomerular Filt Rate 38; Glucose 116 mg/dL (65-110); Phosphorus 2.5 mg/dL (2.5-4.5); Potassium 4.5 mmol/L (3.4-5.0); Sodium 143 mmol/L (137-145)
[2023-08-15 08:03] LABS: Glucose Point of Care 142 mg/dl (65-105)
[2023-08-15] MEDS: MULTIVITAMINS THERAPEUTIC TAB (*BKC) 1 TABLET PO (10:35)
[2023-08-15] MEDS: DOCUSATE SODIUM 100 MG CAPSULE PO (10:35)
[2023-08-15] MEDS: SERTRALINE HCL 50 MG TABLET 100 MG PO (10:35)
[2023-08-15] MEDS: LORATADINE 10 MG TABLET PO (10:35)
[2023-08-15] MEDS: FINASTERIDE 5 MG TABLET PO (10:35)
[2023-08-15] MEDS: FAMOTIDINE 20 MG TABLET PO (10:35)
[2023-08-15] MEDS: CHOLECALCIFEROL 400 UNITS TABLET (VIT D) PO (10:35)
[2023-08-15] MEDS: polyethylene glycoL 3350 17 GM POWD.PACK PO (10:35)
[2023-08-15] MEDS: FLUTICASONE PROPIONATE 0.05% NA SPR 16 GM BTL (*BKC) 2 SPRAY NASAL (10:35)
[2023-08-15] MEDS: ENOXAPARIN 30 MG/0.3 ML SYRINGE SUB-Q (10:37)
[2023-08-15 11:42] LABS: Glucose Point of Care 206 mg/dl (65-105)
[2023-08-15 16:52] LABS: Glucose Point of Care 111 mg/dl (65-105)
--- NOTE | 2023-08-15 17:30 | PM.IMPN ---
Progress Note: A&P Assessment and Plan (1) Pneumonia: Code(s): J18.9 - Pneumonia, unspecified organism Status: Acute Assessment and Plan: Continue ceftriaxone begun 08/13/2023 (2) Bladder stone: Code(s): N21.0 - Calculus in bladder Status: Acute Assessment and Plan: Currently w/o sx's (3) Urolithiasis: Code(s): N20.9 - Urinary calculus, unspecified Status: Acute Assessment and Plan: With abnormal urinalysis Continue ceftriaxone pending urine culture (4) Stercoral colitis: Code(s): K52.89 - Other specified noninfective gastroenteritis and colitis Status: Acute Assessment and Plan: Continue bowel regimen Continue metronidazole (5) Nodule of lower lobe of right lung: Code(s): R91.1 - Solitary pulmonary nodule Status: Acute Assessment and Plan: Will need outpatient evaluation family desires intervention (6) Chronic kidney disease, stage 3: Code(s): N18.30 - Chronic kidney disease, stage 3 unspecified Status: Acute Assessment and Plan: Creatinine 1.8 08/23/23, 1.7 08/15/23 (7) Type 2 diabetes mellitus: Qualifiers: Diabetes mellitus correction insulin use: without computer terminal operator use Diabetes mellitus complication status: without complication Qualified Code(s): E11.9 - Type 2 diabetes mellitus without complications Code(s): E11.9 - Type 2 diabetes mellitus without complications Status: Acute Assessment and Plan: 08/23/2023 fasting blood sugar 188, 08/14 116 (8) Essential (primary) hypertension: Code(s): I10 - Essential (primary) hypertension Status: Acute Assessment and Plan: Controlled (9) Early onset Alzheimer's dementia without behavioral disturbance: Code(s): G30.0 - Alzheimer's disease with early onset; F02.80 - Dementia in other diseases classified elsewhere, unspecified severity, without behavioral disturbance, psychotic disturbance, mood disturbance, and anxiety Status: Acute Assessment and Plan: At baseline mental status Subjective Date/time seen: 08/15/23 17:30 Interval history: Feeling better but very tired. Tolerated breakfast and lunch. Getting ready to eat dinner. Bowels have moved multiple times. No bleeding. No nausea or vomiting. No chest pain or shortness of breath. No abdominal pain. Review of Systems Review of Systems: All systems reviewed & are unremarkable except as noted in HPI and below Exam Narrative: HEENT: PERRL, sclerae nonicteric, pharyngeal mucosa pink and intact NECK: No JVD CHEST: Few right lower lobe crackles. Normal effort. HEART: NL S1/S2, regular, no murmur ABDOMEN: BS+, soft, nontender, no mass, no bruits EXTREMITIES: No cyanosis, edema, or clubbing NEUROLOGIC: CN intact and symmetric to inspection. MUSCULOSKELETAL: Tone and strength symmetric. PSYCH: Alert. Oriented to person only. Objective Data Vital Signs Vital Signs: Vital Signs - 24 hr 08/14/23 20:00 08/14/23 22:00 08/15/23 00:00 Temperature 96.9 F L Pulse Rate 60 57 L Respiratory Rate 18 Blood Pressure 107/53 L Pulse Oximetry 100 96 Oxygen Delivery Room Air 08/15/23 04:00 08/15/23 06:05 08/15/23 06:05 Temperature 98 F Pulse Rate 52 L 67 67 Respiratory Rate 18 Blood Pressure 129/50 L 129/50 L Pulse Oximetry 96 Oxygen Delivery 08/15/23 06:08 08/15/23 06:10 08/15/23 12:20 Temperature Pulse Rate 73 70 Respiratory Rate Blood Pressure 118/53 L 120/58 L 118/52 L Pulse Oximetry Oxygen Delivery 08/15/23 12:25 08/15/23 12:25 08/15/23 14:00 Temperature 97.7 F Pulse Rate 64 Respiratory Rate 14 Blood Pressure 120/58 L 116/54 L 123/59 L Pulse Oximetry 98 Oxygen Delivery 08/15/23 08:00 08/15/23 12:00 08/15/23 16:00 Temperature Pulse Rate 75 60 53 L Respiratory Rate Blood Pressure Pulse Oximetry Oxygen Delivery Intake/Outpu
--- NOTE | 2023-08-15 18:15 | PC.NURSE ---
At 1800 pt began having bradycardia, dropping into the 40s. Pt vitals stable. Pt had been sleeping. Pt denies c/o SOB, dizziness, any abnormal feelings or pain. Pt continues to rest comfortably with IVF running at 125.
[2023-08-15 20:29] LABS: Glucose Point of Care 119 mg/dl (65-105)
[2023-08-15] MEDS: DONEPEZIL HCL 5 MG TABLET PO (21:19)
[2023-08-16] VITALS (10 sets, daily range): BP systolic 129–148; BP diastolic 52–63; PULSE 48–66; RESP 16–20; TEMP 36.6–36.9; O2SAT 97–100
[2023-08-16] MEDS: SODIUM CHLORIDE 0.9% IV 1,000 ML 125 ML IV CONT (03:47)
[2023-08-16] MEDS: metroNIDAZOLE 500 MG/ISO 100ML 500 MG/100 ML BAG 100 MG IVPB (05:34)
[2023-08-16 06:18] LABS: Hematocrit 29.8 % (42.0-52.0); Hemoglobin 9.6 g/dL (14.0-18.0); Immature Platelet Fraction Pct 2.7 % (0.9-11.2); Mean Corpuscular HGB Conc 32.2 g/dl (32-36); Mean Corpuscular Hemoglobin 31.6 pg (26-34); Mean Platelet Volume 10.1 fl (7.4-10.4); Platelet Count Result 134 k/mm3 (150-375); Red Blood Count 3.04 M/mm3 (4.6-6.20); Red Cell Distribution Width 14.4 % (11.5-14.5); White Blood Count 8.8 K/mm3 (4.5-10.0)
[2023-08-16 06:39] LABS: Albumin Level 2.7 g/dL (3.5-5.1); Anion Gap 5 mmol/L (4-12); Blood Urea Nitrogen 22 mg/dL (9-20); Calcium 7.8 mg/dL (8.4-10.2); Carbon Dioxide 21 mmol/L (22-30); Chloride 117 mmol/L (98-107); Estimated CRCL calculation 34 ml/min; Estimated Glomerular Filt Rate 44; Glucose 114 mg/dL (65-110); Phosphorus 2.6 mg/dL (2.5-4.5); Potassium 3.8 mmol/L (3.4-5.0); Sodium 143 mmol/L (137-145)
[2023-08-16 08:00] LABS: Glucose Point of Care 111 mg/dl (65-105)
[2023-08-16] MEDS: MULTIVITAMINS THERAPEUTIC TAB (*BKC) 1 TABLET PO (08:16)
[2023-08-16] MEDS: ENOXAPARIN 30 MG/0.3 ML SYRINGE SUB-Q (08:16)
[2023-08-16] MEDS: FAMOTIDINE 20 MG TABLET PO (08:16)
[2023-08-16] MEDS: LORATADINE 10 MG TABLET PO (08:16)
[2023-08-16] MEDS: FINASTERIDE 5 MG TABLET PO (08:16)
[2023-08-16] MEDS: DOCUSATE SODIUM 100 MG CAPSULE PO (08:16)
[2023-08-16] MEDS: CHOLECALCIFEROL 400 UNITS TABLET (VIT D) PO (08:16)
[2023-08-16] MEDS: polyethylene glycoL 3350 17 GM POWD.PACK PO (08:17)
[2023-08-16] MEDS: SERTRALINE HCL 50 MG TABLET 100 MG PO (08:21)
[2023-08-16] MEDS: FLUTICASONE PROPIONATE 0.05% NA SPR 16 GM BTL (*BKC) 2 SPRAY NASAL (08:21)
[2023-08-16] MEDS: ACETAMINOPHEN 325 MG TABLET 650 MG PO (09:26)
[2023-08-16 11:33] LABS: Glucose Point of Care 123 mg/dl (65-105)
--- NOTE | 2023-08-16 12:10 | PM.IMPN ---
Progress Note: A&P Assessment and Plan (1) Pneumonia: Code(s): J18.9 - Pneumonia, unspecified organism Status: Acute Assessment and Plan: (2) Bladder stone: Code(s): N21.0 - Calculus in bladder Status: Acute Assessment and Plan: (3) Urolithiasis: Code(s): N20.9 - Urinary calculus, unspecified Status: Acute (4) Stercoral colitis: Code(s): K52.89 - Other specified noninfective gastroenteritis and colitis Status: Acute Assessment and Plan: (5) Nodule of lower lobe of right lung: Code(s): R91.1 - Solitary pulmonary nodule Status: Acute Assessment and Plan: (6) Chronic kidney disease, stage 3: Code(s): N18.30 - Chronic kidney disease, stage 3 unspecified Status: Acute Assessment and Plan: (7) Type 2 diabetes mellitus: Qualifiers: Diabetes mellitus exterminator termite insulin use: without exterminator termite use Diabetes mellitus complication status: without complication Qualified Code(s): E11.9 - Type 2 diabetes mellitus without complications Code(s): E11.9 - Type 2 diabetes mellitus without complications Status: Acute Assessment and Plan: (8) Essential (primary) hypertension: Code(s): I10 - Essential (primary) hypertension Status: Acute Assessment and Plan: (9) Early onset Alzheimer's dementia without behavioral disturbance: Code(s): G30.0 - Alzheimer's disease with early onset; F02.80 - Dementia in other diseases classified elsewhere, unspecified severity, without behavioral disturbance, psychotic disturbance, mood disturbance, and anxiety Status: Acute Plan 88-year-old male with episode of syncope. He had a bowel movement got up to go resume went weak and passed out. He has ED evaluation he was hypotensive with elevated lactic acid and labs revealed WBC count of 20,000 YAMILKA with creatinine of 1.8 mild metabolic acidosis. Lactate of 4.[address] abdomen pelvis showed patchy centrilobular ground-glass opacities in the right middle and right lower lobes consistent with pneumonia. 8.5 cm all of stool at the rectum with mild wall thickening at the rectum and distal sigmoid colon consistent with likely secondary stercoral colitis. Urolithiasis without hydronephrosis most prominent in the left kidney and with 3.6 cm bladder stone. Intermediate 10 mm speculated right lower lobe nodule potentially also related to pneumonia. Recommend short-term interval follow-up in 6-12 weeks when clinically improved. Patient was started on IV fluids with normalized on of lactic acidosis. Patient started on Zosyn for colitis along with right lower lobe pneumonia received 2 soapsuds enema in the ED with could resolve. Has been started on bowel regimen. Zosyn has been switched to ceftriaxone and Flagyl which will be continued. Blood culture x2 is negative urine culture is no growth. His baseline creatinine is about the same. This continued to improve down to 1.5 suggesting stage 3 chronic kidney disease.. Head CT on admission showed no acute intracranial findings. Brain atrophy with deep white ischemic changes and ventricular dilation. No sphenoid sinusitis. Urinalysis also suggest UTI. His chronic Mai catheter. Leukocytosis has now resolved. Anemia likely related to hemodilution. No signs of bleeding. Continue to monitor and stable today. Will stop IV fluid PT OT will be ordered. DVT prophylaxis with Lovenox Subjective Date/time seen: 08/16/23 12:10 Interval history: No Overnight events. Discussed with nursing staff. Labs reviewed. Denies any new complaints. No chest pain shortness of breath. No cough. Review of Systems Review of Systems: All systems reviewed & are unremarkable except as noted in HPI and below Exam Narrative: HEENT: PERRL, sclerae nonicteric, pharyngeal mucosa pink and intact NECK: No JVD CHEST: Few right lower lobe crackles. Normal
--- NOTE | 2023-08-16 15:24 | ECG_ITS ---
Test Date: 2023-08-16 16:05:05 Measurements Intervals [place] Rate: 42 P: 0 SC: 0 QRS: -21 QRSD: 98 T: 137 QT: 430 QTc: 362 Interpretive Statements SINUS BRADYCARDIA WITH MOBITZ TYPE 1 HEART BLOCK WITH JUNCTIONAL BEATS BORDERLINE LEFT AXIS DEVIATION [QRS AXIS < -20] ST DEVIATION AND MODERATE T-WAVE ABNORMALITY, CONSIDER LATERAL ISCHEMIA [-0.1+ mV T WAVE IN I/aVL/V5/V6] Compared to ECG 08/13/2023 13:15:30 T-wave abnormality now present Electronically Signed On 08-17-2023 11:45:15 CDT by Ray Montiel M.D.
[2023-08-16 16:32] LABS: Glucose Point of Care 156 mg/dl (65-105)
[2023-08-16] MEDS: AMOXICILLIN/CLAVULANATE K 875-125 MG TAB 1 TABLET PO (20:41)
[2023-08-16] MEDS: DONEPEZIL HCL 5 MG TABLET PO (20:41)
[2023-08-17] VITALS (10 sets, daily range): BP systolic 131–169; BP diastolic 52–74; PULSE 41–65; RESP 16–20; TEMP 36.4–36.7; O2SAT 97–100
[2023-08-17 06:34] LABS: Basophils Percent Auto 0.4 % (0.2-1.2); Eosinophils Absolute Auto 0.2 K/mm3 (0-0.3); Eosinophils Percent Auto 2.9 % (0-4.4); Hematocrit 31.9 % (42.0-52.0); Hemoglobin 10.1 g/dL (14.0-18.0); Immature Granulocyte Absolute 0.06 K/mm3 (0.00-0.031); Immature Granulocyte Percent A 0.8 % (0-0.5); Lymphocytes Absolute Auto 0.75 K/mm3 (0.9-3.2); Lymphocytes Percent Auto 9.5 % (18.3-44.2); Mean Corpuscular HGB Conc 31.7 g/dl (32-36); Mean Corpuscular Volume 97.9 fl (80-100); Mean Platelet Volume 10.1 fl (7.4-10.4); Monocytes Absolute Auto 0.5 K/mm3 (0.1-0.6); Monocytes Percent Auto 6.2 % (2.6-8.5); Neutrophils Absolute Auto 6.3 K/mm3 (1.3-6.7); Neutrophils Percent Auto 80.2 % (45.5-73.1); Platelet Count Result 149 k/mm3 (150-375); Red Blood Count 3.26 M/mm3 (4.6-6.20); Red Cell Distribution Width 14.1 % (11.5-14.5); White Blood Count 7.9 K/mm3 (4.5-10.0)
[2023-08-17 07:58] LABS: Glucose Point of Care 166 mg/dl (65-105)
[2023-08-17] MEDS: FAMOTIDINE 20 MG TABLET PO (08:33)
[2023-08-17] MEDS: SERTRALINE HCL 50 MG TABLET 100 MG PO (08:33)
[2023-08-17] MEDS: MULTIVITAMINS THERAPEUTIC TAB (*BKC) 1 TABLET PO (08:33)
[2023-08-17] MEDS: FINASTERIDE 5 MG TABLET PO (08:33)
[2023-08-17] MEDS: AMOXICILLIN/CLAVULANATE K 875-125 MG TAB 1 TABLET PO ×2 (08:33→20:40)
[2023-08-17] MEDS: CHOLECALCIFEROL 400 UNITS TABLET (VIT D) PO (08:33)
[2023-08-17] MEDS: LORATADINE 10 MG TABLET PO (08:33)
[2023-08-17] MEDS: FLUTICASONE PROPIONATE 0.05% NA SPR 16 GM BTL (*BKC) 2 SPRAY NASAL (08:34)
[2023-08-17 09:11] LABS: Alanine Aminotransferase 12 U/L (6-50); Albumin Level 2.7 g/dL (3.5-5.1); Alkaline Phosphatase 67 U/L (38-126); Anion Gap 5 mmol/L (4-12); Aspartate Amino Transferase 20 U/L (17-59); Bilirubin,Total 0.5 mg/dL (0.2-1.3); Blood Urea Nitrogen 17 mg/dL (9-20); Calcium 8.2 mg/dL (8.4-10.2); Carbon Dioxide 21 mmol/L (22-30); Chloride 118 mmol/L (98-107); Estimated CRCL calculation 36 ml/min; Estimated Glomerular Filt Rate 48; Glucose 136 mg/dL (65-110); Magnesium 1.8 mg/dL (1.6-2.3); Potassium 3.9 mmol/L (3.4-5.0); Sodium 144 mmol/L (137-145)
[2023-08-17] MEDS: ENOXAPARIN 40 MG/0.4 ML SYRINGE SUB-Q (09:28)
--- NOTE | 2023-08-17 11:54 | PM.IMPN ---
Progress Note: A&P Assessment and Plan (1) Pneumonia: Code(s): J18.9 - Pneumonia, unspecified organism Status: Acute (2) Bladder stone: Code(s): N21.0 - Calculus in bladder Status: Acute (3) Urolithiasis: Code(s): N20.9 - Urinary calculus, unspecified Status: Acute (4) Stercoral colitis: Code(s): K52.89 - Other specified noninfective gastroenteritis and colitis Status: Acute (5) Nodule of lower lobe of right lung: Code(s): R91.1 - Solitary pulmonary nodule Status: Acute (6) Chronic kidney disease, stage 3: Code(s): N18.30 - Chronic kidney disease, stage 3 unspecified Status: Acute (7) Type 2 diabetes mellitus: Qualifiers: Diabetes mellitus manager intermediate insulin use: without fpc use Diabetes mellitus complication status: without complication Qualified Code(s): E11.9 - Type 2 diabetes mellitus without complications Code(s): E11.9 - Type 2 diabetes mellitus without complications Status: Acute (8) Essential (primary) hypertension: Code(s): I10 - Essential (primary) hypertension Status: Acute (9) Early onset Alzheimer's dementia without behavioral disturbance: Code(s): G30.0 - Alzheimer's disease with early onset; F02.80 - Dementia in other diseases classified elsewhere, unspecified severity, without behavioral disturbance, psychotic disturbance, mood disturbance, and anxiety Status: Acute Plan 88-year-old male with episode of syncope. He had a bowel movement got up to go resume went weak and passed out. He has ED evaluation he was hypotensive with elevated lactic acid and labs revealed WBC count of 20,000 YAMILKA with creatinine of 1.8 mild metabolic acidosis. Lactate of 4.[address] abdomen pelvis showed patchy centrilobular ground-glass opacities in the right middle and right lower lobes consistent with pneumonia. 8.5 cm all of stool at the rectum with mild wall thickening at the rectum and distal sigmoid colon consistent with likely secondary stercoral colitis. Urolithiasis without hydronephrosis most prominent in the left kidney and with 3.6 cm bladder stone. Intermediate 10 mm speculated right lower lobe nodule potentially also related to pneumonia. Recommend short-term interval follow-up in 6-12 weeks when clinically improved. Patient was started on IV fluids with normalized on of lactic acidosis. Patient started on Zosyn for colitis along with right lower lobe pneumonia. He received 2 soapsuds enema in the ED with good resolution. Has been started on bowel regimen. Zosyn has been switched to ceftriaxone and Flagyl which will be continued. Blood culture x2 is negative urine culture is no growth. His baseline creatinine is about the same. This continued to improve down to 1.5 suggesting stage 3 chronic kidney disease.. Head CT on admission showed no acute intracranial findings. Brain atrophy with deep white ischemic changes and ventricular dilation. No sphenoid sinusitis. Urinalysis also suggest UTI. His chronic Mai catheter. Leukocytosis has now resolved. Anemia likely related to hemodilution. No signs of bleeding. Continue to monitor and stable today. IV fluids been stopped. PT OT working with him. Likely needs placement care coordination consult has underlying dementia and was in process to get to memory care center. Antibiotics switched to Augmentin. Finish 7 days course. DVT prophylaxis with Lovenox Intermittent bradycardia: EKG with sinus bradycardia first-degree to intermittent Mobitz type 1 block. Continue to monitor not on any AV blocking medication. Do not resuscitate Subjective Date/time seen: 08/17/23 11:54 Interval history: No overnight events. Intermittent bradycardia. EKG with sinus bradycardia with Mobitz type 1. Review of Systems Review of Systems: All systems reviewed & are unremarkable except as noted in HPI and below Exam Narrative: HEENT: PERRL, sclerae
[2023-08-17 19:28] LABS: Pneumococcal Antigen Urine DETECTED
[2023-08-17] MEDS: DONEPEZIL HCL 5 MG TABLET PO (20:40)
[2023-08-18] VITALS (7 sets, daily range): BP systolic 132–149; BP diastolic 57–58; PULSE 54–81; RESP 12–18; TEMP 35.8–37.2; O2SAT 91–97
[2023-08-18 06:21] LABS: Basophils Percent Auto 0.4 % (0.2-1.2); Eosinophils Absolute Auto 0.3 K/mm3 (0-0.3); Eosinophils Percent Auto 3.6 % (0-4.4); Hematocrit 31.1 % (42.0-52.0); Hemoglobin 9.7 g/dL (14.0-18.0); Immature Granulocyte Absolute 0.09 K/mm3 (0.00-0.031); Immature Granulocyte Percent A 1.2 % (0-0.5); Lymphocytes Absolute Auto 1.04 K/mm3 (0.9-3.2); Lymphocytes Percent Auto 13.5 % (18.3-44.2); Mean Corpuscular HGB Conc 31.2 g/dl (32-36); Mean Corpuscular Hemoglobin 30.5 pg (26-34); Mean Corpuscular Volume 97.8 fl (80-100); Mean Platelet Volume 9.8 fl (7.4-10.4); Monocytes Absolute Auto 0.6 K/mm3 (0.1-0.6); Monocytes Percent Auto 7.1 % (2.6-8.5); Neutrophils Absolute Auto 5.7 K/mm3 (1.3-6.7); Neutrophils Percent Auto 74.2 % (45.5-73.1); Platelet Count Result 158 k/mm3 (150-375); Red Blood Count 3.18 M/mm3 (4.6-6.20); Red Cell Distribution Width 14.2 % (11.5-14.5); White Blood Count 7.7 K/mm3 (4.5-10.0)
[2023-08-18 06:32] LABS: Alanine Aminotransferase 12 U/L (6-50); Albumin Level 2.5 g/dL (3.5-5.1); Alkaline Phosphatase 65 U/L (38-126); Anion Gap 3 mmol/L (4-12); Aspartate Amino Transferase 21 U/L (17-59); Bilirubin,Total 0.6 mg/dL (0.2-1.3); Blood Urea Nitrogen 15 mg/dL (9-20); Carbon Dioxide 24 mmol/L (22-30); Chloride 115 mmol/L (98-107); Estimated CRCL calculation 36 ml/min; Estimated Glomerular Filt Rate 48; Glucose 134 mg/dL (65-110); Magnesium 1.7 mg/dL (1.6-2.3); Potassium 3.9 mmol/L (3.4-5.0); Sodium 142 mmol/L (137-145)
[2023-08-18] MEDS: AMOXICILLIN/CLAVULANATE K 875-125 MG TAB 1 TABLET PO ×2 (07:57→20:49)
[2023-08-18] MEDS: CHOLECALCIFEROL 400 UNITS TABLET (VIT D) PO (07:57)
[2023-08-18] MEDS: ENOXAPARIN 40 MG/0.4 ML SYRINGE SUB-Q (07:58)
[2023-08-18] MEDS: LORATADINE 10 MG TABLET PO (07:58)
[2023-08-18] MEDS: FAMOTIDINE 20 MG TABLET PO (07:58)
[2023-08-18] MEDS: MULTIVITAMINS THERAPEUTIC TAB (*BKC) 1 TABLET PO (07:58)
[2023-08-18] MEDS: FLUTICASONE PROPIONATE 0.05% NA SPR 16 GM BTL (*BKC) 2 SPRAY NASAL (07:58)
[2023-08-18] MEDS: FINASTERIDE 5 MG TABLET PO (07:58)
[2023-08-18] MEDS: SERTRALINE HCL 50 MG TABLET 100 MG PO (07:59)
--- NOTE | 2023-08-18 12:44 | PM.IMPN ---
Progress Note: A&P Assessment and Plan (1) Sepsis: Code(s): A41.9 - Sepsis, unspecified organism Status: Acute Assessment and Plan: Patient presents with episode of syncope and found to have sepsis present on admission with hypotensive, elevated lactic acid 4.3, leukocytosis to 20K, YAMILKA with creatinine of 1.8 and mild metabolic acidosis. CT abdomen pelvis showed patchy centrilobular ground-glass opacities in the right middle and right lower lobes consistent with pneumonia. No CXR performed UCx negative. BCx NGTD. Urine pneumococcal Ag positive. Started on abx for PNA. WBC normal. No fevers. Now changed to oral Abx to finish the course. (2) Pneumonia: Code(s): J18.9 - Pneumonia, unspecified organism Status: Acute Assessment and Plan: As above (3) Syncope: Code(s): R55 - Syncope and collapse Status: Acute Assessment and Plan: Head CT on admission showed no acute intracranial findings. Brain atrophy with deep white ischemic changes and ventricular dilation noted. No sphenoid sinusitis. [place] syncope related to above. Okay to stop tele (4) Stercoral colitis: Code(s): K52.89 - Other specified noninfective gastroenteritis and colitis Status: Acute Assessment and Plan: CT scan also showing 8.5 cm ball of stool at the rectum with mild wall thickening at the rectum and distal sigmoid colon consistent stercoral colitis. He received 2 soapsuds enema in the ED with good resolution. Has been started on bowel regimen. Follow (5) Bladder stone: Code(s): N21.0 - Calculus in bladder Status: Acute Assessment and Plan: CT abdomen pelvis showed urolithiasis without hydronephrosis most prominent in the left kidney and with 3.6 cm bladder stone. Urinalysis also suggests UTI but UCx negative. He DOES NOT have chronic Mai catheter as documented in chart (not seen by CT on admission and family denies this) Remove Mai Have patient follow up with urology (6) Urolithiasis: Code(s): N20.9 - Urinary calculus, unspecified Status: Acute Assessment and Plan: As above (7) Nodule of lower lobe of right lung: Code(s): R91.1 - Solitary pulmonary nodule Status: Acute Assessment and Plan: CT abdomen pelvis showed an intermediate 10 mm speculated right lower lobe nodule potentially also related to pneumonia. Recommend short-term interval follow-up in 6-12 weeks when clinically improved. Continue abx Check CXR (8) Chronic kidney disease, stage 3: Code(s): N18.30 - Chronic kidney disease, stage 3 unspecified Status: Acute Assessment and Plan: Baseline Cr 1.4-1.8 range. Cr 1.8 on admission and has trended down to 1.4. Suspect at baseline renal function (9) Type 2 diabetes mellitus: Qualifiers: Diabetes mellitus complication status: without complication Diabetes mellitus extermination inspector insulin use: without extermination inspector use Qualified Code(s): E11.9 - Type 2 diabetes mellitus without complications Code(s): E11.9 - Type 2 diabetes mellitus without complications Status: Acute Assessment and Plan: The patient's blood glucose was reviewed on 08/17 Glucose remains well controlled. Continue AccuCheks covering with sliding scale. Hypoglycemia protocol available as needed. Continue to monitor (10) Essential (primary) hypertension: Code(s): I10 - Essential (primary) hypertension Status: Acute Assessment and Plan: Patient's blood pressure was reviewed on 08/17 Blood pressure remains reasonably well controlled. Will continue to monitor (11) Early onset Alzheimer's dementia without behavioral disturbance: Code(s): G30.0 - Alzheimer's disease with early onset; F02.80 - Dementia in other diseases classified elsewhere, unspecified severity, without behavioral disturbance, psychotic disturbance, mood disturbance, and anxiety
[2023-08-18 20:23] LABS: Legionella pneumophila Ag Ur NOT DETECTED
[2023-08-18] MEDS: DONEPEZIL HCL 5 MG TABLET PO (20:49)
[2023-08-19 04:57] VITALS: BP 130/50; PULSE 51; RESP 16; TEMP 36.3; O2SAT 93
[2023-08-19] MEDS: ENOXAPARIN 40 MG/0.4 ML SYRINGE SUB-Q (09:41)
[2023-08-19] MEDS: LORATADINE 10 MG TABLET PO (09:41)
[2023-08-19] MEDS: CHOLECALCIFEROL 400 UNITS TABLET (VIT D) PO (09:41)
[2023-08-19] MEDS: DOCUSATE SODIUM 100 MG CAPSULE PO (09:41)
[2023-08-19] MEDS: FAMOTIDINE 20 MG TABLET PO (09:41)
[2023-08-19] MEDS: FINASTERIDE 5 MG TABLET PO (09:41)
[2023-08-19] MEDS: AMOXICILLIN/CLAVULANATE K 875-125 MG TAB 1 TABLET PO ×2 (09:41→20:35)
[2023-08-19] MEDS: polyethylene glycoL 3350 17 GM POWD.PACK PO (09:41)
[2023-08-19] MEDS: SERTRALINE HCL 50 MG TABLET 100 MG PO (09:41)
[2023-08-19] MEDS: MULTIVITAMINS THERAPEUTIC TAB (*BKC) 1 TABLET PO (09:41)
[2023-08-19 10:09] VITALS: BP 140/60; BP 148/58; PULSE 55; PULSE 68; RESP 16; TEMP 36.1; O2SAT 100; O2SAT 99
[2023-08-19] MEDS: FLUTICASONE PROPIONATE 0.05% NA SPR 16 GM BTL (*BKC) 2 SPRAY NASAL (13:06)
[2023-08-19 14:00] VITALS: BP 154/56; PULSE 70; RESP 16; TEMP 36.6; O2SAT 100
--- NOTE | 2023-08-19 14:17 | PM.IMPN ---
Progress Note: A&P Assessment and Plan (1) Sepsis: Code(s): A41.9 - Sepsis, unspecified organism Status: Acute Assessment and Plan: Patient presents with episode of syncope and found to have sepsis present on admission with hypotensive, elevated lactic acid 4.3, leukocytosis to 20K, YAMILKA with creatinine of 1.8 and mild metabolic acidosis. CT abdomen pelvis showed patchy centrilobular ground-glass opacities in the right middle and right lower lobes consistent with pneumonia. No CXR performed UCx negative. BCx NGTD. Urine pneumococcal Ag positive. Started on abx for PNA. WBC normal. No fevers. Now changed to oral Abx to finish the course. (2) Pneumonia: Code(s): J18.9 - Pneumonia, unspecified organism Status: Acute Assessment and Plan: As above (3) Syncope: Code(s): R55 - Syncope and collapse Status: Acute Assessment and Plan: Head CT on admission showed no acute intracranial findings. Brain atrophy with deep white ischemic changes and ventricular dilation noted. No sphenoid sinusitis. [place] syncope related to above. (4) Stercoral colitis: Code(s): K52.89 - Other specified noninfective gastroenteritis and colitis Status: Acute Assessment and Plan: CT scan also showing 8.5 cm ball of stool at the rectum with mild wall thickening at the rectum and distal sigmoid colon consistent stercoral colitis. He received 2 soapsuds enema in the ED with good resolution. Has been started on bowel regimen. Follow (5) Bladder stone: Code(s): N21.0 - Calculus in bladder Status: Acute Assessment and Plan: CT abdomen pelvis showed urolithiasis without hydronephrosis most prominent in the left kidney and with 3.6 cm bladder stone. Urinalysis also suggests UTI but UCx negative. He DOES NOT have chronic Mai catheter as documented in chart (not seen by CT on admission and family denies this) Removed Mai 08/17. Monitor for urine retention. Have patient follow up with urology (6) Urolithiasis: Code(s): N20.9 - Urinary calculus, unspecified Status: Acute Assessment and Plan: As above (7) Nodule of lower lobe of right lung: Code(s): R91.1 - Solitary pulmonary nodule Status: Acute Assessment and Plan: CT abdomen pelvis showed an intermediate 10 mm speculated right lower lobe nodule potentially also related to pneumonia. Recommend short-term interval follow-up in 6-12 weeks when clinically improved. CXR showing bibasilar opacities c/w atelectasis and/or PNA. No other concerns. Continue abx (8) Chronic kidney disease, stage 3: Code(s): N18.30 - Chronic kidney disease, stage 3 unspecified Status: Acute Assessment and Plan: Baseline Cr 1.4-1.8 range. Cr 1.8 on admission and has trended down to 1.4. Suspect at baseline renal function (9) Type 2 diabetes mellitus: Qualifiers: Diabetes mellitus complication status: without complication Diabetes mellitus prison insulin use: without prison use Qualified Code(s): E11.9 - Type 2 diabetes mellitus without complications Code(s): E11.9 - Type 2 diabetes mellitus without complications Status: Acute Assessment and Plan: The patient's blood glucose was reviewed on 08/18 Glucose remains well controlled but not checked today. Continue AccuCheks covering with sliding scale. Hypoglycemia protocol available as needed. Continue to monitor (10) Essential (primary) hypertension: Code(s): I10 - Essential (primary) hypertension Status: Acute Assessment and Plan: Patient's blood pressure was reviewed on 08/18 Blood pressure remains reasonably well controlled. Will continue to monitor (11) Early onset Alzheimer's dementia without behavioral disturbance: Code(s): G30.0 - Alzheimer's disease with early onset; F02.80 - Dementia in other diseases classified elsewhe
[2023-08-19 20:00] VITALS: PULSE 68; RESP 16; O2SAT 97
[2023-08-19 20:35] VITALS: BP 135/64; PULSE 68; RESP 16; TEMP 36.4; O2SAT 97
[2023-08-19] MEDS: DONEPEZIL HCL 5 MG TABLET PO (20:35)
[2023-08-19 21:22] VITALS: O2SAT 97
[2023-08-19 23:57] LABS: Glucose Point of Care 174 mg/dl (65-105)
[2023-08-20 06:08] VITALS: BP 128/57; PULSE 53; RESP 16; TEMP 36.6; O2SAT 93
[2023-08-20] MEDS: ENOXAPARIN 40 MG/0.4 ML SYRINGE SUB-Q (08:23)
[2023-08-20] MEDS: LORATADINE 10 MG TABLET PO (08:24)
[2023-08-20] MEDS: FAMOTIDINE 20 MG TABLET PO (08:24)
[2023-08-20] MEDS: FINASTERIDE 5 MG TABLET PO (08:24)
[2023-08-20] MEDS: SERTRALINE HCL 50 MG TABLET 100 MG PO (08:24)
[2023-08-20] MEDS: MULTIVITAMINS THERAPEUTIC TAB (*BKC) 1 TABLET PO (08:24)
[2023-08-20] MEDS: CHOLECALCIFEROL 400 UNITS TABLET (VIT D) PO (08:24)
[2023-08-20] MEDS: AMOXICILLIN/CLAVULANATE K 875-125 MG TAB 1 TABLET PO (08:24)
--- NOTE | 2023-08-20 09:35 | PM.IMPN ---
Progress Note: A&P Assessment and Plan (1) Sepsis: Code(s): A41.9 - Sepsis, unspecified organism Status: Acute Assessment and Plan: Patient presents with episode of syncope and found to have sepsis present on admission with hypotensive, elevated lactic acid 4.3, leukocytosis to 20K, YAMILKA with creatinine of 1.8 and mild metabolic acidosis. CT abdomen pelvis showed patchy centrilobular ground-glass opacities in the right middle and right lower lobes consistent with pneumonia. CXR 08/17 showing new mild bibasilar opacities. UCx negative. BCx NGTD. Urine pneumococcal Ag positive. Started on abx for PNA. WBC normal. No fevers. Now changed to oral Abx and has finished the course. (2) Pneumonia: Code(s): J18.9 - Pneumonia, unspecified organism Status: Acute Assessment and Plan: As above. Will have speech therapy evaluate (3) Syncope: Code(s): R55 - Syncope and collapse Status: Acute Assessment and Plan: Head CT on admission showed no acute intracranial findings. Brain atrophy with deep white ischemic changes and ventricular dilation noted. No sphenoid sinusitis. [place] syncope related to above. (4) Stercoral colitis: Code(s): K52.89 - Other specified noninfective gastroenteritis and colitis Status: Acute Assessment and Plan: CT scan also showing 8.5 cm ball of stool at the rectum with mild wall thickening at the rectum and distal sigmoid colon consistent stercoral colitis. He received 2 soapsuds enema in the ED with good resolution. Has been started on bowel regimen. Having BM almost daily Follow (5) Bladder stone: Code(s): N21.0 - Calculus in bladder Status: Acute Assessment and Plan: CT abdomen pelvis showed urolithiasis without hydronephrosis most prominent in the left kidney and with 3.6 cm bladder stone. Urinalysis also suggests UTI but UCx negative. He DOES NOT have chronic Mai catheter as documented in chart (not seen by CT on admission and family denies this) Removed Mai 08/17. Monitor for urine retention. Have patient follow up with urology (6) Urolithiasis: Code(s): N20.9 - Urinary calculus, unspecified Status: Acute Assessment and Plan: As above (7) Nodule of lower lobe of right lung: Code(s): R91.1 - Solitary pulmonary nodule Status: Acute Assessment and Plan: CT abdomen pelvis showed an intermediate 10 mm speculated right lower lobe nodule potentially also related to pneumonia. Recommend short-term interval follow-up in 6-12 weeks when clinically improved. CXR showing bibasilar opacities c/w atelectasis and/or PNA. No other concerns. He has completed abx (8) Chronic kidney disease, stage 3: Code(s): N18.30 - Chronic kidney disease, stage 3 unspecified Status: Acute Assessment and Plan: Baseline Cr 1.4-1.8 range. Cr 1.8 on admission and has trended down to 1.4. Suspect at baseline renal function (9) Type 2 diabetes mellitus: Qualifiers: Diabetes mellitus long term care social worker insulin use: without long term care social worker use Diabetes mellitus complication status: without complication Qualified Code(s): E11.9 - Type 2 diabetes mellitus without complications Code(s): E11.9 - Type 2 diabetes mellitus without complications Status: Acute Assessment and Plan: The patient's blood glucose was reviewed on 08/19 Glucose remains reasonably well controlled Continue AccuCheks covering with sliding scale. Hypoglycemia protocol available as needed. Continue to monitor (10) Essential (primary) hypertension: Code(s): I10 - Essential (primary) hypertension Status: Acute Assessment and Plan: Patient's blood pressure was reviewed on 08/19 Blood pressure remains reasonably well controlled. Will continue to monitor (11) Early onset Alzheimer's dementia without behavioral disturbance: Code(s): G30.0
--- NOTE | 2023-08-20 10:25 | PCSTNOTE ---
Please refer to the Bedside Swallow Evaluation in the EMR. Please note, silent aspiration cannot be ruled out at bedside.
[2023-08-20 11:27] LABS: Glucose Point of Care 156 mg/dl (65-105)
[2023-08-20 14:00] VITALS: BP 138/51; PULSE 60; RESP 18; TEMP 36.8; O2SAT 95
--- NOTE | 2023-08-20 14:00 | PCSTNOTE ---
Please refer to the Bedside Swallow Evaluation in the EMR. Please note, silent aspiration cannot be ruled out at bedside.
[2023-08-20 14:25] VITALS: BP 153/86; PULSE 80; RESP 18; TEMP 36.7; O2SAT 80
[2023-08-20 14:30] VITALS: BP 153/86; PULSE 86; RESP 18; TEMP 36.7; O2SAT 100
[2023-08-20 16:20] LABS: Glucose Point of Care 153 mg/dl (65-105)
[2023-08-20 20:49] LABS: Glucose Point of Care 162 mg/dl (65-105)
[2023-08-20] MEDS: DONEPEZIL HCL 5 MG TABLET PO (21:08)
[2023-08-20 21:11] VITALS: BP 143/46; PULSE 58; RESP 16; TEMP 36.6; O2SAT 96
[2023-08-21 05:38] LABS: Basophils Absolute Auto 0.1 K/mm3 (0.0-0.1); Basophils Percent Auto 0.5 % (0.2-1.2); Eosinophils Absolute Auto 0.3 K/mm3 (0-0.3); Eosinophils Percent Auto 2.7 % (0-4.4); Hematocrit 30.4 % (42.0-52.0); Hemoglobin 9.5 g/dL (14.0-18.0); Immature Granulocyte Absolute 0.25 K/mm3 (0.00-0.031); Immature Granulocyte Percent A 2.7 % (0-0.5); Lymphocytes Absolute Auto 1.26 K/mm3 (0.9-3.2); Lymphocytes Percent Auto 13.5 % (18.3-44.2); Mean Corpuscular HGB Conc 31.3 g/dl (32-36); Mean Corpuscular Hemoglobin 30.7 pg (26-34); Mean Corpuscular Volume 98.4 fl (80-100); Mean Platelet Volume 9.7 fl (7.4-10.4); Monocytes Absolute Auto 0.7 K/mm3 (0.1-0.6); Monocytes Percent Auto 7.6 % (2.6-8.5); Neutrophils Absolute Auto 6.8 K/mm3 (1.3-6.7); Platelet Count Result 215 k/mm3 (150-375); Red Blood Count 3.09 M/mm3 (4.6-6.20); Red Cell Distribution Width 14.3 % (11.5-14.5); White Blood Count 9.4 K/mm3 (4.5-10.0)
[2023-08-21 05:49] LABS: Alanine Aminotransferase 28 U/L (6-50); Albumin Level 2.7 g/dL (3.5-5.1); Alkaline Phosphatase 73 U/L (38-126); Anion Gap 4 mmol/L (4-12); Aspartate Amino Transferase 35 U/L (17-59); Bilirubin,Total 0.4 mg/dL (0.2-1.3); Blood Urea Nitrogen 18 mg/dL (9-20); Calcium 8.2 mg/dL (8.4-10.2); Carbon Dioxide 27 mmol/L (22-30); Chloride 111 mmol/L (98-107); Estimated CRCL calculation 35 ml/min; Estimated Glomerular Filt Rate 44; Glucose 147 mg/dL (65-110); Magnesium 1.8 mg/dL (1.6-2.3); Potassium 3.8 mmol/L (3.4-5.0); Sodium 142 mmol/L (137-145)
[2023-08-21 06:28] VITALS: BP 139/60; PULSE 60; RESP 16; TEMP 36.6; O2SAT 97
[2023-08-21 07:40] LABS: Glucose Point of Care 144 mg/dl (65-105)
[2023-08-21 08:00] VITALS: BP 157/57; PULSE 56; RESP 16; TEMP 36.8; O2SAT 97
[2023-08-21] MEDS: MULTIVITAMINS THERAPEUTIC TAB (*BKC) 1 TABLET PO (08:16)
[2023-08-21] MEDS: SERTRALINE HCL 50 MG TABLET 100 MG PO (08:16)
[2023-08-21] MEDS: FAMOTIDINE 20 MG TABLET PO (08:16)
[2023-08-21] MEDS: ENOXAPARIN 40 MG/0.4 ML SYRINGE SUB-Q (08:17)
[2023-08-21] MEDS: FLUTICASONE PROPIONATE 0.05% NA SPR 16 GM BTL (*BKC) 2 SPRAY NASAL (08:17)
[2023-08-21] MEDS: FINASTERIDE 5 MG TABLET PO (08:17)
[2023-08-21] MEDS: LORATADINE 10 MG TABLET PO (08:17)
[2023-08-21] MEDS: CHOLECALCIFEROL 400 UNITS TABLET (VIT D) PO (08:17)
[2023-08-21 10:21] VITALS: BP 162/74; PULSE 63; RESP 16; TEMP 36.8; O2SAT 98
[2023-08-21 10:24] VITALS: BP 151/58; PULSE 76; RESP 16; TEMP 36.8; O2SAT 97
--- NOTE | 2023-08-21 10:31 | PM.IMPN ---
Progress Note: A&P Assessment and Plan (1) Sepsis: Code(s): A41.9 - Sepsis, unspecified organism Status: Acute Assessment and Plan: Patient presents with episode of syncope and found to have sepsis present on admission with hypotensive, elevated lactic acid, leukocytosis, YAMILKA and metabolic acidosis. CT abdomen pelvis showed patchy centrilobular ground-glass opacities in the right middle and right lower lobes consistent with pneumonia. CXR 08/17 showing new mild bibasilar opacities. UCx negative. BCx negative. Urine pneumococcal Ag positive. Started on abx for PNA. WBC normal. No fevers. Was transitioned to oral Abx and has finished the course. Resolved (2) Pneumonia: Code(s): J18.9 - Pneumonia, unspecified organism Status: Acute Assessment and Plan: As above. Resolved. Speech therapy evaluation recommended MBS that was ordered (3) Syncope: Code(s): R55 - Syncope and collapse Status: Acute Assessment and Plan: Head CT on admission showed no acute intracranial findings. [place] syncope related to above. (4) Stercoral colitis: Code(s): K52.89 - Other specified noninfective gastroenteritis and colitis Status: Acute Assessment and Plan: CT scan also showing 8.5 cm ball of stool at the rectum with mild wall thickening at the rectum and distal sigmoid colon consistent stercoral colitis. He received 2 soapsuds enema in the ED with good resolution. Has been started on bowel regimen. Having BM almost daily Follow (5) Bladder stone: Code(s): N21.0 - Calculus in bladder Status: Acute Assessment and Plan: CT abdomen pelvis showed urolithiasis without hydronephrosis most prominent in the left kidney and with 3.6 cm bladder stone. Urinalysis also suggests UTI but UCx negative. He DOES NOT have chronic Mai catheter as documented in chart (not seen by CT on admission and family denies this) Removed Mai 08/17. Monitor for urine retention. Have patient follow up with urology (6) Urolithiasis: Code(s): N20.9 - Urinary calculus, unspecified Status: Acute Assessment and Plan: As above (7) Nodule of lower lobe of right lung: Code(s): R91.1 - Solitary pulmonary nodule Status: Acute Assessment and Plan: CT abdomen pelvis showed an intermediate 10 mm speculated right lower lobe nodule potentially also related to pneumonia. Recommend short-term interval follow-up in 6-12 weeks when clinically improved. CXR showing bibasilar opacities c/w atelectasis and/or PNA. No other concerns. He has completed abx (8) Chronic kidney disease, stage 3: Code(s): N18.30 - Chronic kidney disease, stage 3 unspecified Status: Acute Assessment and Plan: Baseline Cr 1.4-1.8 range. Cr 1.8 on admission and has trended down to 1.5 Suspect at baseline renal function. Monitor on lisinopril (9) Type 2 diabetes mellitus: Qualifiers: Diabetes mellitus complication status: without complication Diabetes mellitus regional intermodal truck driver insulin use: without retirement use Qualified Code(s): E11.9 - Type 2 diabetes mellitus without complications Code(s): E11.9 - Type 2 diabetes mellitus without complications Status: Acute Assessment and Plan: The patient's blood glucose was reviewed on 08/20 Glucose remains reasonably well controlled Continue AccuCheks covering with sliding scale. Hypoglycemia protocol available as needed. Continue to monitor (10) Essential (primary) hypertension: Code(s): I10 - Essential (primary) hypertension Status: Acute Assessment and Plan: Patient's blood pressure was reviewed on 08/20 Blood pressure remains reasonably well controlled. Will continue to monitor. resume lisinopril (11) Early onset Alzheimer's dementia without behavioral disturbance: Code(s): G30.0 - Alzheimer's disease with early onset; F02.80 -
[2023-08-21] MEDS: lisinopriL 10 MG TABLET PO (11:50)
[2023-08-21 11:51] LABS: Glucose Point of Care 169 mg/dl (65-105)
--- NOTE | 2023-08-21 13:18 | PCSTNOTE ---
Modified barium swallow results within functional limits. No penetration or aspiration. Trace residue in valleculea and pyriform sinuses with all consistencies, reduced with second swallow. No further speech therapy is recommended. Recommendations: regular texture diet (level 7) with regular (thin) liquids (level 0). Thank you for the referral of this patient.
[2023-08-21 14:00] VITALS: BP 152/50; PULSE 53; RESP 16; TEMP 36.4; O2SAT 100
[2023-08-21 16:19] LABS: Glucose Point of Care 231 mg/dl (65-105)
[2023-08-21] MEDS: INSULIN ASPART (*BKC) 100 UNITS/ML SUB-Q (16:54)
[2023-08-21] MEDS: DONEPEZIL HCL 5 MG TABLET PO (20:13)
[2023-08-21 20:15] LABS: Glucose Point of Care 142 mg/dl (65-105)
[2023-08-21 21:14] VITALS: BP 132/63; PULSE 64; RESP 16; TEMP 36.8; O2SAT 93
[2023-08-22 05:58] VITALS: BP 140/50; PULSE 64; RESP 16; TEMP 36.9; O2SAT 95
[2023-08-22 06:16] LABS: Anion Gap 2 mmol/L (4-12); Blood Urea Nitrogen 16 mg/dL (9-20); Calcium 8.1 mg/dL (8.4-10.2); Carbon Dioxide 29 mmol/L (22-30); Chloride 110 mmol/L (98-107); Estimated CRCL calculation 40 ml/min; Estimated Glomerular Filt Rate 52; Glucose 128 mg/dL (65-110); Potassium 3.4 mmol/L (3.4-5.0); Sodium 141 mmol/L (137-145)
[2023-08-22 07:59] LABS: Glucose Point of Care 137 mg/dl (65-105)
[2023-08-22] MEDS: lisinopriL 10 MG TABLET PO (09:26)
[2023-08-22] MEDS: MULTIVITAMINS THERAPEUTIC TAB (*BKC) 1 TABLET PO (09:26)
[2023-08-22] MEDS: FAMOTIDINE 20 MG TABLET PO (09:26)
[2023-08-22] MEDS: SERTRALINE HCL 50 MG TABLET 100 MG PO (09:26)
[2023-08-22] MEDS: FINASTERIDE 5 MG TABLET PO (09:26)
[2023-08-22] MEDS: CHOLECALCIFEROL 400 UNITS TABLET (VIT D) PO (09:26)
[2023-08-22] MEDS: LORATADINE 10 MG TABLET PO (09:26)
[2023-08-22] MEDS: FLUTICASONE PROPIONATE 0.05% NA SPR 16 GM BTL (*BKC) 2 SPRAY NASAL (09:27)
[2023-08-22] MEDS: polyethylene glycoL 3350 17 GM POWD.PACK PO (09:27)
[2023-08-22] MEDS: DOCUSATE SODIUM 100 MG CAPSULE PO (09:27)
[2023-08-22] MEDS: ENOXAPARIN 40 MG/0.4 ML SYRINGE SUB-Q (09:28)
[2023-08-22 11:31] LABS: Glucose Point of Care 165 mg/dl (65-105)
[2023-08-22] MEDS: POTASSIUM CHLORIDE 20 MEQ ER TABLET PO (12:38)
[2023-08-22 14:00] VITALS: BP 150/61; PULSE 58; RESP 16; TEMP 36.8; O2SAT 100
[2023-08-22 14:30] VITALS: BP 150/61; BP 158/70; BP 172/63; PULSE 58; PULSE 64; PULSE 77
[2023-08-22 16:30] LABS: Glucose Point of Care 137 mg/dl (65-105)
--- NOTE | 2023-08-22 17:09 | PM.IMPN ---
Progress Note: A&P Assessment and Plan (1) Sepsis: Code(s): A41.9 - Sepsis, unspecified organism Status: Acute Assessment and Plan: Patient presented with episode of syncope and found to have sepsis present on admission with hypotensive, elevated lactic acid, leukocytosis, YAMILKA and metabolic acidosis. CT abdomen pelvis showed patchy centrilobular ground-glass opacities in the right middle and right lower lobes consistent with pneumonia. CXR 08/17 showing new mild bibasilar opacities. UCx negative. BCx negative. Urine pneumococcal Ag positive. Speech therapy evaluation recommended MBS but showed patient was safe to have a regular consistency diet and thin liquids. He was started on abx for PNA. WBC normal. No fevers. He was transitioned to oral Abx and finished the course while awaiting placement. Resolved (2) Pneumonia: Code(s): J18.9 - Pneumonia, unspecified organism Status: Acute Assessment and Plan: As above. Resolved. (3) Syncope: Code(s): R55 - Syncope and collapse Status: Acute Assessment and Plan: Head CT on admission showed no acute intracranial findings. [place] syncope related to above. (4) Stercoral colitis: Code(s): K52.89 - Other specified noninfective gastroenteritis and colitis Status: Acute Assessment and Plan: CT scan also showing 8.5 cm ball of stool at the rectum with mild wall thickening at the rectum and distal sigmoid colon consistent stercoral colitis. He received 2 soapsuds enema in the ED with good resolution. Has been started on bowel regimen. Having BM almost daily. Continue current bowel regiment Follow (5) Bladder stone: Code(s): N21.0 - Calculus in bladder Status: Acute Assessment and Plan: CT abdomen pelvis showed urolithiasis without hydronephrosis most prominent in the left kidney and with 3.6 cm bladder stone. Urinalysis also suggests UTI but UCx negative. He DOES NOT have chronic Mai catheter as documented in chart (not seen by CT on admission and family denies this) Removed Mai 08/17. Monitor for urine retention. Have patient follow up with urology (6) Urolithiasis: Code(s): N20.9 - Urinary calculus, unspecified Status: Acute Assessment and Plan: As above (7) Nodule of lower lobe of right lung: Code(s): R91.1 - Solitary pulmonary nodule Status: Acute Assessment and Plan: CT abdomen pelvis showed an intermediate 10 mm speculated right lower lobe nodule potentially also related to pneumonia. Recommend short-term interval follow-up in 6-12 weeks when clinically improved. CXR showing bibasilar opacities c/w atelectasis and/or PNA. No other concerns. He has completed abx (8) Chronic kidney disease, stage 3: Code(s): N18.30 - Chronic kidney disease, stage 3 unspecified Status: Acute Assessment and Plan: Baseline Cr 1.4-1.8 range. Cr 1.8 on admission and has trended down to 1.53 Suspect at baseline renal function. Monitor on lisinopril (9) Type 2 diabetes mellitus: Qualifiers: Diabetes mellitus prison insulin use: without long term care phlebotomist use Diabetes mellitus complication status: without complication Qualified Code(s): E11.9 - Type 2 diabetes mellitus without complications Code(s): E11.9 - Type 2 diabetes mellitus without complications Status: Acute Assessment and Plan: The patient's blood glucose was reviewed on 08/21 Glucose remains reasonably well controlled Continue AccuCheks covering with sliding scale. Hypoglycemia protocol available as needed. Continue to monitor (10) Essential (primary) hypertension: Code(s): I10 - Essential (primary) hypertension Status: Acute Assessment and Plan: Patient's blood pressure was reviewed on 08/21 Lisinopril resumed. Blood pressure still elevated at times. Will continue to monitor. (11) Early onset Alzheimer's
[2023-08-22 20:00] VITALS: O2SAT 98
[2023-08-22 20:02] VITALS: BP 144/58; PULSE 64; RESP 18; TEMP 36.5; O2SAT 98
[2023-08-22] MEDS: DONEPEZIL HCL 5 MG TABLET PO (20:31)
[2023-08-22 20:37] LABS: Glucose Point of Care 159 mg/dl (65-105)
[2023-08-22 22:43] LABS: Mycoplasma IgM Antibody Titer 107 U/mL
[2023-08-23 05:15] VITALS: BP 169/68; PULSE 60; RESP 18; TEMP 36.5; O2SAT 99
[2023-08-23 05:16] VITALS: BP 166/63; PULSE 72
[2023-08-23 05:18] VITALS: BP 149/76; PULSE 77
[2023-08-23 08:08] LABS: Glucose Point of Care 134 mg/dl (65-105)
[2023-08-23] MEDS: FAMOTIDINE 20 MG TABLET PO (09:08)
[2023-08-23] MEDS: ENOXAPARIN 40 MG/0.4 ML SYRINGE SUB-Q (09:08)
[2023-08-23] MEDS: lisinopriL 10 MG TABLET PO (09:08)
[2023-08-23] MEDS: FLUTICASONE PROPIONATE 0.05% NA SPR 16 GM BTL (*BKC) 2 SPRAY NASAL (09:09)
[2023-08-23] MEDS: FINASTERIDE 5 MG TABLET PO (09:09)
[2023-08-23] MEDS: SERTRALINE HCL 50 MG TABLET 100 MG PO (09:09)
[2023-08-23] MEDS: LORATADINE 10 MG TABLET PO (09:09)
[2023-08-23] MEDS: MULTIVITAMINS THERAPEUTIC TAB (*BKC) 1 TABLET PO (09:09)
[2023-08-23] MEDS: CHOLECALCIFEROL 400 UNITS TABLET (VIT D) PO (09:09)
[2023-08-23] MEDS: DOCUSATE SODIUM 100 MG CAPSULE PO (09:09)
[2023-08-23 12:07] LABS: Glucose Point of Care 186 mg/dl (65-105)
[2023-08-23 14:00] VITALS: BP 138/54; PULSE 59; RESP 18; TEMP 36; O2SAT 100
--- NOTE | 2023-08-23 14:42 | PCNWS ---
Weekly nutritional screen. Patient is tolerating current diet with adequate intake 60-100%. MBSS was performed, pt is safe for regular textures and thin liquids. No weight loss reported. No nutritional needs at this time.
[2023-08-23 16:45] LABS: Glucose Point of Care 126 mg/dl (65-105)
--- NOTE | 2023-08-23 17:04 | PM.IMPN ---
Progress Note: A&P Assessment and Plan (1) Sepsis: Code(s): A41.9 - Sepsis, unspecified organism Status: Acute Assessment and Plan: Patient presented with episode of syncope and found to have sepsis present on admission with hypotensive, elevated lactic acid, leukocytosis, YAMILKA and metabolic acidosis. CT abdomen pelvis showed patchy centrilobular ground-glass opacities in the right middle and right lower lobes consistent with pneumonia. CXR 08/17 showing new mild bibasilar opacities. UCx negative. BCx negative. Urine pneumococcal Ag positive. Speech therapy evaluation recommended MBS but showed patient was safe to have a regular consistency diet and thin liquids. He was started on abx for PNA. WBC normal. No fevers. He was transitioned to oral Abx and finished the course while awaiting placement. Resolved (2) Pneumonia: Code(s): J18.9 - Pneumonia, unspecified organism Status: Acute Assessment and Plan: As above. Resolved. (3) Syncope: Code(s): R55 - Syncope and collapse Status: Acute Assessment and Plan: Head CT on admission showed no acute intracranial findings. [place] syncope related to above. (4) Stercoral colitis: Code(s): K52.89 - Other specified noninfective gastroenteritis and colitis Status: Acute Assessment and Plan: CT scan also showing 8.5 cm ball of stool at the rectum with mild wall thickening at the rectum and distal sigmoid colon consistent stercoral colitis. He received 2 soapsuds enema in the ED with good resolution. Has been started on bowel regimen. Having BM almost daily. Continue current bowel regiment Follow (5) Bladder stone: Code(s): N21.0 - Calculus in bladder Status: Acute Assessment and Plan: CT abdomen pelvis showed urolithiasis without hydronephrosis most prominent in the left kidney and with 3.6 cm bladder stone. Urinalysis also suggests UTI but UCx negative. He DOES NOT have chronic Mai catheter as documented in chart (not seen by CT on admission and family denies this) Removed Mai 08/17. Monitor for urine retention. Have patient follow up with urology (6) Urolithiasis: Code(s): N20.9 - Urinary calculus, unspecified Status: Acute Assessment and Plan: As above (7) Nodule of lower lobe of right lung: Code(s): R91.1 - Solitary pulmonary nodule Status: Acute Assessment and Plan: CT abdomen pelvis showed an intermediate 10 mm speculated right lower lobe nodule potentially also related to pneumonia. Recommend short-term interval follow-up in 6-12 weeks when clinically improved. CXR showing bibasilar opacities c/w atelectasis and/or PNA. No other concerns. He has completed abx. Order imaging as outpatient (8) Chronic kidney disease, stage 3: Code(s): N18.30 - Chronic kidney disease, stage 3 unspecified Status: Acute Assessment and Plan: Baseline Cr 1.4-1.8 range. Cr 1.8 on admission and has trended down to 1.53 Suspect at baseline renal function. Monitor on lisinopril (9) Type 2 diabetes mellitus: Qualifiers: Diabetes mellitus shelter insulin use: without emt intermediate use Diabetes mellitus complication status: without complication Qualified Code(s): E11.9 - Type 2 diabetes mellitus without complications Code(s): E11.9 - Type 2 diabetes mellitus without complications Status: Acute Assessment and Plan: The patient's blood glucose was reviewed on 08/22 Glucose remains reasonably well controlled Continue AccuCheks covering with sliding scale. Hypoglycemia protocol available as needed. Continue to monitor (10) Essential (primary) hypertension: Code(s): I10 - Essential (primary) hypertension Status: Acute Assessment and Plan: Patient's blood pressure was reviewed on 08/22 Lisinopril resumed. Blood pressure still elevated at times. Will continue to monitor.
[2023-08-23] MEDS: DONEPEZIL HCL 5 MG TABLET PO (19:59)
[2023-08-23 20:00] VITALS: O2SAT 100
[2023-08-23 20:59] LABS: Glucose Point of Care 186 mg/dl (65-105)
[2023-08-23 21:50] VITALS: BP 148/61; PULSE 52; RESP 18; TEMP 36.8; O2SAT 100
[2023-08-24 05:28] VITALS: BP 127/41; PULSE 96; RESP 17; TEMP 36.3; O2SAT 95
[2023-08-24 05:45] LABS: Hematocrit 32.6 % (42.0-52.0); Hemoglobin 10.2 g/dL (14.0-18.0); Mean Corpuscular HGB Conc 31.3 g/dl (32-36); Mean Corpuscular Volume 99.1 fl (80-100); Mean Platelet Volume 9.4 fl (7.4-10.4); Platelet Count Result 252 k/mm3 (150-375); Red Blood Count 3.29 M/mm3 (4.6-6.20); Red Cell Distribution Width 14.6 % (11.5-14.5); White Blood Count 9.7 K/mm3 (4.5-10.0)
[2023-08-24 05:50] LABS: Alanine Aminotransferase 21 U/L (6-50); Albumin Level 2.9 g/dL (3.5-5.1); Alkaline Phosphatase 75 U/L (38-126); Anion Gap 8 mmol/L (4-12); Aspartate Amino Transferase 24 U/L (17-59); Bilirubin,Total 0.4 mg/dL (0.2-1.3); Blood Urea Nitrogen 16 mg/dL (9-20); Carbon Dioxide 24 mmol/L (22-30); Chloride 108 mmol/L (98-107); Estimated CRCL calculation 42 ml/min; Estimated Glomerular Filt Rate 57; Glucose 129 mg/dL (65-110); Potassium 3.8 mmol/L (3.4-5.0); Sodium 140 mmol/L (137-145)
[2023-08-24 07:42] LABS: Glucose Point of Care 121 mg/dl (65-105)
[2023-08-24] MEDS: FINASTERIDE 5 MG TABLET PO (08:50)
[2023-08-24] MEDS: MULTIVITAMINS THERAPEUTIC TAB (*BKC) 1 TABLET PO (08:50)
[2023-08-24] MEDS: SERTRALINE HCL 50 MG TABLET 100 MG PO (08:50)
[2023-08-24] MEDS: ENOXAPARIN 40 MG/0.4 ML SYRINGE SUB-Q (08:50)
[2023-08-24] MEDS: CHOLECALCIFEROL 400 UNITS TABLET (VIT D) PO (08:50)
[2023-08-24] MEDS: LORATADINE 10 MG TABLET PO (08:51)
[2023-08-24] MEDS: lisinopriL 10 MG TABLET PO (08:51)
[2023-08-24] MEDS: FAMOTIDINE 20 MG TABLET PO (08:51)
[2023-08-24] MEDS: polyethylene glycoL 3350 17 GM POWD.PACK PO (08:51)
[2023-08-24] MEDS: DOCUSATE SODIUM 100 MG CAPSULE PO (08:51)
[2023-08-24 10:59] LABS: SARS-CoV-2 RNA PCR Negative (Negative)
[2023-08-24 11:18] LABS: Glucose Point of Care 167 mg/dl (65-105)
--- NOTE | 2023-08-24 11:54 | PM.DS ---
DS: Admitting Diagnosis Discharge Date 08/24/23 Admitting Diagnosis Syncopal episode DS: Discharge Diagnosis Discharge Diagnosis (1) Sepsis: Code(s): A41.9 - Sepsis, unspecified organism Status: Acute (2) Pneumonia: Code(s): J18.9 - Pneumonia, unspecified organism Status: Acute (3) Syncope: Code(s): R55 - Syncope and collapse Status: Acute (4) Stercoral colitis: Code(s): K52.89 - Other specified noninfective gastroenteritis and colitis Status: Acute (5) Bladder stone: Code(s): N21.0 - Calculus in bladder Status: Acute (6) Urolithiasis: Code(s): N20.9 - Urinary calculus, unspecified Status: Acute (7) Nodule of lower lobe of right lung: Code(s): R91.1 - Solitary pulmonary nodule Status: Acute (8) Chronic kidney disease, stage 3: Code(s): N18.30 - Chronic kidney disease, stage 3 unspecified Status: Acute (9) Type 2 diabetes mellitus: Qualifiers: Diabetes mellitus complication status: without complication Diabetes mellitus mcc insulin use: without terminal worker use Qualified Code(s): E11.9 - Type 2 diabetes mellitus without complications Code(s): E11.9 - Type 2 diabetes mellitus without complications Status: Acute (10) Essential (primary) hypertension: Code(s): I10 - Essential (primary) hypertension Status: Acute (11) Early onset Alzheimer's dementia without behavioral disturbance: Code(s): G30.0 - Alzheimer's disease with early onset; F02.80 - Dementia in other diseases classified elsewhere, unspecified severity, without behavioral disturbance, psychotic disturbance, mood disturbance, and anxiety Status: Acute DS: Summary Hospital Course Reason for hospitalization: 88yo male with dementia, HTN, HLD, DM, and CKD who presented to the emergency department via EMS from home for evaluation after syncopal episode. Please see H&P for details. Hospital Course: Patient presented with episode of syncope and found to have sepsis present on admission with hypotensive, elevated lactic acid, leukocytosis, YAMILKA and metabolic acidosis. CT abdomen pelvis showed patchy centrilobular ground-glass opacities in the right middle and right lower lobes consistent with pneumonia. EKG showing first degree and 2nd degree AV block Mobtz I and probably old inferior OH. Repeat EKG showing sinus bradycardia with 2nd degree AV block with Mobitz type I and junctional rhythm. He was kept on telemetry but heart rate remained stable. He was noted to have intermittent junctional rhythm in the past. CXR 08/17 showing new mild bibasilar opacities. UCx negative. BCx negative. Urine pneumococcal Ag positive. Speech therapy evaluation recommended MBS but this showed patient was safe to have a regular consistency diet and thin liquids. He was started on abx for PNA. WBC normal. No fevers. He was transitioned to oral Abx and finished the course while awaiting placement. CT scan also showing 8.5 cm ball of stool at the rectum with mild wall thickening at the rectum and distal sigmoid colon consistent stercoral colitis. He received 2 soapsuds enema in the ED with good resolution. Has been started on bowel regimen. Having BM almost daily. CT abdomen pelvis showed urolithiasis without hydronephrosis most prominent in the left kidney and with 3.6 cm bladder stone. Urinalysis also suggests UTI but UCx negative. He DOES NOT have chronic Mai catheter as documented in chart (not seen by CT on admission and family denies this). Removed Mai 08/17 and no evidence of urine retention. Will have patient follow up with urology. CT abdomen pelvis showed an intermediate 10 mm speculated right lower lobe nodule potentially also related to pneumonia. Recommend short-term interval follow-up in 6-12 weeks. CXR showing bibasilar opacities c/w atelectasis and/or PNA. No other concerns. Called and informed that patient had fallen to th
--- NOTE | 2023-08-24 13:42 | PC.NURSE ---
Pt is A&O1 male. Pt discharging to [facility]. Pt covid swab done and it was negative. Report was called to [place] and discharge paperwork was faxed over at [phone] 08/24/23. Pt was added to EMS list. Pt requesting call when pt discharges. Will continue to monitor pt until discharge.
[2023-08-24 13:57] VITALS: BP 150/67; PULSE 61; RESP 16; TEMP 35.6; O2SAT 98
[2023-08-24 16:35] LABS: Glucose Point of Care 168 mg/dl (65-105)
== END 2023-08-24 18:00 | DRG 871 ==
LOC: ANHED 16:12 → ANH3MEDSUR 17:33
PROVIDERS: Internal Medicine; Physician Assistant; Student in an Organized Health Care Education/Training Program; Admitting Provider Internal Medicine; Emergency Provider Emergency Medicine; PCP Family Medicine; Visit Provider Internal Medicine
DX: A41.9 Sepsis, unspecified organism (principal); J18.9 Pneumonia, unspecified organism; N17.9 Acute kidney failure, unspecified; K52.89 Other specified noninfective gastroenteritis and colitis; R55 Syncope and collapse; I12.9 Hypertensive chronic kidney disease with stage 1 through stage 4 chronic kidney disease, or unspecified chronic kidney disease; E11.22 Type 2 diabetes mellitus with diabetic chronic kidney disease; N18.30 Chronic kidney disease, stage 3 unspecified; M19.90 Unspecified osteoarthritis, unspecified site; G30.0 Alzheimer's disease with early onset; F02.80 Dementia in other diseases classified elsewhere, unspecified severity, without behavioral disturbance, psychotic disturbance, mood disturbance, and anxiety; E78.5 Hyperlipidemia, unspecified; R91.1 Solitary pulmonary nodule; N20.9 Urinary calculus, unspecified; N21.0 Calculus in bladder; D64.9 Anemia, unspecified; M41.9 Scoliosis, unspecified; Z96.642 Presence of left artificial hip joint; Z87.891 Personal history of nicotine dependence; Z11.52 Encounter for screening for COVID-19; Z66 Do not resuscitate
CPT/HCPCS: 36415; 70450; 71045; 72125; 73521; 74177; 80048; 80053; 80069; 81001; 82948; 83605; 83735; 84100; 85025; 85027; 85055; 86738; 87040; 87086; 87088; 87449; 87635; 87899; 92610; 92611; 93005; 96361; 96365; 96366; 96367; 96372; 96375; 97110; 97116; 97162; 97166; 97530; 97535; 99285; A9270; G0378; J0696; J1650; J1815; J1836; J2405; J2543; J7030; Q9967

== ENCOUNTER 2023-09-30 15:13 | Emergency (ER) | payer MEDICARE, SELFPAY ==
--- NOTE | ~2023-09-30 | CT_ITS ---
EXAMINATION: CT abdomen pelvis w con DATE: 09/30/2023 16:55 INDICATION: Constipation. TECHNIQUE: Computed tomography (CT) of the abdomen and pelvis was performed with 100 mL Omnipaque-350 intravenous contrast. Automated exposure control and iterative reconstruction technique were employe d. The dose-length product was 384.05 mGy-cm. COMPARISON: None FINDINGS: Respiratory motion and mild dependent atelectasis in bilateral lung bases. Calcified right lower lobe nodule consistent with old granulomatous disease. Very small bilateral pleural effusions. Heart size is normal. Atherosclerotic coronary artery calcification. No pericardial effusion. Small scattered h epatic and splenic calcifications consistent with old granulomatous disease. Nonspecific splenomegaly . Gallbladder, pancreas, bilateral adrenal glands and right kidney are normal. Multiple large stones clustered in the left renal pelvis and lower calyces of the left kidney the largest measuring up to 1 .4 cm. No hydronephrosis. 3.7 cm stone in the bladder which demonstrates diffuse wall thickening. Pro statomegaly partially obscured by streak artifact from a right total hip arthroplasty and left-sided antegrade femoral intramedullary soledad and femoral neck compression screw fixation. Large amount of sto ol scattered colonic stool including at the rectum consistent with provided history of constipation. No dilated small bowel to suggest obstruction. Postoperative change of prior right inguinal hernia re pair. There is calcified atherosclerosis of the aorta and many of the other arteries. No free intrape ritoneal gas or fluid. No pathologically enlarged abdominal or pelvic lymphadenopathy. Severe lumbar and moderate lower thoracic spondylosis. Chronic L1 burst fracture with 60% anterior vertebral body h eight loss and 3 mm retropulsion. IMPRESSION: 1. Large amount of colonic stool consistent with constipation. No dilated bowel to suggest obstructio n. 2. Nonspecific splenomegaly. 3. Multiple large nonobstructing left renal stones. 4. Large bladder stone with diffuse bladder wall thickening consistent with cystitis either acute or chronic. Reviewed, dictated and finalized at location A. IMPRESSION: 1. Large amount of colonic stool consistent with constipation. No dilated bowel to suggest obstruction. 2. Nonspecific splenomegaly. 3. Multiple large nonobstructing left renal stones. 4. Large bladder stone with diffuse bladder wall thickening consistent with cys titis either acute or chronic.
--- NOTE | ~2023-09-30 | XR_ITS ---
EXAMINATION: XR chest 1V portable DATE: 09/30/2023 16:24 INDICATION: Listlessness. TECHNIQUE: A single frontal view of the chest was obtained. COMPARISON: Chest single view 08/18/2023 FINDINGS: There are airspace opacities in the lower lung zones. No pleural effusion or pneumothorax. The heart size is normal. Calcified mediastinal lymph nodes are consistent with old granulomatous dis ease. IMPRESSION: 1. Stable airspace opacities in the lower lung zones, consistent with atelectasis/scarring. Reviewed, dictated and finalized at location A. IMPRESSION: 1. Stable airspace opacities in the lower lung zones, consistent with atelectas is/scarring.
[2023-09-30 15:28] VITALS: BP 126/55; PULSE 85; RESP 20; TEMP 36.9; O2SAT 97
--- NOTE | 2023-09-30 15:45 | ECG_ITS ---
Test Date: 2023-09-30 15:57:26 Measurements Intervals [place] Rate: 76 P: 0 MS: 0 QRS: -39 QRSD: 90 T: 124 QT: 422 QTc: 476 Interpretive Statements SINUS RHYTHM WITH FIRST-DEGREE AV BLOCK LEFT AXIS DEVIATION [QRS AXIS < -30] MINIMAL VOLTAGE CRITERIA FOR LVH, CONSIDER NORMAL VARIANT [MEETS CRITERIA IN ONE OF: R(aVL), S(V1), R(V5), R(V5/V6)+S(V1)] POOR R-WAVE PROGRESSION NONSPECIFIC T-WAVE ABNORMALITY ABNORMAL ECG Compared to ECG 08/16/2023 16:05:05 HEART RATE IS INCREASED WITH FIRST-DEGREE AV BLOCK REPLACING MOBITZ TYPE 1 SECOND-DEGREE AV BLOCK Electronically Signed On 10-01-2023 11:09:53 CDT by Kameron Burns M.D.
--- NOTE | 2023-09-30 15:47 | ED.WEAKNESS ---
HPI - Weakness General Chief complaint: Weakness <VIMAL Lee Last Filed: 09/30/23 15:50> Stated complaint: WEAKNESS <Janette Rodriguez PA-C - Last Filed: 09/30/23 15:50> Time Seen by Provider: 09/30/23 16:27 <Janette Rodriguez PA-C - Last Filed: 09/30/23 15:50> Focused HPI: 88-year-old male with history of CKD, bladder stone, CKD stage 3, type 2 diabetes, dementia, hyperlipidemia, hypertension presents to the emergency department with his at bedside for listlessness for approximately 10 days. Patient is provides the following history. States the patient was seen in our emergency department on August 12 and discharged on August 23 to [facility]. On admission the patient was found to have pneumonia, UTI, constipation with a large stool ball, and a 3.6 cm bladder stone. The patient's said the patient was doing somewhat better while at [facility], however he unfortunately got COVID while at [facility] and was quarantine for 10 days. He was then discharged home. She states that since then the patient has never fully regained his normal physical mental status. She states that he has had dementia for 7 years and is normally A&O x1 and ambulatory, however seems weak and listless more so. She states he has not had a bowel movement in 5 days and is concerned he is constipated again. She states he has not complained of any pain or seemed uncomfortable. When asked what hurts he points to his right knee. Patient's states this is chronic. Patient's states that she is looking into memory care facilities for the patient. I did discuss goals of care for workup in the ED today. She is requesting to obtain a full workup and will make an informed decision when she has more information. GENERAL: Chronically ill-appearing, no acute distress HEAD: Normocephalic, atraumatic. CHEST: Clear to auscultation. ?No respiratory distress. HEART: Regular rate and rhythm.? NEURO: ?Alert and oriented x1. Patient screened in triage and initial orders placed.? ?Additional care and disposition to be based upon?diagnostic testing and treatment. <Janette Rodriguez PA-C - Last Filed: 09/30/23 15:50> History of Present Illness HPI Narrative: Agree with HPI. reports 1 small bowel movement 3 days ago. No abdominal distension or vomiting. <Eliseo Combs MD - Last Filed: 09/30/23 18:20> Related Data Home medications: Home Medications Medication Instructions Recorded Confirmed cholecalciferol (vitamin D3) 10 400 unit PO DAILY 05/31/19 09/30/23 mcg (400 unit) capsule (Vitamin D3) fluticasone propionate 50 50 mcg intranasal DAILY 05/31/19 09/30/23 mcg/actuation nasal spray,suspension (Flonase Allergy Relief) guaifenesin 600 mg tablet, 600 mg PO Q12H PRN Congestion 09/28/22 09/30/23 extended release 12 hr (Mucinex) acetaminophen 325 mg capsule 650 mg PO Q6H PRN arthritis 08/13/23 09/30/23 (Tylenol) loratadine 10 mg tablet (Claritin) 10 mg PO DAILY 08/13/23 09/30/23 multivitamin 1 tablet PO DAILY 08/13/23 09/30/23 <Janette Rodriguez PA-C - Last Filed: 09/30/23 15:50> Allergies/Adverse reactions: Allergies Allergy/AdvReac Type Severity Reaction Status Date / Time tetanus toxoid, adsorbed Allergy Severe HIVES Verified 09/30/23 15:35 <Janette Rodriguez PA-C - Last Filed: 09/30/23 15:50> Review of Systems Review of Systems: ROS unobtainable: Yes unobtainable due to mental status <Eliseo Combs MD - Last Filed: 09/30/23 18:20> [facility] Past Medical History Medical History: Medical History Allergic rhinitis Arthritis Benign essential hypertension Chronic kidney disease, stage 3 Dementia Depression Fracture of femoral neck, right, closed (05/2019) Hyperlipidemia Hypertension Scoliosis Type 2 diabetes mellitus Hemoglobin A1c was 6.7% on 07/15/2020. <Janette Rodriguez
[2023-09-30 16:12] LABS: Basophils Percent Auto 0.4 % (0.2-1.2); Eosinophils Absolute Auto 0.1 K/mm3 (0-0.3); Eosinophils Percent Auto 1.3 % (0-4.4); Hemoglobin 12.9 g/dL (14.0-18.0); Immature Granulocyte Absolute 0.05 K/mm3 (0.00-0.031); Immature Granulocyte Percent A 0.5 % (0-0.5); Lymphocytes Absolute Auto 1.25 K/mm3 (0.9-3.2); Lymphocytes Percent Auto 12.1 % (18.3-44.2); Mean Corpuscular HGB Conc 32.3 g/dl (32-36); Mean Corpuscular Hemoglobin 30.6 pg (26-34); Mean Corpuscular Volume 94.8 fl (80-100); Mean Platelet Volume 9.9 fl (7.4-10.4); Monocytes Absolute Auto 0.8 K/mm3 (0.1-0.6); Monocytes Percent Auto 7.4 % (2.6-8.5); Neutrophils Absolute Auto 8.1 K/mm3 (1.3-6.7); Neutrophils Percent Auto 78.3 % (45.5-73.1); Platelet Count Result 183 k/mm3 (150-375); Red Blood Count 4.22 M/mm3 (4.6-6.20); Red Cell Distribution Width 14.4 % (11.5-14.5); White Blood Count 10.3 K/mm3 (4.5-10.0)
[2023-09-30 16:22] LABS: INR 1.1; Prothrombin Time 14.6 Seconds (11.1-14.7)
[2023-09-30 16:24] LABS: Partial Thromboplastin Time 33.5 Seconds (22.3-36.8)
[2023-09-30 16:32] LABS: Alanine Aminotransferase 13 U/L (6-50); Albumin Level 4.2 g/dL (3.5-5.1); Alkaline Phosphatase 83 U/L (38-126); Anion Gap 11 mmol/L (4-12); Aspartate Amino Transferase 21 U/L (17-59); Bilirubin,Total 0.6 mg/dL (0.2-1.3); Blood Urea Nitrogen 32 mg/dL (9-20); Carbon Dioxide 25 mmol/L (22-30); Chloride 103 mmol/L (98-107); Estimated CRCL calculation 32 ml/min; Estimated Glomerular Filt Rate 48; Glucose 124 mg/dL (65-110); Lipase 102 U/L (23-300); Potassium 4.5 mmol/L (3.4-5.0); Sodium 139 mmol/L (137-145)
[2023-09-30 16:46] LABS: Influenza A QL RT-PCR Negative (Negative); Influenza B QL RT-PCR Negative (Negative); RSV RNA, RT-PCR Negative (Negative); SARS-CoV-2 RNA PCR Negative (Negative)
[2023-09-30 17:17] VITALS: BP 147/60; PULSE 52; RESP 20; O2SAT 98
[2023-09-30] MEDS: MAGNESIUM CITRATE 300 ML BTL PO (17:47)
[2023-09-30 17:53] LABS: Add Urine Microscopic? YES; Appearance Urine Cloudy (Clear); Bacteria Urine 2+ /hpf; Bilirubin Urine Negative (Negative); Blood Urine 3+ (Negative); Budding Yeast Urine Present /hpf; Color Urine Yellow (Yellow); Glucose Urine UA Negative (Negative); Ketones Urine Negative (Negative); Leukocyte Esterase Ur 3+ LEU/UL (Negative); Need Manual Microscopic Reviewed; Nitrate Urine Positive (Negative); Protein Urine 1+ mg/dL (Negative); RBC Urine 21-50 /hpf (0-2); Specific Grav Ur 1.023 (1.001-1.035); Squamous Epithelial Cell Urine None Seen /hpf (Few); WBC Urine >100 /hpf (0-3); pH Urine 5.5 (5.0-9.0)
[2023-09-30 18:42] VITALS: BP 172/81; PULSE 56; RESP 22; O2SAT 100
== END 2023-09-30 18:42 | disposition home or self-care (01) ==
PROVIDERS: Physician Assistant; Emergency Provider Emergency Medicine; PCP Family Medicine
DX: K59.00 Constipation, unspecified (principal); F03.90 Unspecified dementia, unspecified severity, without behavioral disturbance, psychotic disturbance, mood disturbance, and anxiety; Z20.822 Contact with and (suspected) exposure to COVID-19; I12.9 Hypertensive chronic kidney disease with stage 1 through stage 4 chronic kidney disease, or unspecified chronic kidney disease; E11.22 Type 2 diabetes mellitus with diabetic chronic kidney disease; N18.30 Chronic kidney disease, stage 3 unspecified; E78.5 Hyperlipidemia, unspecified; N21.0 Calculus in bladder; M19.90 Unspecified osteoarthritis, unspecified site; Z96.642 Presence of left artificial hip joint; Z87.891 Personal history of nicotine dependence; Z87.442 Personal history of urinary calculi; Z86.16 Personal history of COVID-19; Z90.79 Acquired absence of other genital organ(s); Z79.899 Other long term (current) drug therapy; R16.1 Splenomegaly, not elsewhere classified; N20.0 Calculus of kidney; R93.41 Abnormal radiologic findings on diagnostic imaging of renal pelvis, ureter, or bladder
CPT/HCPCS: 36415; 71045; 74177; 80053; 81001; 83690; 85025; 85610; 85730; 87077; 87086; 87088; 87186; 87637; 93005; 99284; A9270; Q9967

== ENCOUNTER 2023-10-28 02:39 | Day surgery (SDC) | payer MEDICARE, SELFPAY ==
--- NOTE | 2023-10-25 12:26 | PC.NURSE ---
Report to the Outpatient Waiting Room, entrance under the green pavilion located off [facility], at time _7 AM on date 10/28/23 . Planned Procedure Time: __9 AM .? Time changes happen often and if your time is changed the preop area will call you the afternoon before. - You and your visitor will be asked to self-screen and do not enter if you have any COVID symptoms. Please call surgeon if you need to reschedule. - A mask is optional within the hospital at this time. Patients may have clear liquids (water, carbonated beverages, clear teas, apple juice) until 3 hours prior to surgery( 6 AM)with a maximum of 20 ounces. - No food from midnight until time of surgery and no smoking - Infants may have breast milk until 4 hours before surgery, formula 6 hours prior to surgery. - Children will be allowed to drink immediately following surgery.? If applicable, please bring a bottle or sippy cup to assist with drinking. Juice, water, soda, and popsicles are readily available.? For infants on formula, please bring formula the day of surgery.? Pacifiers are allowed. Take only the following medications with a SIP of water on the morning of surgery: __SERTRALINE DO NOT STOP ANY OF YOUR OTHER PRESCRIPTION MEDICATIONS PRIOR TO SURGERY EXCEPT THE FOLLOWING Medications to discontinue per physician HOLD ALL VITAMINS AND SUPPLEMENTS 3 DAYS PRE OP .LAST DOSE 10/24/23 Please no make-up, nail pashto, hairspray, perfume, deodorant, or body powder the day of surgery.? No jewelry (including any body piercings) or valuables the day of surgery, leave them at home.? Please take a shower or bath the night before, or the morning of, surgery with an antibacterial soap.? Wear comfortable, loose fitting clothing.? Children are encouraged to wear pajamas. - Jewelry must be removed prior to entering the operating room.? Rings and piercings that are not removed may be cut off. - The hospital will not accept responsibility for valuables.? - Please leave all valuables, including medications, at home the day of surgery. If you are going home after surgery, a licensed airport shuttle driver must drive you home.? - NO public transportation without another adult if you receive anesthesia. - We recommend that an adult stay with you for 24 hours following discharge. - We also recommend that you do not drive, make important decision, drink alcoholic beverages, or take any drugs that were not prescribed by your health care provider for at least 24 hours after your discharge time. Follow any additional instructions given to you from your surgeon. Telephone instructions given to __WIFE DOYLE and asked if any additional questions and then verbalized understanding. Patient advised to call surgeon office or pre surgery nurse liaison [phone] if any additional questions.
[2023-10-25 12:42] VITALS: BMI 19.6
--- NOTE | ~2023-10-28 | XR_ITS ---
EXAMINATION: XR retrograde pyelo w/stent LT DATE: 10/28/2023 09:58 INDICATION: Left internal ureteral stent placement TECHNIQUE: Fluoroscopic images from a left internal ureteral stent placement are submitted for review . 25 seconds of fluoroscopy time. FINDINGS: There is a left double-J internal ureteral stent projecting in expected position, with proximal [place] loop at the level of the renal pelvis and distal loop in the pelvis within the bladder lumen. IMPRESSION: 1. Left internal ureteral stent placement. Please refer to real-time procedural findings for detail s. Reviewed, dictated and finalized at location B. IMPRESSION: 1. Left internal ureteral stent placement. Please refer to real-time procedur al findings for details.
--- NOTE | 2023-10-28 07:10 | WPDANESEPPF ---
Anes - Initial Pre Proc Eval Procedure: Operation Date: 10/28/23 09:00 Proposed Procedures p Cystoscopy with Left Stent Placement - Jesús Powell MD Date/Time: 10/28/23 07:10 Surgeon: Jesús Powell MD Pre Op Diagnosis: Large Bladder Stone Patient Data Age: 88 Gender: M Height: 1.83 m Weight: 65.8 kg Allergies Allergy/AdvReac Type Severity Reaction Status Date / Time tetanus toxoid, adsorbed Allergy Severe HIVES Verified 10/28/23 08:16 Home Medications Medication Instructions Recorded Confirmed Type cholecalciferol (vitamin D3) 10 400 unit PO DAILY 05/31/19 10/25/23 History mcg (400 unit) capsule (Vitamin D3) fluticasone propionate 50 50 mcg intranasal DAILY 05/31/19 10/25/23 History mcg/actuation nasal spray,suspension (Flonase Allergy Relief) blood sugar diagnostic (Accu-Chek #100 ea 07/09/22 09/30/23 Rx Donita Plus test strips) blood-glucose meter (Accu-Chek #1 ea 07/09/22 09/30/23 Rx Donita Plus Meter) lancing device with lancets kit #100 ea 09/03/22 09/30/23 Rx (Accu-Chek Softclix Lancing Device+Lancets kit) guaifenesin 600 mg tablet, 600 mg PO Q12H PRN Congestion 09/28/22 10/25/23 History extended release 12 hr (Mucinex) donepezil 5 mg tablet 5 mg PO HS #90 tabs 04/06/23 10/25/23 Rx sertraline 100 mg tablet 100 mg PO DAILY #90 tabs 04/06/23 10/28/23 Rx lisinopril 10 mg tablet 10 mg PO DAILY #90 tabs 07/02/23 10/28/23 Rx famotidine 20 mg tablet 20 mg PO DAILY #90 tabs 07/05/23 10/25/23 Rx finasteride 5 mg tablet 5 mg PO DAILY #90 tabs 08/09/23 10/25/23 Rx acetaminophen 325 mg capsule 1,300 mg PO Q6H PRN arthritis 08/13/23 10/25/23 History (Tylenol) loratadine 10 mg tablet (Claritin) 10 mg PO DAILY 08/13/23 10/25/23 History multivitamin 1 tablet PO DAILY 08/13/23 10/25/23 History docusate sodium 50 mg capsule 100 mg PO DAILY #60 caps 08/24/23 10/25/23 Rx celecoxib 200 mg capsule (Celebrex) 200 mg PO DAILY 10/25/23 10/25/23 History psyllium husk 0.4 gram capsule 0.4 g PO DAILY 10/25/23 10/25/23 History (Metamucil) Patient hx anesthesia problems: none Family hx anesthesia problems: none Results Review: All pre-operative results and documents have been reviewed as part of the pre-operative evaluation. [facility] Past Medical History Medical History Allergic rhinitis Arthritis Benign essential hypertension Chronic kidney disease, stage 3 Dementia Depression Fracture of femoral neck, right, closed (05/2019) Hyperlipidemia Hypertension Scoliosis Type 2 diabetes mellitus Hemoglobin A1c was 6.7% on 07/15/2020. Surgical History Surgical History History of hernia repair History of hip surgery (06/01/19) ORIF right hip fracture, bipolar. Left hip replacement. History of tonsillectomy History of transurethral resection of prostate Family History Family History Mother Osteoporosis Hypertension Crohn's colitis Carcinoma of colon Other Family history of arthritis Social History Social History Social History: Surrogate medical decision maker: Marbella Shayan, spouse. Code status: Do not resuscitate. Smoking packs per day: 1 Smoking cigarettes per day: 20.0 Years smoked: 15 Smoking pack-years: 15.00 Smoking status: Former smoker Tobacco type: cigarettes Smoking end date: 03/01/76 Alcohol intake: never Substance use: never Do You Feel Safe in your Home?: Yes Lack of Transportation: No Lack of Food: Never True Current Housing: I Have Housing Concerned About Future Housing: No Difficulty Paying Gas/Electric Bills: No Difficulty Paying for Meds: No Currently Unemployed: No Education: Master's Degree or Higher Difficulty w/ Childcare or Family Care: No Living arrangements: with family
[2023-10-28] MEDS: LACTATED RINGERS 1,000 ML 30 ML IV CONT (07:30)
--- NOTE | 2023-10-28 07:44 | WPDHPUPDATE1 ---
History and Physical Update Update Date/Time: 10/28/23 07:44 History and Physical has been reviewed, including an updated exam of the patient. There are NO changes in the patient's condition. Risks, benefits, and alternatives have been discussed and questions answered. Patient agrees to proceed with procedure.
[2023-10-28 07:53] LABS: Glucose Point of Care 154 mg/dl (65-105)
[2023-10-28 08:19] VITALS: BP 148/64; PULSE 78; RESP 18; TEMP 36.6; O2SAT 97
--- NOTE | 2023-10-28 09:55 | W.PM.PROC2 ---
Procedure Note - Detailed Date of Procedure 10/28/23 Pre-op Diagnosis Large Bladder Stone, Left Partial Staghorn Renal Stone Post-op Diagnosis Same Procedure Performed Cystoscopy, left retrograde pyelography and left ureteral stent placement Surgeon Jesús Powell MD Anesthesia General Description of Procedure Patient is brought to the operative suite was prepped draped in routine sterile fashion while in dorsal lithotomy position. 2% xylocaine jelly was introduced intraurethrally and systemic sedation is administered per the anesthesia department. Cystoscopy was undertaken with a 21 F rigid cystoscope. He has no urethral stricture disease and minimal prostate tissue. He has a very large bladder stone. The bladder shows some trabeculation and mucosal hyperemia as would be expected with his bladder stone. There was no signs bladder neoplasm. An 8 F ball-tip catheter was 1st obtained of left retrograde pyelogram to outline the collecting system and ensure appropriate placement of a stent. A 7 F stent is positioned with the proximal coil in the renal pelvis and distal coil in the bladder. Scopes and wires removed the patient tolerated the procedure well. Drains Yes Packing No Pathology None sent Complications No immediate complications
[2023-10-28 09:58] VITALS: BP 147/76; PULSE 75
[2023-10-28 10:25] VITALS: BP 142/64; PULSE 63
[2023-10-28 10:55] VITALS: BP 142/64; PULSE 63
== END 2023-10-28 11:00 | disposition home or self-care (01) ==
PROVIDERS: PCP Family Medicine; Visit Provider Urology
PROC: (CPT 52352; principal; 2023-10-28 09:00)
DX: N21.0 Calculus in bladder (principal); I12.9 Hypertensive chronic kidney disease with stage 1 through stage 4 chronic kidney disease, or unspecified chronic kidney disease; E11.22 Type 2 diabetes mellitus with diabetic chronic kidney disease; N18.30 Chronic kidney disease, stage 3 unspecified; F03.90 Unspecified dementia, unspecified severity, without behavioral disturbance, psychotic disturbance, mood disturbance, and anxiety; E78.5 Hyperlipidemia, unspecified; F32.A Depression, unspecified; Z87.891 Personal history of nicotine dependence
CPT/HCPCS: 52332; 74420; 82948; C1758; C1769; C2617; J3301; J7120; Q9966

== ENCOUNTER 2023-10-29 19:47 | Inpatient (IN) | payer MEDICARE, SELFPAY ==
--- NOTE | ~2023-10-29 | XR_ITS ---
EXAMINATION: XR chest 1V portable DATE: 10/29/2023 20:10 INDICATION: Altered mental status. TECHNIQUE: A single frontal view of the chest was obtained. COMPARISON: Chest single view 09/30/2023 FINDINGS: There is mild atelectasis at left lung base. Calcified pulmonary nodules and calcified cesilia r mediastinal lymph nodes are consistent with old granulomatous disease. No pleural effusion or pneum othorax. The heart size is normal. IMPRESSION: 1. Mild atelectasis at left lung base. Reviewed, dictated and finalized at location A.
[2023-10-29 19:46] VITALS: BP 138/58; PULSE 101; RESP 31; TEMP 37.3; O2SAT 99
[2023-10-29 19:56] VITALS: RESP 27; O2SAT 99
--- NOTE | 2023-10-29 20:00 | ECG_ITS ---
Test Date: 2023-10-29 20:04:23 Measurements Intervals [place] Rate: 97 P: -5 NM: 188 QRS: -22 QRSD: 91 T: 91 QT: 337 QTc: 430 Interpretive Statements SINUS RHYTHM BORDERLINE LEFT AXIS DEVIATION [QRS AXIS < -20] NONSPECIFIC T-WAVE ABNORMALITY Compared to ECG 09/30/2023 15:57:26 Poor R-wave progression no longer present T-wave abnormality still present Electronically Signed On 10-30-2023 14:34:28 CDT by Mo Meléndez M.D.
[2023-10-29 20:17] LABS: Basophils Absolute Auto 0.1 K/mm3 (0.0-0.1); Basophils Percent Auto 0.3 % (0.2-1.2); Eosinophils Percent Auto 0.1 % (0-4.4); Hematocrit 36.2 % (42.0-52.0); Hemoglobin 11.6 g/dL (14.0-18.0); Immature Granulocyte Absolute 0.14 K/mm3 (0.00-0.031); Immature Granulocyte Percent A 0.8 % (0-0.5); Lymphocytes Absolute Auto 0.17 K/mm3 (0.9-3.2); Lymphocytes Percent Auto 0.9 % (18.3-44.2); Mean Corpuscular Hemoglobin 30.1 pg (26-34); Monocytes Absolute Auto 0.9 K/mm3 (0.1-0.6); Monocytes Percent Auto 5.2 % (2.6-8.5); Neutrophils Absolute Auto 16.7 K/mm3 (1.3-6.7); Neutrophils Percent Auto 92.7 % (45.5-73.1); Platelet Count Result 155 k/mm3 (150-375); Red Blood Count 3.85 M/mm3 (4.6-6.20); Red Cell Distribution Width 14.4 % (11.5-14.5)
[2023-10-29 20:31] LABS: Lactic Acid Reflex 1.9 mmol/L (0.7-2.0)
[2023-10-29 20:31] LABS: Alanine Aminotransferase 13 U/L (6-50); Albumin Level 3.7 g/dL (3.5-5.1); Alkaline Phosphatase 78 U/L (38-126); Anion Gap 11 mmol/L (4-12); Aspartate Amino Transferase 28 U/L (17-59); Bilirubin,Total 0.6 mg/dL (0.2-1.3); Blood Urea Nitrogen 51 mg/dL (9-20); Carbon Dioxide 25 mmol/L (22-30); Chloride 103 mmol/L (98-107); Estimated CRCL calculation 27 ml/min; Estimated Glomerular Filt Rate 41; Glucose 226 mg/dL (65-110); Magnesium 1.8 mg/dL (1.6-2.3); Potassium 4.5 mmol/L (3.4-5.0); Sodium 139 mmol/L (137-145)
--- NOTE | 2023-10-29 20:31 | ED.FEVER ---
HPI - Fever General Chief Complaint: Fever Stated Complaint: FEVER, AMS History of Present Illness HPI Narrative: Patient is an 88-year-old male who presents to the emergency department this evening accompanied by his and caregiver. Patient does have a history of dementia and is normally alert and oriented x 0-1 at baseline. Patient had a urological procedure yesterday performed by Dr. Powell where he had a ureteral stent placed due to a large bladder stone. Patient is due to have the stone removed sometime next week. Today, caregiver noticed that the patient is more lethargic and weak, refusing to get out of bed. Patient is normally more active and walks around the house with his walker. Caregiver also noticed that the patient had a temperature of a 102? F. caregiver states that mentation harry, patient does appear to be at his baseline mentation but he is much more weaker than normal which concern her that the patient either has a UTI or is dehydrated. and caregiver denies any recent falls or trauma at home. No additional symptoms or concerns at this time. Related Data Home Medications Medication Instructions Recorded Confirmed cholecalciferol (vitamin D3) 10 400 unit PO DAILY 05/31/19 10/25/23 mcg (400 unit) capsule (Vitamin D3) fluticasone propionate 50 50 mcg intranasal DAILY 05/31/19 10/25/23 mcg/actuation nasal spray,suspension (Flonase Allergy Relief) guaifenesin 600 mg tablet, 600 mg PO Q12H PRN Congestion 09/28/22 10/25/23 extended release 12 hr (Mucinex) acetaminophen 325 mg capsule 1,300 mg PO Q6H PRN arthritis 08/13/23 10/25/23 (Tylenol) loratadine 10 mg tablet (Claritin) 10 mg PO DAILY 08/13/23 10/25/23 multivitamin 1 tablet PO DAILY 08/13/23 10/25/23 celecoxib 200 mg capsule (Celebrex) 200 mg PO DAILY 10/25/23 10/25/23 psyllium husk 0.4 gram capsule 0.4 g PO DAILY 10/25/23 10/25/23 (Metamucil) Allergies Allergy/AdvReac Type Severity Reaction Status Date / Time tetanus toxoid, adsorbed Allergy Severe HIVES Verified 10/29/23 20:01 Review of Systems Review of Systems: All systems are reviewed and are negative unless stated otherwise in the HPI. PMFSH Past Medical History Medical History Allergic rhinitis Arthritis Benign essential hypertension Chronic kidney disease, stage 3 Dementia Depression Fracture of femoral neck, right, closed (05/2019) Hyperlipidemia Hypertension Scoliosis Type 2 diabetes mellitus Hemoglobin A1c was 6.7% on 07/15/2020. Surgical History Surgical History History of hernia repair History of hip surgery (06/01/19) ORIF right hip fracture, bipolar. Left hip replacement. History of tonsillectomy History of transurethral resection of prostate Family History Family History Mother Osteoporosis Hypertension Crohn's colitis Carcinoma of colon Other Family history of arthritis Social History Social History Social History: Surrogate medical decision maker: Marbella Shayan, spouse. Code status: Do not resuscitate. Smoking packs per day: 1 Smoking cigarettes per day: 20.0 Years smoked: 15 Smoking pack-years: 15.00 Smoking status: Former smoker Tobacco type: cigarettes Smoking end date: 03/01/76 Alcohol intake: never Substance use: never Do You Feel Safe in your Home?: Yes Lack of Transportation: No Lack of Food: Never True Current Housing: I Have Housing Concerned About Future Housing: No Difficulty Paying Gas/Electric Bills: No Difficulty Paying for Meds: No Currently Unemployed: No Education: Master's Degree or Higher Difficulty w/ Childcare or Family Care: No Living arrangements: with family Additional living arrangements comments: Lives with spouse in [place]. He
[2023-10-29 20:48] LABS: Add Urine Microscopic? YES; Appearance Urine Turbid (Clear); Bacteria Urine 4+ /hpf; Bilirubin Urine Negative (Negative); Blood Urine 3+ (Negative); Color Urine Orange (Yellow); Glucose Urine UA Negative (Negative); Ketones Urine Negative (Negative); Leukocyte Esterase Ur 3+ LEU/UL (Negative); Mucus Urine Present /lpf; Need Manual Microscopic Reviewed; Nitrate Urine Positive (Negative); Protein Urine 3+ mg/dL (Negative); RBC Urine >100 /hpf (0-2); Specific Grav Ur 1.018 (1.001-1.035); Squamous Epithelial Cell Urine Few /hpf (Few); WBC Urine >100 /hpf (0-3)
[2023-10-29] MEDS: SODIUM CHLORIDE 0.9% IV 1,000 ML 999 ML IV CONT (20:48)
[2023-10-29] MEDS: levoFLOXacin 750 MG/D5W 150 ML 750 MG/150 ML BAG 100 MG IVPB (20:48)
[2023-10-29 20:54] LABS: Influenza A QL RT-PCR Negative (Negative); Influenza B QL RT-PCR Negative (Negative); SARS-CoV-2 RNA PCR Negative (Negative)
[2023-10-29 21:44] VITALS: BP 119/47; PULSE 83; RESP 19; O2SAT 99
--- NOTE | 2023-10-29 22:30 | PM.IMHP ---
H&P: HPI History of Present Illness Date/Time: 10/29/23 22:30 Chief Complaint: Fever Altered mental status Narrative: This 88-year-old male patient who is demented at baseline alert oriented times 0-1 who has past medical history of allergies, severe dementia, arthritis, hypertension, chronic kidney disease stage 3, dementia, depression hyperlipidemia, hypertension type 2 diabetes mellitus is brought to the emergency room by his and caregiver with complaints of increased weakness and fever with inability to get out of bed which is abnormal for him. Primary information for this HPI is obtained from emergency room note as both patient's and caregiver had already left for home by the time I reached bedside to do his admission. Patient recently underwent urological procedure yesterday by Dr. Powell to have a ureteral stone placed due to a large bladder stone that is present. He is due to follow-up with him next week to have stone removed. Today the patient is noted to have increased weakness, was unable to get out of bed and to the and caregiver both he appears increasingly lethargic with a noted fever of 102. There had been no recent falls at home or any other acute incidents that could elicit increased weakness. According to patient's and caregiver patient is at his normal baseline mental status with regards to his dementia. On arrival to emergency room he was found to be tachypneic and tachycardic with low-grade fever. He was administered Levaquin IV and 1 L normal saline bolus. Lactic acid was noted to be normal. EKG showing normal sinus rhythm 97 beats per minute without any signs of acute ischemia. Pertinent lab results include leukocytosis of 18,000, BUN 51, creatinine of 1.6 which is at patient's baseline kidney function. Chest x-ray was evaluated and demonstrates no acute cardiopulmonary process. After administration of IV fluid, repeat vital sign show normal sinus rhythm 83 beats per minute, normal respiratory rate of 19 and temperature 99.2? stable blood pressure 119/47. Urology is consulted for comanagement upon admission. Patient is endorsed to hospitalist service at this time for continued workup, management and maintenance pending Urology evaluation. Review of Systems Review of Systems: ROS that were mentioned in HPI were obtained from ER chart, in which information was obtained from and caregiver when they were present at the bedside. ROS unobtainable: Yes unobtainable due to mental status (Baseline mentation A&Ox0-1.) [facility] Past Medical History Medical History Allergic rhinitis Arthritis Benign essential hypertension Chronic kidney disease, stage 3 Dementia Depression Fracture of femoral neck, right, closed (05/2019) Hyperlipidemia Hypertension Scoliosis Type 2 diabetes mellitus Hemoglobin A1c was 6.7% on 07/15/2020. Surgical History Surgical History History of hernia repair History of hip surgery (06/01/19) ORIF right hip fracture, bipolar. Left hip replacement. History of tonsillectomy History of transurethral resection of prostate Family History Family History Mother Osteoporosis Hypertension Crohn's colitis Carcinoma of colon Other Family history of arthritis Social History Social History Social History: Surrogate medical decision maker: Marbella Downey, spouse. Code status: Do not resuscitate. Smoking packs per day: 1 Smoking cigarettes per day: 20.0 Years smoked: 15 Smoking pack-years: 15.00 Smoking status: Former smoker Tobacco type: cigarettes Smoking end date: 03/01/76 Alcohol intake: never Substance use: never Do You Feel Safe in your Home?: Yes Lack of Transportation: No Lack of Food: Never Tr
[2023-10-29 23:30] VITALS: BP 124/49; PULSE 83; RESP 18; TEMP 36.8; O2SAT 97
[2023-10-29 23:36] LABS: Hemoglobin A1C 6.9 % (<5.7)
[2023-10-30] VITALS (10 sets, daily range): BP systolic 78–141; BP diastolic 38–89; PULSE 75–88; RESP 14–19; TEMP 36.9–37.8; O2SAT 97–98
[2023-10-30 05:51] LABS: Basophils Percent Auto 0.2 % (0.2-1.2); Hematocrit 33.5 % (42.0-52.0); Hemoglobin 10.7 g/dL (14.0-18.0); Immature Granulocyte Absolute 0.22 K/mm3 (0.00-0.031); Immature Granulocyte Percent A 1.3 % (0-0.5); Lymphocytes Absolute Auto 0.29 K/mm3 (0.9-3.2); Lymphocytes Percent Auto 1.7 % (18.3-44.2); Mean Corpuscular HGB Conc 31.9 g/dl (32-36); Mean Corpuscular Volume 93.8 fl (80-100); Mean Platelet Volume 9.8 fl (7.4-10.4); Monocytes Absolute Auto 0.9 K/mm3 (0.1-0.6); Monocytes Percent Auto 5.6 % (2.6-8.5); Neutrophils Absolute Auto 15.4 K/mm3 (1.3-6.7); Neutrophils Percent Auto 91.2 % (45.5-73.1); Platelet Count Result 134 k/mm3 (150-375); Red Blood Count 3.57 M/mm3 (4.6-6.20); Red Cell Distribution Width 14.5 % (11.5-14.5); White Blood Count 16.9 K/mm3 (4.5-10.0)
[2023-10-30 06:01] LABS: Alanine Aminotransferase 11 U/L (6-50); Albumin Level 3.2 g/dL (3.5-5.1); Alkaline Phosphatase 74 U/L (38-126); Anion Gap 8 mmol/L (4-12); Aspartate Amino Transferase 19 U/L (17-59); Bilirubin,Total 0.5 mg/dL (0.2-1.3); Blood Urea Nitrogen 42 mg/dL (9-20); Calcium 8.6 mg/dL (8.4-10.2); Carbon Dioxide 24 mmol/L (22-30); Chloride 107 mmol/L (98-107); Estimated CRCL calculation 27 ml/min; Estimated Glomerular Filt Rate 44; Glucose 179 mg/dL (65-110); Magnesium 1.8 mg/dL (1.6-2.3); Potassium 4.4 mmol/L (3.4-5.0); Sodium 139 mmol/L (137-145)
[2023-10-30] MEDS: ACETAMINOPHEN 325 MG TABLET 650 MG PO ×2 (06:06→23:54)
[2023-10-30 08:30] LABS: Glucose Point of Care 157 mg/dl (65-105)
[2023-10-30] MEDS: ENOXAPARIN 30 MG/0.3 ML SYRINGE SUB-Q (09:53)
[2023-10-30] MEDS: DOCUSATE SODIUM 100 MG CAPSULE PO (09:54)
[2023-10-30] MEDS: guaiFENesin 12 HR 600 MG TABCR PO ×2 (09:55→20:20)
[2023-10-30] MEDS: CELECOXIB 200 MG CAPSULE PO (09:55)
[2023-10-30] MEDS: LORATADINE 10 MG TABLET PO (09:55)
[2023-10-30] MEDS: MULTIVITAMINS THERAPEUTIC TAB (*BKC) 1 TABLET PO (09:55)
[2023-10-30] MEDS: SERTRALINE HCL 50 MG TABLET 100 MG PO (09:56)
[2023-10-30] MEDS: FINASTERIDE 5 MG TABLET PO (09:56)
[2023-10-30] MEDS: FAMOTIDINE 20 MG TABLET PO (09:56)
[2023-10-30] MEDS: CHOLECALCIFEROL 400 UNITS TABLET (VIT D) PO (09:57)
[2023-10-30] MEDS: FLUTICASONE PROPIONATE 0.05% NA SPR 16 GM BTL (*BKC) 2 SPRAY NASAL (09:57)
[2023-10-30 12:04] LABS: Glucose Point of Care 126 mg/dl (65-105)
--- NOTE | 2023-10-30 13:20 | PM.IMPN ---
Progress Note: A&P Assessment and Plan (1) Sepsis: Code(s): A41.9 - Sepsis, unspecified organism Status: Acute Assessment and Plan: Patient presents with fever and found to have sepsis felt related to UTI. CXR showing mild atelectasis at left lung base. UA consistent with UTI. UCx and BCx collected. Hx of pseudomonas so started on IV Levaquin. Lactic acid normal. WBC 18K. UCx pending. BCx pending. WBC improved. Follow up on UCx and BCx. (2) Acute UTI: Code(s): N39.0 - Urinary tract infection, site not specified Status: Acute Assessment and Plan: As above (3) Bladder stone: Code(s): N21.0 - Calculus in bladder Status: Acute Assessment and Plan: Patient with large bladder stone and left partial staghorn renal stone. On 10/27, patient taken to the OR for cystoscopy, left retrograde pyelography and left ureteral stent placement. He tolerated the procedure well. Urology consulted given recent procedure and now sepsis from UTI. 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 The patient's blood glucose was reviewed on 10/29 Glucose remains well controlled. Continue AccuCheks covering with sliding scale. Hypoglycemia protocol available as needed. Continue to follow. Diabetic diet (5) Dementia: Qualifiers: Dementia type: unspecified type Dementia behavioral disturbance: without behavioral disturbance Qualified Code(s): F03.90 - Unspecified dementia without behavioral disturbance Code(s): F03.90 - Unspecified dementia, unspecified severity, without behavioral disturbance, psychotic disturbance, mood disturbance, and anxiety Status: Acute Assessment and Plan: Baseline level of orientation is 0-1. Patient does appear to be at baseline. Safety precautions for falls. Plan DVT prophylaxis - lovenox Code status - full Disp - PT/OT Subjective Date/time seen: 10/30/23 13:20 Interval history: 88yo male with dementia, HTN, DM and CKD here for fever. Patient is awake, alert but confused. He denies CP, back pain or abd pain. No n/v. Review of Systems Review of Systems: ROS unobtainable: Yes unobtainable due to mental status Exam Narrative: Tm 100.0 98.8 141/89 88 16 98% ra Gen - NARD Chest - CTA bilaterally, nml RR CV - RRR S1/S2 Abd - Soft, NT/ND, Positive BS. bladder not distended Ext - No pedal edema Neuro - Alert but confused Psych - Nml mood and affect Skin - Warm and dry Objective Data Vital Signs Vital Signs: Vital Signs - 24 hr 10/29/23 19:46 10/29/23 19:56 10/29/23 21:44 Temperature 99.2 F Pulse Rate 101 H 83 Respiratory Rate 31 H 27 H 19 Blood Pressure 138/58 L 119/47 L Pulse Oximetry 99 99 99 Oxygen Delivery Room Air 10/29/23 23:30 10/30/23 06:06 10/30/23 06:00 Temperature 98.2 F 100.0 F H 100.0 F H Pulse Rate 83 88 Respiratory Rate 18 16 Blood Pressure 124/49 L 141/89 H Pulse Oximetry 97 98 Oxygen Delivery 10/30/23 07:53 10/30/23 07:05 Temperature 98.8 F 98.4 F Pulse Rate Respiratory Rate Blood Pressure Pulse Oximetry Oxygen Delivery Intake/Output Intake/Output: Intake & Output 10/27/23 10/28/23 10/29/23 10/30/23 23:59 23:59 23:59 23:59 Intake Total 1150 910 Output Total 50 Balance 1100 910 Meds/Results Medications: Active Medications Generic Name Dose Route Start Last Admin Trade Name Freq PRN Reason Stop Dose Admin Acetaminophen 650 mg 10/30/23 05:50 10/30/23 06:06 Acetaminophen 325 Mg Tablet PO
[2023-10-30] MEDS: SODIUM CHLORIDE 0.9% IV 500 ML 999 ML IV CONT (14:13)
--- NOTE | 2023-10-30 14:32 | PCOTNOTE ---
The patient initial occupational therapy evaluation was not able to be completed on 10/29 due to patient having low blood sugar. Will plan to continue monitor patient and evaluate when able.
--- NOTE | 2023-10-30 14:34 | PCPTNOTE ---
Nursing advised to hold off therapy eval due to low BP and pt not waking up. will continue to monitor.
[2023-10-30 14:35] LABS: Glucose Point of Care 167 mg/dl (65-105)
--- NOTE | 2023-10-30 14:42 | ECG_ITS ---
Test Date: 2023-10-30 14:56:02 Measurements Intervals [place] Rate: 65 P: 0 MO: 0 QRS: -26 QRSD: 96 T: 72 QT: 408 QTc: 427 Interpretive Statements SINUS RHYTHM WITH SINUS ARRHYTHMIA WITH NON-CONDUCTED ATRIAL PREMATURE COMPLEX ATRIAL PREMATURE COMPLEX VOLTAGE CRITERIA FOR LVH NONSPECIFIC T-WAVE ABNORMALITY- HIGH LATERAL LEADS BORDERLINE ECG Compared to ECG 10/29/2023 20:04:23 NON-CONDUCTED PAC NOW PRESENT Left ventricular hypertrophy now present Electronically Signed On 10-31-2023 07:52:38 CDT by Don Moctezuma D.O.
[2023-10-30 17:04] LABS: Troponin I 0.025 ng/mL (0.000-0.034)
[2023-10-30 17:24] LABS: Glucose Point of Care 187 mg/dl (65-105)
--- NOTE | 2023-10-30 19:10 | PC.NURSE ---
Public Defender spoke with at bedside and she verbalized that patient is DNR. Yoana Barrera was at bedside as second witness.
[2023-10-30] MEDS: DONEPEZIL HCL 5 MG TABLET PO (20:20)
[2023-10-30 20:24] LABS: Glucose Point of Care 190 mg/dl (65-105)
[2023-10-30 21:38] LABS: Troponin I 0.021 ng/mL (0.000-0.034)
[2023-10-31] VITALS (10 sets, daily range): BP systolic 109–139; BP diastolic 48–64; PULSE 55–72; RESP 16–18; TEMP 36.8–37.2; O2SAT 98
[2023-10-31 05:56] LABS: Basophils Percent Auto 0.2 % (0.2-1.2); Eosinophils Absolute Auto 0.1 K/mm3 (0-0.3); Eosinophils Percent Auto 1.7 % (0-4.4); Hematocrit 27.7 % (42.0-52.0); Immature Granulocyte Absolute 0.08 K/mm3 (0.00-0.031); Lymphocytes Absolute Auto 0.59 K/mm3 (0.9-3.2); Mean Corpuscular HGB Conc 32.5 g/dl (32-36); Mean Corpuscular Hemoglobin 30.5 pg (26-34); Mean Corpuscular Volume 93.9 fl (80-100); Mean Platelet Volume 10.3 fl (7.4-10.4); Monocytes Absolute Auto 0.5 K/mm3 (0.1-0.6); Monocytes Percent Auto 6.1 % (2.6-8.5); Neutrophils Absolute Auto 7.1 K/mm3 (1.3-6.7); Platelet Count Result 108 k/mm3 (150-375); Red Blood Count 2.95 M/mm3 (4.6-6.20); Red Cell Distribution Width 14.6 % (11.5-14.5); White Blood Count 8.4 K/mm3 (4.5-10.0)
[2023-10-31 06:09] LABS: Alanine Aminotransferase 11 U/L (6-50); Albumin Level 2.7 g/dL (3.5-5.1); Alkaline Phosphatase 72 U/L (38-126); Anion Gap 6 mmol/L (4-12); Aspartate Amino Transferase 20 U/L (17-59); Bilirubin,Total 0.4 mg/dL (0.2-1.3); Blood Urea Nitrogen 48 mg/dL (9-20); Calcium 8.2 mg/dL (8.4-10.2); Carbon Dioxide 25 mmol/L (22-30); Chloride 105 mmol/L (98-107); Estimated CRCL calculation 26 ml/min; Estimated Glomerular Filt Rate 41; Glucose 142 mg/dL (65-110); Sodium 136 mmol/L (137-145)
[2023-10-31 07:11] LABS: Folic Acid 11.9 ng/mL (2.76->20)
[2023-10-31 08:24] LABS: Glucose Point of Care 115 mg/dl (65-105)
[2023-10-31] MEDS: DOCUSATE SODIUM 100 MG CAPSULE PO (09:13)
[2023-10-31] MEDS: ENOXAPARIN 30 MG/0.3 ML SYRINGE SUB-Q (09:13)
[2023-10-31] MEDS: FINASTERIDE 5 MG TABLET PO (09:13)
[2023-10-31] MEDS: FLUTICASONE PROPIONATE 0.05% NA SPR 16 GM BTL (*BKC) 2 SPRAY NASAL (09:13)
[2023-10-31] MEDS: MULTIVITAMINS THERAPEUTIC TAB (*BKC) 1 TABLET PO (09:13)
[2023-10-31] MEDS: FAMOTIDINE 20 MG TABLET PO (09:13)
[2023-10-31] MEDS: LORATADINE 10 MG TABLET PO (09:14)
[2023-10-31] MEDS: CHOLECALCIFEROL 400 UNITS TABLET (VIT D) PO (09:14)
[2023-10-31] MEDS: CELECOXIB 200 MG CAPSULE PO (09:14)
[2023-10-31] MEDS: SERTRALINE HCL 50 MG TABLET 100 MG PO (09:14)
[2023-10-31] MEDS: guaiFENesin 12 HR 600 MG TABCR PO ×2 (09:14→20:50)
[2023-10-31] MEDS: MEROPENEM 1 GM/NS 100 ML 1 GM/100 ML BAG IVPB ×2 (09:16→20:49)
--- NOTE | 2023-10-31 11:33 | PM.IMPN ---
Progress Note: A&P Assessment and Plan (1) Sepsis: Code(s): A41.9 - Sepsis, unspecified organism Status: Acute Assessment and Plan: Patient presents with fever and found to have sepsis felt related to UTI. CXR showing mild atelectasis at left lung base. UA consistent with UTI. Old cultures reviewed and Levaquin started after appropriat cultures obtained. Lactic acid normal. WBC 18K. UCx GNB BCx growing GNB is both bottles of 1 set WBC normal now. Follow up on UCx and BCx. Add meropenem given the episodes yesterday (2) Hypotension: Code(s): I95.9 - Hypotension, unspecified Status: Acute Assessment and Plan: Rapid response called on 10/29 after patient found to be poorly responsive and SBP 78/40. Upon arrival, patient was awake and appropriate. He has baseline confusion. He was conversing normally. A fluid bolus had already been ordered and was just started when his repeat BP 108/47. No change in exam findings and no acute neuro changes. Meds reviewed and no recent meds that would contribute to low BP. EKG showing NSR with sinus arrhythmias with one nonconducted PAC. Placed on tele. TSH normal. Troponin negative x3. Consider sleep apnea. Check apnea link (3) Acute UTI: Code(s): N39.0 - Urinary tract infection, site not specified Status: Acute Assessment and Plan: As above (4) Bladder stone: Code(s): N21.0 - Calculus in bladder Status: Acute Assessment and Plan: Patient with large bladder stone and left partial staghorn renal stone. On 10/27, patient taken to the OR for cystoscopy, left retrograde pyelography and left ureteral stent placement. He tolerated the procedure well. Urology consulted given recent procedure and now sepsis from UTI. Appreciate their input (5) Type 2 diabetes mellitus: Qualifiers: Diabetes mellitus [facility] insulin use: without [facility] use Diabetes mellitus complication status: without complication Qualified Code(s): E11.9 - Type 2 diabetes mellitus without complications Code(s): E11.9 - Type 2 diabetes mellitus without complications Status: Chronic Assessment and Plan: A1c 6.9%. The patient's blood glucose was reviewed on 10/30 Glucose remains well controlled. Continue AccuCheks covering with sliding scale. Hypoglycemia protocol available as needed. Continue to follow. Diabetic diet (6) Dementia: Qualifiers: Dementia type: unspecified type Dementia behavioral disturbance: without behavioral disturbance Qualified Code(s): F03.90 - Unspecified dementia without behavioral disturbance Code(s): F03.90 - Unspecified dementia, unspecified severity, without behavioral disturbance, psychotic disturbance, mood disturbance, and anxiety Status: Acute Assessment and Plan: Baseline level of orientation is 0-1. Patient does appear to be at baseline. Safety precautions for falls. Plan DVT prophylaxis - lovenox Code status - DNR Disp - PT/OT Subjective Date/time seen: 10/31/23 11:33 Interval history: 88yo male with dementia, HTN, DM and CKD here for fever. Patient is awake, alert but confused. Slept poorly per RN. No further episodes of low BP and being poorly responsive. states this episodes occur at home as well. He was refusing to be up to the chair. Was able to stand with therapy Exam Narrative: AF 98.9 139/64 72 18 98% ra Gen - NARD Chest - few basilar rhonchi o/w clear CV - RRR S1/S2.Tele showing occasional sinus arrhythmia and PACs Abd - Soft, NT/ND, Positive BS. Back - No CVA tenderness Ext - No pedal edema Neuro - Alert but confused Psych - Nml mood and affect Skin - Warm and dry Objective Data Vital Signs Vital Signs: Vital Signs - 24 hr 10/30/23 14:35 10/30/23 14:44 10/30/23 14:37 Temperature 98.5 F Pulse Rate 75 77 78 Respiratory Rate 19 14 14 Blood Pressure 78/40 L 108/47 L 108/47 L
[2023-10-31 12:02] LABS: Glucose Point of Care 163 mg/dl (65-105)
--- NOTE | 2023-10-31 13:13 | WPDURCON ---
Assessment and Plan Assessment and plan (1) Sepsis: Code(s): A41.9 - Sepsis, unspecified organism Status: Acute Assessment and Plan: Currently being treated with IV antibiotics. Sensitivities are pending. No intervention at this point time until infection is cleared (2) Bladder stone: Code(s): N21.0 - Calculus in bladder Status: Acute Assessment and Plan: patient scheduled for definitive treatment this week but that may need to be put on hold. Dr. Powell to re-evaluate this week prior to making a final decision. (3) Urolithiasis: Code(s): N20.9 - Urinary calculus, unspecified Status: Acute Assessment and Plan: Status post left stent placement. The staghorn stone in the left kidney will be addressed at a later point time also Urology Consult Note HPI Date Seen: 10/31/23 Time Seen: 13:14 Requesting Physician: Gordy Hernández MD Primary Care Provider: Kotsas García DO Consult Narrative Reason for consult: uro sepsis Narrative: Chaz Downey is a 88 year old male who is status post cysto with left stent placement for staghorn stones last week. He presented to the hospital with weakness, fever. He was found to have urosepsis with Gram-negative bacilli growing in his blood and urine. He was scheduled to have a definitive procedure performed for his large bladder stone this coming week but that may need to be placed on hold given his recent infection. Review of Systems Review of Systems: All systems reviewed & are unremarkable except as noted in HPI and below PMFSH Past Medical History Medical History Allergic rhinitis Arthritis Benign essential hypertension Chronic kidney disease, stage 3 Dementia Depression Fracture of femoral neck, right, closed (05/2019) Hyperlipidemia Hypertension Scoliosis Type 2 diabetes mellitus Hemoglobin A1c was 6.7% on 07/15/2020. Surgical History Surgical History History of hernia repair History of hip surgery (06/01/19) ORIF right hip fracture, bipolar. Left hip replacement. History of tonsillectomy History of transurethral resection of prostate Family History Family History Mother Osteoporosis Hypertension Crohn's colitis Carcinoma of colon Other Family history of arthritis Social History Social History Social History: Surrogate medical decision maker: Marbella Downey, spouse. Code status: Do not resuscitate. Smoking packs per day: 1 Smoking cigarettes per day: 20.0 Years smoked: 15 Smoking pack-years: 15.00 Smoking status: Former smoker Tobacco type: cigarettes Smoking end date: 03/01/76 Alcohol intake: never Substance use: never Do You Feel Safe in your Home?: Yes Lack of Transportation: No Lack of Food: Never True Current Housing: I Have Housing Concerned About Future Housing: No Difficulty Paying Gas/Electric Bills: No Difficulty Paying for Meds: No Currently Unemployed: No Education: Master's Degree or Higher Difficulty w/ Childcare or Family Care: No Living arrangements: with family Additional living arrangements comments: Lives with spouse in [place]. He has 2 grown children. 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. Spiritual care concerns: No Meds Home Medications and Allergies Home Medications Medication Instructions Recorded Confirmed Type cholecalciferol (vitamin D3) 10 400 unit PO DAILY 05/31/19 10/29/23 History mcg (400 unit) capsule (Vitamin D3) fluticasone propionate 50 50 mcg intranasal DAILY 05/31/19 10/29/23 History mcg/actuation nasal spray,
[2023-10-31 17:10] LABS: Glucose Point of Care 142 mg/dl (65-105)
[2023-10-31] MEDS: PSYLLIUM SUGAR FREE POWDER PACKET 1 PACKET PO (17:31)
[2023-10-31 20:10] LABS: Glucose Point of Care 237 mg/dl (65-105)
[2023-10-31] MEDS: DONEPEZIL HCL 5 MG TABLET PO (20:50)
[2023-10-31] MEDS: levoFLOXacin 750 MG/D5W 150 ML 750 MG/150 ML BAG 100 MG IVPB (21:30)
[2023-11-01] VITALS (9 sets, daily range): BP systolic 119–145; BP diastolic 44–66; PULSE 59–81; RESP 16–18; TEMP 36.4–37.1; O2SAT 99–100
[2023-11-01 05:18] LABS: Basophils Percent Auto 0.2 % (0.2-1.2); Eosinophils Absolute Auto 0.1 K/mm3 (0-0.3); Eosinophils Percent Auto 2.3 % (0-4.4); Hematocrit 31.5 % (42.0-52.0); Hemoglobin 9.9 g/dL (14.0-18.0); Immature Granulocyte Absolute 0.05 K/mm3 (0.00-0.031); Immature Granulocyte Percent A 0.8 % (0-0.5); Lymphocytes Absolute Auto 0.73 K/mm3 (0.9-3.2); Lymphocytes Percent Auto 12.2 % (18.3-44.2); Mean Corpuscular HGB Conc 31.4 g/dl (32-36); Mean Corpuscular Volume 95.5 fl (80-100); Mean Platelet Volume 9.7 fl (7.4-10.4); Monocytes Absolute Auto 0.3 K/mm3 (0.1-0.6); Monocytes Percent Auto 5.2 % (2.6-8.5); Neutrophils Absolute Auto 4.7 K/mm3 (1.3-6.7); Neutrophils Percent Auto 79.3 % (45.5-73.1); Platelet Count Result 133 k/mm3 (150-375); Red Cell Distribution Width 14.5 % (11.5-14.5)
[2023-11-01 05:33] LABS: Anion Gap 7 mmol/L (4-12); Blood Urea Nitrogen 39 mg/dL (9-20); Calcium 8.4 mg/dL (8.4-10.2); Carbon Dioxide 27 mmol/L (22-30); Chloride 104 mmol/L (98-107); Estimated CRCL calculation 27 ml/min; Estimated Glomerular Filt Rate 44; Glucose 124 mg/dL (65-110); Magnesium 1.9 mg/dL (1.6-2.3); Phosphorus 2.9 mg/dL (2.5-4.5); Potassium 3.7 mmol/L (3.4-5.0); Sodium 138 mmol/L (137-145)
[2023-11-01] MEDS: MEROPENEM 1 GM/NS 100 ML 1 GM/100 ML BAG IVPB ×2 (08:20→20:05)
[2023-11-01] MEDS: PSYLLIUM SUGAR FREE POWDER PACKET 1 PACKET PO (08:21)
[2023-11-01] MEDS: CELECOXIB 200 MG CAPSULE PO (08:21)
[2023-11-01] MEDS: ENOXAPARIN 30 MG/0.3 ML SYRINGE SUB-Q (08:21)
[2023-11-01] MEDS: FLUTICASONE PROPIONATE 0.05% NA SPR 16 GM BTL (*BKC) 2 SPRAY NASAL (08:21)
[2023-11-01] MEDS: FINASTERIDE 5 MG TABLET PO (08:22)
[2023-11-01] MEDS: DOCUSATE SODIUM 100 MG CAPSULE PO (08:22)
[2023-11-01] MEDS: MULTIVITAMINS THERAPEUTIC TAB (*BKC) 1 TABLET PO (08:22)
[2023-11-01] MEDS: SERTRALINE HCL 50 MG TABLET 100 MG PO (08:22)
[2023-11-01] MEDS: CHOLECALCIFEROL 400 UNITS TABLET (VIT D) PO (08:22)
[2023-11-01] MEDS: LORATADINE 10 MG TABLET PO (08:22)
[2023-11-01] MEDS: FAMOTIDINE 20 MG TABLET PO (08:22)
[2023-11-01] MEDS: guaiFENesin 12 HR 600 MG TABCR PO ×2 (08:22→20:09)
[2023-11-01 08:32] LABS: Glucose Point of Care 129 mg/dl (65-105)
[2023-11-01 12:23] LABS: Glucose Point of Care 176 mg/dl (65-105)
--- NOTE | 2023-11-01 12:32 | PM.IMPN ---
Progress Note: A&P Assessment and Plan (1) Sepsis: Code(s): A41.9 - Sepsis, unspecified organism Status: Acute Assessment and Plan: Patient presents with fever and found to have septicemia felt related to UTI. CXR showing mild atelectasis at left lung base. UA consistent with UTI. Old cultures reviewed and Levaquin started after appropriate cultures obtained. Lactic acid normal. WBC 18K. UCx GNB BCx growing GNB is both aerobic bottles of both set Meropenem added until culture results are known. WBC normal now. Follow up on UCx and BCx. (2) Hypotension: Code(s): I95.9 - Hypotension, unspecified Status: Acute Assessment and Plan: Rapid response called on 10/29 after patient found to be poorly responsive and SBP 78/40. Upon arrival, patient was awake and appropriate. He has baseline confusion. He was conversing normally. A fluid bolus had already been ordered and was just started when his repeat BP 108/47. No change in exam findings and no acute neuro changes. Meds reviewed and no recent meds that would contribute to low BP. states this happens at home. EKG showing NSR with sinus arrhythmias with one nonconducted PAC. TSH normal. Troponin negative x3. No recurrence. Monitor on tele. Replace potassium and Mag (3) Acute UTI: Code(s): N39.0 - Urinary tract infection, site not specified Status: Acute Assessment and Plan: As above (4) Bladder stone: Code(s): N21.0 - Calculus in bladder Status: Acute Assessment and Plan: Patient with large bladder stone and left partial staghorn renal stone. On 10/27, patient taken to the OR for cystoscopy, left retrograde pyelography and left ureteral stent placement. He tolerated the procedure well. Urology consulted given recent procedure and now sepsis from UTI. Appreciate their input (5) Type 2 diabetes mellitus: Qualifiers: Diabetes mellitus [facility] insulin use: without [facility] use Diabetes mellitus complication status: without complication Qualified Code(s): E11.9 - Type 2 diabetes mellitus without complications Code(s): E11.9 - Type 2 diabetes mellitus without complications Status: Chronic Assessment and Plan: A1c 6.9%. The patient's blood glucose was reviewed on 10/31 Glucose remains reasonably well controlled. Continue AccuCheks covering with sliding scale. Hypoglycemia protocol available as needed. Continue to follow. Diabetic diet (6) Dementia: Qualifiers: Dementia type: unspecified type Dementia behavioral disturbance: without behavioral disturbance Qualified Code(s): F03.90 - Unspecified dementia without behavioral disturbance Code(s): F03.90 - Unspecified dementia, unspecified severity, without behavioral disturbance, psychotic disturbance, mood disturbance, and anxiety Status: Acute Assessment and Plan: Baseline level of orientation is 0-1. Patient does appear to be at baseline. Safety precautions for falls. (7) Chronic kidney disease, stage 3: Code(s): N18.30 - Chronic kidney disease, stage 3 unspecified Status: Acute Assessment and Plan: Patient with CKD with baseline Cr 1.3- 1.6 range. Cr has been stable 1.5-1.6 since admission. Stable. Follow Plan TCP - Plt count dropped to 108K. Suspect more likely related to septicemia then from lovenox. Repeat plt count better. Continue to monitor for now. Anemia - Hgb was 12.9 on admission and has trended down to 9 range. Some of this related to IV fluids. Follow for now. He did this in July as well (13.4 -> 9-10 range). DVT prophylaxis - lovenox Code status - DNR Disp - PT/OT Subjective Date/time seen: 11/01/23 12:32 Interval history: 88yo male with dementia, HTN, DM and CKD here for fever. Patient is awake, alert but confused. Slept okay. Denies CP or abd pain. Complains of low back pain which is new. Exam Narrative:
[2023-11-01] MEDS: MAGNESIUM SULF 1 GM/D5W 100 ML 1 GM/100 ML BAG IVPB (13:12)
[2023-11-01] MEDS: POTASSIUM CHLORIDE 20 MEQ ER TABLET PO (13:12)
[2023-11-01 17:33] LABS: Glucose Point of Care 139 mg/dl (65-105)
[2023-11-01] MEDS: DONEPEZIL HCL 5 MG TABLET PO (20:09)
[2023-11-02] VITALS (9 sets, daily range): BP systolic 117–157; BP diastolic 51–67; PULSE 53–74; RESP 18–24; TEMP 36.6–36.7; O2SAT 99–100
[2023-11-02 01:25] LABS: Glucose Point of Care 259 mg/dl (65-105)
--- NOTE | 2023-11-02 08:13 | P.CDI_ITS ---
CDI Query Clarification Request BMI: 20.1 Nutritional Diagnostic Statement: Please refer to the comprehensive nutrition assessment for further information. If you agree with diagnosis of Severe protein calorie malnutrition related to loss from appetite, medical condition as evidenced by weight loss 12%/2 months, 9%/1 month; severe muscle wasting and fat loss. Please specify severity if known: * Mild * Moderate * Severe * Other/Unknown
[2023-11-02 08:38] LABS: Glucose Point of Care 130 mg/dl (65-105)
[2023-11-02] MEDS: guaiFENesin 12 HR 600 MG TABCR PO ×2 (09:42→20:40)
[2023-11-02] MEDS: FAMOTIDINE 20 MG TABLET PO (09:42)
[2023-11-02] MEDS: DOCUSATE SODIUM 100 MG CAPSULE PO (09:43)
[2023-11-02] MEDS: CELECOXIB 200 MG CAPSULE PO (09:43)
[2023-11-02] MEDS: FINASTERIDE 5 MG TABLET PO (09:43)
[2023-11-02] MEDS: MEROPENEM 1 GM/NS 100 ML 1 GM/100 ML BAG IVPB ×2 (09:43→20:40)
[2023-11-02] MEDS: ENOXAPARIN 30 MG/0.3 ML SYRINGE SUB-Q (09:43)
[2023-11-02] MEDS: CHOLECALCIFEROL 400 UNITS TABLET (VIT D) PO (09:43)
[2023-11-02] MEDS: MULTIVITAMINS THERAPEUTIC TAB (*BKC) 1 TABLET PO (09:43)
[2023-11-02] MEDS: LORATADINE 10 MG TABLET PO (09:43)
[2023-11-02] MEDS: PSYLLIUM SUGAR FREE POWDER PACKET 1 PACKET PO (09:43)
[2023-11-02] MEDS: SERTRALINE HCL 50 MG TABLET 100 MG PO (09:43)
[2023-11-02] MEDS: FLUTICASONE PROPIONATE 0.05% NA SPR 16 GM BTL (*BKC) 2 SPRAY NASAL (09:49)
[2023-11-02 12:27] LABS: Glucose Point of Care 178 mg/dl (65-105)
--- NOTE | 2023-11-02 12:33 | PM.IMPN ---
Progress Note: A&P Assessment and Plan (1) Sepsis: Code(s): A41.9 - Sepsis, unspecified organism Status: Acute Assessment and Plan: Patient presents with fever and found to have septicemia felt related to UTI. CXR showing mild atelectasis at left lung base. UA consistent with UTI. Old cultures reviewed and Levaquin started after appropriate cultures obtained. Lactic acid normal. WBC 18K. UCx GNB BCx growing Pseudomonas is one aerobic bottle; GNB in the other aerobic bottle felt to be the same organism Meropenem added when BCx were positive. WBC normal now. Follow up on UCx and BCx. (2) Hypotension: Code(s): I95.9 - Hypotension, unspecified Status: Acute Assessment and Plan: Rapid response called on 10/29 after patient found to be poorly responsive and SBP 78/40. Upon arrival, patient was awake and appropriate. He has baseline confusion. He was conversing normally. A fluid bolus had already been ordered and was just started when his repeat BP 108/47. No change in exam findings and no acute neuro changes. Meds reviewed and no recent meds that would contribute to low BP. states this happens at home. EKG showing NSR with sinus arrhythmias with one nonconducted PAC. TSH normal. Troponin negative x3. Tele showing either prolonged 1st degree or possible 2nd degree followed by junctional rhythm No recurrence since olimpia on the monitor. Continue to monitor on tele. Possibly home with event recorder. (3) Acute UTI: Code(s): N39.0 - Urinary tract infection, site not specified Status: Acute Assessment and Plan: As above (4) Bladder stone: Code(s): N21.0 - Calculus in bladder Status: Acute Assessment and Plan: Patient with large bladder stone and left partial staghorn renal stone. On 10/27, patient taken to the OR for cystoscopy, left retrograde pyelography and left ureteral stent placement. He tolerated the procedure well. Urology consulted given recent procedure and now sepsis from UTI. Apprecaite their input Appreciate their input (5) Type 2 diabetes mellitus: Qualifiers: Diabetes mellitus custodial insulin use: without custodial use Diabetes mellitus complication status: without complication Qualified Code(s): E11.9 - Type 2 diabetes mellitus without complications Code(s): E11.9 - Type 2 diabetes mellitus without complications Status: Chronic Assessment and Plan: A1c 6.9%. The patient's blood glucose was reviewed on 11/01 Glucose remains mostly well controlled. Continue AccuCheks covering with sliding scale. Hypoglycemia protocol available as needed. Continue to follow. Diabetic diet (6) Dementia: Qualifiers: Dementia type: unspecified type Dementia behavioral disturbance: without behavioral disturbance Qualified Code(s): F03.90 - Unspecified dementia without behavioral disturbance Code(s): F03.90 - Unspecified dementia, unspecified severity, without behavioral disturbance, psychotic disturbance, mood disturbance, and anxiety Status: Acute Assessment and Plan: Baseline level of orientation is 0-1. Patient does appear to be at baseline. Safety precautions for falls. (7) Chronic kidney disease, stage 3: Code(s): N18.30 - Chronic kidney disease, stage 3 unspecified Status: Acute Assessment and Plan: Patient with CKD with baseline Cr 1.3- 1.6 range. Cr has been stable 1.5-1.6 since admission. Stable. Follow Plan TCP - Plt count dropped to 108K. Suspect more likely related to septicemia then from lovenox. Repeat plt count better. Continue to monitor for now. Anemia - Hgb was 12.9 on admission and has trended down to 9 range. Some of this related to IV fluids. Follow for now. He did this in July as well (13.4 -> 9-10 range). DVT prophylaxis - lovenox Code status - DNR Disp - PT/OT Subjective Date/time seen: 11/02/23 12:33 Interval hi
--- NOTE | 2023-11-02 15:59 | WPDUROPN2 ---
Progress Note: A&P Assessment and Plan (1) Sepsis: Code(s): A41.9 - Sepsis, unspecified organism Status: Acute Assessment and Plan: Urine culture and blood culture with gram negative rods. Pseudomonas in 1 blood culture. Currently being treated with IV antibiotics while awaiting final cultures. (2) Bladder stone: Code(s): N21.0 - Calculus in bladder Status: Acute Assessment and Plan: Scheduled for surgery with Dr. Powell 11/04/23. Will cancel given acute infection/sepsis and reschedule pending resolution of infection. (3) Urolithiasis: Code(s): N20.9 - Urinary calculus, unspecified Status: Acute Assessment and Plan: Status post left stent placement. Will require management at later date. Subjective Subjective Date/Time Seen: 11/02/23 15:59 Interval history: Chaz is doing well today. Sitting up in bed eating breakfast. Not able to provide much history due to dementia. Denies pain, dysuria, fever, or chills. Review of Systems Review of Systems: ROS unobtainable: Yes unobtainable due to mental status Exam Narrative: General: Awake, alert, comfortable, no acute distress HEENT: Normocephalic, atraumatic, sclerae anicteric Respiratory: Normal respiratory effort, no accessory muscle use Abdomen: Nondistended, soft, nontender Skin: Normal coloration, warm and dry Neurologic: No focal neuro deficits noted, confused Psychiatric: Appropriate mood and affect, judgment and insight poor Objective Data Vital Signs Vital Signs: Vital Signs - 24 hr 11/01/23 16:00 11/01/23 20:09 11/01/23 20:00 Temperature 98.1 F Pulse Rate 76 70 75 Respiratory Rate 18 Blood Pressure 140/65 Pulse Oximetry 99 Oxygen Delivery 11/02/23 00:00 11/02/23 04:00 11/02/23 06:00 Temperature 97.9 F Pulse Rate 72 58 L 56 L Respiratory Rate 18 Blood Pressure 157/62 H Pulse Oximetry 100 Oxygen Delivery 11/02/23 10:13 11/02/23 10:13 11/02/23 12:00 Temperature Pulse Rate 53 L 74 Respiratory Rate Blood Pressure Pulse Oximetry Oxygen Delivery Room Air Intake/Output Intake/Output: Intake & Output 10/30/23 10/31/23 11/01/23 11/02/23 23:59 23:59 23:59 23:59 Intake Total 1770 1220 1260 820 Balance 1770 1220 1260 820 Meds/Results Medications: Active Medications Generic Name Dose Route Start Last Admin Trade Name Freq PRN Reason Stop Dose Admin Acetaminophen 650 mg 10/30/23 05:50 10/30/23 23:54 Acetaminophen 325 Mg Tablet PO 650 mg Q6H PRN Administration Mild Pain (1-3) or Fever Celecoxib 200 mg 10/30/23 09:00 11/02/23 09:43 Celecoxib 200 Mg Capsule PO 200 mg DAILY AMELIE Administration Dextrose 12.5 gm 10/29/23 22:50 Dextrose 50% 25 Gm/50 Ml Syringe IV PUSH PRN PRN Hypoglycemia Protocol Docusate Sodium 100 mg 10/30/23 09:20 11/02/23 09:43 Docusate Sodium 100 Mg Capsule PO 100 mg DAILY AMELIE Administration Donepezil HCl 5 mg 10/30/23 21:00 11/01/23 20:09 Donepezil Hcl 5 Mg Tablet PO 5 mg HS AMELIE Administration Enoxaparin Sodium 30 mg 10/30/23 09:00 11/02/23 09:43 Enoxaparin 30 Mg/0.3 Ml Syringe SUB-Q 30 mg DAILY AMELIE Administration Famotidine 20 mg 10/30/23 09:00 11/02/23 09:42 Famotidine 20 Mg Tablet PO 20 mg DAILY AMELIE Administration Finasteride 5 mg 10/30/23 09:00 11/02/23 09:43 Finasteride 5 Mg Tablet PO 5 mg DAILY AMELIE Administration Fluticasone Propionate 2 spray 10/30/23 09:00 11/02/23 09:49 Fluticasone Propionate 0.05% Na Spr 16 Gm Btl (*Bkc) NASAL 2 spray DAILY AMELIE Administration Glucagon 1 mg 10/29/23 22:50 Glucagon For Inj 1 Mg Vial IM PRN PRN Hypoglycemia Protocol Glucose 15 gm 10/29/23 22:50 Glucose Oral Gel 15 Gm Of Glucse In 37.5 Gm Tube PO PRN PRN Hypoglycemia Protocol Guaifenesin 600 mg 10/30/23 09:15 11/02/23 09:42 Guaifenesin 12
[2023-11-02 17:05] LABS: Glucose Point of Care 156 mg/dl (65-105)
[2023-11-02] MEDS: DONEPEZIL HCL 5 MG TABLET PO (20:40)
[2023-11-02 21:30] LABS: Glucose Point of Care 237 mg/dl (65-105)
[2023-11-03] VITALS (10 sets, daily range): BP systolic 125–156; BP diastolic 44–66; PULSE 52–94; RESP 17–21; TEMP 36.6–37.1; O2SAT 91–100
[2023-11-03 09:18] LABS: Glucose Point of Care 135 mg/dl (65-105)
[2023-11-03] MEDS: CELECOXIB 200 MG CAPSULE PO (09:19)
[2023-11-03] MEDS: DOCUSATE SODIUM 100 MG CAPSULE PO (09:19)
[2023-11-03] MEDS: LORATADINE 10 MG TABLET PO (09:19)
[2023-11-03] MEDS: PSYLLIUM SUGAR FREE POWDER PACKET 1 PACKET PO (09:19)
[2023-11-03] MEDS: MEROPENEM 1 GM/NS 100 ML 1 GM/100 ML BAG IVPB (09:19)
[2023-11-03] MEDS: MULTIVITAMINS THERAPEUTIC TAB (*BKC) 1 TABLET PO (09:19)
[2023-11-03] MEDS: SERTRALINE HCL 50 MG TABLET 100 MG PO (09:19)
[2023-11-03] MEDS: CHOLECALCIFEROL 400 UNITS TABLET (VIT D) PO (09:19)
[2023-11-03] MEDS: FAMOTIDINE 20 MG TABLET PO (09:19)
[2023-11-03] MEDS: FINASTERIDE 5 MG TABLET PO (09:19)
[2023-11-03] MEDS: guaiFENesin 12 HR 600 MG TABCR PO ×2 (09:19→20:31)
[2023-11-03] MEDS: ENOXAPARIN 30 MG/0.3 ML SYRINGE SUB-Q (09:20)
[2023-11-03] MEDS: FLUTICASONE PROPIONATE 0.05% NA SPR 16 GM BTL (*BKC) 2 SPRAY NASAL (09:31)
[2023-11-03 12:10] LABS: Glucose Point of Care 122 mg/dl (65-105)
--- NOTE | 2023-11-03 12:56 | PM.IMPN ---
Progress Note: A&P Assessment and Plan (1) Sepsis: Code(s): A41.9 - Sepsis, unspecified organism Status: Acute Assessment and Plan: Patient presents with fever and found to have septicemia felt related to UTI. CXR showing mild atelectasis at left lung base. UA consistent with UTI. pseudomonas found in urine Meropenem added WBC normal now. Follow up on UCx and BCx. (2) Hypotension: Code(s): I95.9 - Hypotension, unspecified Status: Acute Assessment and Plan: Rapid response called on 10/29 after patient found to be poorly responsive and SBP 78/40. Upon arrival, patient was awake and appropriate. He has baseline confusion. He was conversing normally. A fluid bolus had already been ordered and was just started when his repeat BP 108/47. No change in exam findings and no acute neuro changes. Meds reviewed and no recent meds that would contribute to low BP. states this happens at home. EKG showing NSR with sinus arrhythmias with one nonconducted PAC. TSH normal. Troponin negative x3. No recurrence. Monitor on tele. Replace potassium and Mag (3) Acute UTI: Code(s): N39.0 - Urinary tract infection, site not specified Status: Acute Assessment and Plan: As above (4) Bladder stone: Code(s): N21.0 - Calculus in bladder Status: Acute Assessment and Plan: Patient with large bladder stone and left partial staghorn renal stone. On 10/27, patient taken to the OR for cystoscopy, left retrograde pyelography and left ureteral stent placement. He tolerated the procedure well. Urology consulted given recent procedure and now sepsis from UTI. Appreciate their input (5) Type 2 diabetes mellitus: Qualifiers: Diabetes mellitus terminal make up operator insulin use: without terminal make up operator use Diabetes mellitus complication status: without complication Qualified Code(s): E11.9 - Type 2 diabetes mellitus without complications Code(s): E11.9 - Type 2 diabetes mellitus without complications Status: Chronic Assessment and Plan: A1c 6.9%. The patient's blood glucose was reviewed on 10/31 Glucose remains reasonably well controlled. Continue AccuCheks covering with sliding scale. Hypoglycemia protocol available as needed. Continue to follow. Diabetic diet (6) Dementia: Qualifiers: Dementia type: unspecified type Dementia behavioral disturbance: without behavioral disturbance Qualified Code(s): F03.90 - Unspecified dementia without behavioral disturbance Code(s): F03.90 - Unspecified dementia, unspecified severity, without behavioral disturbance, psychotic disturbance, mood disturbance, and anxiety Status: Acute Assessment and Plan: Baseline level of orientation is 0-1. Patient does appear to be at baseline. Safety precautions for falls. (7) Chronic kidney disease, stage 3: Code(s): N18.30 - Chronic kidney disease, stage 3 unspecified Status: Acute Assessment and Plan: Patient with CKD with baseline Cr 1.3- 1.6 range. Cr has been stable 1.5-1.6 since admission. Stable. Follow Plan TCP - Plt count dropped to 108K. Suspect more likely related to septicemia then from lovenox. Repeat plt count better. Continue to monitor for now. Anemia - Hgb was 12.9 on admission and has trended down to 9 range. Some of this related to IV fluids. Follow for now. He did this in July as well (13.4 -> 9-10 range). Subjective Date/time seen: 11/03/23 12:56 Interval history: 88yo male with dementia, HTN, DM and CKD here for fever. Sp left stent placement. Scheduled for surgery with Dr. Powell 11/04/23. Continue to treat urinary infection pt found to have pseudomonas infection on merrem Review of Systems Review of Systems: No specific complains of pain or fever Exam Narrative: Generally: Elderly male pleasant nature Chest - CTA bilaterally, nml RR CV - RRR S1/S2.Tele showing
[2023-11-03 17:00] LABS: Glucose Point of Care 136 mg/dl (65-105)
[2023-11-03] MEDS: DONEPEZIL HCL 5 MG TABLET PO (20:31)
[2023-11-03] MEDS: levoFLOXacin 750 MG TABLET PO (20:31)
[2023-11-03 20:47] LABS: Glucose Point of Care 190 mg/dl (65-105)
[2023-11-04] VITALS (9 sets, daily range): BP systolic 116–149; BP diastolic 43–60; PULSE 60–82; RESP 17–99; TEMP 36.3–36.7; O2SAT 16–100
[2023-11-04 05:33] LABS: Hematocrit 31.2 % (42.0-52.0); Mean Corpuscular HGB Conc 32.1 g/dl (32-36); Mean Corpuscular Hemoglobin 29.9 pg (26-34); Mean Corpuscular Volume 93.4 fl (80-100); Mean Platelet Volume 9.2 fl (7.4-10.4); Platelet Count Result 175 k/mm3 (150-375); Red Blood Count 3.34 M/mm3 (4.6-6.20); Red Cell Distribution Width 14.1 % (11.5-14.5); White Blood Count 7.3 K/mm3 (4.5-10.0)
[2023-11-04 05:47] LABS: Potassium 4.2 mmol/L (3.4-5.0)
[2023-11-04 05:48] LABS: Anion Gap 5 mmol/L (4-12); Blood Urea Nitrogen 32 mg/dL (9-20); Calcium 8.4 mg/dL (8.4-10.2); Carbon Dioxide 31 mmol/L (22-30); Chloride 101 mmol/L (98-107); Estimated CRCL calculation 29 ml/min; Estimated Glomerular Filt Rate 48; Glucose 117 mg/dL (65-110); Sodium 137 mmol/L (137-145)
[2023-11-04 08:53] LABS: Glucose Point of Care 121 mg/dl (65-105)
[2023-11-04] MEDS: MULTIVITAMINS THERAPEUTIC TAB (*BKC) 1 TABLET PO (10:17)
[2023-11-04] MEDS: FAMOTIDINE 20 MG TABLET PO (10:17)
[2023-11-04] MEDS: CELECOXIB 200 MG CAPSULE PO (10:17)
[2023-11-04] MEDS: SERTRALINE HCL 50 MG TABLET 100 MG PO (10:17)
[2023-11-04] MEDS: FINASTERIDE 5 MG TABLET PO (10:17)
[2023-11-04] MEDS: guaiFENesin 12 HR 600 MG TABCR PO ×2 (10:17→20:28)
[2023-11-04] MEDS: DOCUSATE SODIUM 100 MG CAPSULE PO (10:18)
[2023-11-04] MEDS: LORATADINE 10 MG TABLET PO (10:18)
[2023-11-04] MEDS: CHOLECALCIFEROL 400 UNITS TABLET (VIT D) PO (10:18)
[2023-11-04] MEDS: PSYLLIUM SUGAR FREE POWDER PACKET 1 PACKET PO (10:18)
[2023-11-04] MEDS: FLUTICASONE PROPIONATE 0.05% NA SPR 16 GM BTL (*BKC) 2 SPRAY NASAL (10:32)
[2023-11-04] MEDS: ENOXAPARIN 30 MG/0.3 ML SYRINGE SUB-Q (10:32)
[2023-11-04 11:47] LABS: Glucose Point of Care 179 mg/dl (65-105)
--- NOTE | 2023-11-04 12:30 | PCNFU ---
Nutrition Follow-Up Complete: Severe protein calorie malnutrition related to loss from appetite, medical condition as evidenced by weight loss 12%/2 months, 9%/1 month; severe muscle wasting and fat loss Goal:Adequate intake at least 75% meals and supplements Pt is progressing towards goal. Continue with same goal. Pt current nutrition is Diabetic consistent carb, Glucerna TID. Nutrition recommendation: continue with current plan of care. Last recorded weight is 61.7 kg. Bowel Motility: No BM recorded at this time Labs Reviewed: Hgb:10, HCT:31.2, GFR:48, BUN:32, Cr:1.4, Glu:117 Meds Noted: lovenox, novolog Skin: No skin issues noted Additional Notes: Pt continues on a diabetic diet, intake 50-75% at this time. Glucerna shakes TID in place. Agree with orders. Monitoring intakes, weights, labs, supplement tolerance, plan of care Follow up in 5 days
--- NOTE | 2023-11-04 16:26 | PM.IMPN ---
Progress Note: A&P Assessment and Plan (1) Sepsis: Code(s): A41.9 - Sepsis, unspecified organism Status: Acute Assessment and Plan: Patient presents with fever and found to have septicemia felt related to UTI. CXR showing mild atelectasis at left lung base. UA consistent with UTI. pseudomonas found in urine Meropenem added iv pt transition to levaquin rpt BC today WBC normal now. (2) Hypotension: Code(s): I95.9 - Hypotension, unspecified Status: Acute Assessment and Plan: Rapid response called on 10/29 after patient found to be poorly responsive and SBP 78/40. Upon arrival, patient was awake and appropriate. He has baseline confusion. He was conversing normally. A fluid bolus had already been ordered and was just started when his repeat BP 108/47. No change in exam findings and no acute neuro changes. Meds reviewed and no recent meds that would contribute to low BP. states this happens at home. EKG showing NSR with sinus arrhythmias with one nonconducted PAC. TSH normal. Troponin negative x3. No recurrence. Monitor on tele. Replace potassium and Mag (3) Acute UTI: Code(s): N39.0 - Urinary tract infection, site not specified Status: Acute Assessment and Plan: As above (4) Bladder stone: Code(s): N21.0 - Calculus in bladder Status: Acute Assessment and Plan: Patient with large bladder stone and left partial staghorn renal stone. On 10/27, patient taken to the OR for cystoscopy, left retrograde pyelography and left ureteral stent placement. He tolerated the procedure well. Urology consulted given recent procedure and now sepsis from UTI. Appreciate their input (5) Type 2 diabetes mellitus: Qualifiers: Diabetes mellitus correction insulin use: without long goods drier use Diabetes mellitus complication status: without complication Qualified Code(s): E11.9 - Type 2 diabetes mellitus without complications Code(s): E11.9 - Type 2 diabetes mellitus without complications Status: Chronic Assessment and Plan: A1c 6.9%. The patient's blood glucose was reviewed on 10/31 Glucose remains reasonably well controlled. Continue AccuCheks covering with sliding scale. Hypoglycemia protocol available as needed. Continue to follow. Diabetic diet (6) Dementia: Qualifiers: Dementia type: unspecified type Dementia behavioral disturbance: without behavioral disturbance Qualified Code(s): F03.90 - Unspecified dementia without behavioral disturbance Code(s): F03.90 - Unspecified dementia, unspecified severity, without behavioral disturbance, psychotic disturbance, mood disturbance, and anxiety Status: Acute Assessment and Plan: Baseline level of orientation is 0-1. Patient does appear to be at baseline. Safety precautions for falls. (7) Chronic kidney disease, stage 3: Code(s): N18.30 - Chronic kidney disease, stage 3 unspecified Status: Acute Assessment and Plan: Patient with CKD with baseline Cr 1.3- 1.6 range. Cr has been stable 1.5-1.6 since admission. Stable. Follow Plan TCP - Plt count dropped to 108K. Continue to monitor for now. Anemia - Hgb was 12.9 on admission and has trended down to 9 range. in July as well (13.4 -> 9-10 range). Subjective Date/time seen: 11/04/23 16:26 Interval history: 88yo male with dementia, HTN, DM and CKD here for fever. Sp left stent placement. Scheduled for surgery with Dr. Powell 11/04/23. Continue to treat urinary infection pt found to have pseudomonas infection on Merrem switched to levaquin rpt BC prior to DC Review of Systems Review of Systems: no specific complaints Exam Narrative: Generally: Elderly male pleasant nature Chest - CTA bilaterally, nml RR CV - RRR S1/S2.Tele showing sinus arrhythmia and p wave followed by a jct rhythm (vs very prolonged 1st degree) Abd - Soft, NT/ND, Pos
[2023-11-04 17:40] LABS: Glucose Point of Care 132 mg/dl (65-105)
[2023-11-04] MEDS: DONEPEZIL HCL 5 MG TABLET PO (20:28)
[2023-11-04 20:43] LABS: Glucose Point of Care 174 mg/dl (65-105)
[2023-11-05] VITALS: PULSE 72
[2023-11-05 04:00] VITALS: PULSE 74
[2023-11-05 04:37] VITALS: BP 155/55; PULSE 58; RESP 17; TEMP 36.8; O2SAT 100
[2023-11-05 05:41] LABS: Hemoglobin 10.6 g/dL (14.0-18.0); Mean Corpuscular HGB Conc 32.1 g/dl (32-36); Mean Corpuscular Hemoglobin 29.8 pg (26-34); Mean Corpuscular Volume 92.7 fl (80-100); Mean Platelet Volume 8.9 fl (7.4-10.4); Platelet Count Result 192 k/mm3 (150-375); Red Blood Count 3.56 M/mm3 (4.6-6.20); Red Cell Distribution Width 14.2 % (11.5-14.5); White Blood Count 10.6 K/mm3 (4.5-10.0)
[2023-11-05 05:50] LABS: Anion Gap 6 mmol/L (4-12); Blood Urea Nitrogen 29 mg/dL (9-20); Calcium 8.8 mg/dL (8.4-10.2); Carbon Dioxide 29 mmol/L (22-30); Chloride 102 mmol/L (98-107); Estimated CRCL calculation 29 ml/min; Estimated Glomerular Filt Rate 48; Glucose 122 mg/dL (65-110); Potassium 4.3 mmol/L (3.4-5.0); Sodium 137 mmol/L (137-145)
[2023-11-05 08:00] VITALS: PULSE 57
--- NOTE | 2023-11-05 08:14 | PM.DS ---
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: without longterm use Qualified Code(s): E11.9 - Type 2 diabetes mellitus without complications Code(s): E11.9 - Type 2 diabetes mellitus without complications Status: Chronic (6) Dementia: Qualifiers: Dementia behavioral disturbance: without behavioral disturbance Dementia type: unspecified type Qualified Code(s): F03.90 - Unspecified dementia without behavioral disturbance Code(s): F03.90 - Unspecified dementia, unspecified severity, without behavioral disturbance, psychotic disturbance, mood disturbance, and anxiety Status: Acute (7) Chronic kidney disease, stage 3: Code(s): N18.30 - Chronic kidney disease, stage 3 unspecified Status: Acute DS: Summary Hospital Course Hospital Course: This is an 88-year-old male [place] [facility] resident underlying baseline dementia alert and oriented times 0-1 presented with fever and increasing generalized weakness. Patient was unable to get out of bed which is abnormal for him. He recently underwent urological procedure by Dr. Win grifftihs for ureteral stent placed due to large bladder stone. He is planned to have another procedure to get bladder stone removed on 11/04/2023. He had a recorded temperature of 102? prior to admission. On arrival to the ED was found to be tachypneic tachycardic with low-grade fever. He was started on sepsis protocol with IV fluid resuscitation. Lactic acid was normal. EKG showed normal sinus rhythm. Laboratory evaluation showed leukocytosis of 18,000 BUN 51 creatinine of 1.6 which is at his baseline. Chest x-ray showed no acute cardiopulmonary process. UA consistent with UTI. Urine culture and blood culture was obtained. He was started on IV Levaquin. On 10/30/2023 rapid response was called for patient being poorly responsive and systolic blood pressure 74. Fluid resuscitation with improvement. His urine culture showed Pseudomonas. Blood cultures were also positive for Pseudomonas. Antibiotics were switched to meropenem. Culture and sensitivity came back sensitive to Levaquin and hence was switched back to Levaquin. WBC count has normalized. Scheduled plan for bladder stone removal postponed due to current sepsis for a later date. Underlying diabetes was managed with SSI. Chronic kidney disease stable throughout the admission. Noted thrombocytopenia during the hospital admission and anemia likely due to underlying infection. No signs of bleeding were noted during the hospital stay. He will complete a course of Levaquin upon discharge and will follow up with Urology as an outpatient basis for bladder stone removal. Time Spent with Patient Time attestation: Total time spent providing and/or coordinating discharge services: 40 minutes Exam Narrative: Generally: Elderly male pleasant nature Chest - CTA bilaterally, nml RR CV - RRR S1/S2. Abd - Soft, NT/ND, Positive BS. Ext - No pedal edema Neuro - Alert but confused Psych - Nml mood and affect Skin - Warm and dry DS: Data Data Completed and Pending Labs on day of discharge: Labs from last 24 hours 11/05/23 11/04/23 11/04/23 05:34 19:53 17:25 WBC 10.6 H RBC 3.56 L Hgb 10.6 L Hct 33.0 L MCV 92.7 MCH 29.8 MCHC 32.1 RDW 14.2 Plt Count 192 MPV 8.9 Sodium 137 Potassium 4.3
[2023-11-05] MEDS: CELECOXIB 200 MG CAPSULE PO (08:23)
[2023-11-05] MEDS: FLUTICASONE PROPIONATE 0.05% NA SPR 16 GM BTL (*BKC) 2 SPRAY NASAL (08:23)
[2023-11-05] MEDS: DOCUSATE SODIUM 100 MG CAPSULE PO (08:24)
[2023-11-05] MEDS: FINASTERIDE 5 MG TABLET PO (08:24)
[2023-11-05] MEDS: FAMOTIDINE 20 MG TABLET PO (08:24)
[2023-11-05] MEDS: MULTIVITAMINS THERAPEUTIC TAB (*BKC) 1 TABLET PO (08:24)
[2023-11-05] MEDS: LORATADINE 10 MG TABLET PO (08:24)
[2023-11-05] MEDS: SERTRALINE HCL 50 MG TABLET 100 MG PO (08:24)
[2023-11-05] MEDS: guaiFENesin 12 HR 600 MG TABCR PO (08:24)
[2023-11-05] MEDS: PSYLLIUM SUGAR FREE POWDER PACKET 1 PACKET PO (08:24)
[2023-11-05] MEDS: CHOLECALCIFEROL 400 UNITS TABLET (VIT D) PO (08:24)
[2023-11-05] MEDS: ENOXAPARIN 30 MG/0.3 ML SYRINGE SUB-Q (08:28)
[2023-11-05 08:36] LABS: Glucose Point of Care 119 mg/dl (65-105)
[2023-11-05 12:00] VITALS: PULSE 59
[2023-11-05 12:17] LABS: Glucose Point of Care 134 mg/dl (65-105)
== END 2023-11-05 14:01 | DRG 871 ==
LOC: ANHED 22:00 → ANH3MED 23:17
PROVIDERS: Family Medicine; Nurse Practitioner Adult Health; Admitting Provider Internal Medicine; Emergency Provider Emergency Medicine; PCP Family Medicine; Visit Provider Internal Medicine
DX: A41.9 Sepsis, unspecified organism (principal); E43 Unspecified severe protein-calorie malnutrition; N39.0 Urinary tract infection, site not specified; B96.5 Pseudomonas (aeruginosa) (mallei) (pseudomallei) as the cause of diseases classified elsewhere; D69.6 Thrombocytopenia, unspecified; D63.1 Anemia in chronic kidney disease; E11.22 Type 2 diabetes mellitus with diabetic chronic kidney disease; E78.5 Hyperlipidemia, unspecified; F02.80 Dementia in other diseases classified elsewhere, unspecified severity, without behavioral disturbance, psychotic disturbance, mood disturbance, and anxiety; G30.0 Alzheimer's disease with early onset; I12.9 Hypertensive chronic kidney disease with stage 1 through stage 4 chronic kidney disease, or unspecified chronic kidney disease; I95.9 Hypotension, unspecified; N18.30 Chronic kidney disease, stage 3 unspecified; N21.0 Calculus in bladder; Z66 Do not resuscitate; Z20.822 Contact with and (suspected) exposure to COVID-19; Z96.0 Presence of urogenital implants; Z68.20 Body mass index [BMI] 20.0-20.9, adult; Z87.891 Personal history of nicotine dependence
CPT/HCPCS: 36415; 71045; 80048; 80053; 80069; 81001; 82607; 82746; 82948; 83036; 83605; 83735; 84443; 84484; 85025; 85027; 87040; 87077; 87086; 87088; 87186; 87636; 93005; 96361; 96365; 97110; 97161; 97165; 97530; 97535; 99285; A9270; G0378; J1650; J1956; J2185; J3475; J7030

== ENCOUNTER 2024-03-28 12:19 | Emergency (ER) | payer MEDICARE, SELFPAY ==
[2024-03-28 12:18] VITALS: BP 112/87; PULSE 56; RESP 30; TEMP 36.4; O2SAT 81
[2024-03-28 12:33] VITALS: O2SAT 82
--- NOTE | 2024-03-28 12:54 | ED.GENADULT ---
HPI - General Adult General Chief complaint: Altered Mental Status Stated complaint: unresponsive History of Present Illness HPI narrative: 88-year-old male presenting emergency department for evaluation for being unresponsive. Patient has DNI DNR comfort care. Patient was alert and is baseline this morning and then when the staff went to check on him they found him unresponsive. Patient was requiring 15 L of oxygen to maintain a pulse ox of 85%. Patient we did contact the family and they do wish to honor the DNI DNR comfort care. Related Data Home Medications ?Medication ?Instructions ?Recorded ?Confirmed ?Last Taken ?Type cholecalciferol (vitamin D3) 10 2,000 unit PO DAILY 05/31/19 03/18/24 03/17/24 History mcg (400 unit) capsule (Vitamin D3) fluticasone propionate 50 50 mcg intranasal DAILY 05/31/19 03/18/24 03/17/24 History mcg/actuation nasal spray,suspension (Flonase Allergy Relief) guaifenesin 600 mg tablet, 600 mg PO Q12H 09/28/22 03/18/24 03/17/24 History extended release 12 hr (Mucinex) acetaminophen 325 mg capsule 650 mg PO Q6H PRN Pain (Scale 08/13/23 03/18/24 Unknown History (Tylenol) Score 1-3) loratadine 10 mg tablet (Claritin) 10 mg PO DAILY 08/13/23 03/18/24 03/17/24 History multivitamin 1 tablet PO DAILY 08/13/23 03/18/24 03/17/24 History celecoxib 200 mg capsule (Celebrex) 200 mg PO DAILY 10/25/23 03/18/24 03/17/24 History psyllium husk 0.4 gram capsule 0.4 g PO DAILY 10/25/23 03/18/24 03/17/24 History (Metamucil) Allergies Allergy/AdvReac Type Severity Reaction Status Date / Time tetanus toxoid, adsorbed Allergy Severe HIVES Verified 10/29/23 20:01 Review of Systems Review of Systems: ROS unobtainable: Yes unobtainable due to medical condition [facility] Past Medical History Medical History (Updated 03/28/24 @ 13:31 by Driss Pathak MD) Peripheral arterial disease Essential (primary) hypertension Chronic kidney disease, stage 3 Scoliosis Type 2 diabetes mellitus Hemoglobin A1c was 6.7% on 07/15/2020. Hyperlipidemia Dementia Allergic rhinitis Arthritis Depression Surgical History Surgical History (Updated 03/18/24 @ 02:57 by Isha Duarte DO) History of hernia repair History of transurethral resection of prostate History of hip surgery (06/01/19) ORIF right hip fracture, bipolar. Left hip replacement. History of tonsillectomy Family History Family History Mother Osteoporosis Hypertension Crohn's colitis Carcinoma of colon Other Family history of arthritis Social History Social History (Updated 03/18/24 @ 07:46 by Isha Duarte DO) Social History: The patient is but lives in [place]. Healthcare power of assistant county attorney: Marbella Downey, spouse. Code status: DNR/DNI Smoking packs per day: 1 Smoking cigarettes per day: 20.0 Years smoked: 15 Smoking pack-years: 15.00 Smoking status: Former smoker Alcohol intake: never Substance use: never Do You Feel Safe in your Home?: Yes Lack of Transportation: No Lack of Food: Never True Current Housing: I Have Housing Concerned About Future Housing: No Difficulty Paying Gas/Electric Bills: No Difficulty Paying for Meds: No Currently Unemployed: No Education: Master's Degree or Higher Difficulty w/ Childcare or Family Care: No Living arrangements: with family Additional living arrangements comments: Lives with spouse in [place]. He has 2 grown children. 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 Spiritual care concerns: No Course Vital Signs Vital signs: Vital Signs Temperature 97.5 F L 03/28/24 12:18 Pulse Rate 56 L 03/28/24 12:18 Respiratory Rate 30 H 03/28/24 12:18 Blood Pressure 112/87 03/28/24 12:18 Pulse Oximetry 81 L 03/28/24 12:18 Oxygen Delivery Non-Rebreather Mask 03/28/24 12:18 Oxygen Flow Rate 15 03/28/24 12:18 Temperature 97.5 F L 03/28/24 12:18 Pulse Rate 56 L 03/28/24 12:18 Respiratory Rate 30 H 03/28/24 12:18 Blood Pressure 112/87 03/28/24 12:18 Pulse Oximetry 82 L 03/28/24 12:33 Oxygen Delivery Non-Rebreather Mask 03/28/24 12:33 Oxygen Flow Rate 15 03/28/24 12:33 Medical Decision Making MDM Narrative Medical decision making narrative: 88-year-old male present to the emergency department for evaluation for being unresponsive. did confirm the patient is DNI DNR and did want to proceed with comfort care. A caregiver for the patient was present. Patient did pass at 1:25 p.m. primary care physician was notified and they are willing to sign the does difficult. Vital Signs Vital Signs: Vital Signs Temperature 97.5 F L 03/28/24 12:18 Pulse Rate 56 L 03/28/24 12:18 Respiratory Rate 30 H 03/28/24 12:18 Blood Pressure 112/87 03/28/24 12:18 Pulse Oximetry 81 L 03/28/24 12:18 Oxygen Delivery Non-Rebreather Mask 03/28/24 12:18 Oxygen Flow Rate 15 03/28/24 12:18 Temperature 97.5 F L 03/28/24 12:18 Pulse Rate 56 L 03/28/24 12:18 Respiratory Rate 30 H 03/28/24 12:18 Blood Pressure 112/87 03/28/24 12:18 Pulse Oximetry 82 L 03/28/24 12:33 Oxygen Delivery Non-Rebreather Mask 03/28/24 12:33 Oxygen Flow Rate 15 03/28/24 12:33 Discharge Plan Discharge Clinical Impression: Unresponsive Patient Disposition: Condition: Patient Language: Kazakh Prescriptions: No Action fluticasone propionate [Flonase Allergy Relief] 50 mcg/actuation [place],Suspension 50 mcg INTRANASAL DAILY cholecalciferol (vitamin D3) [Vitamin D3] 10 mcg (400 unit) Capsule 2,000 unit PO DAILY guaifenesin [Mucinex] 600 mg Tablet Extended Release 12hr 600 mg PO Q12H multivitamin Tablet 1 tablet PO DAILY loratadine [Claritin] 10 mg Tablet 10 mg PO DAILY acetaminophen [Tylenol] 325 mg Capsule 650 mg PO Q6H PRN (Reason: Pain (Scale Score 1-3)) docusate sodium 50 mg Capsule 100 mg PO DAILY Qty: 60 0RF celecoxib [Celebrex] 200 mg Capsule 200 mg PO DAILY psyllium husk [Metamucil] 0.4 gram Capsule 0.4 g PO DAILY amoxicillin-pot clavulanate 875-125 mg tablet 1 tablet PO Q12H Qty: 7 0RF (DME) blood-glucose meter [Accu-Chek Donita Plus Meter] Misc See Rx Instructions .Route Qty: 1 0RF Rx Instructions: check sugar in am and PRN (DME) Accu-Chek Donita Plus test strp Strip See Rx Instructions .Route Qty: 100 0RF Rx Instructions: use to check sugar in AM and PRN (DME) lancing device with lancets [Accu-Chek Soft Dev Lancets] Kit See Rx Instructions .Route Qty: 100 3RF Rx Instructions: Use to check blood sugars BID sertraline 100 mg tablet 100 mg PO DAILY Qty: 90 1RF Rx Instructions: TAKE 1 TABLET DAILY donepezil 5 mg tablet 5 mg PO HS Qty: 90 1RF lisinopril 10 mg tablet 10 mg PO DAILY Qty: 90 1RF famotidine 20 mg tablet 20 mg PO DAILY Qty: 90 1RF finasteride 5 mg tablet 5 mg PO DAILY Qty: 90 1RF Rx Instructions: TAKE 1 TABLET DAILY Follow-up/Referrals: Jerzy Doyle MD [Primary Care Provider] -
--- OUTSIDE RECORDS SUMMARY | 2024-03-28 13:31 | XMS_ITS | Clinical Summary ---
Author Organization [facility] Address [address] [place] [address] Care Team Providers Care Line Installation Supervisor Name Role Phone Unavailable Primary Care Provider Unavailabl e Allergies No known active allergies Medications sulfamethoxazol e-trimethoprim (BACTRIM DS) 800-160 mg tablet Take 1 tablet by mouth every 12 hours. 10 Tablet 11/19/2021 6:43 PM CDT 11/18/2021 Active famotidine (PEPCID) 20 mg tablet Take 1 Tablet (20 mg) by mouth every 12 hours. 120 Tablet 4 08/15/2022 3:47 PM CDT 02/05/2022 Active fluocinonide (LIDEX) 0.05 % Cream Apply twice daily to affected area on leg for no more than 3 weeks in a row. 60 Gram 1 02/13/2022 4:43 PM [employer] 02/09/2022 Active mupirocin (BACTROBAN) 2 % Ointment Apply to the affected area twice daily 22 Gram 04/24/2022 3:36 PM [employer] 04/16/2022 Active mupirocin (BACTROBAN) 2 % Ointment Apply to affected area(s) once daily 66 Gram 05/31/2022 2:24 PM CDT 05/28/2022 Active blood sugar diagnostic Strip USE TO CHECK BLOOD SUGAR IN THE MORNING AND NEEDED. 100 Each 07/14/2022 6:40 PM CDT 07/09/2022 Active Blood-Glucose Meter Use to check blood sugar in the morning and as needed. 1 Each 07/14/2022 6:40 PM CDT 07/09/2022 Active lancets (Accu-Chek Fastclix Lancet Drum) USE TO CHECK BLOOD SUGARS TWICE DAILY. 102 Each 3 04/22/2023 12:26 PM [employer] 09/03/2022 Active amoxicillin-cla vulanate (AUGMENTIN) 875-125 mg tablet Take 1 tablet orally every 12 hours 14 Tablet 02/03/2023 4:19 PM [employer] 02/03/2023 Active HYDROcodone-katherine taminophen (NORCO) 5-325 mg tablet Take 1 tablet orally every 6 hours As Needed for pain 10 Tablet 02/03/2023 4:19 PM [employer] 02/03/2023 Active celecoxib (CeleBREX) 200 mg capsule Take 1 Capsule (200 mg) by mouth daily. 90 Capsule 1 10/14/2023 6:10 PM CDT 04/06/2023 Active sertraline (ZOLOFT) 100 mg tablet Take 1 Tablet (100 mg) by mouth daily. 90 Tablet 1 07/06/2023 1:05 PM CDT 04/06/2023 Active donepeziL (ARICEPT) 5 mg tablet Take 1 Tablet (5 mg) by mouth daily at bedtime. 90 Tablet 1 10/26/2023 12:20 PM CDT 04/06/2023 Active lisinopriL (PRINIVIL) 10 mg tablet Take 1 Tablet (10 mg) by mouth daily. 90 Tablet 1 07/06/2023 1:05 PM CDT 07/02/2023 Active famotidine (PEPCID) 20 mg tablet Take 1 Tablet (20 mg) by mouth daily. 90 Tablet 1 10/14/2023 6:10 PM CDT 07/05/2023 Active cephALEXin (KEFLEX) 500 mg capsule Take 1 capsule by mouth twice a day 28 Capsule 07/14/2023 Active finasteride (PROSCAR) 5 mg tablet Take 1 Tablet (5 mg) by mouth daily. 90 Tablet 1 10/04/2023 6:34 PM CDT 08/09/2023 Active polyethylene glycol (MIRALAX) 17 gram Powder in Packet DISSOLVE 1 PACKET IN LIQUID AND DRINK ONCE DAILY. 30 Each 08/24/2023 Active amoxicillin-cla vulanate (AUGMENTIN) 875-125 mg tablet Take 1 Tablet by mouth every 12 hours. 7 Tablet 03/23/2024 Active Encounters Date Type Department Care Team Description 03/22/2024 External Device Data [facility]STRACTION Provider, Abstract 03/22/2024 External Device Data [facility] ABSTRACTION Provider, Abstract from Last 3 Months Immunizations Immunization Administration Dates Next Due (COMIRNATY)(12 YR UP) COVID- 19 VACCINE, MRNA, SPIKE PROTEIN, LNP, SMITH(PF) 30 MCG/0.3 ML IM SUSP 01/26/2023 (PREVNAR 20)(6 WKS UP) PNEUM OCOCCAL CONJUGATE VACCINE 20-VALENT (PCV20), POLYSACCHARIDE [id number] CONJUGATE, ADJUVANT 0.5 ML (PF) IM 12/23/2022 INFLUENZA VACCINE HIGH DOSE QUADRIVALENT 65 YR U P PF IM 12/23/2022 Social History Tobacco Use Types Packs/Day Years Used Date Smoking Tobacco: Never Assessed Sex and Gender Information Value Date Recorded Sex Assigned at Not on file Legal Sex Male 3:27 PM CDT Gender Identity Not on file Sexual Orientation Not on file Plan of Treatment Health Maintenance Due Date Last Done Comments DTAP/TDAP/TD VACCINES (1 - Tdap) 1955 ZOSTER VACCINE (1 of 2) 1986 RSV VACCINE (60+ or ) (1 - 1-dose 75+ series) 2011 INFLUENZA VACCINE (#1) 2023 12/23/2022 COVID-19 Vaccine (2 - 2023- season) 2023 PNEUMOCOCCAL VACCINE 65+ YEARS Completed 12/23/2022 Insurance RX [employer] (INTERNAL) [facility] RX [employer] Medicare Part B RX [employer] Medicare Part B RX [facility] Medicare Part D RX [employer] (INTERNAL) [facility] [employer] RX [employer] (INTERNAL) [facility] Medicare Part D
--- OUTSIDE RECORDS SUMMARY | 2024-03-28 13:31 | XMS_ITS | Patient Health Summary ---
Author Organization [facility] Address [address] [place] [address] Care Team Providers Care Ski Guide Name Role Phone Unavailable Primary Care Provider Unavailabl e Note from Formerly named [facility],non-owned Affiliates and Associated Physician Practices is amultiple site organization consisting of ambulatory clinics and hospital sitesin [place], [place], [place] and [place]. This disclosure is being madepursuant to the Care Everywhere program and may not contain all information available regarding this patient. Last updated 17.[facility] Social History Tobacco Use Types Packs/Day Years Used Date Smoking Tobacco: Never Assessed Sex and Gender Information Value Date Recorded Sex Assigned at Not on file Gender Identity Not on file Sexual Orientation Not on file Procedures * DERMATOPATHOLOGY(Performed 01/31/2021) * DERMATOPATHOLOGY(Performed 09/11/2020) * DERMATOPATHOLOGY(Performed 07/19/2020) * DERMATOPATHOLOGY(Performed 06/10/2020) Results * DERMATOPATHOLOGY (01/31/2021 3:33 AM SEARCH AND RESCUE OFFICER) Only the most recent of4 resultswithin the time period is included. Case Report Dermatopathology Report ? Case: [id number] ? Authorizing Provider: ??Francois Pollack MD ?Collected: ? 01/31/2021 03:33 AM ? Ordering Location: ? [facility] Care DermPath Lab ?Received: ?02/04/2021 06:18 AM ? Pathologist: ? Shana Serrano, ? MD ? Specimen: ?Skin, right crown ? 4:30 PM [facility] DERMATOPATHOLOGY LABORATORY Final Diagnosis Specimen A. SKIN, right crown: HYPERPLASTIC (HYPERTROPHIC) ACTINIC KERATOSIS, ERODED (L57.0) DERMAL FIBROSIS (L90.5) 4:30 PM [facility] DERMATOPATHOLOGY LABORATORY Clinical History [place] vs [facility]. Path# [id number] 4:30 PM [facility] DERMATOPATHOLOGY LABORATORY Gross Description Specimen A: Received is one formalin filled container labeled with the patient's name and designated right crown. The specimen consists of a shave biopsy measuring [id number]. Jar 0. 4:30 PM [facility] DERMATOPATHOLOGY LABORATORY Microscopic Description Specimen A. SKIN, right crown: There is hyperkeratosis alternating with parakeratosis. There is epidermal hyperplasia with disorderly maturation of keratinocytes with nuclear pleomorphism confined to the lower half of the epidermis. The epidermis is eroded. There is focal dermal fibrosis. 4:30 PM [facility] DERMATOPATHOLOGY LABORATORY Disclaimer An external and internal positive and negative controls are appropriate for the histochemical, immunohistochemical and immunofluorescence stain(s) in this case (if any), except where stated explicitly. The performance characteristics of the stain(s) cited in this report were developed and its performance characteristic determined by the Dermatopathology Laboratory at [facility], directed by Dr. Sadi Ryan. These tests need not be, and therefore are not, approved by the [place] Food and Drug Administration. The tests are used for clinical purposes. Billing Codes Specimen Charges Stain Charges 28966 1 1 4:30 PM [facility] DERMATOPATHOLOGY LABORATORY Embedded Images 1 4:30 PM [facility] DERMATOPATHOLOGY LABORATORY Pathology/Cytolo gy TISSUE SPECIMEN FROM SKIN / Unknown 01/31/2021 3:33 AM SEARCH AND RESCUE OFFICER 02/04/2021 6:18 AM SEARCH AND RESCUE OFFICER Francois Pollack MD LAB - PATHOLOGY/CYTO LOGY ORDERABLES DERMATOPATHOLOGY LABORATORY [facility] - Department of Dermatology [facility] Medicine [address] [place] [address], [address] [phone]
--- OUTSIDE RECORDS SUMMARY | 2024-03-28 13:31 | XMS_ITS | Encounter Summary ---
Author Organization [facility] Address [address] [place] [address] Care Team Providers Care Vice President Integrated Name Role Phone Unavailable Primary Care Provider Unavailabl e Encounter Details Date Type Department Care Team (Late st Contact Info) Description 02/04/2021 Lab Requisition [facility] Care DermPath Lab [address] [place] [address] Francois Pollack MD [address] [address] Social History Tobacco Use Types Packs/Day Years Used Date Smoking Tobacco: Never Assessed Sex and Gender Information Value Date Recorded Sex Assigned at Not on file Gender Identity Not on file Sexual Orientation Not on file documented as of this encounter Plan of Treatment Not on file documented as of this encounter Procedures Procedure Name Priority Date/Time Associated Diagnosis Comments DERMATOPATHOLOGY Routine 01/31/2021 3:33 AM RN NEONATAL ICU documented in this encounter Results * DERMATOPATHOLOGY (01/31/2021 3:33 AM RN NEONATAL ICU) Case Report Dermatopathology Report ? Case: [id number] ? Authorizing Provider: ??Francois Pollack MD ?Collected: ? 01/31/2021 03:33 AM ? Ordering Location: ? [facility] ?Received: ?02/04/2021 06:18 AM ? Pathologist: ? Shana Serrano, ? MD ? Specimen: ?Skin, right crown ? 4:30 PM [facility] DERMATOPATHOLOGY LABORATORY Final Diagnosis Specimen A. SKIN, right crown: HYPERPLASTIC (HYPERTROPHIC) ACTINIC KERATOSIS, ERODED (L57.0) DERMAL FIBROSIS (L90.5) 4:30 PM [facility] DERMATOPATHOLOGY LABORATORY Clinical History AK vs SCCA. Path# [id number] 4:30 PM [facility] DERMATOPATHOLOGY LABORATORY Gross Description Specimen A: Received is one formalin filled container labeled with the patient's name and designated right crown. The specimen consists of a shave biopsy measuring [id number]. Jar 0. 4:30 PM [facility] DERMATOPATHOLOGY LABORATORY Microscopic Description Specimen A. SKIN, right crown: There is hyperkeratosis alternating with parakeratosis. There is epidermal hyperplasia with disorderly maturation of keratinocytes with nuclear pleomorphism confined to the lower half of the epidermis. The epidermis is eroded. There is focal dermal fibrosis. 4:30 PM [facility] DERMATOPATHOLOGY LABORATORY Disclaimer An external and internal positive and negative controls are appropriate for the histochemical, immunohistochemical and immunofluorescence stain(s) in this case (if any), except where stated explicitly. The performance characteristics of the stain(s) cited in this report were developed and its performance characteristic determined by the Dermatopathology Laboratory at [facility], directed by Dr. Sadi Ryan. These tests need not be, and therefore are not, approved by the [place] Food and Drug Administration. The tests are used for clinical purposes. Billing Codes Specimen Charges Stain Charges 08741 1 1 4:30 PM RN NEONATAL ICU DERMATOPATHOLOGY LABORATORY Embedded Images 1 4:30 PM RN NEONATAL ICU DERMATOPATHOLOGY LABORATORY Pathology/Cytolo gy TISSUE SPECIMEN FROM SKIN / Unknown 01/31/2021 3:33 AM RN NEONATAL ICU 02/04/2021 6:18 AM RN NEONATAL ICU Francois Pollack MD LAB - PATHOLOGY/CYTO LOGY ORDERABLES DERMATOPATHOLOGY LABORATORY [facility] - Department of Dermatology [facility] Medicine [address] [place] [address], [address] [phone] documented in this encounter Visit Diagnoses Not on filedocumented in this encounter
--- OUTSIDE RECORDS SUMMARY | 2024-03-28 13:31 | XMS_ITS | Clinical Summary ---
Author Organization [facility] Address [address] [place] [address] Care Team Providers Care Mental Health Assistant Name Role Phone Unavailable Primary Care Provider Unavailabl e Source Comments [facility],non-owned Affiliates and Associated Physician Practices is amultiple site organization consisting of ambulatory clinics and hospital sitesin [place], [place], [place] and [place]. This disclosure is being madepursuant to the Care Everywhere program and may not contain all information available regarding this patient. Last updated 17.[facility] Social History Tobacco Use Types Packs/Day Years Used Date Smoking Tobacco: Never Assessed Sex and Gender Information Value Date Recorded Sex Assigned at Not on file Gender Identity Not on file Sexual Orientation Not on file Plan of Treatment Health Maintenance Due Date Last Done Comments DTAP/TDAP/TD VACCINES (1 - Tdap) 1955 PNEUMOCOCCAL VACCINE 50+ (1 of 1 - PCV) 1986 ZOSTER VACCINE (1 of 2) 1986 Respiratory Syncytial Virus (RSV) Vaccine Pt: or over 60 yrs (1 - 1-dose 75+ series) 2011 COVID-19 VACCINE (2023-2 5 season) 2023 INFLUENZA VACCINE (#1) 2023 DEPRESSION SCREENING 03/01/2024 HEPATITIS B VACCINE Aged Out No longe r eligible based on patient's age to complete this topic HIB VACCINE Aged Out No longer eligi ble based on patient's age to complete this topic HPV VACCINE Aged Out No longer eligi ble based on patient's age to complete this topic MENINGOCOCCAL (Group B) VACCINE Aged Out No longer eligible based on patient's age to complete this topic MENINGOCOCCAL VACCINE Aged Out No cathleen felisa eligible based on patient's age to complete this topic Kameron Downey Personal/Family Self 1935 [address] [place] [address]
--- OUTSIDE RECORDS SUMMARY | 2024-03-28 13:31 | XMS_ITS | Referral Summary ---
Author Organization [facility] Address [address] [place] [address] Care Team Providers Care Interventional Cardiologist Name Role Phone Unavailable Primary Care Provider Unavailabl e Source Comments [facility],non-owned Affiliates and Associated Physician Practices is amultiple site organization consisting of ambulatory clinics and hospital sitesin [place], [place], [place] and [place]. This disclosure is being madepursuant to the Care Everywhere program and may not contain all information available regarding this patient. Last updated 17.[facility] Social History Tobacco Use Types Packs/Day Years Used Date Smoking Tobacco: Never Assessed Sex and Gender Information Value Date Recorded Sex Assigned at Not on file Gender Identity Not on file Sexual Orientation Not on file Plan of Treatment Not on file Kameron Downey Personal/Family Self [address] [place] [address]
--- OUTSIDE RECORDS SUMMARY | 2024-03-28 13:31 | XMS_ITS | Encounter Summary ---
Author Organization [facility] Address [address] [place] [address] Care Team Providers Care Sports Book Writer Name Role Phone Unavailable Primary Care Provider Unavailabl e Encounter Details Date Type Department Care Team (Late st Contact Info) Description 07/22/2020 Lab Requisition [facility] [address] [place] [address] Francois Pollack MD [address] [place] [address] Social History Tobacco Use Types Packs/Day Years Used Date Smoking Tobacco: Never Assessed Sex and Gender Information Value Date Recorded Sex Assigned at Not on file Gender Identity Not on file Sexual Orientation Not on file documented as of this encounter Plan of Treatment Not on file documented as of this encounter Procedures Procedure Name Priority Date/Time Associated Diagnosis Comments DERMATOPATHOLOGY Routine 07/19/2020 12:0 0 AM CDT documented in this encounter Results * DERMATOPATHOLOGY (07/19/2020 12:00 AM CDT) Case Report Dermatopathology Report ? Case: [id number] ? Authorizing Provider: ??Francois Pollack MD ?Collected: ? 07/19/2020 12:00 AM ? Ordering Location: ? [facility] ?Received: ?07/22/2020 06:34 AM ? Pathologist: ? Immanuel Ryan MD ? Specimen: ?Skin, left volar FA ? 4:25 PM CDT DERMATOPATHOLOGY LABORATORY Final Diagnosis Specimen A. SKIN, left volar FA: BASAL CELL CARCINOMA (C44.619) NOT PRESENT AT MARGIN DERMAL SCAR (L90.5) 4:25 PM T DERMATOPATHOLOGY LABORATORY Clinical History Bc proven NOD BCCA. Path# [id number]. Check margins. 4:25 PM T DERMATOPATHOLOGY LABORATORY Gross Description Specimen A: Received is one formalin filled container labeled with the patient's name and designated left volar FA. The specimen consists of a non-oriented ellipse of skin measuring [id number]. The 12 o'clock and 6 o'clock tips are submitted in cassette 1. The remainder of the ellipse is serially sectioned and submitted in cassette 2-3. Jar 0. 1 4:25 PM CDT DERMATOPATHOLOGY LABORATORY Microscopic Description Specimen A. SKIN, left volar FA: Within the dermis there are aggregates of basaloid cells with a high nuclear to cytoplasmic ratio and peripheral palisading. This lesion is not present at the margin of the specimen. There are fibroblasts and collagen bundles oriented parallel to the skin surface with elongated blood vessels, some of which are oriented perpendicular to the skin surface. 4:25 PM T DERMATOPATHOLOGY LABORATORY Disclaimer An external and internal positive and negative controls are appropriate for the histochemical, immunohistochemical and immunofluorescence stain(s) in this case (if any), except where stated explicitly. The performance characteristics of the stain(s) cited in this report were developed and its performance characteristic determined by the Dermatopathology Laboratory at [facility], directed by Dr. Sadi Ryan. These tests need not be, and therefore are not, approved by the [place] Food and Drug Administration. The tests are used for clinical purposes. Billing Codes Specimen Charges Stain Charges 50681 1 1 4:25 PM CDT DERMATOPATHOLOGY LABORATORY Embedded Images 1 4:25 PM CDT DERMATOPATHOLOGY LABORATORY Pathology/Cytolog y TISSUE SPECIMEN FROM SKIN / Unknown 07/19/2020 07/22/2020 6:34 AM CDT Francois Pollack MD LAB - PATHOLOGY/CYTO LOGY ORDERABLES DERMATOPATHOLOGY LABORATORY [facility] - Department of Dermatology [address], [address] [phone] documented in this encounter Visit Diagnoses Not on filedocumented in this encounter
--- OUTSIDE RECORDS SUMMARY | 2024-03-28 13:31 | XMS_ITS | Encounter Summary ---
Author Organization [facility] Address [address] [place] [address] Care Team Providers Care Silk Examiner Name Role Phone Unavailable Primary Care Provider Unavailabl e Encounter Details Date Type Department Care Team (Late st Contact Info) Description 09/13/2020 Lab Requisition [facility] Care Derm[facility] Lab [address] [place] [address] Francois Pollack MD [address] [place] [address] Social History Tobacco Use Types Packs/Day Years Used Date Smoking Tobacco: Never Assessed Sex and Gender Information Value Date Recorded Sex Assigned at Not on file Gender Identity Not on file Sexual Orientation Not on file documented as of this encounter Plan of Treatment Not on file documented as of this encounter Procedures Procedure Name Priority Date/Time Associated Diagnosis Comments DERMATOPATHOLOGY Routine 09/11/2020 3:33 AM CDT documented in this encounter Results * DERMATOPATHOLOGY (09/11/2020 3:33 AM CDT) Case Report Dermatopathology Report ? Case: [id number] ? Authorizing Provider: ??Francois Pollack MD ?Collected: ? 09/11/2020 03:33 AM ? Ordering Location: ? [facility] ?Received: ?09/13/2020 06:21 AM ? Pathologist: ? Hedy Weems MD ? Specimen: ?Skin, right dorsal hand ? 11:[address] [facility] DERMATOPATHOLOGY LABORATORY Final Diagnosis Specimen A. 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 DERMATOPATHOLOGY LABORATORY Clinical History SCCA vs KA. Path # [id number]. 11:[address] [facility] DERMATOPATHOLOGY LABORATORY Gross Description Specimen A: Received is one formalin filled container labeled with the patient's name and designated right dorsal hand. The specimen consists of a shave biopsy measuring [id number]. Jar 0. 11:[address] [facility] DERMATOPATHOLOGY LABORATORY Microscopic Description Specimen A. SKIN, right dorsal hand: There are nests of squamous epithelial cells which arise from the epidermis and extend into the dermis. The nests have only focal central keratinization and rare horn rodney formation. The tumor fails to stain with BerEP4. Additional deeper sections were obtained and reviewed. 11:[address] [facility] DERMATOPATHOLOGY LABORATORY Disclaimer An external and internal positive and negative controls are appropriate for the histochemical, immunohistochemical and immunofluorescence stain(s) in this case (if any), except where stated explicitly. The performance characteristics of the stain(s) cited in this report were developed and its performance characteristic determined by the Dermatopathology Laboratory at [facility], directed by Dr. Sadi Ryan. These tests need not be, and therefore are not, approved by the [place] Food and Drug Administration. The tests are used for clinical purposes. Billing Codes Specimen Charges Stain Charges 13590 1 17751 1 1 11:10 AM CDT DERMATOPATHOLOGY LABORATORY Embedded Images 1 11:10 AM CDT DERMATOPATHOLOGY LABORATORY Pathology/Cytolo gy TISSUE SPECIMEN FROM SKIN / Unknown 09/11/2020 3:33 AM CDT 09/13/2020 6:21 AM CDT Francois Pollack MD LAB - PATHOLOGY/CYTO LOGY ORDERABLES DERMATOPATHOLOGY LABORATORY [facility]erm[facility]ology [facility] Medicine [address] [place] [address], [address] [phone] documented in this encounter Visit Diagnoses Not on filedocumented in this encounter
--- OUTSIDE RECORDS SUMMARY | 2024-03-28 13:31 | XMS_ITS | Encounter Summary ---
Author Organization [facility] Address [address] [place] [address] Care Team Providers Care Medicine Tech Name Role Phone Unavailable Primary Care Provider Unavailabl e Encounter Details Date Type Department Care Team (Late st Contact Info) Description 06/12/2020 Lab Requisition [facility] Care D[facility] Lab [address] [facility] [place] [address] Francois Pollack MD [address] [place] [address] Social History Tobacco Use Types Packs/Day Years Used Date Smoking Tobacco: Never Assessed Sex and Gender Information Value Date Recorded Sex Assigned at Not on file Gender Identity Not on file Sexual Orientation Not on file documented as of this encounter Plan of Treatment Not on file documented as of this encounter Procedures Procedure Name Priority Date/Time Associated Diagnosis Comments DERMATOPATHOLOGY Routine 06/10/2020 3:33 AM CDT documented in this encounter Results * DERMATOPATHOLOGY (06/10/2020 3:33 AM CDT) Case Report Dermatopathology Report ? Case: [id number] ? Authorizing Provider: ??Francois Pollack MD ?Collected: ? 06/10/2020 03:33 AM ? Ordering Location: ? [facility] ?Received: ?06/12/2020 06:45 AM ? Pathologist: ? Immanuel Ryan MD ? Specimens: ?? A) - Skin, left mid chest ? B) - Skin, left volar FA ? C) - Skin, left dwyer ? 1 2:40 PM CDT DERMATOPATHOLOGY LABORATORY Final Diagnosis Specimen A. SKIN, left mid chest: SEBORRHEIC KERATOSIS, INFLAMED (L82.0) Specimen B. SKIN, left volar FA: BASAL CELL CARCINOMA, NODULAR TYPE (C44.619) Specimen C. 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 Path # [id number]. B: BCCA vs SCCA. Path # [id number]. C: BCCA vs SCCA. Path # [id number]. 1 2:40 PM T DERMATOPATHOLOGY LABORATORY Gross Description Specimen A: Received is one formalin filled container labeled with the patient's name and designated left mid chest. The specimen consists of a shave biopsy measuring 3d0q5vx. Jar 0. Specimen B: Received is one formalin filled container labeled with the patient's name and designated left volar FA. The specimen consists of a shave biopsy measuring 1b8w1vb. Jar 0. Specimen C: Received is one formalin filled container labeled with the patient's name and designated left dwyer. The specimen consists of a shave biopsy measuring 3f0t9dt. Jar 0. 1 2:40 PM T DERMATOPATHOLOGY LABORATORY Microscopic Description Specimen A. SKIN, left mid chest: There is hyperkeratosis, parakeratosis, papillomatosis, and acanthosis of the epidermis. Clear cell change is present. There is a lymphohistiocytic infiltrate within the papillary dermis that is focally lichenoid. Specimen B. SKIN, left volar FA: Within the dermis there are aggregates of basaloid cells with a high nuclear to cytoplasmic ratio and peripheral palisading. Specimen C. SKIN, left dwyer: The epidermis shows parakeratosis, full thickness disorderly maturation of keratinocytes, mitoses at different levels, and dyskeratotic cells. 1 2:40 PM T DERMATOPATHOLOGY LABORATORY Disclaimer An external and internal positive and negative controls are appropriate for the histochemical, immunohistochemical and immunofluorescence stain(s) in this case (if any), except where stated explicitly. The performance characteristics of the stain(s) cited in this report were developed and its performance characteristic determined by the Dermatopathology Laboratory at [facility], directed by Dr. Sadi Ryan. These tests need not be, and therefore are not, approved by the [place] Food and Drug Administration. The tests are used for clinical purposes. Billing Codes Specimen Charges Stain Charges 27631 63172 47817 1 1 1 1 2:40 PM CDT DERMATOPATHOLOGY LABORATORY Embedded Images 1 2:40 PM CDT DERMATOPATHOLOGY LABORATORY Pathology/Cytology TISSUE SPECIMEN FROM SKIN / Unknown 06/10/2020 3:33 AM CDT 06/12/2020 6:45 AM CDT Miscellaneous samples (specimen) TISSUE SPECIMEN FROM SKIN / Unknown 06/10/2020 3:33 AM CDT 06/12/2020 6:45 AM CDT Miscellaneous samples (specimen) TISSUE SPECIMEN FROM SKIN / Unknown 06/10/2020 3:33 AM CDT 06/12/2020 6:45 AM CDT Francois Pollack MD LAB - PATHOLOGY/CYTO LOGY ORDERABLES DERMATOPATHOLOGY LABORATORY [facility] - Department of Dermatology [facility] Medicine [address] [place] [address], [address] [phone] documented in this encounter Visit Diagnoses Not on filedocumented in this encounter
== END 2024-03-28 15:12 | disposition expired ==
PROVIDERS: Emergency Provider Emergency Medicine; PCP Family Medicine
DX: R40.4 Transient alteration of awareness (principal); I12.9 Hypertensive chronic kidney disease with stage 1 through stage 4 chronic kidney disease, or unspecified chronic kidney disease; N18.30 Chronic kidney disease, stage 3 unspecified; M19.90 Unspecified osteoarthritis, unspecified site; F03.90 Unspecified dementia, unspecified severity, without behavioral disturbance, psychotic disturbance, mood disturbance, and anxiety
CPT/HCPCS: 96374; 96375; 99284